=== PATIENT | female | born 1945 | race Caucasian/White ===

== ENCOUNTER → 2022-05-06 12:57 | Outpatient (BNVA) | payer MEDICARE, SELFPAY | PROVIDERS: PCP Hospitalist; Visit Provider Surgery | DX: K64.2 Third degree hemorrhoids (principal) | CPT/HCPCS: 46600; 99202 ==

== ENCOUNTER → 2022-05-12 09:00 | Outpatient (REF) | payer MEDICARE, SELFPAY | LOC: HO.SL 09:00 | PROVIDERS: PCP Hospitalist; Visit Provider Hospitalist | DX: G47.33 Obstructive sleep apnea (adult) (pediatric) (principal); G47.30 Sleep apnea, unspecified | CPT/HCPCS: 95806 ==

== ENCOUNTER 2022-09-27 09:28 | Outpatient (REF) | payer MEDICARE, SELFPAY ==
[2022-09-27 11:39] LABS: Appearance Urine Clear; Color Urine Yellow; Glucose Urine UA Negative (Negative); Leukocyte Esterase Urine Small (1+) (Negative); Nitrite Urine Negative (Negative); UMIC TRIGGER UA YES; Urine Blood Negative (Negative); Urine Ketones Negative (Negative); Urine Protein Negative (Neg-Trace)
[2022-09-27 11:46] LABS: Hematocrit 40.7 % (37.0-47.0); Hemoglobin 13.8 g/dl (12.0-16.0); Mean Corpuscular HGB Conc 33.9 g/dl (31.0-35.0); Mean Corpuscular Hemoglobin 29.3 pg (27.0-33.0); Mean Corpuscular Volume 86.4 fL (80.0-98.0); Mean Platelet Volume 10.7 fL (9.4-12.3); Platelet Count 243 X10*3/uL (160-400); Red Blood Count 4.71 X10*6/uL (4.20-5.50); Red Cell Distribution Width 13.4 % (11.0-16.0); White Blood Count 6.9 X10*3/uL (4.8-10.8)
[2022-09-27 12:01] LABS: Alanine Aminotransferase 14 U/L (0-31); Albumin Level 4.2 g/dL (3.5-5.0); Alkaline Phosphatase 77 U/L (39-117); Anion Gap 16 (12-20); Aspartate Amino Transferase 17 U/L (5-31); Blood Urea Nitrogen 15 mg/dL (9-16); Calcium 9.8 mg/dL (8.4-10.2); Carbon Dioxide 29 mmol/L (22-29); Chloride 102 mmol/L (96-108); Cholesterol 147 mg/dL; Estimated Glomerular Filt Rate 44; Glucose Fasting 115 mg/dL (60-99); HDL Cholesterol 43 mg/dL; LDL Cholesterol Calculated 83 mg/dl; Potassium 4.2 mmol/L (3.3-5.1); Sodium 143 mmol/L (135-145); Total Protein 7.6 g/dL (6.5-8.0); Triglycerides 107 mg/dL
[2022-09-27 12:18] LABS: Hyaline Casts Urine 0-2 /LPF (0-2); RBC Urine 0-2 /HPF (0-2)
[2022-09-27 12:19] LABS: Bacteria Urine Trace (None Seen)
[2022-09-27 12:28] LABS: TSH reflex Free T4 1.85 uIU/mL (0.32-4.0)
== END 2022-09-27 09:29 | disposition home or self-care (01) ==
LOC: HO.WFDLDS 09:28
PROVIDERS: Visit Provider Hospitalist
DX: Z00.00 Encounter for general adult medical examination without abnormal findings (principal)
CPT/HCPCS: 36415; 80053; 80061; 81001; 84443; 85027

== ENCOUNTER 2023-03-23 13:00 | Outpatient (RCR) | payer MEDICARE, SELFPAY ==
--- NOTE | 2023-03-02 12:44 | MHC.PT.EP ---
[facility] [place] [facility] [place] Office [place] Office [address] Becky Castellano [address] [phone] F: [phone] F: [phone] F: [phone] F: [phone] Physical Therapy Plan of Care Date of Evaluation: Date of Surgery: NA Diagnosis: PAIN IN R THIGH Assessment: Pt IS 77 YO F REFERRED TO PT FROM [facility] WITH PAIN IN B THIGHS. Pt REPORTS ALWAYS HAS PAIN IN R LEG BUT AT TIMES IN L WELL. REPORTS PAIN FOR ABOUT 1 YEAR OF INSIDIOUS ONSET. REPORTS PAIN SEEMS TO START IN R THIGH AND MOVES DOWN TO REST OF LEG. SOMETIMES FEELS LIKE THIGH IS SLEEPING. REPORTS MOST PAIN WITH PROLONGED SIT. PRESENTS TO PT WITH TRUNK ROM WNLS AND QUAD/HS STRENGTH WNLS WITH MMT. Pt REPORTS RELIEF R LEG SXS WITH PRONE POSITION AND JUAN. SHOULD BENEFIT FROM PT TO WORK ON MIGUE EXTENSION PROGRAM AND CORE STRENGTHENING Frequency and Duration: The patient will be seen 2X/WK X 4 WKS Short Term Goals: 1. CENTRALIZE SXS 2. Pt TO PERF 2-3 TASKS WITH PROPER BODY MECH Senior Care Goals: 1. DECREASED LEG PAIN AT LEAST 50% WITH ADLS 2. I HEP WITH DC EX PLAN Treatment Plan: Modalities to reduce pain, spasms and effusion. Manual therapy to restore motion and function. Therapeutic exercise to improve strength and flexibility. Neuromuscular re-education for posture and balance. Therapeutic activities to return to functional activities of daily living. Electronically signed by: SHANICE DEUTSCH PT Please sign and return to therapist. Thank you for your referral.
--- NOTE | 2023-06-01 08:39 | MHC.PT.DC ---
[facility] [place] Office [place] Office [place] Office [address] Becky Castellano [address] [phone] F: [phone] F: [phone] F: [phone] F: [phone] Physical Therapy Discharge Report Diagnosis: PAIN IN R THIGH Date of Surgery: NA Date of Evaluation: 03/02/23 Date of Discharge: 06/01/23 Treatments to Date: 6 Cancellations to Date: No Shows to Date: Discharge Status: Achieved Goals Improved Function Independent with HEP Discharge Summary: PER LAST PT SESSION ASSESSMENT ON 03/23/23 HAS MET PT GOALS. TO SEE [facility] NEXT WEEK. WILL DC BUT LEAVE CHART OPEN UNTIL AFTER APPT Electronically signed by: SHANICE DEUTSCH PT Please sign and return to therapist. Thank you for your referral.
== END 2023-06-01 08:40 | disposition home or self-care (01) ==
LOC: HO.PTWFD 13:00
PROVIDERS: Visit Provider Hospitalist
DX: M79.651 Pain in right thigh (principal)
CPT/HCPCS: 97110; 97140; 97161; 97535

== ENCOUNTER → 2023-07-28 09:50 | Outpatient (REF) | payer MEDICARE, MEDICAID, SELFPAY ==
--- NOTE | 2023-07-28 09:55 | CA_ITS ---
Transthoracic Echocardiogram Patient (Last, First, Middle): Roseanne Abdi, Gender: Female Date of : 1945 Age: 78 Procedure Date: 07/28/2023 Procedure Type: Transthoracic Echocardiogram Location: OP Height: 160.02 cm Weight: 83.92 kg BSA: 1.87 m2 Heart Rate: bpm BP: 100 / 68 mmHg Rigger Apprentice: TO Referring MD: Kar Gonzalez CNP Symptoms: R01.1 - Cardiac murmur, unspecified Study Quality: Fair ECG Rhythm: Sinus Conclusions: - The left ventricular systolic function is hyperdynamic. The visually estimated ejection fraction is >70%. - There is severe septal and severe basal asymmetric hypertrophy. - There is moderate calcification of the aortic valve. - There is mild aortic valve regurgitation. - There is mild dilatation of the ascending aorta measuring 4.00 cm. Findings Left Ventricle Normal left ventricular cavity size. The left ventricular systolic function is hyperdynamic. The visually estimated ejection fraction is >70%. There is no evidence of regional wall motion abnormalities. Evidence suggests grade I (mild) diastolic dysfunction. There is severe septal and severe basal asymmetric hypertrophy. Right Ventricle Normal right ventricular cavity size and systolic function. Atria Both atria are normal in size. Aortic Valve The aortic valve was not well visualized. There is moderate calcification of the aortic valve. There is no aortic valve stenosis. There is mild aortic valve regurgitation. Mitral Valve There is mild anterior mitral leaflet thickening. There is mild mitral valve regurgitation. There is no mitral valve stenosis. Pulmonic Valve The pulmonic valve is likely normal. Tricuspid Valve There is no tricuspid valve regurgitation. Tricuspid regurgitation envelope is inadequate for calculation of right ventricular systolic pressure. Great Vessels There is mild dilatation of the ascending aorta measuring 4.00 cm. Venous The inferior vena cava was not well visualized. The inferior vena cava is normal in size. Pericardium/Pleural There is no evidence of pericardial effusion. Prior Study Comparison No prior study available for comparison. Measurements 2D Linear Measurements IVSd: 1.70 0.6-0.9/0.6-1.0 cm LVIDd: 3.70 3.9-5.3/4.2-5.9 cm LVIDd Index: 1.98 2.4-3.2/2.2-3.1 cm/m2 LVIDs: 2.60 2.0-3.6 cm LVPWd: 0.90 0.7-1.1 cm LA Diam: 2.80 2.7-3.8/3.0-4.0 cm LAIDs Index: 1.50 1.5-2.3 cm/m2 LV Mass: 207.37 67-162/88-224 g LV Mass Index: 110.89 43-95/49-115 g/m2 LVOT Diam: 2.10 3.0+(-)1.3 cm 2D Systolic Function EF 4C: 61.00 >55% EF 2C: 57.70 >55% EF BiP: 59.80 >55% Mitral Valve MV Pk E: 0.54 MV PK A: 0.96 MV Decel Time: 163.00 E/A: 0.60 E'Lateral: 5.77 E'Medial: 3.26 E/E' Med: 16.70 E/E' Lat: 9.40 PHT: 48.00 MVA PHT: 4.58 Decel [place]: 3.33 Aortic Valve AoV Pk Rangel: 1.90 AoV Mn Rangel: 1.32 AoV VTI: 0.36 AoV Pk Grad: 14.00 Aov Mn Grad: 8.00 GERRY Cont.VTI: 1.63 AI Pk Rangel: 3.83 AI [place]: 2.36 LVOT LVOT Pk Rangel: 0.95 LVOT Mn Rangel: 0.61 LVOT VTI: 0.17 LVOT Pk Grad: 4.00 LVOT Mn Grad: 2.00 LVOT Diam: 2.10 LVOT Area: 3.46 Diastolic Function MV Pk E: 0.54 MV Pk A: 0.96 E/A: 0.60 E'Medial: 3.26 E/E' Med: 16.70 E' Laterial: 5.77 E/E' Lat: 9.40 Right Ventricle TAPSE (mm): 20.00 TVS' Rangel: 9.36 Tricuspid Valve RA Press: 3.00 Great Vessels Aorta Sinus of Valsalva: 3.50 2.0-3.[address] [place]: 2.70 1.7-3.4 cm Ao Asc: 4.00 2.1-3.4 cm Updated in Other Vendor System with Status of Final Steve Bauer MD electronically signed on 07/29/2023 9:13:41 AM with status of Final
== END ==
LOC: HO.CARD 09:50
PROVIDERS: PCP Hospitalist; Visit Provider Nurse Practitioner Family
DX: R01.1 Cardiac murmur, unspecified (principal)
CPT/HCPCS: 93306

== ENCOUNTER → 2023-07-28 09:55 | Outpatient (BNV) | payer MEDICARE, SELFPAY | PROVIDERS: PCP Hospitalist; Visit Provider Internal Medicine | DX: I35.1 Nonrheumatic aortic (valve) insufficiency (principal); I34.0 Nonrheumatic mitral (valve) insufficiency | CPT/HCPCS: 93306 ==

== ENCOUNTER 2023-08-24 11:57 | Outpatient (AMB) | payer MEDICARE, SELFPAY ==
--- NOTE | 2023-08-24 12:31 | MHC.OFFVIS ---
Intake Vital Signs 08/24/23 12:33 Height 5 ft 3 in Weight 183 lb 10.321 oz BMI 32.5 BP 114/76 Blood Pressure Location Lt brachial Position Sitting Pulse 80 Intake Visit Reasons: NPV/Murmur/Johnson. Intake Note: NPV w/ EKG Boiler Room Operator Required: Yes Boiler Room Operator Language: Field Sales Manager Name: Ricky Cordoba Accompanied by: granddaughter Allergies pravastatin Adverse Reaction (Verified 08/24/23 12:34) muslce pain Medication List - Last Reconciled 08/24/23 by Steve Bauer MD ascorbic acid (vitamin C) 500 mg (1/2 x 1,000 mg) PO DAILY blood pressure kit-extra large check bp daily and as needed for headache/dizziness cholecalciferol (vitamin D3) 25 mcg PO DAILY cyanocobalamin (vitamin B-12) 1,000 mcg PO DAILY diltiazem HCl (Cardizem CD) 240 mg PO DAILY DM-GG/npmaafv-BS-pnqsklypdiccn 10-200 mg(dy)/2 -15-500 mg(nt) (Coricidin HBP Day-Night) 1 ea PO TID PRN erythromycin 0.5 inches ophthalmic (eye) QID gabapentin 800 mg PO BID levothyroxine 137 mcg PO DAILY meloxicam 7.5 mg PO DAILY 30 days menthol-zinc oxide 0.44-20.6 % (Calmoseptine) 1 appl topical QID PRN menthol-zinc oxide 0.44-20.6 % (Calmoseptine) 1 appl topical QID PRN metformin 500 mg PO DAILY miscellaneous medical supply cpap therapy with auto pap mode and pressure settings 6-20 cm followed by close monitoring for compliance and benefit as directed; test to be included with fax multivitamin 1 tab PO DAILY omeprazole 20 mg PO DAILY triamterene-hydrochlorothiazid 37.5-25 mg 1 tab PO DAILY 3 months HPI HPI Comments History of Present Illness Details Roseanne is here for evaluation for cardiac murmur. She underwent echocardiogram recently. That showed hyperdynamic LVEF with severe septal hypertrophy and moderate aortic valve calcification. Patient herself does not have any cardiac symptoms. She does not have any exertional chest pain or exertion shortness of breath or in fact any symptoms at all. Denies any history of coronary artery disease or myocardial infarction or cardiomyopathy or in fact anything else. Has hypertension. Per patient, has been on diltiazem for many years. Also on triamterene/HCTZ. Several record blood pressures here or in the normal range. Patient thinks some of the home diastolics are higher than that. [facility] Medical History Arthritis Carpal tunnel syndrome Diabetes Glaucoma Gout Hemorrhoids HTN (hypertension) Hypothyroid Neuropathy Sleep apnea Surgical History Hx of sinus surgery H/O eye surgery Hx of tubal ligation History of thyroid surgery Hx of cholecystectomy Family History (Updated 08/24/23 @ 12:36 by Qing Jacobs) Mother No problems noted. Father No problems noted. Social History Household Members: Family Housing: House Alcohol intake: former Patient Tobacco Use Status: Former Tobacco user e-Cigarette/Vaping Use: Never Used Current occupational status: employed and disabled Review of Systems Const All systems reviewed & are unremarkable except as noted in HPI and below Reports as per HPI and Reports no additional complaints Eyes Reports as per HPI and Denies no additional complaints ENT Denies no additional complaints and Reports as per HPI Card Reports as per HPI, Reports no additional complaints, Denies acrocyanosis, Denies chest pain, Denies leg edema, Denies lightheadedness, Denies palpitations and Denies dyspnea Resp Reports as per HPI, Denies no additional complaints and Denies dyspnea GI Reports as per HPI and Denies no additional complaints Reports as per HPI Musc Reports no additional complaints and Reports as per HPI Skin/Breast Reports system reviewed and no additional complaints, except as documented Neuro Reports no additional complaints and Reports as per HPI Psych Reports no additional complaints and Reports as per HPI Endo Reports no additional complaints, Reports as per HPI and Denies palpitations Evin/Lymph Reports no additional complaints and Reports as per HPI Aller/Immun Reports no additional complaints and Reports as per HPI Physical Exam Vital Signs: Last Vital Signs Pulse 80 08/24/23 12:33 BP 114/76 08/24/23 12:33 BMI result Body Mass Index 32.5 Const General: comfortable and no acute distress Orientation/consciousness: patient oriented x3 HEENT Other: Unremarkable Head: Yes normal to inspection Neck Neck: Yes normal visual inspection Chest Chest palpation & inspection: normal inspection of the chest Resp Auscultation: clear to auscultation bilaterally Cardio Palpation: normal PMI Heart sounds: S1 normal heart sound present, S2 normal heart sound present, no gallops, Murmur heart sound present systolic II/ and at the right sternal border and no rubs GI Palpation (GI): Soft to palpation Back/Spine/Pelvis Other: unremarkable Skin General skin exam: no rashes or lesions noted Neuro General: patient oriented x3 Extrem General: Yes normal to inspection Psych Mental Status: mental status grossly normal Assessment & Plan Assessment & Plan (1) Asymmetric septal hypertrophy: Code(s): I42.2 - Other hypertrophic cardiomyopathy (2) Aortic valve calcification: Code(s): I35.9 - Nonrheumatic aortic valve disorder, unspecified (3) Ascending aorta enlargement: Code(s): I77.89 - Other specified disorders of arteries and arterioles Plan EKG with sinus rhythm at 80/Min; leftward axis and voltage criteria for LVH; normal [place] and corrected QT. In the recent echocardiogram, hyperdynamic LVEF; there is severe basal septal hypertrophy; moderate aortic valve calcification with mild regurgitation; ascending aortic size 4 cm. Findings discussed with patient and granddaughter. Clinically, she has got absolutely no symptoms. Hence we will just continue to monitor this. With regard to blood pressure, essentially all her readings are in the normal range. Hence no changes made. Follow-up with echocardiogram in 1 year. In the interim, advised to contact us with concerns. tariff inspector was used. Orders: Orders CA echo transthoracic complete 51 Weeks I35.9 - Nonrheumatic aortic valve disorder, unspecified, I42.2 - Other hypertrophic cardiomyopathy Coding Level of Care Code New Pt Level 3 (98590) Diagnoses Asymmetric septal hypertrophy I42.2 Aortic valve calcification I35.9 Ascending aorta enlargement I77.89
[2023-08-24 12:33] VITALS: BP 114/76; PULSE 80; BMI 32.5
== END 2023-08-24 12:55 | disposition home or self-care (01) ==
PROVIDERS: PCP Hospitalist; Visit Provider Internal Medicine
DX: I42.2 Other hypertrophic cardiomyopathy (principal); I35.9 Nonrheumatic aortic valve disorder, unspecified; I77.89 Other specified disorders of arteries and arterioles; R94.31 Abnormal electrocardiogram [ECG] [EKG]
CPT/HCPCS: 93010; 99203

== ENCOUNTER → 2023-08-24 11:57 | Outpatient (BNVA) | payer MEDICARE, SELFPAY | PROVIDERS: PCP Hospitalist; Visit Provider Internal Medicine | DX: I42.2 Other hypertrophic cardiomyopathy (principal); I35.9 Nonrheumatic aortic valve disorder, unspecified; I77.89 Other specified disorders of arteries and arterioles | CPT/HCPCS: 93005 ==

== ENCOUNTER 2023-08-30 11:25 | Outpatient (AMB) | payer MEDICARE, SELFPAY ==
--- NOTE | 2023-08-30 11:28 | MHC.PC.OV ---
Vital Signs 08/30/23 11:30 Height 5 ft 3 in Weight 181 lb 2 oz BMI 32.1 BP 110/70 Blood Pressure Location Lt brachial Position Sitting Respiration 13 Pulse 80 Pulse Source Pulse Oximeter Temp 98.9 F Temp Source Oral Pulse Oximetry (%) 95 Oxygen Delivery Method Room Air Intake Visit Reasons: 3 mos for DM, leg and buttock pain Intake Note: Patient is here to follow up for her 3 month visit. Patient's last A1C was in March with a result of 6.8%. Patient is accompanied by her daughter at today's visit. Dukey Rider Required: No Dukey Rider Name: Antony ([id number]) Accompanied by: Self / Same As Patient Allergies pravastatin Adverse Reaction (Verified 08/30/23 11:52) muslce pain Medication List - Last Reconciled 08/30/23 by Kar Gonzalez CNP ascorbic acid (vitamin C) 500 mg (1/2 x 1,000 mg) PO DAILY blood pressure kit-extra large check bp daily and as needed for headache/dizziness cholecalciferol (vitamin D3) 25 mcg PO DAILY cyanocobalamin (vitamin B-12) 1,000 mcg PO DAILY diltiazem HCl (Cardizem CD) 240 mg PO DAILY erythromycin 0.5 inches ophthalmic (eye) QID gabapentin 800 mg PO BID levothyroxine 137 mcg PO DAILY meloxicam 7.5 mg PO DAILY 30 days menthol-zinc oxide 0.44-20.6 % (Calmoseptine) 1 appl topical QID PRN menthol-zinc oxide 0.44-20.6 % (Calmoseptine) 1 appl topical QID PRN metformin 500 mg PO DAILY miscellaneous medical supply cpap therapy with auto pap mode and pressure settings 6-20 cm followed by close monitoring for compliance and benefit as directed; test to be included with fax multivitamin 1 tab PO DAILY omeprazole 20 mg PO DAILY triamterene-hydrochlorothiazid 37.5-25 mg 1 tab PO DAILY 3 months Tobacco use date assessed: 02/17/23 Fall risk assessment: 1 Fall in past year Last assessed Fall Risk: 08/30/23 Dental Screening Dental Screen Date: 08/30/23 Did you have a dental visit in the last 12 months?: Yes Did you have a dental problem in the last 6 months where you did not have access to dental care?: No Was dental information given to patient?: Patient has dentist HPI HPI Comments History of Present Illness Details 78-year-old English speaking female, accompanied by her granddaughter, presents for diabetes follow-up. She is on metformin 500 mg daily which she notes she has been taking as prescribed. She notes she has been maintaining a healthy diet. Her last A1c in March was 6.8%. She reports continued pain to her BLE. She describes the pain as burning. She notes some improvement with meloxicam, however, ran out of the medication. She has been taking Gabapentin 800mg twice daily without improvement. She is [place] [facility] [place] [facility] Medical History Arthritis Carpal tunnel syndrome Diabetes Glaucoma Gout Hemorrhoids HTN (hypertension) Hypothyroid Neuropathy Sleep apnea Surgical History Hx of sinus surgery H/O eye surgery Hx of tubal ligation History of thyroid surgery Hx of cholecystectomy Family History (Updated 08/24/23 @ 12:36 by Qing Jacobs) Mother No problems noted. Father No problems noted. Social History Household Members: Family Housing: House Alcohol intake: former Patient Tobacco Use Status: Former Tobacco user e-Cigarette/Vaping Use: Never Used service: No Current occupational status: employed and disabled Cognitive needs: No Hearing needs: No Vision needs: No Questionnaire Thrive Questionnaire Date Thrive assessed: 12/14/22 Review of Systems Const Details: Const Denies chills, Denies fatigue, Denies fever(s), Denies headache(s) and Denies weakness ENT Denies dizziness and Denies headache(s) Card Denies chest pain, Denies lightheadedness, Denies dyspnea and Denies other (Palpitations) Resp Denies cough, Denies dyspnea, Denies wheezing and Denies other ( shortness of breath) GI Denies abdominal pain, Denies melena, Denies hematochezia, Denies change in bowel habits, Denies dyspepsia and Denies nausea Denies hematuria and Denies dysuria Musc Reports as per HPI Skin/Breast Denies rash, Denies unusual bruising and Denies wounds Neuro Denies abnormal gait, Denies dizziness, Denies headache(s), Denies memory loss, Denies numbness, Denies Sensory deficit (Neuro), Denies tingling and Denies weakness Psych Denies anxiety, Denies depression, Denies memory loss Endo Denies cold intolerance, Denies fatigue, Denies heat intolerance, Denies polydipsia and Denies polyuria Aller/Immun Denies wheezing Physical exam (Primary Care) Vital Signs: Last Vital Signs Temp 98.9 F 08/30/23 11:30 Pulse 80 08/30/23 11:30 Resp 13 08/30/23 11:30 BP 110/70 08/30/23 11:30 Pulse Ox 95 08/30/23 11:30 Oxygen Delivery Method Room Air 08/30/23 11:30 BMI result Body Mass Index 32.1 Tobacco/Smoking Status: Tobacco use Status Tobacco use date assessed 02/17/23 08/30/23 11:35 Patient Tobacco Use Status Former Tobacco user 08/30/23 11:35 e-Cigarette/Vaping Use Never Used 08/30/23 11:35 Thrive Assessment: Date of Thrive Assessment Date Thrive assessed 12/14/22 08/30/23 11:35 Const Other: General: no acute distress and well developed Nutritional Appearance: well nourished Orientation/consciousness: patient oriented x3 HENMT Head: Yes normocephalic and Yes atraumatic Eyes General: appearance normal, both eyes and all related structures Pupils: Equal, round and reactive pupils present EOM: EOMs intact bilaterally Resp Effort & Inspection: normal respiratory effort Auscultation: clear to auscultation bilaterally Cardio Rate: regular rate Rhythm: regular rhythm Heart sounds: S1 normal heart sound present, S2 normal heart sound present, no gallops, no murmurs and no rubs GI Palpation (GI): No Abdominal aortic bruit present, Soft to palpation, nontender, No hepatosplenomegaly present and No Rebound tenderness present Auscultation: normal bowel sounds General: Yes no CVA tenderness Back/Spine/Pelvis Back: no CVA tenderness Cervical Spine: cervical ROM normal and No Cervical spine tenderness Thoracic/Lumbar Spine: thoraco-lumbar ROM normal, No pain with thoraco-lumbar ROM, No thoracic spinal tenderness and No lumbar spinal tenderness Extrem General: Yes normal to inspection, No edema and No calf tenderness Negative straight leg raise bilaterally Skin General: warm and dry. Normal skin color. Normal skin turgor Neuro General: patient oriented x3, gait normal and no focal neuro deficit Cranial nerves: Yes Equal, round and reactive pupils present Cognition (Neuro): normal cognition Gait exam (Neuro): Normal gait present Sensory Exam: No Sensory deficit (Neuro) Psych Appearance: grossly normal Affect: normal affect Attitude: cooperative Thought process: Normal thought process present Results AMB Hemoglobin A1c AMB Hemoglobin A1c 6.6 % Last Edit by Anabel Pereira CMA on 08/30/23 12:11 Assessment and Plan Assessment & Plan (1) Type 2 diabetes, controlled, with neuropathy: Code(s): E11.40 - Type 2 diabetes mellitus with diabetic neuropathy, unspecified Plan: Her A1c 6.6% today, within goal of less than 7.0%. Previous A1c was 6.8% Continue with current treatment regimen ADA diet and routine exercise encouraged Will recheck A1c in 3 months Advised to waste picker meloxicam from the pharmacy and take as prescribed for neuropathic pain Gabapentin increased to 3 times daily. Take as prescribed for neuropathic pain Routine labs ordered for a complete physical exam. Advised to get blood work done before her next visit Follow-up in 1 month for complete physical exam. Return sooner with worsening or new symptoms. Verbalized understanding and agreed with treatment plan Interpretation by a professional certified court/medical interpreter via an electronic tablet. (2) HTN (hypertension): Code(s): I10 - Essential (primary) hypertension Qualifiers: Hypertension type: primary hypertension Qualified Code(s): I10 - Essential (primary) hypertension Plan: Blood pressures control, 110/70, within goal of less than 130/80 Continue with current treatment regimen Low-sodium diet encouraged Will continue to monitor Verbalized understanding and agreed with treatment plan. Orders: Orders Complete Blood Count Auto Diff Today Z00.00 - Encounter for general adult medical examination without abnormal findings Lipid Panel Today Z00.00 - Encounter for general adult medical examination without abnormal findings TSH reflex Free T4 Today Z00.00 - Encounter for general adult medical examination without abnormal findings AMB Hemoglobin A1c Today Z13.9 - Encounter for screening, unspecified Comprehensive [place]. Panel Fast Today Z00.00 - Encounter for general adult medical examination without abnormal findings UA CC w/rflx Micro + Cult Today Z00.00 - Encounter for general adult medical examination without abnormal findings Medications: Changed From gabapentin 800 mg PO BID 180 tabs 3RF To gabapentin 800 mg PO TID 90 tabs 3RF 30 days Coding Level of Care Code Est Pt Level 4 (28258) Diagnoses Type 2 diabetes, controlled, with neuropathy E11.40 Primary hypertension I10 Hypertension type: primary hypertension
[2023-08-30 11:30] VITALS: BP 110/70; PULSE 80; RESP 13; TEMP 37.2; O2SAT 95; BMI 32.1
== END 2023-08-30 12:32 | disposition home or self-care (01) ==
PROVIDERS: Visit Provider Nurse Practitioner Family
DX: E11.40 Type 2 diabetes mellitus with diabetic neuropathy, unspecified (principal); I10 Essential (primary) hypertension; Z13.9 Encounter for screening, unspecified
CPT/HCPCS: 83036; 99214

== ENCOUNTER 2023-08-30 12:33 | Outpatient (REF) | payer MEDICARE, SELFPAY ==
[2023-08-30 14:30] LABS: MANUAL DIFF FLAG NO
[2023-08-30 14:31] LABS: Basophils Percent Auto 0.6 % (0-2); Eosinophils Absolute Auto 0.3 X10*3/uL (0.0-0.4); Hematocrit 42.2 % (37.0-47.0); Hemoglobin 14.5 g/dl (12.0-16.0); Imm Gran Abs Auto 0.02 X10*3/uL (0.00-0.03); Imm Gran Pct Auto 0.3 % (0.0-0.4); Lymphocytes Absolute Auto 2.4 X10*3/uL (1.2-4.9); Lymphocytes Percent Auto 39.2 % (20-40); Mean Corpuscular HGB Conc 34.4 g/dl (31.0-35.0); Mean Corpuscular Volume 87.4 fL (80.0-98.0); Mean Platelet Volume 10.7 fL (9.4-12.3); Monocytes Absolute Auto 0.5 X10*3/uL (0.1-1.2); Monocytes Percent Auto 7.3 % (2-11); Neutrophils Absolute Auto 2.9 x10*3/uL (2.0-8.3); Neutrophils Percent Auto 47.6 % (45-73); Platelet Count 237 X10*3/uL (160-400); Red Blood Count 4.83 X10*6/uL (4.20-5.50); Red Cell Distribution Width 13.9 % (11.0-16.0); White Blood Count 6.2 X10*3/uL (4.8-10.8)
[2023-08-30 14:32] LABS: Appearance Urine Cloudy; Color Urine Yellow; Glucose Urine UA Negative (Negative); Leukocyte Esterase Urine Large (3+) (Negative); Nitrite Urine Negative (Negative); Specific Gravity - Urine 1.015 (1.005-1.025); UMIC TRIGGER UACC YES; Urine Blood Negative (Negative); Urine Ketones Negative (Negative); Urine Protein Negative (Neg-Trace)
[2023-08-30 14:35] LABS: Bacteria Urine 1+ (None Seen); Hyaline Casts Urine 0-2 /LPF (0-2); Squamous Epithelial Cell Urine >20 /HPF (0-2); UACC Culture Trigger YES
[2023-08-30 15:34] LABS: Alanine Aminotransferase 19 U/L (0-31); Albumin Level 4.1 g/dL (3.5-5.0); Alkaline Phosphatase 83 U/L (39-117); Anion Gap 16 (12-20); Aspartate Amino Transferase 20 U/L (5-31); Bilirubin Total 0.9 mg/dL (0.0-1.0); Blood Urea Nitrogen 16 mg/dL (9-16); Calcium 9.9 mg/dL (8.4-10.2); Carbon Dioxide 27 mmol/L (22-29); Chloride 104 mmol/L (96-108); Cholesterol 171 mg/dL (<200); Estimated Glomerular Filt Rate 44; Glucose Fasting 111 mg/dL (60-99); HDL Cholesterol 40 mg/dL (>40); LDL Cholesterol Calculated 101 mg/dL (<100); Potassium 4.7 mmol/L (3.3-5.1); Sodium 142 mmol/L (135-145); Triglycerides 153 mg/dL (<150)
[2023-08-30 15:51] LABS: TSH reflex Free T4 1.59 uIU/mL (0.32-4.0)
== END 2023-08-30 12:34 | disposition home or self-care (01) ==
LOC: HO.WFDLDS 12:33
PROVIDERS: Visit Provider Nurse Practitioner Family
DX: Z00.00 Encounter for general adult medical examination without abnormal findings (principal)
CPT/HCPCS: 36415; 80053; 80061; 81001; 84443; 85025; 87086

== ENCOUNTER 2023-10-12 12:22 | Outpatient (AMB) | payer MEDICARE, SELFPAY ==
[2023-10-12 12:34] VITALS: BP 122/70; PULSE 91; O2SAT 96; BMI 32.7
--- NOTE | 2023-10-12 12:34 | A.OFFPC_ITS ---
Vital Signs 10/12/23 12:34 Height 5 ft 3 in Weight 184 lb 8 oz BMI 32.7 BP 122/70 Blood Pressure Location Lt brachial Position Sitting Pulse 91 Pulse Source Pulse Oximeter Pulse Oximetry (%) 96 Oxygen Delivery Method Room Air Intake Visit Reasons: CPE Transfer of care Intake Note: Patient is here for transfer of care visit. She is has concern of burning under the feet. She has felt this way since last visit. Allergies pravastatin Adverse Reaction (Verified 10/12/23 12:59) muslce pain Medication List - Last Reconciled 10/12/23 by Kar Gonzalez CNP ascorbic acid (vitamin C) 500 mg (1/2 x 1,000 mg) PO DAILY blood pressure kit-extra large check bp daily and as needed for headache/dizziness cholecalciferol (vitamin D3) 25 mcg PO DAILY cyanocobalamin (vitamin B-12) 1,000 mcg PO DAILY diltiazem HCl (Cardizem CD) 240 mg PO DAILY erythromycin 0.5 inches ophthalmic (eye) QID gabapentin 800 mg PO TID 30 days levothyroxine 137 mcg PO DAILY meloxicam 7.5 mg PO DAILY 30 days menthol-zinc oxide 0.44-20.6 % (Calmoseptine) 1 appl topical QID PRN menthol-zinc oxide 0.44-20.6 % (Calmoseptine) 1 appl topical QID PRN metformin 500 mg PO DAILY miscellaneous medical supply cpap therapy with auto pap mode and pressure settings 6-20 cm followed by close monitoring for compliance and benefit as directed; test to be included with fax multivitamin 1 tab PO DAILY omeprazole 20 mg PO DAILY triamterene-hydrochlorothiazid 37.5-25 mg 1 tab PO DAILY 3 months Tobacco use date assessed: 10/12/23 Fall risk assessment: 1 Fall in past year Last assessed Fall Risk: 10/12/23 HPI HPI Comments History of Present Illness Details 78-year-old Wolof-speaking female, acc ompanied by his grandson, pres ents for transfer of care and a complete physical exam She relocated from [place] to [facility] almost 2 years ago Her former PCP is JYOTI who is no longer with the practice She has past medical history significant for type 2 diabetes with neuropathy, hypertension, hypothyroidism, heart murmur, aortic valve calcification, DIANA, right eye blindness, and arthritis She admits to taking her medications as prescribed without adverse reactions She notes that her former PCP discontinued her pravastatin due to concern for possible adverse reaction of bilateral lower extremity pain that the patient was experiencing. The patient notes that she continues to experience intermittent bilateral extremity pain from her knees to her feet. She described the pain to her feet as burning. She denies acute symptoms at this time. She notes that she is not followed by a sampler and test preparer She notes that her last mammogram and pap smear test was at [facility] almost a year ago: normal. Per [facility] record, last mammogram was on 09/23/2022: Normal. No record found for Pap smear test She states that her last colonoscopy was in [place] 3-4 years ago: normal She notes that she was vaccinated for shingles and pneumonia in [place] She is followed by [facility] Medical History Arthritis Carpal tunnel syndrome Diabetes Glaucoma Gout Hemorrhoids HTN (hypertension) Hypothyroid Neuropathy Sleep apnea Surgical History Hx of sinus surgery H/O eye surgery Hx of tubal ligation History of thyroid surgery Hx of cholecystectomy Family History (Updated 08/24/23 @ 12:36 by Qing Jacobs) Mother No problems noted. Father No problems noted. Social History Household Members: Family Housing: House Alcohol intake: former Patient Tobacco Use Status: Former Tobacco user e-Cigarette/Vaping Use: Never Used service: No Current occupational status: employed and disabled Cognitive needs: No Hearing needs: No Vision needs: No Questionnaire Thrive Questionnaire Date Thrive assessed: 12/14/22 Review of Systems Const Details: Denies chills, Denies fatigue, Denies fever(s), Denies headache(s) and Denies weakness HEENT Denies change in vision, Denies dizziness, Denies headache(s), Denies hearing loss, Denies nasal congestion, Denies sinus pain, Denies sinus pressure and Denies sore throat Card Denies chest pain, Denies lightheadedness, Denies dyspnea and Denies other (palpitations) Resp Denies cough, Denies dyspnea and Denies wheezing GI Denies abdominal pain, Denies melena, Denies hematochezia, Denies change in bowel habits, Denies dyspepsia and Denies nausea Denies hematuria and Denies dysuria Musc Denies abnormal gait, Denies myalgias, Denies arthralgias, Denies numbness and Denies tingling Skin/Breast Denies rash, Denies unusual bruising and Denies wounds Neuro Denies abnormal gait, Denies dizziness, Denies headache(s), Denies memory loss, Denies numbness, Denies Sensory deficit (Neuro), Denies tingling and Denies weakness Psych Denies anxiety, Denies depression and Denies memory loss Endo Denies cold intolerance, Denies fatigue, Denies heat intolerance, Denies polydipsia and Denies polyuria Evin/Lymph Denies easy bleeding and Denies easy bruising Aller/Immun Denies wheezing Physical exam (Primary Care) Vital Signs: Last Vital Signs Pulse 91 10/12/23 12:34 BP 122/70 10/12/23 12:34 Pulse Ox 96 10/12/23 12:34 Oxygen Delivery Method Room Air 10/12/23 12:34 BMI result Body Mass Index 32.7 Tobacco/Smoking Status: Tobacco use Status Tobacco use date assessed 02/17/23 10/12/23 12:36 Patient Tobacco Use Status Former Tobacco user 10/12/23 12:36 e-Cigarette/Vaping Use Never Used 10/12/23 12:36 Thrive Assessment: Date of Thrive Assessment Date Thrive assessed 12/14/22 10/12/23 12:36 Const Other: General: no acute distress, well developed, alert and awake Nutritional Appearance: well nourished Orientation/consciousness: patient oriented x3 HENMT Head: Yes normocephalic and Yes atraumatic Ears: hearing grossly normal bilaterally and TM's normal bilaterally General nose exam: Normal external nose present and Normal nares present Mouth: Normal oral and palatal mucosa present and moist mucous membranes Teeth and gingiva: dentition normal Throat: Yes oropharynx normal Eyes Pupils: Left eye, round and reactive pupils present and Pupil accommodation reflex normal. Poor right eye repsone EOM: EOMs intact of the right eye. Right eye with no vision and poor response Neck Neck: Yes normal visual inspection, Yes no lymphadenopathy and Yes trachea midline Thyroid: Thyroid normal Carotids: no bruits Lymphatic: no lymphadenopathy noted Chest Chest palpation & inspection: normal inspection of the chest Resp Effort & Inspection: normal respiratory effort Auscultation: clear to auscultation bilaterally Cardio Rate: regular rate Rhythm: regular rhythm Heart sounds: S1 normal heart sound present, S2 normal heart sound present, no gallops, murmurs and no rubs Bruits: no abdominal aortic bruits and no carotid bruits GI Palpation (GI): No Abdominal aortic bruit present, Soft to palpation, nontender, No hepatosplenomegaly present and No Rebound tenderness present Auscultation: normal bowel sounds General: Yes no CVA tenderness Back/Spine/Pelvis Back: no CVA tenderness Cervical Spine: cervical ROM normal and No Cervical spine tenderness Thoracic/Lumbar Spine: thoraco-lumbar ROM normal, No pain with thoraco-lumbar ROM, No thoracic spinal tenderness and No lumbar spinal tenderness Skin General: warm and dry. Normal skin color. Normal skin turgor Lesions: no lesions Rashes: no rashes Trauma: no lacerations or abrasions Wounds: no wounds Nails: normal Neuro General: patient oriented x3, gait normal and CN's II-XI intact bilaterally Cranial nerves: Yes Equal, round and reactive pupils present Cognition (Neuro): normal cognition Gait exam (Neuro): Normal gait present Motor exam (neuro): 5/5 motor strength present throughout Sensory Exam: No Sensory deficit (Neuro) Deep tendon reflexes (DTR's): Right patellar reflex intensity grade: 2+ and Left patellar reflex intensity grade: 2+ Extrem General: Yes normal to inspection, No edema and No calf tenderness Psych Appearance: grossly normal Affect: normal affect Attitude: cooperative Thought process: Normal thought process present Assessment and Plan Assessment & Plan (1) Normal physical examination, routine: Code(s): Z00.00 - Encounter for general adult medical examination without abnormal findings Plan: No significant physical restrictions or limitations noted Continue current treatment regimen Advised to follow-up in 2 months for diabetes, hypertension, and hyperlipidemia Follow-up with Cardiology and ophthalmology as planned Return sooner with symptoms or concerns Verbalized understanding and agreed with treatment plan (2) Elevated LDL cholesterol level: Code(s): E78.00 - Pure hypercholesterolemia, unspecified Plan: She had lipid panel blood work done last month. Triglycerides and LDL were elevated, 153 and 101 respectively. LDL goal is less than 70 She notes that her PCP discontinued pravastatin due to concern for possible adverse reaction of bilateral lower extremity pain. She continues to experience intermittent bilateral lower extremity pain Will reorder pravastatin. Advised to take as prescribed Advised to limit foods high in saturated fat and avoid foods high trans fat Routine exercise encouraged Will recheck lipid panel. Advised to fast for 10-12 hours, may drink water only and get blood work done before her next visit Follow-up in 2 months Verbalized understanding and agreed with treatment plan (3) Type 2 diabetes, controlled, with neuropathy: Code(s): E11.40 - Type 2 diabetes mellitus with diabetic neuropathy, unspecified Orders: Orders Microalbumin, Random (w Creat) Today E11.40 - Type 2 diabetes mellitus with diabetic neuropathy, unspecified Lipid Panel 2 Months E78.00 - Pure hypercholesterolemia, unspecified Referrals Podiatry Referral E11.40 - Type 2 diabetes mellitus with diabetic neuropathy, unspecified Medications: New pravastatin 40 mg PO BEDTIME 30 days 30 tabs 3RF Patient Instructions: Her recent A1c was 6.6% last month She has never been followed by sampler and test preparer Her last eye exam was in March 2023. She has a follow-up appointment next month Advised to continue current treatment regimen Referred to Podiatry Continue follow-up pulmonology as planned No record for microalbumin/creatinine ratio, will ordered this Follow-up in 2 months Verbalized understanding and agreed with treatment plan Coding Level of Care Code Est Pt Prev Care >65y(09780) Diagnoses Normal physical examination, routine Z00.00 Elevated LDL cholesterol level E78.00 Type 2 diabetes, controlled, with neuropathy E11.40
== END 2023-10-12 13:37 | disposition home or self-care (01) ==
PROVIDERS: PCP Nurse Practitioner Family; Visit Provider Nurse Practitioner Family
DX: Z00.00 Encounter for general adult medical examination without abnormal findings (principal); E78.00 Pure hypercholesterolemia, unspecified; E11.40 Type 2 diabetes mellitus with diabetic neuropathy, unspecified
CPT/HCPCS: 99397

== ENCOUNTER 2023-12-20 10:13 | Outpatient (REF) | payer MEDICARE, SELFPAY ==
[2023-12-20 15:24] LABS: Cholesterol 127 mg/dL (<200); HDL Cholesterol 37 mg/dL (>40); LDL Cholesterol Calculated 65 mg/dL (<100); Triglycerides 128 mg/dL (<150)
[2023-12-20 16:05] LABS: Creatinine Urine 129.96 mg/dL; Microalbum/Creatinine Ratio Ur 28.4 ug/mg cr (<30)
== END 2023-12-20 10:14 | disposition home or self-care (01) ==
LOC: HO.WFDLDS 10:13
PROVIDERS: Visit Provider Nurse Practitioner Family
DX: E11.40 Type 2 diabetes mellitus with diabetic neuropathy, unspecified (principal); E78.00 Pure hypercholesterolemia, unspecified
CPT/HCPCS: 36415; 80061; 82043; 82570

== ENCOUNTER 2023-12-23 11:20 | Outpatient (AMB) | payer MEDICARE, SELFPAY ==
[2023-12-23 11:23] VITALS: BP 126/70; PULSE 98; RESP 14; TEMP 36.2; O2SAT 95; BMI 32.5
--- NOTE | 2023-12-23 11:23 | A.OFFPC_ITS ---
Vital Signs 12/23/23 11:23 Height 5 ft 3 in Weight 183 lb 4 oz BMI 32.5 BP 126/70 Blood Pressure Location Rt brachial Position Sitting Respiration 14 Pulse 98 Pulse Source Pulse Oximeter Temp 97.2 F Temp Source Temporal Artery Scan Pulse Oximetry (%) 95 Oxygen Delivery Method Room Air Intake Visit Reasons: 2 mos DM, HTN, HLD Acid Polymerization Operator Required: Yes Acid Polymerization Operator Name: Donato (son) Accompanied by: Denisse Allergies pravastatin Adverse Reaction (Verified 12/23/23 11:39) muslce pain Medication List - Last Reconciled 12/23/23 by Kar Gonzalez CNP ascorbic acid (vitamin C) 500 mg (1/2 x 1,000 mg) PO DAILY blood pressure kit-extra large check bp daily and as needed for headache/dizziness cholecalciferol (vitamin D3) 25 mcg PO DAILY cyanocobalamin (vitamin B-12) 1,000 mcg PO DAILY diltiazem HCl (Cardizem CD) 240 mg PO DAILY erythromycin 0.5 inches ophthalmic (eye) QID gabapentin 800 mg PO TID 30 days levothyroxine 137 mcg PO DAILY meloxicam 7.5 mg PO DAILY 30 days menthol-zinc oxide 0.44-20.6 % (Calmoseptine) 1 appl topical QID PRN menthol-zinc oxide 0.44-20.6 % (Calmoseptine) 1 appl topical QID PRN metformin 500 mg PO DAILY miscellaneous medical supply cpap therapy with auto pap mode and pressure settings 6-20 cm followed by close monitoring for compliance and benefit as directed; test to be included with fax multivitamin 1 tab PO DAILY omeprazole 20 mg PO DAILY pravastatin 40 mg PO BEDTIME 30 days triamterene-hydrochlorothiazid 37.5-25 mg 1 tab PO DAILY 3 months Tobacco use date assessed: 12/23/23 Fall risk assessment: No Falls in past year Last assessed Fall Risk: 12/23/23 Dental Screening Dental Screen Date: 12/23/23 Did you have a dental visit in the last 12 months?: Yes Did you have a dental problem in the last 6 months where you did not have access to dental care?: No Was dental information given to patient?: Patient has dentist HPI HPI Comments History of Present Illness Details 78-year-old Wolof-speaking female, acc ompanied by his grandson, presents for hypertension, diabetes, and hyperlipidemia follow-up She reports pain to intermittent chronic pain to the joints in her buttocks, left worst than right. She describes the pain as contraction. She takes Tylenol and ibuprofen as needed She also reports chronic burning and needles sensation to both feet She admits to taking her medications as prescribed without adverse reactions No acute symptoms at this time She was seen by Dr. Diaz, ophthalmology, in October. Her next appointment is in February Interpretation by the patient's grandson per patient's preference [facility] Medical History Arthritis Carpal tunnel syndrome Diabetes Glaucoma Gout Hemorrhoids HTN (hypertension) Hypothyroid Neuropathy Sleep apnea Surgical History Hx of sinus surgery H/O eye surgery Hx of tubal ligation History of thyroid surgery Hx of cholecystectomy Family History (Updated 08/24/23 @ 12:36 by Qing Jacobs) Mother No problems noted. Father No problems noted. Social History Household Members: Family Housing: House Alcohol intake: former Patient Tobacco Use Status: Former Tobacco user e-Cigarette/Vaping Use: Never Used service: No Current occupational status: employed and disabled Cognitive needs: No Hearing needs: No Vision needs: No Questionnaire Thrive Questionnaire Date Thrive assessed: 12/14/22 Review of Systems Const Details: Const Denies chills, Denies fatigue, Denies fever(s), Denies headache(s) and Denies weakness ENT Denies dizziness and Denies headache(s) Card Denies chest pain, Denies lightheadedness, Denies dyspnea and Denies other (Palpitations) Resp Denies cough, Denies dyspnea, Denies wheezing and Denies other ( shortness of breath) GI Denies abdominal pain, Denies melena, Denies hematochezia, Denies change in bowel habits, Denies dyspepsia and Denies nausea Denies hematuria and Denies dysuria Musc Reports as per HPI Skin/Breast Denies rash, Denies unusual bruising and Denies wounds Neuro Denies abnormal gait, Denies dizziness, Denies headache(s), Denies memory loss, Denies numbness, Denies Sensory deficit (Neuro), Denies tingling and Denies weakness Psych Denies anxiety, Denies depression, Denies memory loss Endo Denies cold intolerance, Denies fatigue, Denies heat intolerance, Denies polydipsia and Denies polyuria Aller/Immun Denies wheezing Physical exam (Primary Care) Tobacco/Smoking Status: Tobacco use Status Tobacco use date assessed 10/12/23 12/23/23 11:25 Patient Tobacco Use Status Former Tobacco user 12/23/23 11:25 e-Cigarette/Vaping Use Never Used 12/23/23 11:25 Thrive Assessment: Date of Thrive Assessment Date Thrive assessed 12/14/22 12/23/23 11:25 Const Other: General: no acute distress and well developed Nutritional Appearance: well nourished Orientation/consciousness: patient oriented x3 HENMT Head: Yes normocephalic and Yes atraumatic Eyes General: appearance normal, both eyes and all related structures Pupils: Equal, round and reactive pupils present EOM: EOMs intact bilaterally Resp Effort & Inspection: normal respiratory effort Auscultation: clear to auscultation bilaterally Cardio Rate: regular rate Rhythm: regular rhythm Heart sounds: S1 normal heart sound present, S2 normal heart sound present, no gallops, no murmurs and no rubs GI Palpation (GI): No Abdominal aortic bruit present, Soft to palpation, nontender, No hepatosplenomegaly present and No Rebound tenderness present Auscultation: normal bowel sounds General: Yes no CVA tenderness Back/Spine/Pelvis Back: no CVA tenderness Cervical Spine: cervical ROM normal and No Cervical spine tenderness Thoracic/Lumbar Spine: thoraco-lumbar ROM normal, No pain with thoraco-lumbar ROM, No thoracic spinal tenderness and No lumbar spinal tenderness Extrem General: Yes normal to inspection, No edema and No calf tenderness Negative straight leg raise bilaterally. No overt injury or trauma Skin General: warm and dry. Normal skin color. Normal skin turgor Neuro General: patient oriented x3, gait normal and no focal neuro deficit Cranial nerves: Yes Equal, round and reactive pupils present Cognition (Neuro): normal cognition Gait exam (Neuro): Normal gait present Sensory Exam: No Sensory deficit (Neuro) Psych Appearance: grossly normal Affect: normal affect Attitude: cooperative Thought process: Normal thought process present Results AMB Hemoglobin A1c AMB Hemoglobin A1c 6.3 % Last Edit by Elsy Merino MA on 12/23/23 12:00 Assessment and Plan Assessment & Plan (1) Type 2 diabetes, controlled, with neuropathy: Code(s): E11.40 - Type 2 diabetes mellitus with diabetic neuropathy, unspecified Plan: A1c today is 6.3%, within goal of less than 7.0%. Previous A1c was 6.6% Recent urine microalbumin/creatinine ratio is within normal limit, 28.4 Continue current treatment regimen Continue to take Gabapentin for neuropathic pain ADA diet and routine exercise encouraged Follow-up in 3 months or return sooner with symptoms or concerns Verbalized understanding and agreed with treatment plan (2) HTN (hypertension): Code(s): I10 - Essential (primary) hypertension Qualifiers: Hypertension type: primary hypertension Qualified Code(s): I10 - Essential (primary) hypertension Plan: Blood pressure is 126/70, within goal of less than 130/80 Continue current treatment regimen Low-sodium diet encouraged Follow-up in 3 months (3) Elevated LDL cholesterol level: Code(s): E78.00 - Pure hypercholesterolemia, unspecified Plan: Recent lab results reviewed with the patient. Triglycerides, cholesterol, and LDL levels are normal, 128, 127, and 65 respectively. HDL level is low, 37 LDL goal is less than 70 Continue current treatment regimen Advised to limit foods high in saturated fat and avoid foods high in trans fat Routine exercise encouraged Will continue to monitor Verbalized understanding and agreed with treatment plan (4) Chronic SI joint pain: Code(s): M53.3 - Sacrococcygeal disorders, not elsewhere classified; G89.29 - Other chronic pain Plan: Intermittent chronic pain, left worse than right Negative straight leg raise bilaterally Tylenol and cyclobenzaprine as prescribed Warm/cool compresses encouraged Follow-up with worsening or new symptoms Verbalized understanding and agreed with treatment Orders: Orders AMB Hemoglobin A1c Today E11.9 - Type 2 diabetes mellitus without complications Medications: New acetaminophen ER (Tylenol 8 Hour) 650 mg PO Q8H PRN 60 tabs 3RF pain cyclobenzaprine 5 mg PO TID PRN 60 tabs 1RF muscle spasm Discontinued meloxicam Discontinued Reason: Doctor's Order 7.5 mg PO DAILY 30 tabs 1RF 30 days Coding Level of Care Code Est Pt Level 4 (96527) Diagnoses Type 2 diabetes, controlled, with neuropathy E11.40 Primary hypertension I10 Hypertension type: primary hypertension Elevated LDL cholesterol level E78.00 Chronic SI joint pain M53.3; G89.29
== END 2023-12-23 12:01 | disposition home or self-care (01) ==
PROVIDERS: PCP Nurse Practitioner Family; Visit Provider Nurse Practitioner Family
DX: E11.40 Type 2 diabetes mellitus with diabetic neuropathy, unspecified (principal); I10 Essential (primary) hypertension; E78.00 Pure hypercholesterolemia, unspecified; M53.3 Sacrococcygeal disorders, not elsewhere classified; G89.29 Other chronic pain
CPT/HCPCS: 83036; 99214

== ENCOUNTER 2024-05-03 11:18 | Outpatient (REF) | payer MEDICARE, SELFPAY ==
[2024-05-03 13:07] LABS: MANUAL DIFF FLAG NO
[2024-05-03 13:21] LABS: Basophils Percent Auto 0.6 % (0-2); Eosinophils Absolute Auto 0.4 X10*3/uL (0.0-0.4); Eosinophils Percent Auto 5.5 % (0-4); Hematocrit 36.4 % (37.0-47.0); Hemoglobin 12.5 g/dl (12.0-16.0); Imm Gran Abs Auto 0.03 X10*3/uL (0.00-0.03); Imm Gran Pct Auto 0.5 % (0.0-0.4); Lymphocytes Absolute Auto 2.4 X10*3/uL (1.2-4.9); Mean Corpuscular HGB Conc 34.3 g/dl (31.0-35.0); Mean Corpuscular Hemoglobin 29.6 pg (27.0-33.0); Mean Corpuscular Volume 86.1 fL (80.0-98.0); Mean Platelet Volume 11.3 fL (9.4-12.3); Monocytes Absolute Auto 0.6 X10*3/uL (0.1-1.2); Monocytes Percent Auto 8.9 % (2-11); Neutrophils Percent Auto 46.5 % (45-73); Platelet Count 206 X10*3/uL (160-400); Red Blood Count 4.23 X10*6/uL (4.20-5.50); Red Cell Distribution Width 14.6 % (11.0-16.0); White Blood Count 6.4 X10*3/uL (4.8-10.8)
[2024-05-03 13:48] LABS: B Type Natriuretic Peptide 68 pg/mL (<100)
[2024-05-03 13:57] LABS: Alanine Aminotransferase 19 U/L (0-31); Albumin Level 3.9 g/dL (3.5-5.0); Alkaline Phosphatase 74 U/L (39-117); Anion Gap 11 (12-20); Aspartate Amino Transferase 22 U/L (5-31); Bilirubin Total 0.7 mg/dL (0.0-1.0); Blood Urea Nitrogen 17 mg/dL (9-16); Calcium 9.5 mg/dL (8.4-10.2); Carbon Dioxide 28 mmol/L (22-29); Chloride 107 mmol/L (96-108); Cholesterol 110 mg/dL (<200); Estimated Glomerular Filt Rate 48; Glucose Random 91 mg/dL (60-115); HDL Cholesterol 33 mg/dL (>40); LDL Cholesterol Calculated 35 mg/dL (<100); Potassium 4.2 mmol/L (3.3-5.1); Sodium 142 mmol/L (135-145); Total Protein 7.3 g/dL (6.5-8.0); Triglycerides 211 mg/dL (<150)
[2024-05-03 14:06] LABS: Folate 17.4 ng/mL (> or = 4.0); Vitamin B12 > 2000 pg/mL (200-900)
[2024-05-03 14:20] LABS: TSH reflex Free T4 1.57 uIU/mL (0.32-4.0)
[2024-05-04 04:34] LABS: HBS Num1 1.14 mIU/mL (0-7.99); HBc Num1 0.12 S/CO (0.00-0.79); HBsAGNum1 0.74 S/CO (0.00-0.99); HIV Num 1 1.33 S/CO (0.00-0.99); Hepatitis B Core Antibody Nonreactive (Nonreactive); Hepatitis B Surface Antigen Negative (Negative); ~HepC Num1 0.08 S/CO (0.00-0.79); ~Hepatitis B Surface Antibody NONREACTIVE (Nonreactive); ~Hepatitis C Antibody Nonreactive (Nonreactive)
[2024-05-04 05:32] LABS: HIV AB/AG Nonreactive (Nonreactive); HIV Num 2 0.04 S/CO; HIV Num 3 0.05 S/CO
[2024-05-06 23:04] LABS: RPR Rapid Plasma Reagin NON-REACTIVE (NON-REACTIVE)
== END 2024-05-03 11:19 | disposition home or self-care (01) ==
LOC: HO.HHCL 11:18
PROVIDERS: Visit Provider Nurse Practitioner Primary Care
DX: Z00.00 Encounter for general adult medical examination without abnormal findings (principal); R60.0 Localized edema; R41.3 Other amnesia; E11.59 Type 2 diabetes mellitus with other circulatory complications; I15.2 Hypertension secondary to endocrine disorders
CPT/HCPCS: 36415; 80053; 80061; 82607; 82746; 83880; 84443; 85025; 86592; 86704; 86706; 86803; 87340; 87389

== ENCOUNTER → 2024-08-16 14:47 | Outpatient (REF) | payer OTHER, SELFPAY ==
--- NOTE | 2024-08-16 14:50 | CA_ITS ---
Transthoracic Echocardiogram Patient (Last, First, Middle): Roseanne Abdi, Gender: Female Date of : 1945 Age: 79 Procedure Date: 08/16/2024 Procedure Type: Transthoracic Echocardiogram Location: OP Height: 160. 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 Normal LV ejection fraction of 65-70% with impaired relaxation filling pattern 2. Early mild aortic stenosis and mild aortic regurgitation with calcific aortic valve disease 3. Normal RV systolic pressure 4. Mildly dilated ascending aorta at 3.8 cm 5. No gross pericardial effusion Findings Left Ventricle Normal left ventricular size, thickness, and systolic function. The visually estimated ejection fraction is between 65-70%. Spectral Doppler is indicative of an impaired relaxation filling pattern. E/E prime ratio is between 8 and 15 consistent with indeterminate filling pressures. Peak GLS is -16.1%, within normal limits, apical tracking maybe suboptimal. Right Ventricle Normal right ventricular cavity size and systolic function. Atria Both atria are normal in size. There is no evidence of interatrial shunt. Aortic Valve The aortic valve was not well visualized. There is mild calcification of the aortic valve. There is mild thickening of the aortic valve. There is mild aortic valve stenosis. The peak aortic velocity is 1.96 m/s with a calculated peak gradient of 15 mmHg. The mean gradient is 9 mmHg. The aortic valve area is 2.15 cm2. There is mild aortic valve regurgitation. Mitral Valve There is mild anterior and posterior mitral leaflet thickening. There is trace mitral valve regurgitation. There is no mitral valve stenosis. Pulmonic Valve The pulmonic valve was not well visualized. Tricuspid Valve Likely normal tricuspid valve structure and function. There is trace tricuspid valve regurgitation. The right ventricular systolic pressure is normal. The right ventricular systolic pressure is 13 mmHg. Normal right atrial pressure. There is no evidence of pulmonary hypertension. Great Vessels The pulmonary artery was not well visualized. There is mild dilatation of the ascending aorta measuring 3.80 cm. Small plaque is seen in the sino tubular ridge. Venous The inferior vena cava is normal in size and collapses greater than 50% with inspiration. Pericardium/Pleural The pericardium was not well visualized. Measurements 2D Linear Measurements IVSd: 0.99 0.6-0.9/0.6-1.0 cm LVIDd: 3.62 3.9-5.3/4.2-5.9 cm LVIDd Index: 1.94 2.4-3.2/2.2-3.1 cm/m2 LVIDs: 1.64 2.0-3.6 cm LVPWd: 1.14 0.7-1.1 cm LA Diam: 3.50 2.7-3.8/3.0-4.0 cm LAIDs Index: 1.87 1.5-2.3 cm/m2 LV Mass: 148.07 67-162/88-224 g LV Mass Index: 79.18 43-95/49-115 g/m2 LVOT Diam: 2.10 3.0+(-)1.3 cm 2D Systolic Function EF 4C: 70.70 >55% EF 2C: 67.20 >55% EF BiP: 69.00 >55% Mitral Valve MV Pk E: 0.66 MV PK A: 1.15 MV Decel Time: 268.00 E/A: 0.60 E'Lateral: 10.20 E'Medial: 6.64 E/E' Med: 9.90 E/E' Lat: 6.40 PHT: 78.00 MVA PHT: 2.82 Decel Storey: 2.45 Aortic Valve AoV Pk Rangel: 1.96 AoV Mn Rangel: 1.37 AoV VTI: 0.39 AoV Pk Grad: 15.00 Aov Mn Grad: 9.00 GERRY Cont.VTI: 2.15 AI Pk Rangel: 3.89 AI Storey: 2.82 LVOT LVOT Pk Rangel: 1.27 LVOT Mn Rangel: 0.84 LVOT VTI: 0.24 LVOT Pk Grad: 6.00 LVOT Mn Grad: 3.00 LVOT Diam: 2.10 LVOT Area: 3.46 Diastolic Function MV Pk E: 0.66 MV Pk A: 1.15 E/A: 0.60 E'Medial: 6.64 E/E' Med: 9.90 E' Laterial: 10.20 E/E' Lat: 6.40 Right Ventricle TAPSE (mm): 21.30 TVS' Rangel: 10.90 Tricuspid Valve TR Pk Rangel: 1.57 TR Pk Grad: 10.00 RA Press: 3.00 RVSP: 13.00 Great Vessels Aorta Sinus of Valsalva: 3.40 2.0-3.5 cm Ao Asc: 3.80 2.1-3.4 cm Pulmonary Valve PV Pk Rangel: 0.92 Peak PV Grad: 3.00 Updated in Other Vendor System with Status of Final Tahir Banks MD electronically signed on 08/17/2024 12:29:13 PM with status of Final
== END ==
LOC: HO.CARD 14:47
PROVIDERS: PCP Nurse Practitioner Primary Care; Visit Provider Internal Medicine
DX: I42.2 Other hypertrophic cardiomyopathy (principal); I35.9 Nonrheumatic aortic valve disorder, unspecified
CPT/HCPCS: 93306; 93356

== ENCOUNTER → 2024-08-16 14:50 | Outpatient (BNV) | payer OTHER, SELFPAY | PROVIDERS: PCP Nurse Practitioner Primary Care; Visit Provider Internal Medicine Cardiovascular Disease | DX: I35.2 Nonrheumatic aortic (valve) stenosis with insufficiency (principal); I35.8 Other nonrheumatic aortic valve disorders; I42.2 Other hypertrophic cardiomyopathy | CPT/HCPCS: 93306; 93356 ==

== ENCOUNTER 2024-11-20 12:32 | Outpatient (AMB) | payer MEDICARE, SELFPAY ==
--- NOTE | 2024-11-20 12:38 | A.OFFVIS_ITS ---
Vital Signs 11/20/24 12:39 Height 5 ft 3 in Weight 175 lb 7.807 oz BMI 31.1 BP 120/70 Blood Pressure Location Lt brachial Position Sitting Pulse 83 Pulse Source Pulse Oximeter Intake Visit Reasons: 1yr s/p echo r/s 08/23 Fence Rider Required: Yes Fence Rider Name: Cristobal [id number] Accompanied by: Spouse Allergies pravastatin Adverse Reaction (Verified 12/23/23 11:39) muslce pain Medication List - Last Reconciled 11/20/24 by Steve Bauer MD acetaminophen ER (Tylenol 8 Hour) 650 mg PO Q8H PRN blood pressure kit-extra large check bp daily and as needed for headache/dizziness diltiazem HCl CD (Cardizem CD) 240 mg PO DAILY duloxetine 20 mg PO BID erythromycin 0.5 inches ophthalmic (eye) QID levothyroxine 137 mcg PO DAILY menthol-zinc oxide 0.44-20.6 % (Calmoseptine) 1 appl topical QID PRN metformin 500 mg PO DAILY miscellaneous medical supply cpap therapy with auto pap mode and pressure settings 6-20 cm followed by close monitoring for compliance and benefit as directed; test to be included with fax multivitamin 1 tab PO DAILY omeprazole 20 mg PO DAILY pravastatin 40 mg PO BEDTIME 30 days pregabalin 150 mg PO DAILY trazodone 100 mg PO BEDTIME PRN triamterene-hydrochlorothiazid 37.5-25 mg 1 tab PO DAILY 3 months HPI Comments Details: Roseanne returns for follow-up regarding aortic sclerosis. In the past, she was seen regarding cardiac murmur. Echocardiogram then had shown hyperdynamic LVEF/septal hypertrophy/moderate aortic valve calcification. Patient herself feels fine. She has got no cardiac symptoms whatsoever. No previous coronary history. Has hypertension on medications. [facility] Medical History Gout Sleep apnea Glaucoma Carpal tunnel syndrome Hemorrhoids Arthritis Neuropathy Hypothyroid Diabetes HTN (hypertension) Surgical History Hx of sinus surgery H/O eye surgery Hx of tubal ligation History of thyroid surgery Hx of cholecystectomy Family History Mother No problems noted. Father No problems noted. Social History Household Members: Family Housing: House Alcohol intake: former Patient Tobacco Use Status: Former Tobacco user e-Cigarette/Vaping Use: Never Used service: No Current occupational status: employed and disabled Cognitive needs: No Hearing needs: No Vision needs: No Review of Systems Const Denies chills, Denies fatigue, Denies fever(s), Denies weight gain and Denies weight loss ENT Denies dizziness Card Denies chest pain, Denies leg edema, Denies lightheadedness, Denies palpitations, Denies dyspnea on exertion, Denies orthopnea and Denies other Resp Denies cough and Denies dyspnea on exertion GI Denies hematochezia and Denies change in stool character Musc Denies abnormal gait, Denies muscle weakness, Denies numbness, Denies radiating pain into limb and Denies tingling Neuro Denies abnormal gait, Denies dizziness, Denies numbness and Denies tingling Endo Denies fatigue and Denies palpitations Physical Exam Vital Signs: Last Vital Signs Pulse 83 11/20/24 12:39 BP 120/70 11/20/24 12:39 BMI result Body Mass Index 31.1 Const General: comfortable and no acute distress Orientation/consciousness: patient oriented x3 HEENT Other: Unremarkable Head: Yes normal to inspection Neck Neck: Yes normal visual inspection Chest Chest palpation & inspection: normal inspection of the chest Resp Auscultation: clear to auscultation bilaterally Cardio Palpation: normal PMI Heart sounds: S1 normal heart sound present, S2 normal heart sound present, no gallops, Murmur heart sound present systolic II/ and at the right sternal border and no rubs GI Palpation (GI): Soft to palpation Back/Spine/Pelvis Other: unremarkable Skin General skin exam: no rashes or lesions noted Neuro General: patient oriented x3 Extrem General: Yes normal to inspection Psych Mental Status: mental status grossly normal Assessment & Plan Assessment & Plan (1) Aortic valve calcification: Code(s): I35.9 - Nonrheumatic aortic valve disorder, unspecified Category: Medical (2) Ascending aorta enlargement: Code(s): I77.89 - Other specified disorders of arteries and arterioles Category: Medical Plan In the recent echocardiogram, LVEF 65 to 70%. Aortic valve calcification with at most mild stenosis. Ascending aortic size 3.8 cm. In the previous study, described to have severe basal septal hypertrophy and moderate aortic valve calcification. Ascending aortic size at that time was 4 cm. Overall, she has got absolutely no clinical symptoms. No specific management for the cardiac findings. Mainly risk factor modification including treatment of hypertension. If any concerning symptoms like chest pain or shortness of breath, she will contact us immediately. We discussed about this today. Otherwise, we will follow her up in about 3 years Coding Level of Care Code Est Pt Level 3 (19688) Diagnoses Aortic valve calcification I35.9 Ascending aorta enlargement I77.89
[2024-11-20 12:39] VITALS: BP 120/70; PULSE 83; BMI 31.1
== END 2024-11-20 13:00 | disposition home or self-care (01) ==
PROVIDERS: PCP Nurse Practitioner Primary Care; Visit Provider Internal Medicine
DX: I35.9 Nonrheumatic aortic valve disorder, unspecified (principal); I77.89 Other specified disorders of arteries and arterioles
CPT/HCPCS: 99213

== ENCOUNTER → 2024-11-20 12:32 | Outpatient (BNVA) | payer MEDICARE, SELFPAY | PROVIDERS: PCP Nurse Practitioner Primary Care; Visit Provider Internal Medicine | DX: I35.9 Nonrheumatic aortic valve disorder, unspecified (principal); I77.89 Other specified disorders of arteries and arterioles | CPT/HCPCS: 99212 ==

== ENCOUNTER 2024-12-17 06:48 | Day surgery (SDC) | payer OTHER, SELFPAY ==
[2024-12-11 16:29] VITALS: BMI 31.5
--- OUTSIDE RECORDS SUMMARY | 2024-12-17 06:50 | XMS_ITS | Clinical Summary ---
Author Organization [employer] Address [address] [address] [place] [address] Care Team Providers Care Senior Care Manager Name Role Phone Doris Diane FALLON Primary Care Provider [phone] Allergies No known active allergies Medications * This document contains information received from the source organization and may not represent a complete record from that organization. dilTIAZem CD (Cardizem CD) 240 MG 24 hr capsule Take 240 mg by mouth in the morning. 024 Active omeprazole (PriLOSEC) [address] capsule Take 20 mg by mouth in the morning. 024 Active atropine 1 % ophthalmic solution INSTILL 1 DROP IN RIGHT EYE TWICE A DAY TWELVE HOURS APART 024 Active brimonidine (AlphaGAN P) 0.2 % ophthalmic solution INSTILL ONE DROP IN LEFT EYE TWICE A DAY TWELVE HOURS APART. 024 Active prednisoLONE acetate (Pred-Forte) 1 % ophthalmic suspension INSTILL 1 DROP IN RIGHT EYE TWICE A DAY (TWELVE HOURS APART) 023 Active timolol (Timoptic-XR) 0.5 % ophthalmic gel-forming INSTILL 1 DROP IN LEFT EYE EVERY MORNING 024 Active acetaminophen (Tylenol 8 Hour) 650 MG ER tabletIndications :Right hip pain Take 1 tablet (650 mg) by mouth every 8 (eight) hours if needed for mild pain or moderate pain. Do not crush, chew, or split. 120 tablet 024 Active LORazepam (Ativan) 0.5 MG tabletIndications :Anxiety Take 1-2 tabs 30 min before MRI test, may repeat once if ineffective after 30 min 4 tablet Active triamterene-hydro chlorothiazide (Maxzide-25) 37.5-25 MG tabletIndications :Hypertension associated with diabetes (CMS/HCC) (CMS/HCC) Take 1 tablet by mouth Once per day. 90 tablet 3 024 Active levothyroxine (Synthroid, Levoxyl) 137 MCG tabletIndications :Hypothyroidism, unspecified type Take 137 mcg by mouth Once per day. 90 tablet 3 024 Active metFORMIN (Glucophage) 500 MG tabletIndications :Hypertension associated with diabetes (CMS/HCC) (CMS/HCC) Take 1 tablet (500 mg) by mouth Once per day. Take w/ meal 90 tablet 3 Active lidocaine (Lidoderm) 5 % patchIndications: Right leg pain Apply 1 patch topically Once per day. Remove & discard patch within 12 hours or as directed by MD. 30 patch 2 Active traZODone (Desyrel) 50 MG tablet 50 mg. Active triamcinolone (Kenalog) 0.1 % creamIndications: Rash Apply twice daily to affected areas (rash) 45 g 1 Active naproxen (Naprosyn) 500 MG tabletIndications :Right hip pain,Radicular pain of lower extremity TAKE 1 TABLET BY MOUTH EVERY MORNING & 1 TABLET AT BEDTIME IF NEEDED FOR MODERATE PAIN 60 tablet 024 Active pravastatin (Pravachol) 40 MG tablet TAKE 1 TABLET BY MOUTH AT BEDTIME 90 tablet Active pregabalin (Lyrica) 150 MG capsuleIndication s:Radicular pain of lower extremity,Diabeti c polyneuropathy associated with type 2 diabetes mellitus (CMS/HCC) Take 1 capsule (150 mg) by mouth 2 times daily. 60 capsule 2 Active DULoxetine (Cymbalta) [address] capsule Take 20 mg by mouth 2 times daily. Active pregabalin (Lyrica) 150 MG capsule Take 150 mg by mouth 2 times daily. 024 2024 Discontinued(R eorder (will not trigger notification to Pharmacy)) escitalopram (Lexapro) 5 MG tablet 5 mg. 024 2024 Discontinued(M ed list cleanup (will not trigger notification to Pharmacy)) Active Problems Problem Noted Date Diagnosed Date Anxiety 11/27/2024 Assessment & Plan (12/10/2024 10:44 AM EST): During IBH Consult Roseanne presenting with excessive worry/anxiety, difficulty controlling worry, anxiety/worry associated to restlessness and/or feeling keyed-up/On edge , easily fatigued , difficulty concentrating and/or mind going blank , and sleep disturbance difficulty falling asleep, and Fear ; for a period of 0- 6 mo, for most or all symptoms in the context of illness or family illness. Pt carries a diagnosis for Mood Disorder. She is currently connected with a psychiatrist and therapist in [place] (unable to provide agency name). Today, pt presented with anxiety sxs. She is aware of importance of using coping skills to manage her anxiety. Trigger is associated with upcoming medical procedure that she is worried about. clinician engaged pt with active, reflective listening and validation of emotions. Reviewed and assessed for risk, current stressors and protective factors using open-ended questions. Pt agreed to continue with current services and will reach out to clinician if additional support is needed. Diabetes mellitus, type II 11/27/2024 Osteopenia 11/27/2024 DIANA (obstructive sleep apnea) 06/14/2024 Overview (06/14/2024): Uses CPAP Pt cont to benefit from and require CPAP/APAP/BiPAP therapy. Glaucoma 04/30/2024 Overview (04/30/2024): does not see out of R eye as a result. Follows w/ Dr. Diaz. Hypothyroidism 04/30/2024 Overview (04/30/2024): Cont levothyroxine 137mcg daily Memory loss 04/30/2024 Overview (04/30/2024): UPDATE 03/09/2024: MMSE 20/30, labs pending Hypertension associated with diabetes ([facility]) 04/30/2024 Overview (06/14/2024): Cont metformin 500mg daily Lyrica 150mg at bedtime neuropathy Not on ASA or MIGUELITO/ARB Yes on statin Foot exam at follow-up Eye exam UTD per pt Essential hypertension 04/30/2024 Overview (04/30/2024): on diltiazem CD 240mg daily, triamterene-hydrochlorothiazide 37.5-25mg Mood disorder 02/10/2024 Assessment & Plan (06/21/2024 4:04 PM EDT): During IBH Consult Roseanne presenting with Abnormally elevated mood, Decreased need for sleep, Flight of ideas, Changes in self-image, and Other: visual hallucinations with no commanding, forgetful; for a period of 18+ mo, for all symptoms in the context of illness or family illness and recent move. Leeann reports experiencing visual hallucination since 11 years ago after started on a medication (name unknown). Treated with psychopharmacology when she was living in [place]. Family moved to [place] from [place] in 2016. Further information needed to make diagnosis of bipolar disorder. Currently seeing a therapist with [facility] Psychiatry services will start soon due to having a conflict with her insurance ([facility]). During today's visit, clinician engaged pt with active, reflective listening and validation of emotions. Reviewed and assessed for risk, current stressors and protective factors using open-ended questions. Pt agreed to continue with services with current agent and will reach out to clinician if additional support is needed. PLAN: (check all that apply) Continue with current services (defined as services in the past 12 months) Behavioral Health Integration Plan Request psych referral through current therapist. Pt is currently engaged in therapist services with [facility]. Psychiatry services were pending due to a conflict with her insurance ([facility]). Update from pt's granddaughter, [facility] will cover psychiatry services and appointment will be made for medication management. Assessment & Plan (03/09/2024 3:54 PM EDT): During IBH Consult Roseanne presenting with Abnormally elevated mood and Excessive goal directed activity, decreased need for sleep, excessive goal directed activity, irritability, hallucinations and forgetful ; for a period of 18+ mo, for all symptoms in the context of , illness or family illness, and recent move. Leeann reports experiencing visual hallucination since 11 years ago after started on a medication (name unknown). Treated with psychopharmacology when she was living in [place]. Family moved to [place] from [place] in 2017. Further information needed to make diagnosis. PLAN: (check all that apply) Continue with current services (defined as services in the past 12 months) . Referral placed during last visit for psychiatry services with [facility]. Assessment & Plan (02/13/2024 4:32 PM EDT): During IBH Consult Roseanne presenting with Abnormally elevated mood, Decreased need for sleep, Excessive goal directed activity, and Other: irritability, hallucinations and forgetful; for a period of 18+ mo, for all symptoms in the context of , , and illness or family illness. Leeann reports experiencing visual hallucination since 11 years ago. Per patient's report, hallucinations started when she started medication (name unknown) about 11 years ago. Treated with psychopharmacology when she was living in [place]. She was accompanied by her granddaughter. Family moved to [place] from [place] in 2017. Further information needed to make diagnosis. PLAN: (check all that apply) New/Additional Services needed PCP management On-site non-integrated services Off-site services for Behavioral Health Integration Plan Internal Follow up with [facility] External OP therapy referral and OP psychiatry Referral Patient Self Plan Patient to utilize skills provided in intervention , Patient to reach out to [facility] team as needed, Patient to engage in OP therapy , and Patient to reach out to [facility] as needed. Discussed getting sooner appointments with [facility] ([facility]) for psychopharmacology. clinician will see patient during next physical if needed. Encounters * This document contains information received from the source organization and may not represent a complete record from that organization. Date Type Department Care Team Description 12/11/2024 Telephone [facility] [address] [place] [phone] Diane George ANP PSG ORDER 12/07/2024 2:15 PM EST Office Visit [facility] [address] [place] [phone] Genoveva Alva FNP Preop examination (Primary Dx) 12/07/2024 Travel 12/04/2024 10:15 AM EST Office Visit [address] [phone] Diane George ANP Hypertension associated with diabetes (CMS/HCC) (CMS/HCC) (Primary Dx); 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 (CMS/HCC); DIANA (obstructive sleep apnea); Balance problem; Memory loss; Encounter for immunization 12/04/2024 Travel 11/27/[address] [address] Lien Prado [place] Chart Prep 11/22/2024 Patient Outreach [address] [address] Diane George ANP Pre-visit Planning (SDOH screening was completed on 02/10/2024) 11/09/[address] [address] Diane George ANP Medication Question 10/24/[address] [phone] Diane George ANP Pre Op 10/18/[address] [address] Diane George ANP 10/14/[address] [address] Diane George ANP 10/08/[address] [address] [place] November recall from Last 3 Months Immunizations Name Administration Dates Next Due Hep B, adult 12/04/2024,07/27/2024,06/14/2024 Influenza High-dose Quadriva lent Preservative Free 10/26/2022 Influenza Quadrivalent Adjuvanted 09/09/2023 Influenza, High Dose Seasona l, Preservative Free 09/17/2024 Pneumococcal Conjugate PCV 20 05/03/2024 RSV Bivalent 05/03/2024 Tdap 05/03/2024 Zoster, Recombinant 10/18/2024,08/09/2024 Social History Tobacco Use Types Packs/Day Years Used Date Smoking Tobacco: Never Passive Smoke Exposure: Never Smokeless Tobacco: Never Tobacco Cessation:Counseling Given: Not Answered Depression Answer Date Recorded Patient Health Questionnaire-9 Score 9 07/27/2024 Patient Health Questionnaire-9 Score 9 07/27/2024 Last PHQ-9: Questionnaire Data Not on file 0 07/27/2024 Housing Stability Answer Date Recorded What is your housing situation today? I have sony ojeda 02/10/[address] you li ve. Do you have problems with any of the following? None of the above 02/10/2024 Food Insecurity Answer Date Recorded Within the past 12 months, y ou worried that your food would run out before you got money to buy more: Never True 02/10/2024 Within the past 12 months,th e food you bought just didn't last and you didn't have enough money to get more: Never True Transportation Answer Date Recorded In the past 12 months, has l ack of transportation kept you from medical appts, meetings, work or from getting things needed for daily living? No 02/10/2024 Utilities Answer Date Recorded In the past 12 months, has t he electric, gas, oil or water company threatened to shut off services in your home? No 02/10/2024 Depression Answer Date Recorded Patient Health Questionnaire-2 Score 1 07/27/2024 Internet Access Answer Date Recorded Internet Access Q1 No 11/22/2024 Internet Access Q2 I do not want or need it 07/2025 Comments Unknown Sex and Gender Information Value Date Recorded Sex Assigned at Female 07/07/2023 10:45 AM EDT Legal Sex Female 10:44 AM EDT Gender Identity Female 07/07/2023 10:45 AM EDT Sexual Orientation Don't know 07/07/2023 10 :45 AM EDT Last Filed Vital Signs Vital Sign Reading Time Taken Comments Blood Pressure 119/82 12/07/2024 2:37 PM EST Pulse 97 12/07/2024 2:37 PM EST Temperature 36.8 ??C (98.2 ??F) 12/07/2024 2:37 PM ES T Respiratory Rate 18 12/07/2024 2:37 PM EST Oxygen Saturation 97% 12/07/2024 2:37 PM EST Inhaled Oxygen Concentration - - Weight 80.7 kg (178 lb) 12/07/2024 2:37 PM EST Height 160 cm (5' 3 ) 12/07/2024 2:37 PM EST Body Mass Index 31.53 12/07/2024 2:37 PM EST Plan of Treatment Health Maintenance Due Date Last Done Comments Eye Exam 1955 Diabetes: Urine Protein Screening 1964 COVID-19 Vaccine ( season) 2024 Depression Monitoring (PHQ-9) 01/24/2025 07/27/2024, 07/27/2024 SDOH Screening 02/09/2025 02/10/2024 Diabetes: Foot Exam 05/03/2025 05/03/2024, 05/03/2024, 05/03/2024, Additional history exists Lipid Panel 05/03/2025 05/03/2024 Diabetes: Hemoglobin A1C 06/03/2025 025, 07/27/2024, 02/10/2024 Depression Screening 07/27/2025 07/27/2024, 07/27/20 Alcohol/Substance Use Screening 12/04/2025 12/04/2024 Tobacco Screening 12/07/2025 12/07/2024 DTaP/Tdap/Td Vaccines (2 - Td or Tdap) 05/03/2034 05/03/2024 Hepatitis C Screening Completed 05/03/2024 Pneumococcal Vaccine: 50+ Years Completed 05/03/2024 RSV Patients and Patients Aged 60 years or older Completed 05/03/2024 Influenza Vaccine Completed 09/17/2024, , 10/26/2022 Zoster Vaccines Completed 10/18/2024, 08/09/2024 Hepatitis B Vaccines Completed 12/04/2024, 07/27/2024, 06/14/2024 HIB Vaccines Aged Out No longer eligi ble based on patient's age to complete this topic HPV Vaccines Aged Out No longer eligi ble based on patient's age to complete this topic Hepatitis A Vaccines Aged Out No long er eligible based on patient's age to complete this topic IPV Vaccines Aged Out No longer eligi ble based on patient's age to complete this topic Meningococcal Vaccine Aged Out No wilmar giancarlo eligible based on patient's age to complete this topic RSV under 20 months Aged Out No longe r eligible based on patient's age to complete this topic Rotavirus Vaccines Aged Out No longer eligible based on patient's age to complete this topic Procedures Procedure Name Priority Date/Time Associated Diagnosis Comments POCT GLYCATED HEMOGLOBIN, TOTAL Routine 12/04/2024 10:35 AM EST Hypertension associated with diabetes (CMS/HCC) (CMS/HCC) POCT GLUCOSE Routine 12/04/2024 10:22 AM EST Hypertension associated with diabetes (CMS/HCC) (CMS/HCC) HEPATITIS C AB W/REFL TO HCV RNA, QN, PCR Routine 05/03/2024 11:38 AM EDT Healthcare maintenance LIPID PANEL, STANDARD Routine 05/03/2024 11:30 AM EDT Hypertension associated with diabetes (CMS/HCC) (CMS/HCC) Healthcare maintenance from Last 3 Months or Most Recently Relevant to Health Maintenance Results * (ABNORMAL) POCT HGB A1C (12/04/2024 10:35 AM EST) Hemoglobin A1C 6.2(A) 4.0 - 6.0 % QC Media Lot # [id number] Lot# Expiration Date Blood 12/04/2024 10:3 5 AM EST us Diane FALLON POINT OF CARE TEST ENTER/EDIT OR DERABLES Edited Result - Final * POCT Glucose (12/04/2024 10:22 AM EST) Glucose Blood, POC 102 60 - 200 mg/dL QC Media Lot # [id number] Lot# Expiration Date 025 Blood Capillary blood specimen / Unknown 12/04/2024 10:22 AM EST us Diane FALLON POINT OF CARE TEST ENTER/EDIT OR DERABLES Final Result * Hepatitis C Antibody with Reflex to HCV, RNA, Quantitative, Real-Time PCR (05/03/2024 11:38 AM EDT) Hepatitis C Antibody Nonreactive Nonreactive [facility] Comment:Antibodies to HCV no t detected; does not exclude early acuteHCV infection. Blood Venous blood specimen / Unknown 05/03/2024 11:38 AM EDT 05/03/2024 1:01 PM EDT Diane George [facility] BLOOD ORDERABLES Final Resul t Performing Organization Address [facility] Co de Phone Number [facility] [address] [place] [phone] * (ABNORMAL) Lipid Panel, Standard (05/03/2024 11:30 AM EDT) Triglycerides 211(H) <150 mg/dL [facility] Comment:Desirable Triglyceri de: less than 150 mg/dLBorderline High Triglyceride 150-199 mg/dLHigh Triglyceride: 200-499 mg/dLVery High Triglyceride: greater than or equal to 5OO mg/dL Cholesterol 110 <200 mg/dL [facility] Comment:Desirable Cholestero l: less than 200 mg/dLBorderline High Cholesterol: 200-239 mg/dLHigh Cholesterol: greater than 239 mg/dL LDL Cholesterol Calculated 35 <100 mg/dL [facility] Comment:Desirable LDL: less than 100 mg/dLNear Optimal/Above Optimal LDL: 110- 129 mg/dLBorderline High LDL: 130-159 mg/dLHigh LDL: 160-189 mg/dLVery High LDL: greater than or equal to 190 mg/dL HDL Cholesterol 33(L) >40 mg/dL [facility] Comment:Desirable HDL: great er than 40 mg/dL Note: This HDL assay may give artificially low results in patients with liver disease. Blood Venous blood specimen / Unknown 05/03/2024 11:30 AM EDT 05/03/2024 1:01 PM EDT Diane George ANP LAB BLOOD ORDERABLES Final Resul t Performing Organization Address City/[facility]/ZIP Co de Phone Number [facility] [address] [place] [address] [phone] from Last 3 Months or Most Recently Relevant to Health Maintenance Insurance [facility] Care Teams Senior Care Manager Relationship Specialty Start Date End Date Diane George ANP [address] [place] [id number] PCP - General Family Medicine 02/10/24
--- OUTSIDE RECORDS SUMMARY | 2024-12-17 06:50 | XMS_ITS | Encounter Summary ---
Author Organization [employer] Address [address] 7[address] [place] [address] Care Team Providers Care Bleacher Sulfite Pulp Name Role Phone Doris Diane FALLON Primary Care Provider [phone] Encounter Details Date Type Department Care Team (Latest Contact Info) Description 12/07/2024 Travel Social History Tobacco Use Types Packs/Day Years Used Date Smoking Tobacco: Never Passive Smoke Exposure: Never Smokeless Tobacco: Never Depression Answer Date Recorded Patient Health Questionnaire-9 [...] Don't know 07/07/2023 10 :45 AM EDT documented as of this encounter Plan of Treatment Not on file documented as of this encounter Visit Diagnoses Not on filedocumented in this encounter Additional Health Concerns Assessment Noted Time PHQ-9 Depression Total Score: 9 07/27/20 24 9:59 AM EDT documented as of this encounter Care Teams Bleacher Sulfite Pulp Relationship Specialty Start Date End Date Diane George ANP [address] [place] [address] PCP - General Family Medicine 02/10/24 documented as of this encounter
--- OUTSIDE RECORDS SUMMARY | 2024-12-17 06:50 | XMS_ITS | Encounter Summary ---
Author Organization [employer] Address [address] [place] [address] 7 [place] [address] Care Team Providers Care Supervisor Publications Production Name Role Phone Diane George Primary Care Provider [phone] Reason for Visit * Reason Onset Date Comments PSG ORDER 12/11/2024 Encounter Details Date Type Department Care Team ([facility] st Contact Info) Description 12/11/2024 Telephone FAD ? [facility] Health Information Management [address] [place] [address] Diane George ANP [address] [place] [address] PSG ORDER Social History Tobacco Use Types Packs/Day Years [...] AM EDT documented as of this encounter Miscellaneous Notes * Telephone Encounter - Megan Roach - 12/11/2024 11:23 AM EST Please complete notes from 12/04/24 in order to proceed with PSG order. Thank you documented in this encounter Plan of Treatment Not on file documented as of this encounter Visit Diagnoses Not on filedocumented in this encounter Additional Health Concerns Assessment Noted Time PHQ-9 Depression Total Score: 9 07/27/20 24 9:59 AM EDT documented as of this encounter Care Teams Supervisor Publications Production Relationship Specialty Start Date End Date Diane George ANP [address] [place] [address] PCP - General Family Medicine 02/10/24 documented as of this encounter
--- OUTSIDE RECORDS SUMMARY | 2024-12-17 06:50 | XMS_ITS | Encounter Summary ---
Author Organization [employer] Address [address] [facility] 7t [place] [address] Care Team Providers Care Vacuum Technician Name Role Phone Doris Diane FALLON Primary Care Provider Encounter Details Date Type Department Care Team (Late st Contact Info) Description 12/07/2024 2:15 PM EST Office Visit [facility] [address] [place], [place] [phone] Genoveva Alva FNP [address] [place] [address] Preop examination (Primary Dx) Social History Tobacco Use Types Packs/Day Years [...] AM EDT documented as of this encounter Last Filed Vital Signs Vital Sign Reading [...] Mass Index 31.53 12/07/2024 2:37 PM EST documented in this encounter Progress Notes * LORENA Castillo - 12/07/2024 2:15 PM EST Date of Surgery: 12/17/24 Surgical procedure being done: Ahmed vavle Type of anesthesia: MAC & Topical Lab needed: No EKG: No Surgeon's name: Dr. Diaz Facility name: [facility]. Surgery will be done at [facility] [place], [place]. Surgeon's office number: [phone] Surgeon's office fax number: [phone] Contact name: Elsi Abdi is a 79 y.o. year old female patient who presents for preop evaluation prior to Ahmed vavle placement scheduled for 12/17/24 with moderate sedation Cardiac Risk History of ischemic heart disease: NO History of heart failure: NO History of cerebrovascular disease: NO Diabetes mellitus requiring treatment with insulin: NO Preoperative serum creatinine >2.0 mg/dL : NO Activity tolerance >4 METS: YES climb up a flight of stairs, walk up a hill, walk at ground level at 4 miles per hour, or perform heavy work around the house. Bleeding Risk: Chronic anticoagulation: NO Daily aspirin: NO Blood clotting disorder: NO Pulmonary History: Negative BMI > 40: Smoking History: Former tobacco use quick more than 30 yrs ETOH: None Substance Use: None Personal or family history of anesthesia reaction: NO Chronic Medical Conditions: Obstructive sleep apnea, essential HTN, diabetes mellitus 2, and anxiety Review of Systems Constitutional: Negative for activity change, appetite change, fatigue and fever. HENT: Negative for congestion, ear discharge, ear pain, rhinorrhea and sore throat. Eyes: Negative for discharge, redness and itching. Respiratory: Negative for cough, shortness of breath and wheezing. Cardiovascular: Negative for chest pain. Gastrointestinal: Negative for abdominal pain, blood in stool, constipation, diarrhea, nausea and vomiting. Endocrine: Negative for polydipsia and polyuria. Genitourinary: Negative for decreased urine volume, difficulty urinating, dyspareunia, hematuria and menstrual problem. Musculoskeletal: Negative for arthralgias, gait problem and joint swelling. Skin: Negative for rash. Allergic/Immunologic: Negative for environmental allergies and food allergies. Neurological: Negative for dizziness, weakness and headaches. Hematological: Does not bruise/bleed easily. Psychiatric/Behavioral: Negative for behavioral problems, sleep disturbance and suicidal ideas. OBJECTIVE Visit Vitals BP 119/82 (BP Location: Left arm, Patient Position: Sitting, BP Cuff Size: Adult) Pulse 97 Temp 98.2 ??F (36.8 ??C) (Oral) Resp 18 Ht 5' 3 (1.6 m) Wt 178 lb (80.7 kg) SpO2 97% BMI 31.53 kg/m?? Smoking Status Never BSA 1.89 m?? Lab Results Component Value Date HGBA1C 6.2 (A) 12/04/2024 Physical Exam Constitutional: Appearance: Normal appearance. HENT: Head: Atraumatic. Nose: Nose normal. No congestion. Eyes: Extraocular Movements: Extraocular movements intact. Pupils: Pupils are equal, round, and reactive to light. Cardiovascular: Rate and Rhythm: Normal rate and regular rhythm. Pulses: Normal pulses. Heart sounds: Normal heart sounds. No murmur heard. Pulmonary: Effort: Pulmonary effort is normal. Breath sounds: Normal breath sounds. No wheezing. Chest: Chest wall: No tenderness. Musculoskeletal: General: Normal range of motion. Cervical back: Normal range of motion. Right lower leg: No edema. Left lower leg: No edema. Skin: General: Skin is warm and dry. Capillary Refill: Capillary refill takes less than 2 seconds. Findings: No bruising. Neurological: General: No focal deficit present. Mental Status: She is alert and oriented to person, place, and time. Cranial Nerves: No cranial nerve deficit. Sensory: No sensory deficit. Psychiatric: Mood and Affect: Mood normal. Behavior: Behavior normal. Thought Content: Thought content normal. Judgment: Judgment normal. PREOPERATIVE ASSESSMENT AND PLAN: - Provider considers procedure to be low -Reviewed cardiac risk factors based on RCRI. Patient has 0 risk factors corresponding to 0.4%risk of a major cardiac event during surgery. surgery and avoid NSAIDs starting 3 days before surgery - Pt may safely hold all other medications day of surgery - Patient may proceed with surgery and anesthesia without further risk stratification at this time - Pt will contact health center with questions or concerns [facility] HOT DIP PLATING SUPERVISOR Attestation HOT DIP PLATING SUPERVISOR Resident Attestation: Patient was seen and evaluated by Genoveva CARRILLO , in collaboration with Mumtaz Harris MD who has reviewed my assessment and plan. I, Mumtaz Harris MD, have reviewed the resident's note and agree with the assessment & plan of care as documented above. documented in this encounter Plan of Treatment Not on file documented as of this encounter Visit Diagnoses Diagnosis Preop examination- Primary Unspecified pre-operative examination documented in this encounter Additional Health Concerns Assessment Noted Time PHQ-9 Depression Total Score: 9 07/27/20 9:59 AM EDT documented as of this encounter Care Teams Vacuum Technician Relationship Specialty Start Date End Date Diane George ANP [address] [place] [address] PCP - General Family Medicine 02/10/24 documented as of this encounter
--- OUTSIDE RECORDS SUMMARY | 2024-12-17 06:50 | XMS_ITS | Encounter Summary ---
Author Organization [employer] Address [address] [facility] 7t [place] [address] Care Team Providers Care Tie Fastener Name Role Phone Diane George Primary Care Provider [phone] Reason for Visit * Reason Onset Date Comments Medication Question 11/09/2024 Encounter Details Date Type Department Care Team ([facility] st Contact Info) Description 11/09/2024 Telephone [facility] [address] [place], [place] [phone] Diane George ANP [address] [place] [address] Medication Question Social History Tobacco Use Types Packs/Day Years [...] Recorded Patient Health Questionnaire-2 Score 1 07/27/2024 Comments Unknown Sex and Gender Information Value Date Recorded Sex Assigned at Female 07/07/2023 10:45 AM EDT Legal Sex Female 10:44 AM EDT Gender Identity Female 07/07/2023 10:45 AM EDT Sexual Orientation Don't know 07/07/2023 10 :45 AM EDT documented as of this encounter Miscellaneous Notes * Telephone Encounter - Pritesh Weber - 11/20/2024 11:49 AM EST TC from pt wanting update on script for Pregabalin 150 mg . Risk Control Officer advised of prescribing provider Avila. Pt disclosed that Avila was per sample tester who left practice 3 months ago and is looking for pcp to start prescribing . * Telephone Encounter - Kira Hernandez LPN - 11/09/2024 2:00 PM EST Medication is prescribed by Julio Cesar Gramajo. * Telephone Encounter - Bertha Carrasquillo - 11/09/2024 1:47 PM EST Tc from pt requesting a refill for pregabalin (Lyrica) 150 MG capsule documented in this encounter Plan of Treatment Not on file documented as of this encounter Visit Diagnoses Diagnosis Radicular pain of lower extremity- Primary Diabetic polyneuropathy associated with type 2 diabetes mellitus (CMS/HCC) documented in this encounter Additional Health Concerns Assessment Noted Time PHQ-9 Depression Total Score: 9 07/27/20 24 9:59 AM EDT documented as of this encounter Care Teams Tie Fastener Relationship Specialty Start Date End Date Diane George ANP [address] [place] [address] [place] [address] PCP - General Family Medicine 02/10/24 documented as of this encounter
--- OUTSIDE RECORDS SUMMARY | 2024-12-17 06:51 | XMS_ITS | Encounter Summary ---
Author Organization [employer] Address [address] [place] [address] 7 [place] [address] Care Team Providers Care Quality Assurance Qa Lab Analyst Name Role Phone Diane George Primary Care Provider [phone] Reason for Referral * Hospital - Outpatient (Routine) - Pending Review Specialty Diagnoses / Procedures Referred By Melody sutton Referred To Contact Diagnoses DIANA (obstructive sleep apnea) Procedures Polysomnography Diane George ANP [address] [place] [address] Phone: tel: fax: [address] Phone: tel: fax: Referral ID Status Reason Start Date Expiration Date V isits Requested Visits Authorized [id number] Pending Review 12/04/2024 12/04/2025 1 1 Reason for Visit * Reason Comments Diabetes Encounter Details Date Type Department Care Team (Latest Contact Info) Description 12/04/2024 10:15 AM EST Office Visit [facility] 230 [place], [place] [phone] Diane George ANP [address] [place], [place] [phone] Hypertension associated with diabetes (CMS/HCC) (CMS/HCC) (Primary Dx); 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 (CMS/HCC); DIANA (obstructive sleep apnea); Balance problem; Memory loss; Encounter for immunization Social History Tobacco Use Types Packs/Day Years [...] Sign Reading Time Taken Comments Blood Pressure 111/78 12/04/2024 10:32 AM EST Pulse 81 12/04/2024 10:32 AM EST Temperature 36.6 ??C (97.9 ??F) 12/04/2024 1 0:32 AM EST Respiratory Rate 14 12/04/2024 10:3 2 AM EST Oxygen Saturation 96% 12/04/2024 10: 32 AM EST Inhaled Oxygen Concentration - - Weight 78.4 kg (172 lb 12.8 oz) 025 10:32 AM EST Height - - Body Mass Index - - documented in this encounter Patient Instructions * Patient Instructions* VASYL Cherry - 12/04/2024 10:15 AM EST A continuaci??n se encuentran las instrucciones para obtener evans: 1.) Elija sergio empresa GUEST SERVICES ASSOCIATE de la lista adjunta. Recomendamos Awais genoveva puedes elegir cualquiera de ellos. 2.) Llame y d??sohail que desea los servicios de GUEST SERVICES ASSOCIATE. 3.) Programar??n sergio evaluaci??n del hogar para andrews si es elegible para los servicios. 4.) Nos enviar??n por fax un formulario para completar. 5.) Lo completaremos y lo enviaremos por fax. 6.) Determinar??n la cantidad de horas de GUEST SERVICES ASSOCIATE para las que es elegible y le notificar??n y comenzar??n a enviarle un GUEST SERVICES ASSOCIATE a burnette hogar. No dude en ponerse en contacto con nosotros si tiene alguna pregunta o inquietud al respecto. [address] [place] [address], [place] [address] A [facility] (No es aceptado por [employer]) [address] [address] Si mas stewart 61 anos: [address] [address] [facility] [address] [place] [address] [address] [place] [address] documented in this encounter Plan of Treatment Scheduled Orders Name Type Priority Associated Diagnoses Orde r Schedule Polysomnography Sleep Center Routine DIANA (obstructive sleep apnea) Expected: 12/04/2024 (Approximate), Expires: 12/04/2025 documented as of this encounter Procedures Procedure Name Priority Date/Time Associated Diagnosis Comments POCT GLYCATED HEMOGLOBIN, TOTAL Routine 12/04/2024 10:35 AM EST Hypertension associated with diabetes (CMS/HCC) ([facility]) POCT GLUCOSE Routine 12/04/2024 10:22 AM EST Hypertension associated with diabetes (CMS/HCC) ([facility]) documented in this encounter Results * (ABNORMAL) POCT HGB A1C (12/04/2024 10:35 AM EST) Hemoglobin A1C 6.2(A) 4.0 - 6.0 % QC Media Lot # [id number] Lot# Expiration Date Blood 12/04/2024 10:3 5 AM EST Result Rafa FALLON POINT OF CARE TEST ENTER/EDIT OR DERABLES Edited Result - Final * POCT Glucose (12/04/2024 10:22 AM EST) Glucose Blood, POC 102 60 - 200 mg/dL QC Media Lot # [id number] Lot# Expiration Date ,025 Blood Capillary blood specimen / Unknown 12/04/2024 10:22 AM EST Result Rafa FALLON POINT OF CARE TEST ENTER/EDIT OR DERABLES Final Result documented in this encounter Visit Diagnoses Diagnosis Hypertension associated with diabetes (CMS/HCC) ([facility])- Primary Unspecified essential hypertension 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 ([facility]) DIANA (obstructive sleep apnea) Obstructive sleep apnea (adult) (pediatric) Balance problem Abnormality of gait Memory loss Encounter for immunization documented in this encounter Additional Health Concerns Assessment Noted Time PHQ-9 Depression Total Score: 9 07/27/20 24 9:59 AM EDT documented as of this encounter Care Teams Quality Assurance Qa Lab Analyst Relationship Specialty Start Date End Date Diane George ANP [address] [place] [address] PCP - General Family Medicine 02/10/24 documented as of this encounter
--- OUTSIDE RECORDS SUMMARY | 2024-12-17 06:51 | XMS_ITS | Encounter Summary ---
Author Organization [employer] Address [address] [facility] 7t [place] [address] Care Team Providers Care Analog Circuit Designer Name Role Phone Diane George Primary Care Provider [phone] Reason for Visit * Reason Onset Date Comments Chart Prep 11/27/2024 Encounter Details Date Type Department Care Team (Late st Contact Info) Description 11/27/2024 Telephone [facility] [address] [place], [place] [phone] Lien Prado [place] Chart Prep Social History Tobacco Use Types Packs/Day Years [...] encounter Miscellaneous Notes * Telephone Encounter - Lien Prado [place] - 11/27/2024 1:12 PM EST Chart Prep Labs: not done Images: not done Vaccines due: Covid Due Referrals: Podiatry pending appt and Physical Therapy complete Radiology completed, Physiatry pending appointment Screenings: Retinopathy Overdue care gaps: Sbirt documented in this encounter Plan of Treatment Not on file documented as of this encounter Visit Diagnoses Not on filedocumented in this encounter Additional Health Concerns Assessment Noted Time PHQ-9 Depression Total Score: 9 07/27/20 24 9:59 AM EDT documented as of this encounter Care Teams Analog Circuit Designer Relationship Specialty Start Date End Date Diane George ANP [address] [place] [address] PCP - General Family Medicine 02/10/24 documented as of this encounter
--- OUTSIDE RECORDS SUMMARY | 2024-12-17 06:51 | XMS_ITS | Encounter Summary ---
Author Organization [facility] Address [address] [place] [address] [address] [place] [address] Care Team Providers Care Patient Scheduler Name Role Phone Diane George Primary Care Provider [phone] Reason for Visit * Reason Onset Date Comments New Patient 07/07/2023 Encounter Details Date Type Department Care Team (Late st Contact Info) Description 07/07/2023 Telephone [facility] [address] [place] [address] Seth Barron MD [address] [place] [address] New Patient Social History Tobacco Use Types Packs/Day Years Used Date Smoking Tobacco: Never Assessed Comments Unknown Sex and Gender Information Value Date Recorded Sex Assigned at Female 07/07/2023 10:45 AM EDT Legal Sex Female 10:44 AM EDT Gender Identity Female 07/07/2023 10:45 AM EDT Sexual Orientation Don't know 07/07/2023 10 :45 AM EDT documented as of this encounter Miscellaneous Notes * Telephone Encounter - [place] Beau Singh - 07/07/2023 10:46 AM EDT 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
--- OUTSIDE RECORDS SUMMARY | 2024-12-17 06:51 | XMS_ITS | Encounter Summary ---
Author Organization [employer] Address [address] [facility] 7 [place] [address] Care Team Providers Care Maintenance Groundskeeper Name Role Phone Diane George Primary Care Provider [phone] Reason for Visit * Reason Comments Pre-visit Planning SDOH screening was c ompleted on 02/10/2024 Encounter Details Date Type Department Care Team ([facility] st Contact Info) Description 11/22/2024 Patient Outreach [facility] MED[facility]INE [address] [place], [place] [phone] Diane George ANP [address] [place] [address] Pre-visit Planning (SDOH screening was completed on 02/10/2024) Social History Tobacco Use Types Packs/Day Years [...] AM EDT documented as of this encounter Progress Notes * Chloé Kunz - 11/22/2024 2:11 PM EST SALVATORE Wood placed successful outbound call to patient for pre-visit planning. Patient name and confirmed. Patient confirms appt date and time, and has transportation arrangements. Biggest concern for appointment at this time is no concerns. Patient advised to bring to appointment a photo id and insurance card. Appropriate screenings completed in anticipation of appointment. documented in this encounter Plan of Treatment Not on file documented as of this encounter Visit Diagnoses Not on filedocumented in this encounter Additional Health Concerns Assessment Noted Time PHQ-9 Depression Total Score: 9 07/27/20 24 9:59 AM EDT documented as of this encounter Care Teams Maintenance Groundskeeper Relationship Specialty Start Date End Date Diane George ANP [address] [place] [address] PCP - General Family Medicine 02/10/24 documented as of this encounter
--- OUTSIDE RECORDS SUMMARY | 2024-12-17 06:51 | XMS_ITS | Clinical Summary ---
Author Organization [facility] Address [address] [place] [address] Phone Care Team Providers Care Acid Correction Hand Name Role Phone Diane George NP Primary Care Provider [phone] Allergies No known active allergies Medications Medication Sig Dispensed Refills Start Date End Date Status ACETAMINOPHEN ORAL Take 650 mg by mouth every 8 hours as needed. Active atropine 1 % ophthalmic solution 1 Drop 3 times daily. Active brimonidine (ALPHAGAN) 0.2 % ophthalmic solution 1 Drop 3 times daily. Active dilTIAZem XR (DILACOR XR) 240 mg 24 hr capsule Take 1 capsule (240 mg total) by mouth 1 (one) time each day. Active levothyroxine sodium (TIROSINT) 137 mcg capsule Take 137 mg by mouth daily. Active LORazepam (ATIVAN) 0.5 mg tablet Take 1 tablet (0.5 mg total) by mouth every 6 (six) hours if needed. Max Daily Amount: 2 mg Active metFORMIN (GLUCOPHAGE) 500 mg tablet Take 1 Tablet by mouth 2 times daily (with meals). Active naproxen (NAPROSYN) 500 mg tablet Take 1 Tablet by mouth 2 times daily (with meals). Active OMEPRAZOLE ORAL Take 20 mg by mouth. Active pravastatin (PRAVACHOL) 40 mg tablet Take 1 tablet (40 mg total) by mouth 1 (one) time each day. Active prednisoLONE acetate (PRED FORTE) 1 % ophthalmic suspension 1 Drop 4 times daily. Active timolol (TIMOPTIC) 0.5 % ophthalmic solution 1 Drop 2 times daily. Active triamterene-hydroCHLOR Othiazide (MAXZIDE-25) 37.5-25 mg per tablet Take 1 tablet by mouth 1 (one) time each day. Active Active Problems Problem Noted Date Diagnosed Date Essential hypertension 2024 Glaucoma 2024 Hypothyroidism 2024 Memory loss 2024 Mood disorder 2024 DIANA (obstructive sleep apnea) 2024 Encounters Date Type Department Care Team Description 10/10/2024 Telephone Orthopedic Surgery [facility] [address] [phone] Codi Mata 10/09/2024 1:45 PM EST Office Visit Orthopedic [facility] [address] [phone] Antony Ramirez DPM Diabetic mononeuropathy simplex (CMS/HCC) (Primary Dx); Pain in toe of left foot; Dermatophytosis of nail; Pain in toe of right foot from Last 3 Months Social History Tobacco Use Types Packs/Day Years Used Date Smoking Tobacco: Never Assessed Sex and Gender Information Value Date Recorded Sex Assigned at Not on file Gender Identity Not on file Sexual Orientation Not on file Job Start Date Occupation Industry Not on file Not on file Not on file Last Filed Vital Signs Vital Sign Reading Time Taken Comments Blood Pressure - - Pulse - - Temperature - - Respiratory Rate - - Oxygen Saturation - - Inhaled Oxygen Concentration - - Weight 68 kg (150 lb) 10/09/2024 2:02 PM EST Height - - Body Mass Index - - Plan of Treatment Upcoming Encounters Date Type Department Care Team (Late st Contact Info) Description 01/09/2025 2:00 PM EST Office Visit Orthopedic Surgery [facility] [address] [phone] Antony Ramirez DPM [address] [address] Health Maintenance Due Date Last Done Comments Diabetes: Annual GFR (Glomerular Filtration Rate) 1946 Diabetes: Annual Foot Exam 1956 Diabetes: Annual Retina Eye Exam 1956 COVID-19 Vaccine ( - 2023-2 5 season) 2024 Falls Risk Assessment 08/26/2024 Hypertension/CHF/CAD Annual BMP Blood Test 08/26/2024 Medicare Annual Wellness Visit 08/26/2024 Osteoporosis Screening (Bone Density Screening) 08/26/2024 Social Influencers of Health Screening 08/26/2024 Zoster Vaccines (2 of 2) 10/04/2024 08/09/2024 Diabetes: Annual Urine Albumin-Creatinine Ratio (uACR) 10/09/2024 Hepatitis B Vaccines (3 of 3 - 19+ 3-dose series) 12/15/2024 07/27/2024, 06/14/2024 Diabetes: Blood Sugar Contro l Test (HGBA1C) 01/24/2025 07/27/2024 Depression Screening 07/27/2025 07/27/2024 Cholesterol Screening (Lipid Panel) 05/03/2029 05/03/2024 DTaP,Tdap,and Td Vaccines (2 - Td or Tdap) 05/03/2034 05/03/2024 Hepatitis C Screening Completed 05/03/2024 Pneumococcal Vaccine: 65+ Years Completed 05/03/2024 RSV Immunization Patients 60 + Years Old Completed 05/03/2024 Influenza Vaccine Completed 09/17/2024, 09/09/2023, 10/26/2022 HIB Vaccines Aged Out No longer eligi [...] on patient's age to complete this topic MMR Vaccines Aged Out No longer eligi ble based on patient's age to complete this topic Meningococcal ACWY Vaccine Aged Out N o longer eligible based on patient's age to complete this topic RSV Immunization Patients Under 20 months Aged Out No longer eligible b ased on patient's age to complete this topic Varicella Vaccines Aged Out No longer eligible based on patient's age to complete this topic Care Teams Acid Correction Hand Relationship Specialty Start Date End Date Diane George, WEIGHTS AND MEASURES SEALER [address] [address] PCP - General 06/15/24
--- OUTSIDE RECORDS SUMMARY | 2024-12-17 06:51 | XMS_ITS | Encounter Summary ---
Author Organization [employer] Address [address] [facility] [address] [place] [address] Care Team Providers Care Survey Party Chief Name Role Phone Doris Diane FALLON Primary Care Provider [phone] Encounter Details Date Type Department Care Team (Latest Contact Info) Description 12/04/2024 Travel Social History Tobacco Use Types Packs/Day [...] documented as of this encounter Care Teams Survey Party Chief Relationship Specialty Start Date End Date Diane George ANP [address] [place] [address] PCP - General Family Medicine 02/10/24 documented as of this encounter
[2024-12-17 07:51] VITALS: BP 109/80; PULSE 96; RESP 15; TEMP 36.6; O2SAT 93
--- NOTE | 2024-12-17 08:00 | HO.ANESPROP2 ---
HPI - Anesthesia Eval Consult details Narrative: 79 yo female patient for Removal of Ahmed valve Right eye. Patient falling asleep sitting up. Desaturating to 80s. Plan minimal sedation PMFSH Active Problems Active Problems: All Active Problems Chronic SI joint pain (Acute) Elevated LDL cholesterol level (Acute) Normal physical examination, routine (Acute) Type 2 diabetes, controlled, with neuropathy (Acute) Laboratory tests ordered as part of a complete physical exam (CPE) (Acute) Ascending aorta enlargement (Acute) Aortic valve calcification (Acute) Asymmetric septal hypertrophy (Acute) Heart murmur (Acute) Cough (Acute) Muscular deconditioning (Acute) Bilateral thigh pain (Acute) Acute seasonal allergic rhinitis (Acute) Pain of right lower extremity (Acute) Severe Obstructive sleep apnea (Acute). Not using CPAP machine Hemorrhoids that prolapse with straining and require manual replacement back inside anal canal (Acute) Acute hemorrhoid (Acute) Rhinitis (Acute) Acute bacterial conjunctivitis (Acute) Dacrocystitis (Acute) Glaucoma (Acute) Neuropathy (Acute) Sleep apnea (Acute) Hypothyroid (Acute) Diabetes (Acute) Arthritis (Acute) HTN (hypertension) (Acute) Past Medical History Medical History GERD (gastroesophageal reflux disease) Gout Sleep apnea Glaucoma Carpal tunnel syndrome Hemorrhoids Arthritis Neuropathy Hypothyroid Diabetes HTN (hypertension) Family History Family History Mother No problems noted. Father No problems noted. Family history of problems with anesthesia: No Surgical History Surgical History Hx of sinus surgery H/O eye surgery Hx of tubal ligation History of thyroid surgery Hx of cholecystectomy History of Problems with Anesthesia: No Social History Social History Household Members: Family Housing: House Alcohol intake: former Patient Tobacco Use Status: Former Tobacco user e-Cigarette/Vaping Use: Never Used Use of substances other than those prescribed or required for medical reasons: No Are you DNR?: No Advance Directives: No Advance Directives Information Provided: Yes service: No Current occupational status: employed and disabled Cognitive needs: No Hearing needs: No Vision needs: No Meds Allergies Allergy/AdvReac Type Severity Reaction Status Date / Time pravastatin AdvReac muslce pain Verified 12/17/24 07:43 Active Medications: Current Medications Povidone Iodine (Povidone Iodine 5 % Ophth Soln 30 Ml Bottle) 1 appl EYE-RIGHT PREOP PRN PRN Reason: Pre-Op Surgical Implant Prophy Home Medications ?Medication ?Instructions ?Recorded ?Confirmed ?Last Taken ?Type erythromycin 5 mg/gram (0.5 %) eye 0.5 inch ophthalmic (eye) QID 02/11/22 11/20/24 Unknown History ointment menthol 0.44 %-zinc oxide 20.6 % 1 appl topical QID PRN 03/31/23 11/20/24 Unknown History topical ointment (Calmoseptine) duloxetine 20 mg capsule,delayed 20 mg PO BID 11/20/24 12/11/24 12/17/24 05:30 History release pregabalin 150 mg capsule 150 mg PO BID 11/20/24 12/11/24 12/17/24 05:30 History trazodone 100 mg tablet 100 mg PO BEDTIME PRN Insomnia 11/20/24 12/11/24 Unknown History atropine 1 % eye drops 1 drp ophthalmic-Right BID 12/11/24 12/11/24 Unknown History brimonidine 0.2 % eye drops 1 drp ophthalmic-Left BID 12/11/24 12/11/24 Unknown History lidocaine 5 % topical patch 1 patch topical DAILY 12/11/24 12/11/24 Unknown History naproxen 500 mg tablet 500 mg PO BID PRN moderate pain 12/11/24 12/11/24 Unknown History prednisolone acetate 1 % eye 1 drp ophthalmic-Right BID 12/11/24 12/11/24 Unknown History drops,suspension timolol maleate 0.5 % eye gel 1 drp QAM 12/11/24 12/11/24 Unknown History forming solution Exam Height,Weight and Vital Signs: Height 5 ft 3 in Weight 80.739 kg Last Vital Signs Temp 97.8 F 12/17/24 07:51 Pulse 96 12/17/24 07:51 Resp 15 12/17/24 07:51 BP 109/80 12/17/24 07:51 Pulse Ox 93 12/17/24 07:51 O2 Del Method Room Air 12/17/24 07:51 Pertinent Lab Results Pertinent Lab Results: Lab Results 12/17/24 Range/Units 08:01 POC Glucose 107 (60-115) mg/dL Airway Mallampati Class: III TM Dist: >3cm Partial: Upper Loose/Missing/Broken Teeth: Yes (Missing molars. Denies loose teeth) Heart: RRR+ systolic murmur Lungs: CTAB Assessment and Plan Assessment Anesthesia Assessment: Anesthesia Plan Discussed and Chart Reviewed Final Anesthetic Review Family History of Problems with Anesthesia: No History of Problems with Anesthesia: No NPO: Yes ASA Class: III Final Preanesthetic Review: No Changes in Pt Med Stat, Meds/Allgs Chart Reviewed, Consent Obtained/Reviewed and Anes Risks/Benef Reviewed Patient Risk: Intermediate Procedure Risk: Low Assessment/Block/Sedation in SS: Assess/Block/Sedation-SS Anesthetic Plan Anesthetic Plan: MAC: Disposition: Standard PACU
[2024-12-17 08:05] LABS: Glucose, Whole Blood 107 mg/dL (60-115)
--- NOTE | 2024-12-17 08:28 | MHC.SHP ---
Pre-Procedural Eval Section A - 24 Hr Update-Section A only Date of Service: 12/17/24 The patient is an INPATIENT: No Changes since office visit: No Cold of Flu in the past 2 weeks, No New Medical Problems, No Changes in Medication and No Patient answered all questions The patient has been examined within 24 hours of the surgical procedure. The History & Physical has been completed within 30 days and I have reviewed it.: Yes Section B - Complete if H&P > 30 days Chief Complaint: Central corneal opacity, right eye Allergies: Allergies Allergy/AdvReac Type Severity Reaction Status Date / Time pravastatin AdvReac muslce pain Verified 12/17/24 07:43 Plan Diagnosis/Plan: Unchanged I have reviewed the history and physical and performed a pertinent physical examination on my patient. No changes have occurred unless specified. Time Spent With Patient Time: Total time managing care of this patient today ____ minutes.
[2024-12-17 09:27] VITALS: BP 126/78; PULSE 81; RESP 14; TEMP 36.5; O2SAT 93
[2024-12-17 09:42] VITALS: BP 127/69; PULSE 81; RESP 16; TEMP 36.5; O2SAT 94
--- NOTE | 2024-12-17 20:40 | OP_ITS ---
DATE OF SERVICE: 12/17/2024 SURGEON: Kike Diaz MD PREOPERATIVE DIAGNOSIS: Extrusion of Ahmed implant. POSTOPERATIVE DIAGNOSIS: Extrusion of Ahmed implant. PROCEDURE PERFORMED: ESTIMATED BLOOD LOSS: COMPLICATIONS: ANESTHESIA: Local with MAC. ASSISTANTS: SPECIMENS: DESCRIPTION OF PROCEDURE: After obtaining informed consent, the patient was brought to the operating room suite and placed in the supine position. After adequate sedation, the right eye was prepped and draped in the usual sterile fashion. Attention was directed to the right eye. The eyelid speculum was placed. The operating microscope was positioned over the globe of the right eye. Upon downgaze the seton tube was extruded and eroded through the conjunctiva. The tube was removed from the anterior chamber. The implant body was scarred to the conjunctiva and left in place. The conjunctiva was closed with 9-0 Vicryl suture. Erythromycin was then placed on the eye. Patient tolerated the procedure well and will be seen in followup. MD JILLIAN Guy/MODL / [id number] MTDD
== END 2024-12-17 09:57 | disposition home or self-care (01) ==
PROVIDERS: PCP Nurse Practitioner Primary Care; Visit Provider Ophthalmology
PROC: (CPT 66985; principal; 2024-12-17 08:30)
DX: T85.398A Other mechanical complication of other ocular prosthetic devices, implants and grafts, initial encounter (principal); Y77.2 Prosthetic and other implants, materials and accessory ophthalmic devices associated with adverse incidents; H17.11 Central corneal opacity, right eye; H57.11 Ocular pain, right eye; H02.89 Other specified disorders of eyelid; H40.1131 Primary open-angle glaucoma, bilateral, mild stage; E11.9 Type 2 diabetes mellitus without complications; I10 Essential (primary) hypertension; E03.9 Hypothyroidism, unspecified; G62.9 Polyneuropathy, unspecified; M10.9 Gout, unspecified; Z79.84 Long term (current) use of oral hypoglycemic drugs; Z79.899 Other long term (current) drug therapy; Z87.891 Personal history of nicotine dependence
CPT/HCPCS: 65920; 82947; J2003; J2250; J2704; J3010

== ENCOUNTER → 2025-02-14 11:54 | Outpatient (REF) | payer OTHER, SELFPAY ==
--- OUTSIDE RECORDS SUMMARY | 2025-02-14 13:13 | XMS_ITS | Encounter Summary ---
Author Organization [employer] Address [address] [facility] 7t [place] [address] Care Team Providers Care Establishment Guide Name Role Phone Diane George Primary Care Provider Reason for Visit * Reason Comments Med Refill Encounter Details Date Type Department Care Team ([facility] st Contact Info) Description 10/18/2024 Refill [facility]INE [address] [place], [place] [phone] Diane George ANP [address] [place], [place] [phone] Social History Tobacco Use Types Packs/Day Years [...] as of this encounter Plan of Treatment Upcoming Encounters Date Type Department Care Team (Late st Contact Info) Description 02/18/2025 10:30 AM EDT Medication Management [address] [address] 05/14/2025 1:15 PM EDT Office Visit [address] [address] Diane George ANP [address] [place] [address] documented as of this encounter Visit Diagnoses Not on filedocumented in this encounter Additional Health Concerns Assessment Noted Time PHQ-9 Depression Total Score: 9 07/27/20 24 9:59 AM EDT documented as of this encounter Care Teams Establishment Guide Relationship Specialty Start Date End Date Diane George ANP [address] [place] [phone] PCP - General Family Medicine 02/10/24 documented as of this encounter
--- OUTSIDE RECORDS SUMMARY | 2025-02-14 13:13 | XMS_ITS | Encounter Summary ---
Author Organization [employer] Address [address] [facility] 7t [place] [address] Care Team Providers Care Casing Trimmer Name Role Phone Diane George Primary Care Provider [phone] Reason for Visit * Reason Comments Med Refill Encounter Details Date Type Department Care Team ([facility] st Contact Info) Description 02/04/2025 Refill [facility] MED[facility] [address] [place], [place] [phone] Diane George ANP [address] [place], [place] [phone] Social History Tobacco Use Types Packs/Day Years [...] Description 02/18/2025 10:30 AM EDT Medication Management [address] [address] 05/14/2025 1:15 PM EDT Office Visit [address] [address] Diane George ANP [address] [place] [phone] documented as of this encounter Visit Diagnoses Not on filedocumented in this encounter Additional Health Concerns Assessment Noted Time PHQ-9 Depression Total Score: 9 07/27/20 24 9:59 AM EDT documented as of this encounter Care Teams Casing Trimmer Relationship Specialty Start Date End Date Diane George ANP [address] [place] [phone] PCP - General Family Medicine 02/10/24 documented as of this encounter
--- OUTSIDE RECORDS SUMMARY | 2025-02-14 13:13 | XMS_ITS | Encounter Summary ---
Author Organization [employer] Address [address] [facility] [address] [place] [address] Care Team Providers Care Institutional Asset Manager Name Role Phone Doris Diane FALLON Primary Care Provider [phone] Encounter Details Date Type Department Care Team (Latest Contact Info) Description 02/13/2025 Travel Social History Tobacco Use Types Packs/Day Years Used Date Smoking Tobacco: Never Passive Smoke Exposure: Never Smokeless Tobacco: Never Depression Answer Date Recorded Patient Health Questionnaire-9 Score 9 02/13/2025 Patient Health Questionnaire-9 Score 9 02/13/2025 Last PHQ-9: Questionnaire Data Not on file 0 02/13/2025 Housing Stability Answer Date Recorded What is [...] Date Recorded Patient Health Questionnaire-2 Score 1 02/13/2025 Internet Access Answer Date Recorded Internet Access [...] Description 02/18/2025 10:30 AM EDT Medication Management [facility] [address] [place] [phone] 05/14/2025 1:15 PM EDT Office Visit [facility] [address] [place] [phone] Diane George ANP [address] [place] [phone] documented as of this encounter Visit Diagnoses Not on filedocumented in this encounter Additional Health Concerns Assessment Noted Time PHQ-9 Depression Total Score: 9 02/14/20 25 3:51 PM EDT documented as of this encounter Care Teams Institutional Asset Manager Relationship Specialty Start Date End Date Diane George ANP [address] [place] [phone] PCP - General Family Medicine 02/10/24 documented as of this encounter
--- OUTSIDE RECORDS SUMMARY | 2025-02-14 13:13 | XMS_ITS | Encounter Summary ---
Author Organization [employer] [facility] Address [address] [place] [address] [address] [place] [address] Care Team Providers Care Glass Polisher Name Role Phone Doris Diane FALLON Primary Care Provider [phone] Reason for Visit * Reason Onset Date Comments New Patient 07/07/2023 Encounter Details Date Type Department Care Team (Late st Contact Info) Description 07/07/2023 Telephone [facility] MEDICINE [address] [place] [phone] Seth Barron MD [address] [place] [address] New Patient Social History Tobacco Use Types [...] encounter Miscellaneous Notes * Telephone Encounter - Russ Singh - 07/07/2023 10:46 AM EDT Pt has been transfer over to wait list for FILER FINISH. EFFECTIVE SINCE 04/14/2023 documented in this encounter Plan of Treatment Upcoming Encounters Date Type Department Care Team (Late st Contact Info) Description 02/18/2025 10:30 AM EDT Medication Management [facility] [address] [place] [phone] 05/14/2025 1:15 PM EDT Office Visit [address] [address] Diane George ANP [address] [place] [phone] documented as of this encounter Visit Diagnoses Not on filedocumented in this encounter Care Teams Glass Polisher Relationship Specialty Start Date End Date Diane George ANP [address] [place] [phone] PCP - General Family Medicine 02/10/24 documented as of this encounter
--- OUTSIDE RECORDS SUMMARY | 2025-02-14 13:13 | XMS_ITS | Encounter Summary ---
Author Organization [employer] [facility] Address [address] [place] [address] Care Team Providers Care Certified Cytotechnologist Name Role Phone Diane George Primary Care Provider Reason for Referral * Consultation (Routine) - Authorized Specialty Diagnoses / Procedures Referred By Melody sutton Referred To Contact Family Medicine Diagnoses Generalized pruritus Rash Diane George ANP [address] [place] [address] Phone: tel: fax: Referral ID Status Reason Start Date Expiration Date Visits Requested Visits Authorized [id number] Authorized Specialty Services Required 02/13/2025 02/13/2026 1 1 * Consultation (Urgent) - Pending Review Specialty Diagnoses / Procedures Referred By Melody sutton Referred To Contact Urology Diagnoses Urinary hesitancy Diane George ANP [address] [place] [address] Phone: tel: fax: Referral ID Status Reason Start Date Expiration Date Visits Requested Visits Authorized [id number] Pending Review Specialty Services Required 02/13/2025 02/13/2026 1 1 Reason for Visit * Reason Comments sick Encounter Details Date Type Department Care Team (Latest Contact Info) Description 02/13/2025 3:30 PM EDT Office Visit [facility] MEDICINE [address] [place] [address] Diane George ANP [address] [place] [address] Low back pain potentially associated with radiculopathy (Primary Dx); Gastroesophageal reflux disease, unspecified whether esophagitis present; Right hip pain; Radicular pain of lower extremity; Urinary hesitancy; Generalized pruritus; Rash; Rash Social History Tobacco Use Types Packs/Day Years [...] Sign Reading Time Taken Comments Blood Pressure 136/83 02/13/2025 3:44 PM EDT Pulse 93 02/13/2025 3:44 PM EDT Temperature 37.2 ??C (98.9 ??F) 02/13/2025 3:44 PM ED T Respiratory Rate 20 02/13/2025 3:44 PM EDT Oxygen Saturation 98% 02/13/2025 3:44 PM EDT Inhaled Oxygen Concentration - - Weight 80.2 kg (176 lb 12.8 oz) 02/13/2025 3:44 PM EDT Height - - Body Mass Index 31.32 12/07/2024 2:37 PM EST documented in this encounter Progress Notes * Diane George ANP - 02/13/2025 3:30 PM EDT Subjective Patient ID: Roseanne Abdi is a 79 y.o. female who presents for sick. HPI PMH: DM, thyroid dz, HTN, neuropathy, high cholesterol, arthritis, ?CAD, hemorrhoids, glaucoma R eye Specialists: [address] Diaz Surgical hx: parathyroid, cholecystectomy, eye surgery Per triage Patient reports that she is having pain in her lower back and is going into her feet bilat. Pain is chronic but today worse with decreased ambulation due to pain. Is taking Ibuprofen withlittle effect. Patient without loss of bowel or bladder but reports that she has to sit for a bit to empty her bladder. No fever and no recent accident or injury. Sx better w/ naproxen but she is worried to take this too often. She does not have PPI, will send refill now. She has appt Tuesday to meet w/ pharmacy for full medication reconciliation. MRI 06/2024 as below She was referred to and seen by physiatry and she says they gave her a shot that helped for 1-2 weeks. She has not contacted them for follow-up and I asked her to please do this. Having urinary hesitancy, not sure how long, but new sx. A few weeks. Denies constipation, flank pain, fever, chills, dysuria, hematuria. We sent over lab results to her psychiatrist but she says one was missing. Not sure which. Asked her to please check with them. From visit 07/2024: Central stenosis of spinal canal (Primary) Referred to physiatry from earlier visit Continue Lyrica 150 mg at bedtime Continue naproxen 500 mg w/ food up to twice daily as needed for pain [employer] utilized for [place] interpretation # [id number] Review of Systems Constitutional: Negative for chills and fever. HENT: Negative for congestion and sore throat. Respiratory: Negative for cough and shortness of breath. Cardiovascular: Negative for chest pain and leg swelling. Gastrointestinal: Negative for abdominal pain, constipation and diarrhea. Endocrine: Negative for polydipsia, polyphagia and polyuria. Genitourinary: Positive for decreased urine volume and difficulty urinating. Negative for dysuria, flank pain, frequency, hematuria, pelvic pain and urgency. Musculoskeletal: Positive for back pain. Neurological: Negative for numbness. Psychiatric/Behavioral: Positive for dysphoric mood. Objective BP 136/83 (BP Location: Left arm, Patient Position: Sitting, BP Cuff Size: Adult) Pulse93 Temp 98.9 ??F (37.2 ??C) (Temporal) Resp 20 Wt 176 lb 12.8 oz (80.2 kg) SpO2 98% BMI 31.32 kg/m?? Physical Exam Vitals reviewed. Constitutional: General: She is not in acute distress. Appearance: Normal appearance. She is not ill-appearing. HENT: Head: Normocephalic and atraumatic. Eyes: General: No scleral icterus. Extraocular Movements: Extraocular movements intact. Cardiovascular: Rate and Rhythm: Normal rate. Pulmonary: Effort: Pulmonary effort is normal. No accessory muscle usage or respiratory distress. Musculoskeletal: Right lower leg: No edema. Left lower leg: No edema. Skin: Comments: erythematous plaques to L leg, approx 10, irregular, coalescing in spots. Scattered dry excoriations on lower back Neurological: Mental Status: She is alert and oriented to person, place, and time. Comments: At baseline; ambulates w/ cane Psychiatric: Mood and Affect: Mood normal. Behavior: Behavior normal. Assessment/Plan Diagnoses and all orders for this visit: Low back pain potentially associated with radiculopathy She was referred to and seen by physiatry and she says they gave her a shot that helped for 1-2 weeks. She has not contacted them for follow-up and I asked her to please do this. Gave her contact info. Refilled naproxen today and also PPI. Asked her to please only take naproxen with food. Continue Lyrica at bedtime MRI results as above. Gastroesophageal reflux disease, unspecified whether esophagitis present - omeprazole (PriLOSEC) [address] capsule; Take 1 capsule (20 mg) by mouth before breakfast. Right hip pain - naproxen (Naprosyn) 500 MG tablet; TAKE 1 TABLET BY MOUTH EVERY MORNING & 1 TABLET AT BEDTIMEIF NEEDED FOR MODERATE PAIN Radicular pain of lower extremity - naproxen (Naprosyn) 500 MG tablet; TAKE 1 TABLET BY MOUTH EVERY MORNING & 1 TABLET AT BEDTIMEIF NEEDED FOR MODERATE PAIN Urinary hesitancy Suspect some degree of chronic urinary retention. Will refer urgently to urology for eval. Send outUA. - Urinalysis, Complete, with Reflex to Culture Generalized pruritus Rash Consistent with atopic dermatitis. Mild improvement with triamcinolone. Will refer to Derm. Refilled triamcinolone topical. Future Appointments Date Time Provider Department Center 02/18/2025 10:30 AM [facility] MIXED SIGNAL DESIGN ENGINEER 1 MEDICINE [facility] documented in this encounter Plan of Treatment Upcoming Encounters Date Type Department Care Team (Late st Contact Info) Description 02/18/2025 10:30 AM EDT Medication Management [facility] MEDICINE [address] [place] [phone] 05/14/2025 1:15 PM EDT Office Visit [facility] MEDICINE [address] [place] [phone] Diane George ANP [address] [place] [phone] Scheduled Orders Name Type Priority Associated Diagnoses Orde r Schedule Urinalysis, Complete, with Reflex to Culture Lab Routine Urinary hesitancy Ordered: 02/13/2025 Scheduled Referrals Name Type Priority Associated Diagnoses Orde r Schedule Referral to Urology Outpatient Referral Urgent Urinary hesitancy Expected: 02/13/2025 (Approximate), Expires: 02/13/2026 Referral to [facility] Derm Skin Adult Outpatient Referral Routine Generalized pruritus Rash Expected: 02/13/2025 (Approximate), Expires: 02/13/2026 documented as of this encounter Visit Diagnoses Diagnosis Low back pain potentially associated with radiculopathy- Primary Gastroesophageal reflux disease, unspecified whether esophagitis present Right hip pain Pain in joint, pelvic region and thigh Radicular pain of lower extremity Urinary hesitancy Generalized pruritus Unspecified pruritic disorder Rash Rash and other nonspecific skin eruption documented in this encounter Additional Health Concerns Assessment Noted Time PHQ-9 Depression Total Score: 9 02/14/20 25 3:51 PM EDT documented as of this encounter Care Teams Certified Cytotechnologist Relationship Specialty Start Date End Date Diane George ANP [address] [place] [phone] PCP - General Family Medicine 02/10/24 documented as of this encounter
--- OUTSIDE RECORDS SUMMARY | 2025-02-14 13:13 | XMS_ITS | Encounter Summary ---
Author Organization [employer] Address [address] [facility] [address] [place] [address] Care Team Providers Care Rubber Compounder Formulator Name Role Phone Diane George Primary Care Provider [phone] Encounter Details Date Type Department Care Team ([facility] st Contact Info) Description 02/11/2025 Telephone [facility] MEDICINE [address] [place], [place] [phone] Diane George ANP [address] [place] [address] Social History Tobacco Use Types Packs/Day Years [...] encounter Miscellaneous Notes * Telephone Encounter - Aryan Herron - 02/11/2025 12:46 PM EDT Pharmacy [facility] attempted outreach call on 02/11/25 for Medication Therapy Management (MTM) appointment; however, unable to reach patient. LVM for patient to contact Aryan Herron at [phone]. documented in this encounter Plan of Treatment Upcoming Encounters Date Type Department Care Team (Late st Contact Info) Description 02/18/2025 10:30 AM EDT Medication Management [facility] MEDICINE [address] [place] [phone] 05/14/2025 1:15 PM EDT Office Visit [facility] MEDICINE [address] [place] [phone] Diane George ANP [address] [place] [phone] documented as of this encounter Visit Diagnoses Not on filedocumented in this encounter Additional Health Concerns Assessment Noted Time PHQ-9 Depression Total Score: 9 07/27/20 24 9:59 AM EDT documented as of this encounter Care Teams Rubber Compounder Formulator Relationship Specialty Start Date End Date Diane George ANP [address] [place] [phone] PCP - General Family Medicine 02/10/24 documented as of this encounter
--- OUTSIDE RECORDS SUMMARY | 2025-02-14 13:13 | XMS_ITS | Clinical Summary ---
Author Organization [employer] Address [address] [facility] 7[address] [place] [address] Care Team Providers Care Open Winder Name Role Phone Doris Diane FALLON Primary Care Provider [phone] Allergies No known active allergies Medications * This document contains information received from the source organization and may not represent a complete record from that organization. atropine 1 % ophthalmic solution INSTILL 1 [...] if ineffective after 30 min 4 tablet 024 Active triamterene-hydro chlorothiazide (Maxzide-25) 37.5-25 MG tabletIndications :Hypertension associated with diabetes (CMS/HCC) Take 1 tablet by mouth Once per day. 90 tablet 3 09/13/2 024 Active levothyroxine (Synthroid, Levoxyl) 137 MCG tabletIndications :Hypothyroidism, unspecified type Take 137 mcg by mouth Once per day. 90 tablet 3 024 Active metFORMIN (Glucophage) 500 MG tabletIndications :Hypertension associated with diabetes (CMS/HCC) Take 1 tablet (500 mg) by mouth Once per day. Take w/ meal 90 tablet 3 Active lidocaine (Lidoderm) 5 % patchIndications: Right leg pain Apply 1 patch topically Once per day. Remove & discard patch within 12 hours or as directed by MD. 30 patch 2 024 Active traZODone (Desyrel) 50 MG tablet 50 mg. Active pravastatin (Pravachol) 40 MG tablet TAKE 1 TABLET BY MOUTH AT BEDTIME 90 tablet 1 025 Active DULoxetine (Cymbalta) [address] capsuleIndication s:Anxiety,Mood disorder (CMS/HCC) Take 1 capsule (60 mg) by mouth Once per day. Do not crush or chew. 30 capsule 5 025 2025 Active dilTIAZem CD (Cardizem CD) 240 MG 24 hr capsuleIndication s:Essential hypertension Take 1 capsule (240 mg) by mouth Once per day. 90 capsule 3 025 Active pregabalin (Lyrica) 150 MG capsuleIndication s:Radicular pain of lower extremity,Diabeti c polyneuropathy associated with type 2 diabetes mellitus (CMS/HCC) Take 1 capsule (150 mg) by mouth 2 times daily. 60 capsule 2 025 Active omeprazole (PriLOSEC) [address] capsuleIndication s:Gastroesophagea l reflux disease, unspecified whether esophagitis present Take 1 capsule (20 mg) by mouth before breakfast. 90 capsule 3 025 Active naproxen (Naprosyn) 500 MG tabletIndications :Right hip pain,Radicular pain of lower extremity TAKE 1 TABLET BY MOUTH EVERY MORNING & 1 TABLET AT BEDTIME IF NEEDED FOR MODERATE PAIN 60 tablet 025 Active triamcinolone (Kenalog) 0.1 % creamIndications: Rash Apply twice daily to affected areas (rash) 45 g 1 025 Active dilTIAZem CD (Cardizem CD) 240 MG 24 hr capsule Take 240 mg by mouth in the morning. 024 2024 Discontinued(R eorder (will not trigger notification to Pharmacy)) omeprazole (PriLOSEC) [address] capsule Take 20 mg by mouth in the morning. 024 2024 Discontinued(R eorder (will not trigger notification to Pharmacy)) triamcinolone (Kenalog) 0.1 % creamIndications: Rash Apply twice daily to affected areas (rash) 45 g 1 024 2024 Discontinued(R eorder (will not trigger notification to Pharmacy)) naproxen (Naprosyn) 500 MG tabletIndications :Right hip pain,Radicular pain of lower extremity TAKE 1 TABLET BY MOUTH EVERY MORNING & 1 TABLET AT BEDTIME IF NEEDED FOR MODERATE PAIN 60 tablet 024 2024 Discontinued(R eorder (will not trigger notification to Pharmacy)) pregabalin (Lyrica) 150 MG capsuleIndication s:Radicular pain of lower extremity,Diabeti c polyneuropathy associated with type 2 diabetes mellitus (CMS/HCC) Take 1 capsule (150 mg) by mouth 2 times daily. 60 capsule 2 025 2024 Discontinued(R eorder (will not trigger notification to Pharmacy)) DULoxetine (Cymbalta) [address] capsule Take 20 mg by mouth 2 times daily. 025 2024 Discontinued Active Problems Problem Noted Date Diagnosed Date [...] connected with a psychiatrist and therapist in [place] (unable to provide agency name). Today, pt [...] 20/30, labs pending Hypertension associated with diabetes 04/30/2024 Overview (06/14/2024): Cont metformin 500mg daily [...] with psychopharmacology when she was living in [place]. Family moved to [place] from [place] in 2017. Further information needed to make diagnosis of bipolar disorder. Currently seeing a therapist with [facility] Psychiatry services will start soon due to having a conflict with her insurance ([facility]). During today's visit, clinician engaged pt with active, reflective listening and validation of emotions. Reviewed and assessed for risk, current stressors and protective factors using open-ended questions. Pt agreed to continue with MH services with current agent and will reach out to clinician if additional support is needed. PLAN: (check all that apply) Continue with current services (defined as services in the past 12 months) Behavioral Health Integration Plan Request psych referral through current therapist. Pt is currently engaged in therapist services with [facility]. Psychiatry services were pending due to a conflict with her insurance ([facility]). Update from pt's granddaughter, [facility] will cover psychiatry services and appointment will [...] with psychopharmacology when she was living in [place]. Family moved to [place] from [place] in 2017. Further information needed to make diagnosis. PLAN: (check all that apply) Continue with current services (defined as services in the past 12 months) . Referral placed during last visit for psychiatry services with N/intake. Assessment & Plan (02/13/2024 4:32 PM EDT): [...] with psychopharmacology when she was living in [place]. She was accompanied by her granddaughter. Family moved to [place] from [place] in 2017. Further information needed to make diagnosis. PLAN: (check all that apply) New/Additional Services needed PCP management On-site non-integrated services Off-site services for Behavioral Health Integration Plan Internal Follow up with [facility] External OP therapy referral and OP psychiatry Referral Patient Self Plan Patient to utilize skills provided in intervention , Patient to reach out to [facility] team as needed, Patient to engage in OP therapy , and Patient to reach out to [facility] as needed. Discussed getting sooner appointments with [facility] ([facility]) for psychopharmacology. clinician will see patient during next physical if needed. Encounters * This document contains information received from the source organization and may not represent a complete record from that organization. Date Type Department Care Team Description 02/13/2025 3:30 PM EDT Office Visit [address] [address] Diane George ANP Low back pain potentially associated with radiculopathy (Primary Dx); Gastroesophageal reflux disease, unspecified whether esophagitis present; Right hip pain; Radicular pain of lower extremity; Urinary hesitancy; Generalized pruritus; Rash; Rash 02/13/2025 Travel 02/12/[address] [address] Diane George ANP Nurse Triage 02/11/[address] [address] Diane George ANP 02/08/[address] [address] Ana Squires, RN Record Request 02/08/[address] [address] Diane George ANP 02/06/[address] [address] Diane George ANP 02/06/2025 Orders Only [address] [address] Diane George ANP Anxiety (Primary Dx); Mood disorder (CMS/HCC) 02/04/[address] [address] Diane George ANP Med Refill 02/04/[address] [address] Diane George ANP 01/12/[address] [address] Diane George ANP 12/17/2024 Orders Only GENERIC EXTERNAL DATA DEPARTMENT Provider, Generic External Data 12/11/2024 Telephone [facility] [address] [place] [address] Diane George ANP PSG ORDER 12/07/2024 2:15 PM EST Office Visit [address] [phone] Genoveva Alva FNP Preop examination (Primary Dx) 12/07/2024 Travel 12/04/2024 10:15 AM EST Office Visit [address] [address] Diane George ANP Hypertension associated with diabetes (CMS/HCC) (CMS/HCC) (Primary Dx); 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 (CMS/HCC); DIANA (obstructive sleep apnea); Balance problem; Memory loss; Encounter for immunization; Generalized pruritus 12/04/2024 Travel 11/27/[address] [address] Lien Prado [place] Chart Prep 11/22/2024 Patient Outreach [address] [address] Diane George ANP Pre-visit Planning ([facility] screening was completed on 02/10/2024) from Last 3 Months Immunizations Name Administration [...] 12.8 oz) 02/13/2025 3:44 PM EDT Height 160 cm (5' 3 ) 12/07/2024 2:37 PM EST Body Mass Index 31.32 12/07/2024 2:37 PM EST Plan of Treatment Upcoming Encounters Date Type Department Care Team (Late st Contact Info) Description 02/18/2025 10:30 AM EDT Medication Management [facility] MEDICINE [address] [place] [phone] 05/14/2025 1:15 PM EDT Office Visit [facility] [address] [place] [phone] Diane George, ANP [address] [place] [address] Health Maintenance Due Date Last Done Comments Diabetes: Urine Protein Screening 1964 COVID-19 Vaccine ( season) 2024 SDOH Screening 02/09/2025 02/10/2024 Diabetes: Foot Exam 05/03/2025 05/03/2024, 05/03/2024, 05/03/2024, Additional history exists Lipid Panel 05/03/2025 05/03/2024 Diabetes: Hemoglobin A1C 06/03/2025 025, 07/27/2024, 02/10/2024 Depression Monitoring (PHQ-9) 08/15/2025 02/13/2025, 02/13/2025 Alcohol/Substance Use Screening 12/04/2025 12/04/2024 Depression Screening 02/13/2026 02/13/2025, 02/14/20 Tobacco Screening 02/13/2026 02/13/2025 Eye Exam 12/17/2026 12/17/2024 DTaP/Tdap/Td Vaccines (2 - Td or Tdap) [...] Procedure Name Priority Date/Time Associated Diagnosis Comments GLUCOSE, WHOLE BLOOD Routine 12/17/2024 8:01 AM EST POCT GLYCATED HEMOGLOBIN, TOTAL Routine 12/04/2024 10:35 [...] Recently Relevant to Health Maintenance Results * Glucose, Whole Blood (12/17/2024 8:01 AM EST) Glucose, Whole Blood 107 60 - 115 mg/dL [facility] Comment:METER #: [id number] 12/17/2024 8:01 AM EST 12/17/2024 8:05 AM EST Generic External Data Provider LAB BLOOD ORDERAB LES Final Result [facility] [address] [place] [phone] * (ABNORMAL) POCT HGB A1C (12/04/2024 10:35 AM EST) [facility] Hemoglobin A1C 6.2(A) 4.0 - 6.0 % QC Media Lot # [id number] Lot# Expiration Date Blood 12/04/2024 10:3 5 AM EST Result [facility] Diane FALLON POINT OF CARE TEST ENTER/EDIT OR DERABLES Edited Result - Final * POCT Glucose (12/04/2024 10:22 AM EST) Pathologist [facility] Glucose Blood, POC 102 60 - 200 mg/dL QC Media Lot # [id number] Lot# Expiration Date 025 Blood Capillary blood specimen / Unknown 12/04/2024 10:22 AM EST Result [facility] Diane George ANP POINT OF CARE TEST ENTER/EDIT OR DERABLES Final Result * Hepatitis C Antibody with Reflex to HCV, RNA, Quantitative, Real-Time PCR (05/03/2024 11:38 AM EDT) [facility] Hepatitis C Antibody Nonreactive Nonreactive [facility] Comment:Antibodies to HCV no t detected; does not exclude early acuteHCV infection. Blood Venous blood specimen / Unknown 05/03/2024 11:38 AM EDT 05/03/2024 1:01 PM EDT Result [facility] Diane George [facility] LAB BLOOD ORDERABLES Final Resul t Performing Organization Address [facility] de Phone Number [facility] [address] [place] [address] [phone] * (ABNORMAL) Lipid Panel, Standard (05/03/2024 11:30 AM EDT) Triglycerides 211(H) <150 mg/dL [facility] Comment:Desirable Triglyceri de: less than 150 mg/dLBorderline High Triglyceride 150-199 mg/dLHigh Triglyceride: 200-499 mg/dLVery High Triglyceride: greater than or equal to 5OO mg/dL Cholesterol 110 <200 mg/dL [facility] Comment:Desirable Cholestero l: less than 200 mg/dLBorderline High Cholesterol: 200-239 mg/dLHigh Cholesterol: greater than 239 mg/dL LDL Cholesterol Calculated 35 <100 mg/dL [facility] Comment:Desirable LDL: less than 100 mg/dLNear Optimal/Above Optimal LDL: 110- 129 mg/dLBorderline High LDL: 130-159 mg/dLHigh LDL: 160-189 mg/dLVery High LDL: greater than or equal to 190 mg/dL HDL Cholesterol 33(L) >40 mg/dL [facility] Comment:Desirable HDL: great er than 40 mg/dL Note: This HDL assay may give artificially low results in patients with liver disease. Blood Venous blood specimen / Unknown 05/03/2024 11:30 AM EDT 05/03/2024 1:01 PM EDT Diane George ANP LAB BLOOD ORDERABLES Final Resul t Performing Organization Address [facility]/ZIP Co de Phone Number [facility] [address] [place] [address] [phone] from Last 3 Months or Most Recently Relevant to Health Maintenance Insurance [facility] Care Teams Open Winder Relationship Specialty Start Date End Date Diane George ANP [address] [place] [phone] PCP - General Family Medicine 02/10/24
--- OUTSIDE RECORDS SUMMARY | 2025-02-14 13:13 | XMS_ITS | Encounter Summary ---
Author Organization [employer] Address [address] [facility] 7t [place] [address] Care Team Providers Care Hearing Health Technician Name Role Phone Diane George Primary Care Provider [phone] Reason for Visit * Reason Onset Date Comments Nurse Triage 02/12/2025 Encounter Details Date Type Department Care Team ([facility] st Contact Info) Description 02/12/2025 Telephone [facility] MEDICINE [address] [place], [place] [phone] Diane George ANP 230 [place] [address] Nurse Triage Social History Tobacco Use Types Packs/Day Years [...] encounter Miscellaneous Notes * Telephone Encounter - Juanita Rangel LPN - 02/12/2025 10:16 AM EDT Triage call returned with Propio # [id number] Gordon. Patient reports that she is having pain in her lower back and is going into her feet bilat. Pain ischronic but today worse with decreased ambulation due to pain. Is taking Ibuprofen with little effect. Patient without loss of bowel or bladder but reports that she has to sit for a bit to empty her bladder. No fever and no recent accident or injury. Disposition reviewed and patient in agreement with plan. ASK/PCP Camryn SLUDGE CONTROL OPERATOR tomorrow at 330pm. Reviewed with patient home care recommendations and reasons to call back. Pt verbalized understanding and agrees. Protocol Used: Back Pain (Adult) Protocol-Based Disposition: See in Office or Video Visit Today Override (Final) Disposition: See in Office or Video Visit Today or Tomorrow Override Reason: No appointments available Positive Triage Question: * Pain radiates into the thigh or further down the leg, and in both legs * All higher-acuity triage questions were negative Care Advice Discussed: * Cold or Heat * Sleep * Continue Activity * Pain Medicines * Reasons To Call Back - Fever occurs - Numbness or weakness occurs - Loss of control of your bladder or bowel - Severe pain not better after taking pain medicines - Pain becomes worse - You become worse * Telephone Encounter - Gwendolyn Magallon - 02/12/2025 9:54 AM EDT Symptom: Back Pain - Not From Injury Outcome: Schedule an appointment to be seen within 3 days Reason: Caller denied all higher acuity questions The caller accepted this outcome. documented in this encounter Plan of Treatment Upcoming Encounters Date Type Department Care Team (Late st Contact Info) Description 02/18/2025 10:30 AM EDT Medication Management [address] [address] 05/14/2025 1:15 PM EDT Office Visit [address] [address] Diane George ANP [address] [place] [address] documented as of this encounter Visit Diagnoses Not on filedocumented in this encounter Additional Health Concerns Assessment Noted Time PHQ-9 Depression Total Score: 9 07/27/20 24 9:59 AM EDT documented as of this encounter Care Teams Hearing Health Technician Relationship Specialty Start Date End Date Diane George ANP [address] [place] [address] PCP - General Family Medicine 02/10/24 documented as of this encounter
--- OUTSIDE RECORDS SUMMARY | 2025-02-14 13:13 | XMS_ITS | Clinical Summary ---
Author Organization [facility] Address 175 [place] [address] Phone Care Team Providers Care Rv Detailer Name Role Phone Doris Diane Pascual NP Primary Care Provider [phone] Allergies No known active allergies Medications ACETAMINOPHEN ORAL Take 650 mg by mouth [...] mouth every 6 (six) hours if needed. Active metFORMIN (GLUCOPHAGE) 500 mg tablet Take [...] solution 1 Drop 2 times daily. Active triamterene-hyd roCHLOROthiazid e (MAXZIDE-25) 37.5-25 mg per tablet Take 1 tablet by mouth 1 (one) time each day. Active miconazole (Lotrimin AF) 2 % powder Apply topically 2 (two) times a day for 28 days. 70 g 3 5 02/07/20 25 Active Problems Problem Noted Date Diagnosed Date Essential hypertension 2024 Glaucoma 2024 Hypothyroidism 2024 Memory loss 2024 Mood disorder 2024 DIANA (obstructive sleep apnea) 2024 Encounters Date Type Department Care Team Description 01/09/2025 2:00 PM EST Office Visit Orthopedic Surgery [facility] [address] [phone] Antony Ramirez DPM Tinea pedis of both feet (Primary Dx); Dermatophytosis of nail; Pain in toe of left foot; Diabetic mononeuropathy simplex (CMS/HCC); Pain in toe of right foot; Corns and callosities; Metatarsalgia of both feet from Last 3 Months Social History Tobacco Use Types Packs/Day Years Used Date Smoking Tobacco: Never Assessed Comments Unknown Sex and Gender Information Value Date Recorded Sex Assigned at Not on file Legal Sex Female 11:40 AM EDT Gender Identity Not on file Sexual Orientation Not on file Last Filed Vital Signs Vital Sign Reading Time Taken Comments Blood Pressure - - Pulse - - Temperature - - Respiratory Rate - - Oxygen Saturation - - Inhaled Oxygen Concentration - - Weight 68 kg (150 lb) 01/09/2025 1:23 PM EST Height - - Body Mass Index - - Plan of Treatment Upcoming Encounters Date Type Department Care Team (Late st Contact Info) Description 02/14/2025 1:15 PM EDT Office Visit Orthopedic [facility] [address] [phone] Antony Ramirez DPM [address] [address] Health Maintenance Due Date Last Done Comments Diabetes: Annual GFR (Glomerular Filtration Rate) 1946 Diabetes: Annual Foot Exam 1956 Diabetes: Annual Retina Eye Exam 1956 COVID-19 Vaccine (2023-2 5 season) 2024 Falls Risk Assessment 08/26/2024 Hypertension/CHF/CAD Annual BMP Blood Test 08/26/2024 Medicare Annual Wellness Visit 08/26/2024 Osteoporosis Screening (Bone Density Screening) 08/26/2024 Social Influencers of Health Screening 08/26/2024 Diabetes: Annual Urine Albumin-Creatinine Ratio (uACR) 10/09/2024 Diabetes: Blood Sugar Contro l Test (HGBA1C) 06/03/2025 12/04/2024, 07/27/2024 Depression Screening 07/27/2025 07/27/2024 Cholesterol Screening (Lipid Panel) 05/03/2029 05/03/2024 DTaP,Tdap,and Td Vaccines (2 - Td or Tdap) 05/03/2034 05/03/2024 Hepatitis C Screening Completed 05/03/2024 Pneumococcal Vaccine: 50+ Years Completed 05/03/2024 RSV Immunization Adult Patients Completed 05/03/2024 Influenza Vaccine Completed 09/17/2024, 09/09/2023, 10/26/2022 Zoster Vaccines Completed 10/18/2024, 08/09/2024 Hepatitis [...] patient's age to complete this topic Meningococcal B Vacine Aged Out No lo nger eligible based on patient's age to complete this topic RSV Immunization Patients Under 20 months Aged Out No longer eligible b ased on patient's age to complete this topic Varicella Vaccines Aged Out No longer eligible based on patient's age to complete this topic Insurance [employer] MEDICARE Member Subscriber Plan / Payer (Ef fective 2024-Present) Name:Roseanne Abdi Relation to Subscriber:Self Name:Roseanne Abdi Payer ID:[id number] Group ID:[id number] Type:Not on file Address: [facility] [address] [id number] Care Teams Rv Detailer Relationship Specialty Start Date End Date Diane George NP [address] [place] [phone] PCP - General 06/15/24
== END ==
LOC: HO.SL 11:54
PROVIDERS: PCP Nurse Practitioner Primary Care; Visit Provider Nurse Practitioner Primary Care
DX: G47.33 Obstructive sleep apnea (adult) (pediatric) (principal)
CPT/HCPCS: 95806

== ENCOUNTER → 2025-02-14 19:00 | Outpatient (BNV) | payer OTHER, SELFPAY | PROVIDERS: PCP Nurse Practitioner Primary Care; Visit Provider Internal Medicine | DX: G47.33 Obstructive sleep apnea (adult) (pediatric) (principal) | CPT/HCPCS: 95806 ==

== ENCOUNTER 2025-03-22 10:23 | Outpatient (REF) | payer OTHER, SELFPAY ==
--- OUTSIDE RECORDS SUMMARY | 2025-03-22 10:54 | XMS_ITS | Encounter Summary ---
Author Organization [employer] Address [address] [facility] [address] 7t [place] [address] Care Team Providers Care Tractor Operator Laser Leveling Name Role Phone Diane George Primary Care Provider [phone] Reason for Visit * Reason Onset Date Comments Referral 03/12/2025 Encounter Details Date Type Department Care Team ([facility] st Contact Info) Description 03/12/[address] [facility] MEDICINE 230 [place], [place] [phone] Diane George ANP 230 [place] [address] Referral Social History Tobacco Use Types Packs/Day Years [...] encounter Miscellaneous Notes * Telephone Encounter - Ana Squires RN - 03/18/2025 10:49 AM EDT Notified referral sent via [employer] * Telephone Encounter - Shelli Franco - 03/12/2025 3:00 PM EDT Tc from pt requesting a referral for pain management. Pt stated it has been discussed in previous visit. documented in this encounter Plan of Treatment Upcoming Encounters Date Type Department Care Team (Late st Contact Info) Description 04/26/2025 11:00 AM EDT Office Visit [facility] MEDICINE [address] [place] [address] Ange Owen MD 230 [place] [address] 05/14/2025 1:15 PM EDT Office Visit [facility] MEDICINE [address] [place] [phone] Diane George ANP 230 [place] [address] documented as of this encounter Visit Diagnoses Not on filedocumented in this encounter Additional Health Concerns Assessment Noted Time PHQ-9 Depression Total Score: 9 02/14/20 25 3:51 PM EDT documented as of this encounter Care Teams Tractor Operator Laser Leveling Relationship Specialty Start Date End Date Diane George ANP 230 [place] [address] PCP - General Family Medicine 02/10/24 documented as of this encounter
--- OUTSIDE RECORDS SUMMARY | 2025-03-22 10:54 | XMS_ITS | Encounter Summary ---
Author Organization [employer] Address [address] [facility] [address] 7[address] [place] [address] Care Team Providers Care Combat Systems Operator Mine Warfare Name Role Phone Diane George VASYL Primary Care Provider [phone] Encounter Details Date Type Department Care Team (Latest Contact Info) Description 03/18/2025 Travel Social History Tobacco Use Types Packs/Day Years Used Date Smoking Tobacco: Never Passive Smoke Exposure: Never Smokeless Tobacco: Never Depression Answer Date Recorded Patient Health Questionnaire-9 Score 9 02/13/2025 Patient Health Questionnaire-9 Score 9 02/13/2025 Last PHQ-9: Questionnaire Data Not on file 0 02/13/2025 Housing Stability Answer Date Recorded What is your housing situation today? I have sonysoledad ojeda 02/10/[address] you [...] Description 04/26/2025 11:00 AM EDT Office Visit [facility] MEDICINE [address] [place] [address] Ange Owen MD [address] [place] [address] 05/14/2025 1:15 PM EDT Office Visit [facility] MEDICINE [address] [place] [address] Diane George ANP [address] [place] [address] documented as of this encounter Visit Diagnoses Not on filedocumented in this encounter Additional Health Concerns Assessment Noted Time PHQ-9 Depression Total Score: 9 02/14/20 25 3:51 PM EDT documented as of this encounter Care Teams Combat Systems Operator Mine Warfare Relationship Specialty Start Date End Date Diane George ANP [address] [place] [phone] PCP - General Family Medicine 02/10/24 documented as of this encounter
--- OUTSIDE RECORDS SUMMARY | 2025-03-22 10:54 | XMS_ITS | Encounter Summary ---
Author Organization [employer] Address [address] [facility] [address] 7t [place] [address] Care Team Providers Care Shrimp Peeling Machine Operator Name Role Phone Diane George Primary Care Provider [phone] Encounter Details Date Type Department Care Team (Late st Contact Info) Description 03/21/2025 Orders Only [facility] MEDICINE 230 [place], [place] [phone] Diane George ANP 230 [place] [address] Hypertension associated with diabetes (CMS/HCC) (Primary Dx) Social History Tobacco Use Types [...] t he electric, gas, oil or water [employer] threatened to shut off services in your [...] as of this encounter Progress Notes * VASYL Cherry - 03/21/2025 8:35 AM EDT Estimated Creatinine Clearance: 41.9 mL/min (by C-G formula based on SCr of 1.11 mg/dL). Based on her CrCl, would not recommend 300mg in one dose at bedtime as she has been taking lyrica. From clin pharm: CrCl 30 to 60 mL/minute: 75 to 300 mg/day PO divided 2 or 3 times daily for immediate-release formulations; reduce dose by 50% for extended-release tablets. documented in this encounter Plan of Treatment Upcoming Encounters Date Type Department Care Team (Late st Contact Info) Description 04/26/2025 11:00 AM EDT Office Visit [facility] MEDICINE [address] [place] [address] Ange Owen MD 230 [place] [address] 05/14/2025 1:15 PM EDT Office Visit [facility] MEDICINE [address] [place] [phone] Diane George ANP [address] [place] [address] Scheduled Orders Name Type Priority Associated Diagnoses Orde r Schedule Albumin, Random Urine W/Creatinine Lab Routine Hypertension associated with diabetes ([facility]) Expected: 03/21/2025 (Approximate), Expires: 03/21/2026 Basic Metabolic Panel Lab Routine Hypertension associated with diabetes (CMS/HCC) Expected: 03/21/2025 (Approximate), Expires: 03/21/2026 documented as of this encounter Visit Diagnoses Diagnosis Hypertension associated with diabetes (CMS/HCC)- Primary Unspecified essential hypertension documented in this encounter Additional Health Concerns Assessment Noted Time PHQ-9 Depression Total Score: 9 02/14/20 25 3:51 PM EDT documented as of this encounter Care Teams Shrimp Peeling Machine Operator Relationship Specialty Start Date End Date Diane George ANP [address] [place] [address] PCP - General Family Medicine 02/10/24 documented as of this encounter
--- OUTSIDE RECORDS SUMMARY | 2025-03-22 10:54 | XMS_ITS | Encounter Summary ---
Author Organization [employer] Address [address] [facility] [address] 7t [place] [address] Care Team Providers Care Furnace Installer Helper Name Role Phone Diane George Primary Care Provider [phone] Reason for Visit * Reason Comments Med Refill Encounter Details Date Type Department Care Team (Late st Contact Info) Description 02/04/2025 Refill [facility] MEDICINE 230 [place] [address] Diane George ANP [address] [place] [address] Social History Tobacco Use Types Packs/Day Years [...] Description 04/26/2025 11:00 AM EDT Office Visit [facility] MEDICINE [address] [place] [address] Ange Owen MD [address] [place] [address] 05/14/2025 1:15 PM EDT Office Visit [facility] MEDICINE [address] [place] [address] Diane George ANP [address] [place] [address] documented as of this encounter Visit Diagnoses Not on filedocumented in this encounter Additional Health Concerns Assessment Noted Time PHQ-9 Depression Total Score: 9 07/27/20 24 9:59 AM EDT documented as of this encounter Care Teams Furnace Installer Helper Relationship Specialty Start Date End Date Diane George ANP [address] [place] [address] PCP - General Family Medicine 02/10/24 documented as of this encounter
--- OUTSIDE RECORDS SUMMARY | 2025-03-22 10:54 | XMS_ITS | Encounter Summary ---
Author Organization [employer] Address [address] [facility] [address] 7t [place] [address] Care Team Providers Care Client Support Coordinator Name Role Phone Diane George Primary Care Provider [phone] Encounter Details Date Type Department Care Team (Late st Contact Info) Description 03/20/2025 Telephone [facility] MEDICINE 230 [place], [place] [phone] Diane George ANP 230 [place] [address] Social History Tobacco Use Types Packs/Day Years [...] Description 04/26/2025 11:00 AM EDT Office Visit [facility] MEDICINE [address] [place] [address] Ange Owen MD [address] [place] [address] 05/14/2025 1:15 PM EDT Office Visit [facility] MEDICINE [address] [place] [address] Diane George ANP [address] [place] [address] documented as of this encounter Visit Diagnoses Not on filedocumented in this encounter Additional Health Concerns Assessment Noted Time PHQ-9 Depression Total Score: 9 02/14/20 25 3:51 PM EDT documented as of this encounter Care Teams Client Support Coordinator Relationship Specialty Start Date End Date Diane George ANP [address] [place] [address] PCP - General Family Medicine 02/10/24 documented as of this encounter
--- OUTSIDE RECORDS SUMMARY | 2025-03-22 10:54 | XMS_ITS | Encounter Summary ---
Author Organization [employer] Address [address] [facility] [address] 7[address] [place] [address] Care Team Providers Care Senior Counsel Name Role Phone Diane George VASYL Primary Care Provider [phone] Encounter Details Date Type Department Care Team (Latest Contact Info) Description 03/22/2025 Travel Social History Tobacco Use Types Packs/Day [...] Description 04/26/2025 11:00 AM EDT Office Visit [facility] MEDICINE [address] [place] [address] Ange Owen MD [address] [place] [address] 05/14/2025 1:15 PM EDT Office Visit [facility] MEDICINE [address] [place] [address] Diane George ANP [address] [place] [address] documented as of this encounter Visit Diagnoses Not on filedocumented in this encounter Additional Health Concerns Assessment Noted Time PHQ-9 Depression Total Score: 9 02/14/20 25 3:51 PM EDT documented as of this encounter Care Teams Senior Counsel Relationship Specialty Start Date End Date Diane George ANP [address] [place] [address] PCP - General Family Medicine 02/10/24 documented as of this encounter
--- OUTSIDE RECORDS SUMMARY | 2025-03-22 10:54 | XMS_ITS | Encounter Summary ---
Author Organization [employer] Address [address] [facility] [address] 7[address] [place] [address] Care Team Providers Care Rabbit Dresser Name Role Phone Diane George Primary Care Provider [phone] Reason for Visit * Reason Onset Date Comments Appointment Request 03/20/2025 Encounter Details Date Type Department Care Team ([facility] st Contact Info) Description 03/20/2025 Telephone [facility] MEDICINE 230 [place] [address] Diane George ANP [address] [place] [address] Appointment Request Social History Tobacco Use Types Packs/Day Years [...] t he electric, gas, oil or water [employer] threatened to shut off services in your [...] encounter Miscellaneous Notes * Telephone Encounter - Sloan Meeks MA - 03/20/2025 3:43 PM EDT T/c to pt schedule a new derm appt 03/19/2025 at 9:30am * Telephone Encounter - Tyesha Rowell - 03/20/2025 1:00 PM EDT Tc from pt requesting derm appointment. documented in this encounter Plan of Treatment Upcoming Encounters Date Type Department Care Team (Late st Contact Info) Description 04/26/2025 11:00 AM EDT Office Visit [facility] MEDICINE [address] [place] [address] Ange Owen MD 230 [place] [address] 05/14/2025 1:15 PM EDT Office Visit [facility] MEDICINE [address] [place] [phone] Diane George ANP 230 [place] [address] documented as of this encounter Visit Diagnoses Not on filedocumented in this encounter Additional Health Concerns Assessment Noted Time PHQ-9 Depression Total Score: 9 02/14/20 25 3:51 PM EDT documented as of this encounter Care Teams Rabbit Dresser Relationship Specialty Start Date End Date Diane George ANP [address] [place] [address] PCP - General Family Medicine 02/10/24 documented as of this encounter
--- OUTSIDE RECORDS SUMMARY | 2025-03-22 10:54 | XMS_ITS | Encounter Summary ---
Author Organization [employer] Address [address] [place] [address] [place], [place] [address] Care Team Providers Care Airport Skilled Maintenance Supervisor Name Role Phone Constance Balderrama Primary Care Provider [phone] Reason for Referral * Consultation (Routine) - Authorized Specialty Diagnoses / Procedures Referred By Melody sutton Referred To Contact Pain Medicine Diagnoses Low back pain potentially associated with radiculopathy Constance Balderrama ANP [address] [place] [address] Phone: tel: fax: [facility] Referral ID Status Reason Start Date Expiration Date Visits Requested Visits Authorized [id number] Authorized Specialty Services Required 03/18/2025 03/18/2026 1 1 * Consultation (Routine) - Closed Specialty Diagnoses / Procedures Referred By Melody sutton Referred To Contact Family Medicine Diagnoses Generalized pruritus Rash Constance Balderrama ANP [address] [place] [address] Phone: tel: fax: Referral ID Status Reason Start Date Expiration Date V isits Requested Visits Authorized [id number] Closed Specialty Services Required 02/13/2025 02/13/2026 1 1 * Consultation (Urgent) - Authorized Specialty Diagnoses / Procedures Referred By Melody sutton Referred To Contact Urology Diagnoses Urinary hesitancy Constance Balderrama ANP [address] [place] [address] Phone: tel: fax: [facility] Referral ID Status Reason Start Date Expiration Date Visits Requested Visits Authorized [id number] Authorized Specialty Services Required 02/13/2025 02/13/2026 1 1 Reason for Visit * Reason Comments sick Encounter Details Date Type Department Care Team (Latest Contact Info) Description 02/13/2025 3:30 PM EDT Office Visit [facility] MEDICINE 230 [place] [address] Constance Balderrama ANP [address] [place] [address] Low back pain potentially associated with radiculopathy [...] documented in this encounter Progress Notes * VASYL Cherry - 02/13/2025 3:30 PM EDT Images from the original note were not included. Subjective Patient ID: Roseanne Abdi is a 79 y.o. female who presents for sick. HPI PMH: DM, thyroid dz, HTN, neuropathy, high cholesterol, arthritis, ?CAD, hemorrhoids, glaucoma R eye Specialists: [address] Diaz Surgical hx: parathyroid, cholecystectomy, [...] needed for pain [employer] utilized for Croatian interpretation # [id number] Review of Systems Constitutional: Negative for chills [...] Lyrica at bedtime MRI results as above. Can also refer to pain mgmt. Gastroesophageal reflux disease, unspecified whether esophagitis present [...] Time Provider Department Center 02/18/2025 10:30 AM [facility] FELLER HAND 1 MEDICINE [facility] documented in this encounter Miscellaneous Notes * Addendum Note - VASYL Cherry - 02/13/2025 3:30 PM EDTAddended by: CONSTANCE BALDERRAMA on: 03/18/2025 10:46 AM Modules accepted: Orders documented in this encounter Plan of Treatment Upcoming Encounters Date Type Department Care Team (Late st Contact Info) Description 04/26/2025 11:00 AM EDT Office Visit [facility] MEDICINE [address] [place] [address] Ange Owen MD [address] [place] [address] 05/14/2025 1:15 PM EDT Office Visit [address] [address] Constance Balderrama ANP [address] [place] [address] Scheduled Orders Name Type Priority Associated Diagnoses Orde r Schedule Urinalysis, Complete, with Reflex to Culture Lab Routine Urinary hesitancy Ordered: 02/13/2025 Scheduled Referrals Name Type Priority Associated Diagnoses Orde r Schedule Referral to Urology Outpatient Referral Urgent Urinary hesitancy Expected: 02/13/2025 (Approximate), Expires: 02/13/2026 Referral to [facility] Derm Skin Adult Outpatient Referral Routine Generalized pruritus Rash Expected: 02/13/2025 (Approximate), Expires: 02/13/2026 Referral to Pain Medicine Outpatient Referral Routine Low back pain potentially associated with radiculopathy Expected: 03/18/2025 (Approximate), Expires: 03/18/2026 documented as of this encounter Visit Diagnoses [...] documented as of this encounter Care Teams Airport Skilled Maintenance Supervisor Relationship Specialty Start Date End Date Constance Balderrama ANP [address] [place] [address] PCP - General Family Medicine 02/10/24 documented as of this encounter
--- OUTSIDE RECORDS SUMMARY | 2025-03-22 10:55 | XMS_ITS | Clinical Summary ---
Author Organization [employer] Address [address] [facility] [address] [place] [address] Care Team Providers Care Network Specialist Name Role Phone Diane George VASYL Primary Care Provider [phone] Allergies No known active allergies Medications * This document contains information received from the source organization and may not represent a complete record from that organization. atropine 1 % ophthalmic solution INSTILL 1 DROP IN RIGHT EYE TWICE A DAY TWELVE HOURS APART Active brimonidine (AlphaGAN P) 0.2 % ophthalmic [...] chew, or split. 120 tablet 024 Active triamterene-hydro chlorothiazide (Maxzide-25) 37.5-25 [...] day. Take w/ meal 90 tablet 3 024 Active lidocaine (Lidoderm) 5 % patchIndications: Right leg pain Apply 1 patch topically Once per day. Remove & discard patch within 12 hours or as directed by MD. 30 patch 2 024 Active traZODone (Desyrel) 50 MG tablet 50 mg. Active pravastatin (Pravachol) 40 MG tablet TAKE 1 TABLET BY MOUTH AT BEDTIME 90 tablet 1 025 Active dilTIAZem CD (Cardizem CD) 240 MG 24 hr capsuleIndication s:Essential hypertension Take 1 capsule (240 mg) by mouth Once per day. 90 capsule 3 025 Active pregabalin (Lyrica) 150 MG capsuleIndication s:Radicular pain of lower extremity,Diabeti c polyneuropathy associated with type 2 diabetes mellitus (CMS/HCC) Take 1 capsule (150 mg) by mouth 2 times daily. 60 capsule 2 025 Active Additional Information Patient taking differently: 300 mgOralDaily, Reported on 03/18/2025 omeprazole (PriLOSEC) [address] capsuleIndication s:Gastroesophagea l reflux disease, unspecified whether esophagitis present Take 1 capsule (20 mg) by mouth before breakfast. 90 capsule 3 025 Active naproxen (Naprosyn) 500 MG tabletIndications :Right hip pain,Radicular pain of lower extremity TAKE 1 TABLET BY MOUTH EVERY MORNING & 1 TABLET AT BEDTIME IF NEEDED FOR MODERATE PAIN 60 tablet 025 Active venlafaxine XR (Effexor XR) 37.5 MG 24 hr capsule Take 1 capsule by mouth Once per day. 025 Active halobetasol (UltraVATE) 0.05 % ointment Apply topically 2 times daily. 50 g 2 025 Active LORazepam (Ativan) 0.5 MG tabletIndications :Anxiety Take 1-2 tabs 30 min before MRI test, may repeat once if ineffective after 30 min 4 tablet 024 2024 Discontinued(M ed list cleanup (will not trigger notification to Pharmacy)) DULoxetine (Cymbalta) [address] capsuleIndication s:Anxiety,Mood disorder (CMS/HCC) Take 1 capsule (60 mg) by mouth Once per day. Do not crush or chew. 30 capsule 5 025 2024 Discontinued(M ed list cleanup (will not trigger notification to Pharmacy)) triamcinolone (Kenalog) 0.1 % creamIndications: Rash Apply twice daily to affected areas (rash) 45 g 1 025 2024 Discontinued Active Problems Problem Noted [...] connected with a psychiatrist and therapist in [place] (unable to provide agency name). Today, pt [...] with psychopharmacology when she was living in [place]. Family moved to [place] from [place] in 2017. Further information needed to make diagnosis of bipolar disorder. Currently seeing a therapist with [facility] Psychiatry services will start soon due to having a conflict with her insurance ([facility]). During today's visit, clinician engaged pt with [...] is currently engaged in therapist services with [facility]. Psychiatry services were pending due to a conflict with her insurance ([facility]). Update from pt's granddaughter, [facility] will cover psychiatry services and appointment will [...] with psychopharmacology when she was living in [place]. Family moved to [place] from [place] in 2017. Further information needed to make diagnosis. PLAN: (check all that apply) Continue with current services (defined as services in the past 12 months) . Referral placed during last visit for psychiatry services with [facility]. Assessment & Plan (02/13/2024 4:32 PM EDT): [...] with psychopharmacology when she was living in [place]. She was accompanied by her granddaughter. Family moved to [place] from [place] in 2016. Further information needed to make diagnosis. PLAN: (check all that apply) New/Additional Services needed PCP management On-site non-integrated services Off-site services for Behavioral Health Integration Plan Internal Follow up with [facility] External OP BH therapy referral and OP psychiatry Referral Patient Self Plan Patient to utilize skills provided in intervention , Patient to reach out to [facility] team as needed, Patient to engage in OP BH therapy , and Patient to reach out to [facility] as needed. Discussed getting sooner appointments with [facility] ([facility]) for psychopharmacology. clinician will see patient during next physical if needed. Encounters * This document contains information received from the source organization and may not represent a complete record from that organization. Date Type Department Care Team Description 03/22/2025 9:30 AM EDT Office Visit [facility] [place] [address] Ange Owen MD Dermatitis (Primary Dx) 03/22/2025 Telephone [facility] [place] [address] Diane George ANP Med Refill 03/22/2025 Travel 03/21/2025 Orders Only [facility] [place] [address] Diane George ANP Hypertension associated with diabetes (CMS/HCC) (Primary Dx) 03/20/2025 Telephone [facility] [place] [address] Diane George ANP Appointment Request 03/20/2025 Telephone [facility] [place] [address] Diane George ANP 03/18/2025 Travel 03/12/2025 Telephone [facility] [place] [address] Diane George ANP Referral 02/13/2025 3:30 PM EDT Office Visit [facility] [place] [address] Diane George ANP Low back pain potentially associated with radiculopathy (Primary Dx); Gastroesophageal reflux disease, unspecified whether esophagitis present; Right hip pain; Radicular pain of lower extremity; Urinary hesitancy; Generalized pruritus; Rash; Rash 02/13/2025 Travel 02/12/2025 Telephone [facility] [place] [address] Diane George ANP Nurse Triage 02/11/2025 Telephone [facility] [place] [address] Diane George ANP 02/08/2025 Telephone [facility] [place] [place] [address] Ana Squires, RN Record Request 02/08/2025 Telephone [facility] [place] [address] Diane George ANP 02/06/2025 Telephone [facility] [place] [address] Daine George ANP 02/06/2025 Orders Only [facility] [address] [place] [address] Diane George ANP Anxiety (Primary Dx); Mood disorder (CMS/HCC) 02/04/2025 Telephone [facility] [address] [place] [address] Diane George ANP Med Refill 02/04/2025 Refill [facility] [address] [place] [address] Diane George ANP 01/12/2025 Refill [facility] [address] [place] [address] Diane George ANP from Last 3 Months Immunizations Name Administration [...] your housing situation today? I have sony ojdea 02/10/[address] you li [...] Sign Reading Time Taken Comments Blood Pressure 121/80 03/22/2025 9:42 AM EDT Pulse 91 03/22/2025 9:42 AM EDT Temperature 36.6 ??C (97.8 ??F) 03/22/2025 9:42 AM ED T Respiratory Rate 18 03/22/2025 9:42 AM EDT Oxygen Saturation 98% 02/13/2025 3:44 PM EDT Inhaled Oxygen Concentration - - Weight 80.8 kg (178 lb 3.2 oz) 03/22/2025 9:42 A M EDT Height 160 cm (5' 3 ) 03/22/2025 9:42 AM EDT Body Mass Index 31.57 03/22/2025 9:42 AM EDT Plan of Treatment Upcoming Encounters Date Type Department Care Team (Late st Contact Info) Description 04/26/2025 11:00 AM EDT Office Visit [facility] [address] [place] [address] Ange Owen MD [address] [place] [address] 05/14/2025 1:15 PM EDT Office Visit [facility] [address] [place] [address] Diane George ANP [address] [place] [address] Health Maintenance Due Date Last Done Comments Diabetes: Urine Protein Screening 1964 COVID-19 Vaccine ( season) 2024 SDOH Screening 02/09/2025 02/10/2024 Diabetes: Foot Exam 05/03/2025 05/03/2024, 05/03/2024, 05/03/2024, Additional history exists Lipid Panel 05/03/2025 05/03/2024 Diabetes: Hemoglobin A1C 06/03/2025 025, 07/27/2024, 02/10/2024 Alcohol/Substance Use Screening 12/04/2025 12/04/2024 Depression Screening [...] Media Lot # [id number] Lot# Expiration Date ,719 Blood 12/04/2024 10:3 5 AM EST us Diane Goerge ANP POINT OF CARE TEST ENTER/EDIT OR DERABLES Edited Result - Final * Hepatitis C Antibody with Reflex to HCV, RNA, Quantitative, Real-Time PCR (05/03/2024 11:38 AM EDT) Hepatitis C Antibody Nonreactive Nonreactive [facility] Comment:Antibodies to HCV no t detected; does not exclude early acuteHCV infection. Blood Venous blood specimen / Unknown 05/03/2024 11:38 AM EDT 05/03/2024 1:01 PM EDT us Diane George ANP LAB BLOOD ORDERABLES Final Resul t [facility] [address] [place] [phone] * (ABNORMAL) Lipid Panel, Standard (05/03/2024 11:30 AM EDT) Triglycerides 211(H) <150 mg/dL [facility] Comment:Desirable Triglyceri de: less than 150 mg/dLBorderline High Triglyceride 150-199 mg/dLHigh Triglyceride: 200-499 mg/dLVery High Triglyceride: greater than or equal to 5OO mg/dL Cholesterol 110 <200 mg/dL [facility] Comment:Desirable Cholestero l: less than 200 mg/dLBorderline High Cholesterol: 200-239 mg/dLHigh Cholesterol: greater than 239 mg/dL LDL Cholesterol Calculated 35 <100 mg/dL [facility] Comment:Desirable LDL: less than 100 mg/dLNear Optimal/Above Optimal LDL: 110- 129 mg/dLBorderline High LDL: 130-159 mg/dLHigh LDL: 160-189 mg/dLVery High LDL: greater than or equal to 190 mg/dL HDL Cholesterol 33(L) >40 mg/dL [facility] Comment:Desirable HDL: great er than 40 mg/dL Note: This HDL assay may give artificially low results in patients with liver disease. Blood Venous blood specimen / Unknown 05/03/2024 11:30 AM EDT 05/03/2024 1:01 PM EDT Diane [place] LAB BLOOD ORDERABLES Final Resul t [facility] [address] [place] [address] [phone] from Last 3 Months or Most Recently Relevant to Health Maintenance Insurance [facility] [employer] (HMO D-SNP) [place] [id number] Care Teams Network Specialist Relationship Specialty Start Date End Date Diane George ANP [address] [place] [phone] PCP - General Family Medicine 02/10/24
--- OUTSIDE RECORDS SUMMARY | 2025-03-22 10:55 | XMS_ITS | Encounter Summary ---
Author Organization [employer] Address [address] [facility] [address] [address] [place] [address] Care Team Providers Care Baseball Glove Shaper Name Role Phone Diane George Primary Care Provider [phone] Reason for Visit * Reason Comments Med Refill Encounter Details Date Type Department Care Team (Late st Contact Info) Description 10/18/2024 Refill [facility] MED[facility]INE [address] [place] [address] Diane George ANP [address] [place] [address] Social History Tobacco Use Types Packs/Day Years [...] Description 04/26/2025 11:00 AM EDT Office Visit [facility] [address] [place] [address] Ange Owen MD [address] [place] [address] 05/14/2025 1:15 PM EDT Office Visit [facility] [address] [place] [address] Diane George ANP [address] [place] [address] documented as of this encounter Visit Diagnoses Not on filedocumented in this encounter Additional Health Concerns Assessment Noted Time PHQ-9 Depression Total Score: 9 07/27/20 24 9:59 AM EDT documented as of this encounter Care Teams Baseball Glove Shaper Relationship Specialty Start Date End Date Diane George ANP [address] [place] [phone] PCP - General Family Medicine 02/10/24 documented as of this encounter
--- OUTSIDE RECORDS SUMMARY | 2025-03-22 10:55 | XMS_ITS | Encounter Summary ---
Author Organization [employer] 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 EFFECTIVE SINCE 04/14/2023 documented in this encounter Plan of Treatment Upcoming Encounters Date Type Department Care Team (Late st Contact Info) Description 04/26/2025 11:00 AM EDT Office Visit [facility] [address] [place] [address] Ange Owen MD [address] [place] [address] 05/14/2025 1:15 PM EDT Office Visit [facility] [address] [place], [place] [phone] Diane George ANP [address] [place] [address] documented as of this encounter Visit Diagnoses Not on filedocumented in this encounter Care Teams Loss Claim Clerk Relationship Specialty Start Date End Date Diane George ANP [address] [place] [address] [phone] PCP - General Family Medicine 02/10/24 documented as of this encounter
--- OUTSIDE RECORDS SUMMARY | 2025-03-22 10:55 | XMS_ITS | Clinical Summary ---
Author Organization [facility] Address [address] [place] [address] Phone Care Team Providers Care Saw Superintendent Name Role Phone DorisDiane Ankur BARKER Primary Care Provider [phone] Allergies No known active allergies Medications ACETAMINOPHEN [...] Hypothyroidism 2024 Memory loss 2024 Mood disorder (CMS/HCC V24) 2024 DIANA (obstructive sleep apnea) 2024 Encounters Date Type Department Care Team Description 02/18/2025 10:30 AM EDT Office Visit [facility] [address] [phone] Antony Ramirez DPM Diabetic mononeuropathy simplex ([facility] V24, [facility] V28) (Primary Dx); Dermatophytosis of nail; Metatarsalgia of both feet; Tinea pedis of both feet 01/09/2025 2:00 PM EST Office Visit [facility] [address] [phone] Antony Ramirez DPM Tinea pedis of both feet (Primary Dx); Dermatophytosis of nail; Pain in toe of left foot; Diabetic mononeuropathy simplex ([facility] V24, [facility] V28); Pain in toe of right foot; Corns [...] Encounters Date Type Department Care Team (Late Contact Info) Description 04/22/2025 3:30 PM EDT Office Visit [facility] [address] [phone] Antony Ramirez DPM [address] [phone] Health Maintenance Due Date Last Done Comments [...] Test (HGBA1C) 06/03/2025 12/04/2024, 07/27/2024 Depression Screening 02/13/2026 02/13/2025 Cholesterol Screening (Lipid Panel) 05/03/2029 05/03/2024 DTaP,Tdap,and [...] age to complete this topic Meningococcal B Vaccine Aged Out No l onger eligible based on patient's age to complete [...] ID:[id number] Group ID:[id number] Type:Not on file Address: [place] [address] [place] [id number] Care Teams Saw Superintendent Relationship Specialty Start Date End Date Diane George NP [address] [place] [phone] PCP - General 06/15/24
--- OUTSIDE RECORDS SUMMARY | 2025-03-22 10:55 | XMS_ITS | Encounter Summary ---
Author Organization [employer] Address [address] [facility] [facility] [address] [place] [address] Care Team Providers Care Pan Devulcanizer Helper Name Role Phone Diane George VASYL Primary Care Provider [phone] Encounter Details Date Type Department Care Team (Late st Contact Info) Description 03/22/2025 9:30 AM EDT Office Visit [facility] MEDICINE [address] [place], [place] [phone] Ange Owen MD [address] [place], [place] [phone] Dermatitis (Primary Dx) Social History Tobacco Use Types [...] t he electric, gas, oil or water [employer] threatened to shut off services in your [...] 18 03/22/2025 9:42 AM EDT Oxygen Saturation - - Inhaled Oxygen Concentration - - Weight 80.8 kg (178 lb 3.2 oz) 03/22/2025 9:42 A M EDT Height 160 cm (5' 3 ) 03/22/2025 9:42 AM EDT Body Mass Index 31.57 03/22/2025 9:42 AM EDT documented in this encounter Progress Notes * Ange Owen MD - 03/22/2025 9:30 AM EDT Subjective Patient ID: Roseanne Abdi is a 79 y.o. female who presents for No chief complaint on file.. HPI 79 yr old woman with hx of DM, HTN, HLD and depression, here today for 5 months hx of rash on her lower extremities that is itchy, not responding to Tac 0.1% crm Review of Systems Constitutional: Negative for diaphoresis, fatigue and fever. HENT: Negative for ear discharge, ear pain, facial swelling and hearing loss. Respiratory: Negative for cough, choking, chest tightness and shortness of breath. Cardiovascular: Negative for chest pain and leg swelling. Gastrointestinal: Negative for abdominal distention, abdominal pain and anal bleeding. Endocrine: Negative for cold intolerance and heat intolerance. Genitourinary: Negative for enuresis, flank pain and frequency. Musculoskeletal: Negative for arthralgias, back pain and gait problem. Skin: Positive for rash. Neurological: Negative for dizziness, facial asymmetry and headaches. Psychiatric/Behavioral: Negative for agitation, behavioral problems and confusion. Objective Physical Exam Constitutional: Appearance: Normal appearance. HENT: Head: Normocephalic and atraumatic. Nose: Nose normal. Eyes: Pupils: Pupils are equal, round, and reactive to light. Pulmonary: Effort: Pulmonary effort is normal. Musculoskeletal: General: Normal range of motion. Cervical back: Normal range of motion. Skin: Comments: Erythematous plaques on lower extremities with scales. More distributed on distal legs. Neurological: General: No focal deficit present. Mental Status: She is alert. Procedure Note for Skin Biopsy Site: L leg Size of growth: 10x10 cm Consent was signed. The skin was cleaned with alcohol, and local anesthesia with lidocaine with epinephrine was obtained. The specimen was collected with precision blade. The site was closed with hemostasis with cautery. The site was dressed with Vaseline and a bandage. The patient tolerated the procedure well. par Assessment: 1. Status-post biopsy Plan: 1. Wound care reviewed with the patient. 2. Follow-up to be scheduled when the pathology results are available. Assessment/Plan Diagnoses and all orders for this visit: Dermatitis Chronic since No clear trigger Ddx: Lichen plaues, CTCL, psoriasis , drug rxn, allergic contact dermatitis. discontinue Tac 0.1% crm Start Halobetasol ointment for 4 weeks Skin bx done RTC in 4 weeks documented in this encounter Plan of Treatment Upcoming Encounters Date Type Department Care Team (Late st Contact Info) Description 04/26/2025 11:00 AM EDT Office Visit [facility] MEDICINE [address] [place] [address] Ange Owen MD [address] [place] [address] 05/14/2025 1:15 PM EDT Office Visit [facility] MEDICINE [address] [place] [address] Diane George ANP [address] [place] [address] documented as of this encounter Visit Diagnoses Diagnosis Dermatitis- Primary Contact dermatitis and other eczema, due to unspecified cause documented in this encounter Additional Health Concerns Assessment Noted Time PHQ-9 Depression Total Score: 9 02/14/20 25 3:51 PM EDT documented as of this encounter Care Teams Pan Devulcanizer Helper Relationship Specialty Start Date End Date Diane George ANP [address] [place] [address] PCP - General Family Medicine 02/10/24 documented as of this encounter
--- OUTSIDE RECORDS SUMMARY | 2025-03-22 10:55 | XMS_ITS | Encounter Summary ---
Author Organization [employer] Address [address] [facility] 7t [place] [address] Care Team Providers Care Picking Belt Operator Name Role Phone Diane George Primary Care Provider [phone] Reason for Visit * Reason Onset Date Comments Med Refill 03/22/2025 Encounter Details Date Type Department Care Team ([facility] st Contact Info) Description 03/22/2025 Telephone [facility] MEDICINE [address] [place] [address] Diane George ANP [address] [place] [address] Med Refill Social History Tobacco Use Types Packs/Day Years [...] encounter Miscellaneous Notes * Telephone Encounter - Natashazelalem Lewis - 03/22/2025 10:39 AM EDT Patient walked in said Pharmacy advised waiting on script for pregabalin 150mg to give Patient Med box. Patient requesting refill. documented in this encounter Plan of Treatment Upcoming Encounters Date Type Department Care Team (Late st Contact Info) Description 04/26/2025 11:00 AM EDT Office Visit [facility] MEDICINE [address] [place] [address] Ange Owen MD [address] [place] [address] 05/14/2025 1:15 PM EDT Office Visit [facility] MEDICINE [address] [place] [address] Diane George ANP [address] [place] [address] documented as of this encounter Visit Diagnoses Not on filedocumented in this encounter Additional Health Concerns Assessment Noted Time PHQ-9 Depression Total Score: 9 02/14/20 25 3:51 PM EDT documented as of this encounter Care Teams Picking Belt Operator Relationship Specialty Start Date End Date Diane George ANP [address] [place] [phone] PCP - General Family Medicine 02/10/24 documented as of this encounter
[2025-03-22 11:38] LABS: Anion Gap 10 (12-20); Blood Urea Nitrogen 15 mg/dL (9-16); Calcium 9.1 mg/dL (8.4-10.2); Carbon Dioxide 31 mmol/L (22-29); Chloride 105 mmol/L (96-108); Creatinine Urine 74.54 mg/dL; Estimated Glomerular Filt Rate 54; Glucose Random 96 mg/dL (60-115); Microalbum/Creatinine Ratio Ur 13.4 ug/mg cr (<30); Potassium 4.4 mmol/L (3.3-5.1); Sodium 142 mmol/L (135-145)
== END 2025-03-22 10:24 | disposition home or self-care (01) ==
LOC: HO.HHCL 10:23
PROVIDERS: Visit Provider Nurse Practitioner Primary Care
DX: E11.59 Type 2 diabetes mellitus with other circulatory complications (principal); I15.2 Hypertension secondary to endocrine disorders
CPT/HCPCS: 36415; 80048; 82043; 82570

== ENCOUNTER 2025-04-02 10:04 | Outpatient (REF) | payer OTHER, SELFPAY ==
--- NOTE | ~2025-04-02 | XR_ITS ---
EXAMINATION: XR LUMBAR SPINE 4 OR MORE VIEWS HISTORY: M53.3 - Sacrococcygeal disorders, not elsewhere classified COMPARISON: There are no prior studies for comparison. FINDINGS: AP, lateral, bilateral oblique, and coned down views of the lumbar spine are submitted. Osseous mineralization is normal. Five nonrib-bearing lumbar vertebral bodies are identified, maintaining normal height without evidence of fracture or spondylolisthesis. There is mild levoscoliosis. There is diffuse moderate degenerative disc disease with disc space narrowing and osteophyte formation. Findings are most prominent at the T12-L1, L4-5, and L5-S1 levels. There is osteoarthritis of the facet joints. There is no spondylolysis. There is calcification of the abdominal aorta. XR/XR lumbar spine 4V min IMPRESSION: Mild levoscoliosis. Diffuse moderate degenerative disc disease as described. Electronically signed by: Jose Ramon Romano MD 04/02/2025 11:31 AM EDT
--- NOTE | ~2025-04-02 | XR_ITS ---
EXAMINATION: XR HIP 2 OR MORE VIEWS BILATERAL HISTORY: M53.3 - Sacrococcygeal disorders, not elsewhere classified COMPARISON: There are no prior studies for comparison. FINDINGS: A single AP view of the pelvis and two views of each hip are submitted. Osseous mineralization is normal. There is no fracture or dislocation. The joint space is maintained. The soft tissues are unremarkable. XR/XR hip BI w PEL1V IMPRESSION: Unremarkable examination of the bilateral hips. Electronically signed by: Jose Ramon Romano MD 04/02/2025 11:33 AM EDT
--- NOTE | ~2025-04-02 | XR_ITS ---
EXAMINATION: XR KNEE 3 VIEWS RIGHT HISTORY: M25.561 - Pain in right knee COMPARISON: There are no prior studies available for comparison. FINDINGS: Three views of the right knee are submitted. Osseous mineralization is normal. There is no fracture or dislocation. The joint spaces are preserved. The soft tissues are unremarkable. There is no joint effusion. XR/XR knee RT 3V IMPRESSION: Unremarkable examination of the right knee. Electronically signed by: Jose Ramon Romano MD 04/02/2025 11:29 AM EDT
--- OUTSIDE RECORDS SUMMARY | 2025-04-02 12:01 | XMS_ITS | Encounter Summary ---
Author Organization [employer] Address [address] 7[address] [place] [address] Care Team Providers Care Press Offbearer Name Role Phone Diane George Primary Care Provider [phone] Encounter Details Date Type Department Care Team ([facility] st Contact Info) Description 03/20/2025 Telephone [facility] MEDICINE [address] [place], [place] [phone] Diane George ANP [address] [place] [address] Social History Tobacco Use Types Packs/Day Years [...] Description 04/22/2025 11:00 AM EDT Medication Management [address] [address] 04/26/2025 11:00 AM EDT Office Visit [address] [address] Ange Owen MD [address] [place] [address] 05/14/2025 1:15 PM EDT Office Visit [address] [address] Diane George ANP [address] [place] [address] documented as of this encounter Visit Diagnoses Not on filedocumented in this encounter Additional Health Concerns Assessment Noted Time PHQ-9 Depression Total Score: 9 02/14/20 25 3:51 PM EDT documented as of this encounter Care Teams Press Offbearer Relationship Specialty Start Date End Date Diane George ANP [address] [place] [address] PCP - General Family Medicine 02/10/24 documented as of this encounter
--- OUTSIDE RECORDS SUMMARY | 2025-04-02 12:01 | XMS_ITS | Encounter Summary ---
Author Organization [employer] Address [address] [facility] [address] 7[address] [place] [address] Care Team Providers Care Employee Placement Specialist Name Role Phone Diane George Primary Care Provider [phone] Reason for Visit * Reason Comments Med Refill Encounter Details Date Type Department Care Team ([facility] st Contact Info) Description 10/18/2024 Refill [facility] MEDICINE [address] [place] [address] Diane George ANP [address] [place] [address] Social History Tobacco Use Types Packs/Day Years [...] Description 04/22/2025 11:00 AM EDT Medication Management [address] [address] 04/26/2025 11:00 AM EDT Office Visit [address] [address] Ange Owen MD [address] [place] [address] 05/14/2025 1:15 PM EDT Office Visit [address] [address] Diane George ANP [address] [place] [address] documented as of this encounter Visit Diagnoses Not on filedocumented in this encounter Additional Health Concerns Assessment Noted Time PHQ-9 Depression Total Score: 9 07/27/20 24 9:59 AM EDT documented as of this encounter Care Teams Employee Placement Specialist Relationship Specialty Start Date End Date Diane George ANP [address] [place] [phone] PCP - General Family Medicine 02/10/24 documented as of this encounter
--- OUTSIDE RECORDS SUMMARY | 2025-04-02 12:01 | XMS_ITS | Encounter Summary ---
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 EFFECTIVE SINCE 04/14/2023 documented in this encounter Plan of Treatment Upcoming Encounters Date Type Department Care Team (Late st Contact Info) Description 04/22/2025 11:00 AM EDT Medication Management [address] [address] 04/26/2025 11:00 AM EDT Office Visit [address] [address] Ange Owen MD [address] [place] [address] 05/14/2025 1:15 PM EDT Office Visit [address] [address] Diane George ANP [address] [place] [address] documented as of this encounter Visit Diagnoses Not on filedocumented in this encounter Care Teams Licensing Worker Relationship Specialty Start Date End Date Diane George ANP [address] [place] [phone] PCP - General Family Medicine 02/10/24 documented as of this encounter
--- OUTSIDE RECORDS SUMMARY | 2025-04-02 12:01 | XMS_ITS | Encounter Summary ---
Author Organization [employer] Address [address] [facility] [address] [address] [place] [address] Care Team Providers Care Roustabout Name Role Phone Diane George Primary Care Provider [phone] Reason for Visit * Reason Onset Date Comments Nurse Triage 03/28/2025 Encounter Details Date Type Department Care Team ([facility] st Contact Info) Description 03/28/2025 Telephone [facility] MEDICINE [address] [place] [address] Diane George ANP [address] [place] [address] Nurse Triage Social History Tobacco Use Types [...] PM EDT TC placed to pt with [facility] professor of geology #[id number] regards to PCP response regarding triage call [...] fine, but again, the issue is that palm and back forger recommends BID or TID dosing. We could try a lower dose in AM to see if this helps pain w/o sedation. Will send naproxen refill. Estimated Creatinine Clearance: 46.7 mL/min (by C-G formula based on SCr of 1 mg/dL). * Telephone Encounter - Kelly Metzger RN - 03/28/2025 11:02 AM EDT Images from the original note were not included. No professor of geology needed as this auto service writer speaks Latvian. Call returned to Roseanne Abdi to triage [...] worse Message Details Received: Today RIKI Hensley Stuart Triage Nurse Elian obregon (Newest Message First) Me to Stuart Triage Nurse (Selected Message) VG 03/28/25 10:41 [...] to your prompt response.Thank you! Roseanne thornton [facility] Clinical Support (supporting VASYL Cherry) 03/27/25 10:38 [...] Description 04/22/2025 11:00 AM EDT Medication Management [address] [address] 04/26/2025 11:00 AM EDT Office Visit [address] [address] Ange Owen MD [address] [place] [address] 05/14/2025 1:15 PM EDT Office Visit [address] [address] Diane George ANP [address] [place] [address] documented as of this encounter Visit Diagnoses Diagnosis Right hip pain Pain in joint, pelvic region and thigh Radicular pain of lower extremity documented in this encounter Additional Health Concerns Assessment Noted Time PHQ-9 Depression Total Score: 9 02/14/20 25 3:51 PM EDT documented as of this encounter Care Teams Roustabout Relationship Specialty Start Date End Date Diane George ANP [address] [place] [address] PCP - General Family Medicine 02/10/24 documented as of this encounter
--- OUTSIDE RECORDS SUMMARY | 2025-04-02 12:01 | XMS_ITS | Encounter Summary ---
Author Organization [employer] Address [address] [place] [address] Care Team Providers Care Entry Processor Name Role Phone Constance Balderrama Primary Care Provider [phone] Encounter Details Date Type Department Care Team (Late st Contact Info) Description 04/02/2025 Orders Only [facility] External Provider, [facility] Social History Tobacco Use Types Packs/Day Years [...] Description 04/22/2025 11:00 AM EDT Medication Management [facility] [address] [place] [phone] 04/26/2025 11:00 AM EDT Office Visit [facility] [address] [place] [phone] Ange Owen MD [address] [place] [address] 05/14/2025 1:15 PM EDT Office Visit [facility] [address] [place] [phone] Constance Balderrama ANP [address] [place] [address] documented as of this encounter Procedures Procedure Name Priority Date/Time Associated Diagnosis Comments XR LUMBAR SPINE COMPLETE 4+ VIEWS Routine 04/02/2025 11:07 AM EDT XR HIP BILATERAL WITH PELVIS 1 VIEW Routine 04/02/2025 10:58 AM EDT XR KNEE 3 VIEWS RIGHT Routine 04/02/2025 10:58 AM EDT documented in this encounter Results * XR Lumbar Spine Complete 4+ Views (04/02/2025 11:07 AM EDT) Anatomical Region Laterality Modality Spine, L-spine Radiographic Beth ging 04/02/2025 11:0 7 AM EDT Narrative 04/02/2025 11:34 AM EDT ? [facility] ?[address] ?[place] [address] ?XRay Report ? Signed ? Patient: Abdi,Roseanne ?MR#: [id number] ?? 70 ? : 1945 ?Acct:[id number] ? Age/Sex: 79 / F ?ADM Date: 04/02/25 ? Loc: HO.XRAY ? Attending Dr: Clare CARRILLO ? Ordering Physician: Clare Helms ?? Date of Service: 04/02/25 ?? Procedure(s): XR lumbar spine 4V min ?? Accession Number(s): [id number] ? cc: Clare Helms; CONSTANCE BALDERRAMA NP ? EXAMINATION: ??XR LUMBAR SPINE 4 OR MORE VIEWS ? HISTORY: M53.3 - Sacrococcygeal disorders, not elsewhere classified ? COMPARISON: There are no prior studies for comparison. ? FINDINGS: ??AP, lateral, bilateral oblique, and coned down views of the ?? lumbar spine are submitted. ??Osseous mineralization is normal. ??Five ?? nonrib-bearing lumbar vertebral bodies are identified, maintaining ?? normal height without evidence of fracture or spondylolisthesis. There ?? is mild levoscoliosis. ??There is diffuse moderate degenerative disc ?? disease with disc space narrowing and osteophyte formation. Findings ?? are most prominent at the T12-L1, L4-5, and L5-S1 levels. ??There is ?? osteoarthritis of the facet joints. There is no spondylolysis. ??There ?? is calcification of the abdominal aorta. ? XR/XR lumbar spine 4V min ?? IMPRESSION: ?? Mild levoscoliosis. Diffuse moderate degenerative disc disease as ?? described. ? Electronically signed by: ??Jose Ramon Romano MD ??04/02/2025 11:31 AM EDT ?? RP ? Dictated By: ?Jose Ramon Romano MD ? Signed By: ?<Electronically signed by Jose Ramon Romano MD in OV> ?04/02/25 1131 ? DD/ 1107 ? TD/TT: 04/02/25 1125 ? Sweatband Cutting Machine Operator: ? Procedure Note Violet, Naida - 04/02/[address] [address] XRay Report Signed Patient: Briana Abdi#: [id number] 70 : 6Acct:[id number] Age/Sex: 79 / FADM Date: 04/02/25 Loc: [facility] Attending Dr: Clare CARRILLO Ordering Physician: Clare Helms Date of Service: 04/02/25 Procedure(s): XR lumbar spine 4V min Accession Number(s): [id number] cc: Clare Helms; CONSTANCE BALDERRAMA NP EXAMINATION: XR LUMBAR SPINE 4 OR MORE VIEWS HISTORY: M53.3 - Sacrococcygeal disorders, not elsewhere classified COMPARISON: There are no prior studies for comparison. FINDINGS: AP, lateral, bilateral oblique, and coned down views of the lumbar spine are submitted. Osseous mineralization is normal. Five nonrib-bearing lumbar vertebral bodies are identified, maintaining normal height without evidence of fracture or spondylolisthesis. There is mild levoscoliosis. There is diffuse moderate degenerative disc disease with disc space narrowing and osteophyte formation. Findings are most prominent at the T12-L1, L4-5, and L5-S1 levels. There is osteoarthritis of the facet joints. There is no spondylolysis. There is calcification of the abdominal aorta. XR/XR lumbar spine 4V min IMPRESSION: Mild levoscoliosis. Diffuse moderate degenerative disc disease as described. Electronically signed by: Jose Ramon Romano MD 04/02/2025 11:31 AM EDT Dictated By: Jose Ramon Romano MD Signed By: <Electronically signed by Jose Ramon Romano MD in OV> 04/02/25 1131 DD/ 1107 TD/TT: 04/02/25 1125 Sweatband Cutting Machine Operator: [facility] External Provider IMG XR PROCEDURES Final Result * XR Hips Bilateral with Pelvis 1 view (04/02/2025 10:58 AM EDT) Anatomical Region Laterality Modality Lower Extremities, Hip Bilateral Radiograp hic Imaging 04/02/2025 10:5 8 AM EDT Narrative 04/02/2025 11:36 AM EDT ? [facility] ?[address] ?[place] [address] ?XRay Report ? Signed ? Patient: Abdi,Roseanne ?MR#: [id number] ?? 70 ? : 1945 ?Acct:[id number] ? Age/Sex: 79 / F ?ADM Date: 04/02/25 ? Loc: HO.XRAY ? Attending Dr: Clare CARRILLO ? Ordering Physician: Clare Helms ?? Date of Service: 04/02/25 ?? Procedure(s): XR hip BI w PEL1V ?? Accession Number(s): [id number] ? cc: Clare Helms; CONSTANCE BALDERRAMA NP ? EXAMINATION: ??XR HIP 2 OR MORE VIEWS BILATERAL ? HISTORY: M53.3 - Sacrococcygeal disorders, not elsewhere classified ? COMPARISON: There are no prior studies for comparison. ? FINDINGS: ?? A single AP view of the pelvis and two views of each hip ?? are submitted. ??Osseous mineralization is normal. ??There is no fracture ?? or dislocation. ??The joint space is maintained. ??The soft tissues are ?? unremarkable. ? XR/XR hip BI w PEL1V ?? IMPRESSION: ?? Unremarkable examination of the bilateral hips. ? Electronically signed by: ??Jose Ramon Romano MD ??04/02/2025 11:33 AM EDT ?? RP ? Dictated By: ?Faberman,Jose Ramon MD ? Signed By: ?<Electronically signed by Jose Ramon Romano MD in OV> ?04/02/25 1133 ? DD/ 1058 ? TD/TT: 04/02/25 1125 ? Sweatband Cutting Machine Operator: ? Procedure Note Naida Lazo - 04/02/[address] [address] XRay Report Signed Patient: Briana Abdi#: [id number] 70 : 6Acct:[id number] Age/Sex: 79 / FADM Date: 04/02/25 Loc: [facility] Attending Dr: Clare CARRILLO Ordering Physician: Clare Helms Date of Service: 04/02/25 Procedure(s): XR hip BI w PEL1V Accession Number(s): [id number] cc: Clare Helms; CONSTANCE BALDERRAMA NP EXAMINATION: XR HIP 2 OR MORE VIEWS BILATERAL HISTORY: M53.3 - Sacrococcygeal disorders, not elsewhere classified COMPARISON: There are no prior studies for comparison. FINDINGS: A single AP view of the pelvis and two views of each hip are submitted. Osseous mineralization is normal. There is no fracture or dislocation. The joint space is maintained. The soft tissues are unremarkable. XR/XR hip BI w PEL1V IMPRESSION: Unremarkable examination of the bilateral hips. Electronically signed by: Jose Ramon Romano MD 04/02/2025 11:33 AM EDT RP Dictated By: Jose Ramon Romano MD Signed By: <Electronically signed by Jose Ramon Romano MD in OV> 04/02/25 1133 DD/ 1058 TD/TT: 04/02/25 1125 Sweatband Cutting Machine Operator: [facility] External Provider IMG XR PROCEDURES Final Result * XR Knee 3 Views Right (04/02/2025 10:58 AM EDT) Anatomical Region Laterality Modality Lower Extremities, Knee Right Radiogra phic Imaging 04/02/2025 10:5 8 AM EDT Narrative 04/02/2025 11:31 AM EDT ? [facility] ?[address] ?[place] [address] ?XRay Report ? Signed ? Patient: Abdi,Roseanne ?MR#: [id number] ?? 70 ? : 1945 ?Acct:[id number] ? Age/Sex: 79 / F ?ADM Date: 05/20/25 ? Loc: HO.XRAY ? Attending Dr: Clare CARRILLO ? Ordering Physician: Clare Helms ?? Date of Service: 04/02/25 ?? Procedure(s): XR knee RT 3V ?? Accession Number(s): [id number] ? cc: Clare Helms; CONSTANCE BALDERRAMA NP ? EXAMINATION: ??XR KNEE 3 VIEWS RIGHT ? HISTORY: M25.561 - Pain in right knee ? COMPARISON: There are no prior studies available for comparison. ? FINDINGS: ? Three views of the right knee are submitted. ??Osseous mineralization is ?? normal. ??There is no fracture or dislocation. ??The joint spaces are ?? preserved. ??The soft tissues are unremarkable. There is no joint ?? effusion. ? XR/XR knee RT 3V ?? IMPRESSION: ? Unremarkable examination of the right knee. ? Electronically signed by: ??Jose Ramon Romano MD ??04/02/2025 11:29 AM EDT ? Dictated By: ?Jose Ramon Romano MD ? Signed By: ?<Electronically signed by Jose Ramon Romano MD in OV> ?04/02/25 1129 ? DD/ 1058 ? TD/TT: 04/02/25 1125 ? Sweatband Cutting Machine Operator: ? Procedure Note Naida Lazo - 04/02/2025 [place] [address] XRay Report Signed Patient: Briana Abdi#: [id number] 70 : 6Acct:[id number] Age/Sex: 79 / FADM Date: 04/02/25 Loc: [facility] Attending Dr: Clare CARRILLO Ordering Physician: Clare Helms Date of Service: 04/02/25 Procedure(s): XR knee RT 3V Accession Number(s): [id number] cc: Clare Helms; CONSTACNE BALDERRAMA NP EXAMINATION: XR KNEE 3 VIEWS RIGHT HISTORY: M25.561 - Pain in right knee COMPARISON: There are no prior studies available for comparison. FINDINGS: Three views of the right knee are submitted. Osseous mineralization is normal. There is no fracture or dislocation. The joint spaces are preserved. The soft tissues are unremarkable. There is no joint effusion. XR/XR knee RT 3V IMPRESSION: Unremarkable examination of the right knee. Electronically signed by: Jose Ramon Romano MD 04/02/2025 11:29 AM EDT RP Dictated By: Jose Ramon Romano MD Signed By: <Electronically signed by Jose Ramon Romano MD in OV> 04/02/25 1129 DD/ 1058 TD/TT: 04/02/25 1125 Sweatband Cutting Machine Operator: [facility] External Provider IMG XR PROCEDURES Final Result documented in this encounter Visit Diagnoses Not on filedocumented in this encounter Additional Health Concerns Assessment Noted Time PHQ-9 Depression Total Score: 9 02/14/20 25 3:51 PM EDT documented as of this encounter Care Teams Entry Processor Relationship Specialty Start Date End Date Constance Balderrama ANP [address] [place] [phone] PCP - General Family Medicine 02/10/24 documented as of this encounter
--- OUTSIDE RECORDS SUMMARY | 2025-04-02 12:01 | XMS_ITS | Encounter Summary ---
Author Organization [employer] Address [address] [place] [address] Care Team Providers Care Wan Support Specialist Name Role Phone Diane George Primary Care Provider [phone] Reason for Visit * Reason Comments Med Refill Encounter Details Date Type Department Care Team ([facility] st Contact Info) Description 02/04/2025 Refill [facility] [address] [place] [address] Diane George ANP [address] [place] [address] Social History Tobacco Use Types Packs/Day Years [...] Description 04/22/2025 11:00 AM EDT Medication Management [address] [address] 04/26/2025 11:00 AM EDT Office Visit [address] [address] Ange Owen MD [address] [place] [phone] 05/14/2025 1:15 PM EDT Office Visit [address] [address] Diane George ANP [address] [place] [phone] documented as of this encounter Visit Diagnoses Not on filedocumented in this encounter Additional Health Concerns Assessment Noted Time PHQ-9 Depression Total Score: 9 07/27/20 24 9:59 AM EDT documented as of this encounter Care Teams Wan Support Specialist Relationship Specialty Start Date End Date Diane George ANP [address] [place] [phone] PCP - General Family Medicine 02/10/24 documented as of this encounter
--- OUTSIDE RECORDS SUMMARY | 2025-04-02 12:01 | XMS_ITS | Clinical Summary ---
Author Organization [employer] Address [address] [facility] [address] [place] [address] Care Team Providers Care Hardwood Sawyer Name Role Phone Constance Balderrama Primary Care Provider [phone] Allergies No known active allergies Medications * [...] connected with a psychiatrist and therapist in [place] (unable to provide agency name). Today, pt [...] with psychopharmacology when she was living in [place]. Family moved to [place] from [place] in 2016. Further information needed to make diagnosis of bipolar disorder. Currently seeing a therapist with [facility] Psychiatry services will start soon due to having a conflict with her insurance ([facility]). During today's visit, clinician engaged [...] due to a conflict with her insurance ([facility]). Update from pt's granddaughter, [facility] will cover psychiatry services and [...] with psychopharmacology when she was living in [place]. Family moved to [place] from [place] in 2017. Further information needed to make [...] with psychopharmacology when she was living in [place]. She was accompanied by her granddaughter. Family moved to [place] from [place] in 2017. Further information needed to make diagnosis. PLAN: (check all that apply) New/Additional Services needed PCP management On-site non-integrated services Off-site services for Behavioral Health Integration Plan Internal Follow up with I External OP BH therapy referral and OP psychiatry Referral Patient Self Plan Patient to utilize skills provided in intervention , Patient to reach out to [facility] team as needed, Patient to engage in [...] organization. Date Type Department Care Team Description 04/02/2025 Orders Only [facility] External Provider, [facility] 03/28/2025 Telephone [facility] [address] [place] [phone] Constance Balderrama ANP Nurse Triage 03/27/2025 Orders Only [address] [address] Constance Balderrama ANP Radicular pain of lower extremity; Diabetic polyneuropathy associated with type 2 diabetes mellitus (CMS/HCC) 03/22/2025 9:30 AM EDT Office Visit [address] [address] Ange Owen MD Dermatitis (Primary Dx) 03/22/[address] [address] Constance Balderrama ANP Med Refill 03/22/2025 Travel 03/21/2025 Orders Only [facility] [address] [place] [phone] Constance Balderrama ANP Hypertension associated with diabetes (CMS/HCC) (Primary Dx) 03/20/2025 Telephone [facility] [address] [place] [phone] Constance Balderrama ANP Appointment Request 03/20/[address] [address] Constance Balderrama ANP 03/18/2025 Travel 03/12/2025 Telephone [facility] [address] [place], [place] [address] [address] Constance Balderrama ANP Referral 02/13/2025 3:30 PM EDT Office Visit [facility] [place] [address] Constance Balderrama ANP Low back pain potentially associated with radiculopathy (Primary Dx); Gastroesophageal reflux disease, unspecified whether esophagitis present; Right hip pain; Radicular pain of lower extremity; Urinary hesitancy; Generalized pruritus; Rash; Rash 02/13/2025 Travel 02/12/2025 Telephone [facility] [place] [address] Constance Balderrama ANP Nurse Triage 02/11/20[address] [place] [address] Constance Balderrama ANP 02/08/2025 [address] [place] [address] Ana Squires, RN Record Request 02/08/2025 [address] [place] [address] Constance Balderrama ANP 02/06/2025 [address] [place] [address] Constance Balderrama ANP 02/06/2025 Orders Only [facility] [place] [place] [address] Constance Balderrama ANP Anxiety (Primary Dx); Mood disorder ([facility]) 02/04/[address] [address] Constance Balderrama ANP Med Refill 02/04/2025 Refill [facility] [place] [place] [address] Constance Baledrrama ANP 01/12/2025 Refill [facility] [place] [address] Constance Balderrama ANP from Last 3 Months Immunizations Immunization [...] Description 04/22/2025 11:00 AM EDT Medication Management [address] [address] 04/26/2025 11:00 AM EDT Office Visit [address] [address] Ange Owen MD [address] [place] [address] 05/14/2025 1:15 PM EDT Office Visit [facility] [address] [place] [phone] Constance Balderrama ANP [address] [place] [address] Health Maintenance Due Date Last Done Comments [...] VIEWS RIGHT Routine 04/02/2025 10:58 AM EDT BASIC METABOLIC PANEL Routine 03/22/2025 10:25 AM [...] Recently Relevant to Health Maintenance Results * XR Lumbar Spine Complete 4+ Views (04/02/2025 11:07 AM EDT) Anatomical Region Laterality Modality Spine, L-spine Radiographic Beth ging 04/02/2025 11:0 7 AM EDT Narrative 04/02/2025 11:34 AM EDT ? [facility] ?[address] ?[place] [address] ?XRay Report ? Signed ? Patient: Roseanne Abdi ?MR#: [id number] ?? 70 ? : 1945 ?Acct:[id number] ? Age/Sex: 79 / F ?ADM Date: 04/02/25 ? Loc: HO.XRAY ? Attending Dr: Clare CARRILLO ? Ordering Physician: Clare Helms ?? Date of Service: 04/02/25 ?? Procedure(s): XR lumbar spine 4V min ?? Accession Number(s): [id number] ? cc: Clare Helms; CONSTANCE BALDERRAMA NP [...] Ramon Romano MD ??04/02/2025 11:31 AM EDT ? Dictated By: ?Jose Ramon Romano MD ? Signed By: ?<Electronically signed by Jose Ramon Romano MD in OV> ?04/02/25 1131 ? DD/ 1107 ? TD/TT: 04/02/25 1125 ? Equipment Operator: ? Procedure Note Naida Lazo - 04/02/2025 [place] [address] XRay Report Signed Patient: Briana Abdi#: [id number] 70 : 1945cct:[id number] Age/Sex: 79 / FADM Date: 04/02/25 Loc: [facility] Attending Dr: Clare CARRILLO Ordering Physician: Clare Helms Date of Service: 04/02/25 Procedure(s): XR lumbar spine 4V min Accession Number(s): [id number] cc: Clare Helms; CONSTANCE BALDERRAMA NP EXAMINATION: [...] Ramon Romano MD 04/02/2025 11:31 AM EDT RP Dictated By: Jose Ramon Romano MD Signed By: <Electronically signed by Jose Ramon Romano MD in OV> 04/02/25 1131 DD/ 1107 TD/TT: 04/02/25 1125 Equipment Operator: us [facility] External Provider IMG XR PROCEDURES Final Result * XR Hips Bilateral with Pelvis 1 view (04/02/2025 10:58 AM EDT) Anatomical Region Laterality Modality Lower Extremities, Hip Bilateral Radiograp hic Imaging 04/02/2025 10:5 8 AM EDT Narrative 04/02/2025 11:36 AM EDT ? [facility] ?[address] ?[place] [address] ?XRay Report ? Signed ? Patient: Roseanne Abdi ?MR#: [id number] ?? 70 ? : 1945 ?Acct:[id number] ? Age/Sex: 79 / F ?ADM Date: 04/02/25 ? Loc: HO.XRAY ? Attending Dr: Clare Helms RESEARCH STATISTICIAN ? Ordering Physician: Clare Helms ?? Date of Service: 04/02/25 ?? Procedure(s): XR hip BI w PEL1V ?? Accession Number(s): [id number] ? cc: Clare Helms RESEARCH STATISTICIAN; CONSTANCE BALDERRAMA NP ? EXAMINATION: ??XR HIP [...] DD/ 1058 ? TD/TT: 04/02/25 1125 ? Equipment Operator: ? Procedure Note Naida Lazo - 04/02/[address] [address] XRay Report Signed Patient: Briana Abdi#: [id number] 70 : 1945cct:[id number] Age/Sex: 79 / FADM Date: 04/02/25 Loc: [facility] Attending Dr: Clare CARRILLO Ordering Physician: Clare Helms Date of Service: 04/02/25 Procedure(s): XR hip BI w PEL1V Accession Number(s): [id number] cc: Clare Helms; CONSTANCE BALDERRAMA NP EXAMINATION: [...] Ramon Romano MD 04/02/2025 11:33 AM EDT Dictated By: Jose Ramon Romano MD Signed By: <Electronically signed by Jose Ramon Romano MD in OV> 04/02/25 1133 DD/ 1058 TD/TT: 04/02/25 1125 Equipment Operator: [facility] External Provider IMG XR PROCEDURES Final Result * XR Knee 3 Views Right (04/02/2025 10:58 AM EDT) Anatomical Region Laterality Modality Lower Extremities, Knee Right Radiogra phic Imaging 04/02/2025 10:5 8 AM EDT Narrative 04/02/2025 11:31 AM EDT ? [facility] ?[address] ?[place] [address] ?XRay Report ? Signed ? Patient: Abdi,Roseanne ?MR#: [id number] ?? 70 ? : 1945 ?Acct:[id number] ? Age/Sex: 79 / F ?ADM Date: 04/02/25 ? Loc: HO.XRAY ? Attending Dr: Clare CARRILLO ? Ordering Physician: Clare Helms ?? Date of Service: 04/02/25 ?? Procedure(s): XR knee RT 3V ?? Accession Number(s): [id number] ? cc: Clare Helms; CONSTANCE BALDERRAMA NP [...] Ramon Romano MD ??04/02/2025 11:29 AM EDT ?? RP ? Dictated By: ?Jose Ramon Romano MD ? Signed By: ?<Electronically signed by Jose Ramon Romano MD in OV> ?04/02/25 1129 ? DD/ 1058 ? TD/TT: 04/02/25 1125 ? Equipment Operator: ? Procedure Note Naida Lazo - 04/02/2025 [facility] [address] [place] [address] XRay Report Signed Patient: Briana Abdi#: [id number] 70 : 6Acct:[id number] Age/Sex: 79 / FADM Date: 04/02/25 Loc: [facility] Attending Dr: Calre CARRILLO Ordering Physician: Clare Helms Date of Service: 04/02/25 Procedure(s): XR knee RT 3V Accession Number(s): [id number] cc: Clare Helms; CONSTANCE BALDERRAMA NP EXAMINATION: XR KNEE 3 VIEWS [...] Ramon Romano MD 04/02/2025 11:29 AM EDT Dictated By: Jose Ramon Romano MD Signed By: <Electronically signed by Jose Ramon Romano MD in OV> 04/02/25 1129 DD/ 1058 TD/TT: 04/02/25 1125 Equipment Operator: [facility] External Provider IMG XR PROCEDURES Final Result * Albumin, Random Urine W/Creatinine (03/22/2025 10:25 AM EDT) Creatinine, Urine 74.54 mg/dL [facility] Microalbumin Urine 10.0 mg/L [facility] Microalbum Creatinine Ratio Ur 13.4 <30 ug/mg cr [facility] Comment:Albumin/Creatinine R atio Reference Ranges: Normal: < 30 ug/mg creatinine Microalbuminuria: 30 - 300 ug/mg creatinineClinical Albuminuria: > 300 ug/mg creatinine Urine 03/22/2025 10:2 5 AM EDT 03/22/2025 11:02 AM EDT us Constance Balderrama ANP LAB URINE ORDERABLES Final Resul t Performing Organization Address [facility] de Phone Number [facility] [address] [place] [phone] * (ABNORMAL) Basic Metabolic Panel (03/22/2025 10:25 AM EDT) Sodium 142 135 - 145 mmol/L [facility] Potassium 4.4 3.3 - 5.1 mmol/L [facility] Chloride 105 96 - 108 mmol/L [facility] Carbon Dioxide 31(H) 22 - 29 mmol/L [facility] Anion Gap 10(L) 12 - 20 [facility] Urea Nitrogen (BUN) 15 9 - 16 mg/dL [facility] Creatinine, Serum 1.00 0.5 - 1.4 mg/dL [facility] Estimated Glomerular Filt Rate 54 [facility] Comment:Chronic Kidney Disea se: Estimated GFR < 60 mL/min/1.65j4Twqapo Kidney Disease: Estimated GFR < 15 mL/min/1.73m2 Glucose 96 60 - 115 mg/dL [facility] Calcium 9.1 8.4 - 10.2 mg/dL [facility] Blood Venous blood specimen / Unknown 03/22/2025 10:25 AM EDT 03/22/2025 11:01 AM EDT us Constance FALLON LAB BLOOD ORDERABLES Final Resul t Performing Organization Address [facility] Co de Phone Number [facility] [address] [place] [phone] * (ABNORMAL) POCT HGB A1C (12/04/2024 10:35 AM EST) Hemoglobin A1C 6.2(A) 4.0 - 6.0 % QC Media Lot # [id number] Lot# Expiration Date Blood 12/04/2024 10:3 5 AM EST us Constance Balderrama ANP POINT OF CARE TEST ENTER/EDIT OR DERABLES Edited Result - Final * Hepatitis C Antibody with Reflex to HCV, RNA, Quantitative, Real-Time PCR (05/03/2024 11:38 AM EDT) Hepatitis C Antibody Nonreactive Nonreactive [facility] Comment:Antibodies to HCV no t detected; does not exclude early acuteHCV infection. Blood Venous blood specimen / Unknown 05/03/2024 11:38 AM EDT 05/03/2024 1:01 PM EDT us Constance Balderrama ANP LAB BLOOD ORDERABLES Final Resul t [facility] [address] [place] [phone] * (ABNORMAL) Lipid Panel, Standard (05/03/2024 11:30 AM EDT) Triglycerides 211(H) <150 mg/dL [facility] Comment:Desirable Triglyceri de: less than 150 mg/dLBorderline High Triglyceride 150-199 mg/dLHigh Triglyceride: 200-499 mg/dLVery High Triglyceride: greater than or equal to 5OO mg/dL Cholesterol 110 <200 mg/dL [facility] Comment:Desirable Cholestero l: less than 200 mg/dLBorderline High Cholesterol: 200-239 mg/dLHigh Cholesterol: greater than 239 mg/dL LDL Cholesterol Calculated 35 <100 mg/dL [facility] Comment:Desirable LDL: less than 100 mg/dLNear Optimal/Above Optimal LDL: 110- 129 mg/dLBorderline High LDL: 130-159 mg/dLHigh LDL: 160-189 mg/dLVery High LDL: greater than or equal to 190 mg/dL HDL Cholesterol 33(L) >40 mg/dL [facility] Comment:Desirable HDL: great er than 40 mg/dL Note: This HDL assay may give artificially low results in patients with liver disease. Blood Venous blood specimen / Unknown 05/03/2024 11:30 AM EDT 05/03/2024 1:01 PM EDT Constance FALLON LAB BLOOD ORDERABLES Final Resul t [facility] [address] [place] [phone] [phone] from Last 3 Months or Most Recently Relevant to Health Maintenance Insurance [facility] LONG TERM OPT[employer] (O D-SNP) [place] [id number] Care Teams Hardwood Sawyer Relationship Specialty Start Date End Date Constance Balderrama ANP [address] [place] [address] PCP - General Family Medicine 02/10/24
--- OUTSIDE RECORDS SUMMARY | 2025-04-02 12:01 | XMS_ITS | Clinical Summary ---
Author Organization [facility] Address [address] [place] [address] Phone Care Team Providers Care Service Desk Manager Name Role Phone DorisDiane Ankur BARKER Primary Care Provider [phone] Allergies No known active allergies Medications ACETAMINOPHEN [...] 02/18/2025 10:30 AM EDT Office Visit [facility] [address] [phone] Antony Ramirez DPM Diabetic mononeuropathy simplex ([facility] V24, [facility] V28) (Primary Dx); Dermatophytosis of nail; Metatarsalgia of both feet; Tinea pedis of both feet 01/09/2025 2:00 PM EST Office Visit [facility] [address] [phone] Antony Ramirez DPM Tinea pedis of both feet (Primary Dx); Dermatophytosis of nail; Pain in toe of left foot; Diabetic mononeuropathy simplex ([facility] V24, [facility] V28); Pain in toe of right foot; [...] 04/22/2025 3:30 PM EDT Office Visit [facility] [address] [phone] Antony Ramirez DPM [address] [address] Health Maintenance Due Date Last Done Comments [...] ID:[id number] Group ID:[id number] Type:Not on file Address: [place] [address] [place] [id number] Care Teams Service Desk Manager Relationship Specialty Start Date End Date Diane George NP [address] [place] [phone] PCP - General 06/15/24
== END 2025-04-02 10:05 | disposition home or self-care (01) ==
LOC: HO.XRAY 10:04
PROVIDERS: PCP Nurse Practitioner Primary Care; Referring Provider Nurse Practitioner Primary Care; Visit Provider Nurse Practitioner Family
DX: M25.561 Pain in right knee (principal); M53.3 Sacrococcygeal disorders, not elsewhere classified; G89.29 Other chronic pain; M25.551 Pain in right hip; M25.552 Pain in left hip; M21.70 Unequal limb length (acquired), unspecified site; M51.369 Other intervertebral disc degeneration, lumbar region without mention of lumbar back pain or lower extremity pain; M54.40 Lumbago with sciatica, unspecified side; M47.817 Spondylosis without myelopathy or radiculopathy, lumbosacral region; E11.40 Type 2 diabetes mellitus with diabetic neuropathy, unspecified
CPT/HCPCS: 72110; 73521; 73562; 99202

== ENCOUNTER 2025-04-02 10:04 | Outpatient (AMB) | payer OTHER, SELFPAY ==
--- NOTE | 2025-04-02 10:06 | A.OFFVIS_ITS ---
Vital Signs 04/02/25 10:11 Height 5 ft 3 in Weight 179 lb BMI 31.7 BP 110/75 Blood Pressure Location Lt brachial Position Sitting Pulse 83 Pulse Source Pulse Oximeter Pulse Oximetry (%) 97 Oxygen Delivery Method Room Air Intake Visit Reasons: Low back pain Intake Note: Pain today 08/23 Disk Sander Required: Yes Disk Sander Language: Telecommunications Technician Name: Abi Accompanied by: Grand Child Allergies No Known Allergies Allergy (Verified 04/02/25 10:29) HPI Comments Details: The patient is a 79-year-old female presenting with chronic left-sided low back pain and right leg radiculopathy. She has endured leg pain for approximately two years and back pain for one and a half years. The onset correlates with previous injections in the lower back and physical therapy at [facility], offering only t emporary relief and no significant improvement in functioning. The patient's leg pain is more bothersome than back pain and affects her movement, with noticeable integrities between knee involvement and the ambulation difficulties. She has no history of hip or knee replacement surgery or prior back surgery. Her history of diabetes mellitus, currently well controlled with recent A1C at 6.0, with peripheral neuropathy contributing to nocturnal numbness and tingling in her feet. Glaucoma affects both eyes, leading to visual impairment, particularly in her right eye. Physical examination has revealed a shorter right leg, potentially affecting her spinal alignment, and consequently, her gait and balance. Previous conservative management with analgesics and topical treatments managed to provide minor relief, underscoring the complexity of her condition. - Chronic onset, over two years for leg pain, about one and a half years for back pain. - Quality: Persistent, radiating pain with numbness and tingling due to neuropathy. - Primary location: Left low back, radiating to the right leg, affecting the knee and both hips. - Exacerbating factors: Leaning forward, walking, climbing stairs, prolonged standing; induced after prior injections. - Relieving factors: Minimal relief from naproxen, Lyrica, Tylenol, and lidocaine patches. - Interference: Impacts walking, daily activities, and overall function; noted antalgic gait with limping. - Affect: Pain leads to impaired mobility and limitations in daily activities. - Analgesia: Medications include naproxen and Lyrica, with limited efficacy. Lidocaine patches provide slight relief. Pain level exceeds tolerable thresholds, affecting quality of life. - Adverse Effects: None explicitly reported during conversation. - Activities of Daily Living: Pain impacts mobility, exacerbated by improper gait and limb length discrepancy. - Aberrant Drug Related Behaviors: No aberrant behaviors reported or suspected. [facility] Medical History Obstructive sleep apnea Chronic SI joint pain Type 2 diabetes, controlled, with neuropathy Elevated LDL cholesterol level Ascending aorta enlargement Aortic valve calcification Heart murmur Chronic low back pain with sciatica Lumbar degenerative disc disease Chronic painful diabetic neuropathy Osteopenia Anxiety Memory loss GERD (gastroesophageal reflux disease) Gout Sleep apnea Glaucoma Carpal tunnel syndrome Hemorrhoids Arthritis Neuropathy Hypothyroid Diabetes HTN (hypertension) Surgical History Hx of sinus surgery H/O eye surgery Hx of tubal ligation History of thyroid surgery Hx of cholecystectomy Family History Mother No problems noted. Father No problems noted. Social History Household Members: Family Housing: House Alcohol intake: former Patient Tobacco Use Status: Former Tobacco user e-Cigarette/Vaping Use: Never Used service: No Current occupational status: employed and disabled Cognitive needs: No Hearing needs: No Vision needs: No Review of Systems Const Details: - Musculoskeletal: Reports chronic low back pain, bilateral hip and leg pain, and right knee involvement with crepitus; bilateral foot pain with numbness and burning pain. - Neurological: Reports numbness, tingling, and occasional burning pain in the feet; denies seizure activity. 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 All systems reviewed & are unremarkable except as noted in HPI and below Physical Exam Vital Signs: Last Vital Signs Pulse 83 04/02/25 10:11 BP 110/75 04/02/25 10:11 Pulse Ox 97 04/02/25 10:11 Oxygen Delivery Method Room Air 04/02/25 10:11 BMI result Body Mass Index 31.7 General: Appears afebrile. Alert and oriented. Mood and affect appropriate. Follows and participates in conversation appropriately. Respiratory effort is unlabored. No cough. Able to transition from sit to stand unassisted. Uses cane with ambulation. Ambulates with slow, antalgic gait with limping. General: Yes no CVA tenderness Back/Spine/Pelvis Other: Limited lumbar ROM due to pain. Demonstrates 4/5 strength of quadriceps bilaterally as well as flexion/dorsiflexion of bilateral feet against resistance. 2+ pedal pulses bilaterally. Straight leg rise with dorsiflexion positive bilaterally. Diminished patellar and achilles reflexes bilaterally. Facet loading test positive bilaterally. Dominic sign, Tong?s, Pelvic compression and Stinchfield tests are positive bilaterally, left >right. Moderate groin pain with right I/E hip rotations. Valsalva maneuver negative. Back: no CVA tenderness Cervical Spine: cervical ROM normal, cervical muscular tenderness and No Cervical spine tenderness Thoracic/Lumbar Spine: thoracic and lumbar spine normal to inspection, No Thoracic/lumbar spine scar(s), Lasegue's sign positive bilateral and diffuse, pain with thoraco-lumbar ROM, paraspinal muscle tenderness, thoraco-lumbar ROM limited, Thoracic/lumbar scoliosis, No thoracic spinal tenderness and lumbar spinal tenderness (L3-S1) Pelvis: buttock tenderness bilaterally Sacroiliac joints: bilaterally tender to palpation Extrem Other: There is a decreased sensation over the soles of the feet and toes. Reduced protective pain sensation bilaterally. Reports numbness, burning, tingling in both feet, worse at night time. No breaks in the skin. No soft tissue swelling or warmth. +2 pedal pulses bilaterally. Right lateral lower leg with small bandaid, s/p recent skin biopsy per patient. General: Yes capillary refill normal, Yes no clubbing, cyanosis or edema and Yes no calf tenderness Results Reviewed Results Reviewed: MR SPINE LUMBAR without CONTRAST 07/10/24 at [facility] INDICATION: Lower back pain and right hip pain and bilateral feet for 1 year. TECHNIQUE: Unenhanced multiplanar, multisequence MR imaging of the lumbar spine. COMPARISON: None Available. FINDINGS: There is mild scoliosis as well as mild retrolisthesis at L3-4 and mild anterolisthesis at L4-5. The spine is in otherwise good alignment. Vertebral heights are well maintained. There are hemangiomas in vertebral bodies of T12 and L2. Bone marrow signal is otherwise within normal limits, and no suspicious osseous lesion is identified. Conus medullaris is unremarkable. Paraspinal soft tissues and visualized portions of the abdomen and pelvis are unremarkable. At L1-2 there is no significant disc herniation or protrusion. No central canal or neural foraminal stenosis is demonstrated. At L2-3 there is a small broad-based disc bulge and bilateral facet hypertrophy with thickening of the ligamentum flavum. No central canal or neuroforaminal stenosis is demonstrated. At L3-4 there is there is the aforementioned mild retrolisthesis as well as a small broad-based disc bulge, bilateral facet hypertrophy, and thickening of the ligamentum flavum. This causes mild central canal stenosis, but no neuroforaminal narrowing. At L4-5 there is the aforementioned mild anterolisthesis as well as a small broad-based disc bulge, bilateral facet hypertrophy, and thickening of the ligamentum flavum. This causes moderate central canal stenosis and mild right neuroforaminal narrowing. At L5-S1 there is a small broad-based disc bulge with an annular tear as well as bilateral facet hypertrophy. There is no central canal stenosis, but there is mild bilateral neuroforaminal narrowing IMPRESSION: 1. There is mild scoliosis as well as mild retrolisthesis at L3-4 and mild anterolisthesis at L4-5. 2. Multilevel degenerative disc and bony disease causing central canal and neuroforaminal stenosis as described. Assessment & Plan Assessment & Plan (1) Chronic SI joint pain: Code(s): M53.3 - Sacrococcygeal disorders, not elsewhere classified; G89.29 - Other chronic pain Category: Medical (2) Chronic low back pain with sciatica: Code(s): M54.40 - Lumbago with sciatica, unspecified side; G89.29 - Other chronic pain Category: Medical (3) Right knee pain: Code(s): M25.561 - Pain in right knee Category: Medical (4) Chronic SI joint pain: Code(s): M53.3 - Sacrococcygeal disorders, not elsewhere classified; G89.29 - Other chronic pain Category: Medical (5) Lumbar degenerative disc disease: Code(s): M51.369 - Other intervertebral disc degeneration, lumbar region without mention of lumbar back pain or lower extremity pain Category: Medical (6) Lumbosacral spondylosis: Code(s): M47.817 - Spondylosis without myelopathy or radiculopathy, lumbosacral region Category: Medical (7) Right knee pain: Code(s): M25.561 - Pain in right knee Category: Medical (8) Chronic SI joint pain: Code(s): M53.3 - Sacrococcygeal disorders, not elsewhere classified; G89.29 - Other chronic pain Category: Medical (9) Bilateral hip pain: Code(s): M25.551 - Pain in right hip; M25.552 - Pain in left hip Category: Medical (10) Leg length discrepancy: Code(s): M21.70 - Unequal limb length (acquired), unspecified site Category: Medical (11) Chronic painful diabetic neuropathy: Code(s): E11.40 - Type 2 diabetes mellitus with diabetic neuropathy, unspecified Category: Medical Plan Patient presents today with multifactorial chronic low back pain and right leg radiculopathy, with pain components underlying issues of potential spinal stenosis, scoliosis and disc degeneration. Referral to physical therapy will aid in correcting postural abnormalities and improve muscular strength and core. Diagnostic imaging of her lumbar spine, hip and knee will ascertain the degree of osteoarthritis and leg length discrepancy, which may influence her current pain management strategy. A non-steroidal Synvisc One gel injection for her right knee with local and fluoroscopy is contemplated pending diagnostic validation. The plan for her peripheral neuropathy includes seeking coverage for 8% capsa icin topical (Qutenza) treatment to alleviate foot discomfort. All questions and concerns have been answered and patient agreed with the plan. Follow up for xray results and sooner as needed. Patient was informed and verbally consented to the use of an ambient scribe for clinic note documentation during this visit. Orders: Orders XR knee RT 3V Today M25.561 - Pain in right knee XR hip BI w PEL1V Today G89.29 - Other chronic pain, M21.70 - Unequal limb oswaldo gth (acquired), unspecified site, M25.551 - Pain in right hip, M25.552 - Pain in left hip, M53.3 - Sacrococcygeal disorders, not elsewhere classified PT Evaluation and Treatment Today G89.29 - Other chronic pain, M25.551 - Pain in right hip, M25.552 - Pain in left hip, M25.561 - Pain in right knee, M53.3 - Sacrococcygeal disorders, not elsewhere classified, M54.40 - Lumbago with sciatica, unspecified side, M79.604 - Pain in right leg XR lumbar spine 4V min Today G89.29 - Other chronic pain, M47.817 - Spondylosis without myelopathy or radiculopathy, lumbosacral region, M51.369 - Other intervertebral disc degeneration, lumbar region without mention of lumbar back pain or lower extremity pain, M53.3 - Sacrococcygeal disorders, not elsewhere classified, M54.40 - Lumbago with sciatica, unspecified side Patient Instructions: During our discussion, I emphasized the complexity of the patient's pain, involving potential spinal degeneration and radicular symptoms. The patient was informed of the anticipated benefits of physical therapy in enhancing mobility and structural alignment. For peripheral neuropathy, we reviewed the goal of utilizing Qutenza pending insurance approval, stressing the significance of integrating topical therapies to manage neuropathic pain. The patient was apprised of gel injections as a therapeutic option, notably due to their non- steroidal nature, offering a potential strategy for symptomatic relief upon confirmation of arthritis. I reinforced the importance of pursuing these avenues and ensured that detailed follow-ups will capture outcomes while monitoring progression. She appears amenable to the proposed interventions and comprehends the continuity of care plan established today. - Start physical therapy to improve posture and muscle strength. - Undergo lumbar, hip and knee x-rays to assess arthritis and structural alignment. - Await insurance approval for Qutenza for neuropathic pain management. - Continue current medications but note limited relief for future assessments. - Follow up as scheduled to assess therapy efficacy and imaging findings. - Report any exacerbations of pain or new symptoms as needed. Coding Level of Care Code New Pt Level 4 (26688) Diagnoses Chronic SI joint pain M53.3; G89.29 Chronic low back pain with sciatica M54.40; G89.29 Right knee pain M25.561 Lumbar degenerative disc disease M51.369 Lumbosacral spondylosis M47.817 Bilateral hip pain M25.551; M25.552 Leg length discrepancy M21.70 Chronic painful diabetic neuropathy E11.40
[2025-04-02 10:11] VITALS: BP 110/75; PULSE 83; O2SAT 97; BMI 31.7
--- OUTSIDE RECORDS SUMMARY | 2025-04-02 11:18 | XMS_ITS | Encounter Summary ---
Author Organization [employer] Address [address] [place] [address] Care Team Providers Care Cement Despatch Operator Name Role Phone Diane George Primary Care Provider [phone] Encounter Details Date Type Department Care Team ([facility] st Contact Info) Description 03/20/[address] [facility] MEDICINE [address] [place], [place] [id number] Diane George ANP [address] [place] [address] Social History Tobacco Use Types Packs/Day Years [...] Care Team (Late st Contact Info) Description 04/22/2025 11:00 AM EDT Medication Management [address] [address] 04/26/2025 11:00 AM EDT Office Visit [address] [address] Ange Owen MD [address] [place] [phone] 05/14/2025 1:15 PM EDT Office Visit [address] [address] Diane George ANP [address] [place] [phone] documented as of this encounter Visit Diagnoses Not on filedocumented in this encounter Additional Health Concerns Assessment Noted Time PHQ-9 Depression Total Score: 9 02/14/20 25 3:51 PM EDT documented as of this encounter Care Teams Cement Despatch Operator Relationship Specialty Start Date End Date Diane George ANP [address] [place] [id number] PCP - General Family Medicine 02/10/24 documented as of this encounter
--- OUTSIDE RECORDS SUMMARY | 2025-04-02 11:18 | XMS_ITS | Encounter Summary ---
Author Organization [employer] Address [address] [place] [address] Care Team Providers Care Shift Production Associate Name Role Phone Diane George Primary Care Provider [phone] Reason for Visit * Reason Onset Date Comments Nurse Triage 03/28/2025 Encounter Details Date Type Department Care Team ([facility] st Contact Info) Description 03/28/2025 Telephone [facility] MEDICINE [address] [place] [address] Diane George ANP [address] [place] [address] Nurse Triage Social History Tobacco Use Types [...] encounter Miscellaneous Notes * Telephone Encounter - Mackenzie Hernandez RN - 03/28/2025 1:54 PM EDT TC placed to pt with [facility] paddle dyeing machine operator #[id number] regards to PCP response regarding triage call about left lower back pain and change in Lyrica dosage. Pt advised that the change in Lyrica dosage is not due to reduced renal function but rather that Lyrica is a medication that is most effective and safe taken BID. Pt confirms that she has been taking the Lyrica medication once daily at the higher dose once daily but was advised that PCP sent a refill of the 150 MG to the pharmacy. Pt was asked ifshe would be agreeable taking a lower dose twice daily and the pt stated no. The pt feels that the medication has been ineffective in controlling her chronic lower back pain. Pt reminded that she has an upcoming appt with pain management on 04/02/2025 and that PCP referred her due to the lower back pain. RN advised pt that this appt should be attended especially if pain management through current medication regimen is ineffective. Pt confirmed that she did follow up with physiatry but could not confirm an associated appt. Pt agreeable to the refill on the naproxen. Pt stated understanding of the Lyrica dosing but is looking for an alternative from PCP. Pt informed that this information will be sent back to PCP for review and advisement. * Telephone Encounter - VASYL Cherry - 03/28/2025 12:51 PM EDT Please let pt know, her renal function has actually improved from previous and the issue is not that her kidney function is so abnormal, but that lyrica is a renally dosed medication and the issiu isnot actually the lyrica dose, but the dose frequency. For example - she could take 150mg BID but I know this made her feel tired, so she was taking 300mg at bedtime (once daily), which I would recommend against. Per her kidney function (near normal, mildly decreased), she should split her dosing. If she would like the AM dose back, that would be fine, but again, the issue is that lease examiner recommends BID or TID dosing. We could try a lower dose in AM to see if this helps pain w/o sedation. Will send naproxen refill. Estimated Creatinine Clearance: 46.7 mL/min (by C-G formula based on SCr of 1 mg/dL). * Telephone Encounter - Kelly Metzger RN - 03/28/2025 11:02 AM EDT Images from the original note were not included. No paddle dyeing machine operator needed as this magnetic tape typewriter operator speaks Ukrainian. Call returned to Roseanne Abdi to triage below. Reports continues to have lower left back pain. Per pt pain radiates to left leg and causes intermittent numbness. All of these symptoms are chronic. No new or worsening of symptoms since seen by PCP 02/13/25. Pt aware of change to lyrica to 150mg nightly. Per pt has appointment with Pain Management next week. Pt ran out of naproxen, would like Refill. Pt states that does not need appointment. Would just like to know what the plan of care is with regarding to her kidney function. Pt advised that decrease of lyrica dose was in response to Lab results of renal function. Pt wants to know if would need to see a specialist. Pt advised will forward to PCP to review and advise Primary care team nurses of plan of care for follow up. No sooner appts for follow up OV with PCP than scheduled. Protocol Used: Back Pain (Adult) Protocol-Based Disposition: See in Office or Video Visit within 2 Weeks Override (Final) Disposition: Discuss with PCP and Callback by Nurse Today Override Reason: Already seen and questions Video visit offer not recorded Positive Triage Question: * Back pain is a chronic symptom (recurrent or ongoing AND lasting > 4 weeks) * All higher-acuity triage questions were negative Care Advice Discussed: * Reassurance and Education - Back Pain * Cold or Heat * Sleep * Pain Medicines * Reasons To Call Back - Fever occurs - Numbness or weakness occurs - Loss of control of your bladder or bowel - Severe pain not better after taking pain medicines - You become worse Message Details Received: Today RIKI Hensley [place] Triage Nurse Elian obregon (Newest Message First) Me to [place] Triage Nurse (Selected Message) VG 03/28/25 10:41 AM Translation: Rudy Fernandez I saw the results of my latest tests and saw that I have kidney problems. I wanted to know if you could see me before my next appointment, since it's on May 14, and I can't stand the pain anymore. The pain is unbearable. I'm afraid my condition will worsen. I look forward to your prompt response.Thank you! Roseanne thornton [facility] Clinical Support (supporting VASYL Cherry) 03/27/25 10:38 PM Rancho Doctor Vi mis resultados de mis ??ltimos an??lisis y vi que dice que tengo problemas con mis ri??ones. Quer??a saber si me puede andrews antes de mi pr??xima maya ya que es para el y yo ya no soporto eldolor. El dolor es insoportable. Tengo miedo de que mi situaci??n empeore. Espero burnette pronta respuesta. Haleigh! documented in this encounter Plan of Treatment Upcoming Encounters Date Type Department Care Team (Late st Contact Info) Description 04/22/2025 11:00 AM EDT Medication Management [address] [address] 04/26/2025 11:00 AM EDT Office Visit [address] [address] Ange Owen MD [address] [place] [address] 05/14/2025 1:15 PM EDT Office Visit [address] [address] Diane George ANP [address] [place] [address] documented as of this encounter Visit Diagnoses Diagnosis Right hip pain Pain in joint, pelvic region and thigh Radicular pain of lower extremity documented in this encounter Additional Health Concerns Assessment Noted Time PHQ-9 Depression Total Score: 9 02/14/20 25 3:51 PM EDT documented as of this encounter Care Teams Shift Production Associate Relationship Specialty Start Date End Date Diane George ANP [address] [place] [phone] PCP - General Family Medicine 02/10/24 documented as of this encounter
--- OUTSIDE RECORDS SUMMARY | 2025-04-02 11:18 | XMS_ITS | Encounter Summary ---
Author Organization [employer] Address [address] [place] [address] Care Team Providers Care Stone Rigger Name Role Phone Diane George Primary Care Provider [phone] Reason for Visit * Reason Comments Med Refill Encounter Details Date Type Department Care Team ([facility] st Contact Info) Description 02/04/2025 Refill [facility] MEDICINE [address] [place] [address] Diane George ANP [address] [place] [address] Social History Tobacco Use Types Packs/Day Years [...] Description 04/22/2025 11:00 AM EDT Medication Management [address] [address] 04/26/2025 11:00 AM EDT Office Visit [address] [address] Ange Owen MD [address] [place] [phone] 05/14/2025 1:15 PM EDT Office Visit [address] [address] Diane George ANP [address] [place] [phone] documented as of this encounter Visit Diagnoses Not on filedocumented in this encounter Additional Health Concerns Assessment Noted Time PHQ-9 Depression Total Score: 9 07/27/20 24 9:59 AM EDT documented as of this encounter Care Teams Stone Rigger Relationship Specialty Start Date End Date Diane George ANP [address] [place] [id number] PCP - General Family Medicine 02/10/24 documented as of this encounter
--- OUTSIDE RECORDS SUMMARY | 2025-04-02 11:19 | XMS_ITS | Clinical Summary ---
Author Organization [employer] Address [address] 7[address] [place] [address] Care Team Providers Care Bottoming Room Supervisor Name Role Phone Diane George Primary Care Provider Allergies No known active allergies Medications * [...] per day. 90 capsule 3 025 Active omeprazole (PriLOSEC) [address] capsuleIndication s:Gastroesophagea l reflux disease, unspecified whether esophagitis present Take 1 capsule (20 mg) by mouth before breakfast. 90 capsule 3 025 Active venlafaxine XR (Effexor XR) 37.5 MG 24 hr capsule Take 1 capsule by mouth Once per day. 025 Active halobetasol (UltraVATE) 0.05 % ointment Apply topically 2 times daily. 50 g 2 025 Active pregabalin (Lyrica) 150 MG capsuleIndication s:Radicular pain of lower extremity,Diabeti c polyneuropathy associated with type 2 diabetes mellitus (CMS/HCC) Take 1 capsule (150 mg) by mouth at bedtime. 30 capsule 2 025 Active naproxen (Naprosyn) 500 MG tabletIndications :Right hip pain,Radicular pain of lower extremity TAKE 1 TABLET BY MOUTH EVERY MORNING & 1 TABLET AT BEDTIME IF NEEDED FOR MODERATE PAIN 60 tablet 025 Active LORazepam (Ativan) 0.5 MG tabletIndications [...] cleanup (will not trigger notification to Pharmacy)) pregabalin [...] NEEDED FOR MODERATE PAIN 60 tablet 025 2024 Discontinued(R eorder (will not trigger [...] connected with a psychiatrist and therapist in [place] (unable to provide agency name). Today, pt [...] questions. Pt agreed to continue with current MH services and will reach out to clinician if additional support is needed. Diabetes mellitus, type II 11/27/2024 Osteopenia 11/27/2024 DAINA (obstructive sleep apnea) 06/14/2024 Overview (06/14/2024): Uses [...] with psychopharmacology when she was living in [place]. Family moved to [place] from [place] in 2016. Further information needed to make diagnosis of bipolar disorder. Currently seeing a therapist with [facility] Psychiatry services will start soon due to having a conflict with her insurance ([facility]). During today's visit, clinician engaged [...] due to a conflict with her insurance ([facility]). Update from pt's granddaughter, [facility] will cover psychiatry services and [...] with psychopharmacology when she was living in [place]. Family moved to [place] from [place] in 2017. Further information needed to make [...] with psychopharmacology when she was living in [place]. She was accompanied by her granddaughter. Family moved to [place] from [place] in 2017. Further information needed to make diagnosis. PLAN: (check all that apply) New/Additional Services needed PCP management On-site non-integrated services Off-site services for Behavioral Health Integration Plan Internal Follow up with [facility] External OP BH therapy referral and OP psychiatry Referral Patient Self Plan Patient to utilize skills provided in intervention , Patient to reach out to [facility] team as needed, Patient to engage [...] organization. Date Type Department Care Team Description 03/28/2025 Telephone [facility] MEDICINE [address] [place] [phone] Diane George ANP Nurse Triage 03/27/2025 Orders Only [address] [address] Diane George ANP Radicular pain of lower extremity; Diabetic polyneuropathy associated with type 2 diabetes mellitus (CMS/HCC) 03/22/2025 9:30 AM EDT Office Visit [address] [address] Ange Owen MD Dermatitis (Primary Dx) 03/22/[address] [address] Diane George ANP Med Refill 03/22/2025 Travel 03/21/2025 Orders Only [facility] MEDICINE [address] [place] [phone] Diane George ANP Hypertension associated with diabetes (CMS/HCC) (Primary Dx) 03/20/[address] [address] Diane George ANP Appointment Request 03/20/[address] [address] Diane George ANP 03/18/2025 Travel 03/12/[address] [address] Diane George ANP Referral 02/13/2025 3:30 PM EDT Office Visit [facility] [place] [address] Diane George ANP Low back pain potentially associated with radiculopathy (Primary Dx); Gastroesophageal reflux disease, unspecified whether esophagitis present; Right hip pain; Radicular pain of lower extremity; Urinary hesitancy; Generalized pruritus; Rash; Rash 02/13/2025 Travel 02/12/2025 Telephone [facility] [place] [address] Diane George ANP Nurse Triage 02/11/[address] [address] Diane George ANP 02/08/[address] [address] Ana Squires, RN Record Request 02/08/[address] [address] Diane George ANP 02/06/[address] [address] Diane George ANP 02/06/2025 Orders Only [facility] MEDICINE [address] [place] [address] Diane George ANP Anxiety (Primary Dx); Mood disorder ([facility]) 02/04/2025 Telephone [facility] MEDICINE [address] [place] [address] Diane George ANP Med Refill 02/04/[address] [address] Diane George ANP 01/12/2025 Refill [facility] MEDICINE [address] [place] [address] Diane George ANP from Last 3 Months Immunizations Immunization Administration Dates Next Due Hep B, adult [...] Description 04/22/2025 11:00 AM EDT Medication Management [facility] MEDICINE [address] [place] [address] 04/26/2025 11:00 AM EDT Office Visit [facility] MEDICINE [address] [place] [address] Ange Owen MD [address] [place] [address] 05/14/2025 1:15 PM EDT Office Visit [facility] MEDICINE [address] [place] [address] [phone] Diane George ANP [address] [place] [address] Health Maintenance Due Date Last Done Comments COVID-19 Vaccine ( season) 2024 SDOH Screening 02/09/2025 02/10/2024 Diabetes: Foot Exam 05/03/2025 05/03/2024, 05/03/2024, 05/03/2024, Additional history exists Lipid Panel 05/03/2025 05/03/2024 Diabetes: Hemoglobin A1C 06/03/2025 025, 07/27/2024, 02/10/2024 Alcohol/Substance Use Screening 12/04/2025 12/04/2024 Depression Screening 02/13/2026 02/13/2025, 02/14/20 Diabetes: Urine Protein Screening 03/22/2026 03/22/2025 Tobacco Screening 03/28/2026 03/28/2025 Eye Exam 12/17/2026 12/17/2024 DTaP/Tdap/Td Vaccines (2 [...] Procedure Name Priority Date/Time Associated Diagnosis Comments BASIC METABOLIC PANEL Routine 03/22/2025 10:25 AM EDT Hypertension associated with diabetes (CMS/HCC) ALBUMIN, RANDOM URINE W/CREATININE Routine 03/22/2025 10:25 AM EDT Hypertension associated with diabetes (CMS/HCC) POCT GLYCATED HEMOGLOBIN, TOTAL Routine 12/04/2024 10:35 AM EST Hypertension associated with diabetes (CMS/HCC) (CMS/HCC) HEPATITIS C AB W/REFL TO HCV RNA, QN, PCR Routine 05/03/2024 11:38 AM EDT Healthcare maintenance LIPID PANEL, STANDARD Routine 05/03/2024 11:30 AM EDT Hypertension associated with diabetes (CMS/HCC) (CMS/[facility]) Healthcare maintenance from Last 3 Months or Most Recently Relevant to Health Maintenance Results * Albumin, Random Urine W/Creatinine (03/22/2025 10:25 AM EDT) Creatinine, Urine 74.54 mg/dL [facility] Microalbumin Urine 10.0 mg/L [facility] Microalbum Creatinine Ratio Ur 13.4 <30 ug/mg cr [facility] Comment:Albumin/Creatinine R atio Reference Ranges: Normal: < 30 ug/mg creatinine Microalbuminuria: 30 - 300 ug/mg creatinineClinical Albuminuria: > 300 ug/mg creatinine Urine 03/22/2025 10:2 5 AM EDT 03/22/2025 11:02 AM EDT [facility] George [facility] URINE ORDERABLES Final Resul t Performing Organization Address City/State/[facility] Co de Phone Number [facility] [address] [place] [phone] * (ABNORMAL) Basic Metabolic Panel (03/22/2025 10:25 AM EDT) Sodium 142 135 - 145 mmol/L [facility] Potassium 4.4 3.3 - 5.1 mmol/L [facility] Chloride 105 96 - 108 mmol/L [facility] Carbon Dioxide 31(H) 22 - 29 mmol/L [facility] Anion Gap 10(L) 12 - 20 [facility] Urea Nitrogen (BUN) 15 9 - 16 mg/dL [facility] Creatinine, Serum 1.00 0.5 - 1.4 mg/dL [facility] Estimated Glomerular Filt Rate 54 [facility] Comment:Chronic Kidney Disea se: Estimated GFR < 60 mL/min/1.22e4Wwedea Kidney Disease: Estimated GFR < 15 mL/min/1.73m2 Glucose 96 60 - 115 mg/dL [facility] Calcium 9.1 8.4 - 10.2 mg/dL [facility] Blood Venous blood specimen / Unknown 03/22/2025 10:25 AM EDT 03/22/2025 11:01 AM EDT Diane George [facility] BLOOD ORDERABLES Final Resul t Performing Organization Address [facility] Co de Phone Number [facility] [address] [place] [place] [phone] * (ABNORMAL) POCT HGB A1C (12/04/2024 10:35 AM EST) Hemoglobin A1C 6.2(A) 4.0 - 6.0 % QC Media Lot # [id number] Lot# Expiration Date Blood 12/04/2024 10:3 5 AM EST Diane George [facility] POINT OF CARE TEST ENTER/EDIT OR DERABLES Edited Result - Final * Hepatitis C Antibody with Reflex to HCV, RNA, Quantitative, Real-Time PCR (05/03/2024 11:38 AM EDT) Hepatitis C Antibody Nonreactive Nonreactive [facility] Comment:Antibodies to HCV no t detected; does not exclude early acuteHCV infection. Blood Venous blood specimen / Unknown 05/03/2024 11:38 AM EDT 05/03/2024 1:01 PM EDT Diane George [facility] BLOOD ORDERABLES Final Resul t Performing Organization Address [facility] Co de Phone Number [facility] [address] [place] [place] [phone] * (ABNORMAL) Lipid Panel, Standard (05/03/2024 11:30 AM EDT) Triglycerides 211(H) <150 mg/dL [facility] Comment:Desirable Triglyceri de: less than 150 mg/dLBorderline High Triglyceride 150-199 mg/dLHigh Triglyceride: 200-499 mg/dLVery High Triglyceride: greater than or equal to 5OO mg/dL Cholesterol 110 <200 mg/dL [facility] Comment:Desirable Cholestero l: less than 200 mg/dLBorderline High Cholesterol: 200-239 mg/dLHigh Cholesterol: greater than 239 mg/dL LDL Cholesterol Calculated 35 <100 mg/dL [facility] Comment:Desirable LDL: less than 100 mg/dLNear Optimal/Above Optimal LDL: 110- 129 mg/dLBorderline High LDL: 130-159 mg/dLHigh LDL: 160-189 mg/dLVery High LDL: greater than or equal to 190 mg/dL HDL Cholesterol 33(L) >40 mg/dL [facility] Comment:Desirable HDL: great er than 40 mg/dL Note: This HDL assay may give artificially low results in patients with liver disease. Blood Venous blood specimen / Unknown 05/03/2024 11:30 AM EDT 05/03/2024 1:01 PM EDT Diane [facility] BLOOD ORDERABLES Final Resul t [facility] [address] [place] [place] [phone] from Last 3 Months or Most Recently Relevant to Health Maintenance Insurance [facility] RESIDENTIAL OPTIONS (HMO D-SNP) [place] [id number] Care Teams Bottoming Room Supervisor Relationship Specialty Start Date End Date Diane George ANP [address] [place] [phone] PCP - General Family Medicine 02/10/24
--- OUTSIDE RECORDS SUMMARY | 2025-04-02 11:19 | XMS_ITS | Clinical Summary ---
Author Organization [address] [facility] Address [address] [place] [address] Phone Care Team Providers Care Passenger Tire Inspector Name Role Phone DorisDiane Ankur BARKER Primary Care Provider [phone] Allergies No known active allergies Medications ACETAMINOPHEN [...] 02/18/2025 10:30 AM EDT Office Visit [facility] [address] [phone] Antony Ramirez DPM Diabetic mononeuropathy simplex ([facility] V24, [facility] V28) (Primary Dx); Dermatophytosis of nail; Metatarsalgia of both feet; Tinea pedis of both feet 01/09/2025 2:00 PM EST Office Visit [facility] [address] [phone] Antony Ramirez DPM Tinea pedis of both feet (Primary Dx); Dermatophytosis of nail; Pain in toe of left foot; Diabetic mononeuropathy simplex ([facility] V24, [facility] V28); Pain in [...] 04/22/2025 3:30 PM EDT Office Visit [facility] [address] [phone] Antony Ramirez DPM [address] [address] Health Maintenance Due Date Last Done Comments [...] ID:[id number] Group ID:[id number] Type:Not on file Address: [place] [address] [place] [id number] Care Teams Passenger Tire Inspector Relationship Specialty Start Date End Date Diane George NP [address] [place] [phone] PCP - General 06/15/24
--- OUTSIDE RECORDS SUMMARY | 2025-04-02 11:19 | XMS_ITS | Encounter Summary ---
Author Organization [employer] Address [address] [facility] [address] [place] [address] Care Team Providers Care Research Asst Name Role Phone Diane George Primary Care Provider [phone] Reason for Visit * Reason Comments Med Refill Encounter Details Date Type Department Care Team ([facility] st Contact Info) Description 10/18/2024 Refill [facility] MEDICINE [address] [place] [address] Diane George ANP [address] [place] [address] Social History Tobacco Use Types Packs/Day Years [...] Description 04/22/2025 11:00 AM EDT Medication Management [address] [address] 04/26/2025 11:00 AM EDT Office Visit [address] [address] Ange Owen MD [address] [place] [address] 05/14/2025 1:15 PM EDT Office Visit [address] [address] Diane George ANP [address] [place] [address] documented as of this encounter Visit Diagnoses Not on filedocumented in this encounter Additional Health Concerns Assessment Noted Time PHQ-9 Depression Total Score: 9 07/27/20 24 9:59 AM EDT documented as of this encounter Care Teams Research Asst Relationship Specialty Start Date End Date Diane George ANP [address] [place] [phone] PCP - General Family Medicine 02/10/24 documented as of this encounter
--- OUTSIDE RECORDS SUMMARY | 2025-04-02 11:19 | XMS_ITS | Encounter Summary ---
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 EFFECTIVE SINCE 04/14/2023 documented in this encounter Plan of Treatment Upcoming Encounters Date Type Department Care Team (Late st Contact Info) Description 04/22/2025 11:00 AM EDT Medication Management [address] [address] 04/26/2025 11:00 AM EDT Office Visit [address] [address] Ange Owen MD [address] [place] [address] 05/14/2025 1:15 PM EDT Office Visit [address] [address] Diane George ANP [address] [place] [address] documented as of this encounter Visit Diagnoses Not on filedocumented in this encounter Care Teams Cotton Candy Maker Relationship Specialty Start Date End Date Diane George ANP [address] [place] [address] PCP - General Family Medicine 02/10/24 documented as of this encounter
== END 2025-04-02 10:40 | disposition home or self-care (01) ==
LOC: HO.PMC 10:04
PROVIDERS: PCP Nurse Practitioner Primary Care; Referring Provider Nurse Practitioner Primary Care; Visit Provider Nurse Practitioner Family
DX: M53.3 Sacrococcygeal disorders, not elsewhere classified (principal); G89.29 Other chronic pain; M54.40 Lumbago with sciatica, unspecified side; M25.561 Pain in right knee; M51.369 Other intervertebral disc degeneration, lumbar region without mention of lumbar back pain or lower extremity pain; M47.817 Spondylosis without myelopathy or radiculopathy, lumbosacral region; M25.551 Pain in right hip; M25.552 Pain in left hip; M21.70 Unequal limb length (acquired), unspecified site; E11.40 Type 2 diabetes mellitus with diabetic neuropathy, unspecified
CPT/HCPCS: 99204

== ENCOUNTER → 2025-04-02 10:58 | Outpatient (BNV) | payer OTHER, SELFPAY | PROVIDERS: PCP Nurse Practitioner Primary Care; Referring Provider Nurse Practitioner Primary Care; Visit Provider Radiology Diagnostic Radiology | DX: M51.369 Other intervertebral disc degeneration, lumbar region without mention of lumbar back pain or lower extremity pain (principal); M53.3 Sacrococcygeal disorders, not elsewhere classified; M25.561 Pain in right knee | CPT/HCPCS: 72110; 73521; 73562 ==

== ENCOUNTER 2025-04-22 12:36 | Outpatient (AMB) | payer OTHER, SELFPAY ==
--- NOTE | 2025-04-22 13:08 | MHC.OFFVIS ---
Intake Visit Reasons: urinary hesitancy Intake Note: New patient presents today for initial visit for urinary hesitancy Urology Medication:None Blood Thinner:None Antibiotic Allergies:None PVR:26ml [employer] Services: [employer]er Present [employer] Assembler Name: Rebecca Information Interpreted: non-clinical & clinical Allergies No Known Allergies Allergy (Verified 04/22/25 13:09) Medication List - Last Reconciled 04/22/25 by Malick Sheridan MD acetaminophen ER (Tylenol 8 Hour) 650 mg PO Q8H PRN atropine 1% 1 drp ophthalmic-Right BID blood pressure kit-extra large check bp daily and as needed for headache/dizziness brimonidine 0.2% 1 drp ophthalmic-Left BID diltiazem HCl CD (Cardizem CD) 240 mg PO DAILY duloxetine 60 mg PO DAILY levothyroxine 137 mcg PO DAILY lidocaine 5% 1 patch topical DAILY lorazepam 0.5 mg PO QID PRN metformin 500 mg PO DAILY mirabegron ER (Myrbetriq) 25 mg PO DAILY miscellaneous medical supply cpap therapy with auto pap mode and pressure settings 6-20 cm followed by close monitoring for compliance and benefit as directed; test to be included with fax multivitamin 1 tab PO DAILY naproxen 500 mg PO BID PRN omeprazole 20 mg PO DAILY pravastatin 40 mg PO BEDTIME 30 days prednisolone acetate 1% 1 drp ophthalmic-Right BID pregabalin 150 mg PO BID timolol maleate 0.5% 1 drp QAM trazodone 100 mg PO BEDTIME PRN triamterene-hydrochlorothiazid 37.5-25 mg 1 tab PO DAILY 3 months HPI Comments Details: 04/22/25--History of Present Illness - The patient is a 79-year-old female presenting with lower urinary tract symptoms of urgency and hesitancy. - The symptoms have persisted for several months, characterized by an intermittent urinary stream. - Urinary urgency occurs approximately six times during the day, with nocturnal symptoms leading to incontinence and a need to wake up to urinate. - Denies previous urinary tract infections requiring antibiotics and reports no hematuria. - Experiences strong urges that sometimes result in leakage. Denies blood in the urine Discussion Notes I discussed with the patient that the symptoms of urinary urgency, hesitancy, and incontinence may be related to an overactive bladder. I recommended trying Myrbetriq 25 mg once daily as it may help alleviate symptoms by relaxing the bladder muscle. We also decided it would be beneficial to conduct an ultrasound of the bladder and kidneys to further evaluate the urinary tract. I informed the patient about a possible office cystoscopy for direct bladder inspection. Follow-up in 10 -12 weeks was discussed to assess the medication's effectiveness and to conduct further evaluations if needed. I will check a urine culture to exclude any underlying infections. I ensured the patient understood and agreed with the proposed plan and scheduled investigations. Results - Labs: Urinalysis showed 3 + leukocytes, negative for blood. [facility] Medical History Obstructive sleep apnea Chronic SI joint pain Type 2 diabetes, controlled, with neuropathy Elevated LDL cholesterol level Ascending aorta enlargement Aortic valve calcification Heart murmur Chronic low back pain with sciatica Lumbar degenerative disc disease Chronic painful diabetic neuropathy Osteopenia Anxiety Memory loss GERD (gastroesophageal reflux disease) Gout Sleep apnea Glaucoma Carpal tunnel syndrome Hemorrhoids Arthritis Neuropathy Hypothyroid Diabetes HTN (hypertension) Surgical History Hx of sinus surgery H/O eye surgery Hx of tubal ligation History of thyroid surgery Hx of cholecystectomy Family History Mother No problems noted. Father No problems noted. Social History Household Members: Family Housing: House Alcohol intake: former Patient Tobacco Use Status: Former Tobacco user e-Cigarette/Vaping Use: Never Used service: No Current occupational status: employed and disabled Cognitive needs: No Hearing needs: No Vision needs: No Review of Systems Const All systems reviewed & are unremarkable except as noted in HPI and below Reports no additional complaints Eyes Reports no additional complaints ENT Reports no additional complaints Card Reports no additional complaints Resp Reports no additional complaints GI Reports no additional complaints Reports as per HPI Musc Reports no additional complaints Skin/Breast Reports system reviewed and no additional complaints, except as documented Neuro Reports no additional complaints Psych Reports no additional complaints Endo Reports no additional complaints Evin/Lymph Reports no additional complaints Aller/Immun Reports no additional complaints Physical Exam Const General: cooperative, healthy appearing and no acute distress Orientation/consciousness: patient oriented x3 HEENT Head: Yes normal to inspection, Yes normocephalic and Yes atraumatic Eyes Conjunctivae: conjunctivae normal Neck Neck: Yes normal visual inspection and Yes trachea midline Chest Chest palpation & inspection: normal inspection of the chest Resp Effort & Inspection: normal respiratory effort GI Inspection: Yes normal to inspection Neuro General: patient oriented x3 Psych Appearance: grossly normal Results AMB Urinalysis, Automated UA Leukoctes 500 Herman/uL Last Edit by Monica Yootiz on 04/22/25 16:45 UA Nitrite Negative Last Edit by Monica Yootiz on 04/22/25 16:45 UA Urobilinogen 3.5 mg/dL Last Edit by Monica Yootiz on 04/22/25 16:45 UA Protein 0 mg/dL Last Edit by Monica Yootiz on 04/22/25 16:45 UA pH 6.5 Last Edit by Monica Yootiz on 04/22/25 16:45 UA Blood 0 Douglas/uL Last Edit by Monica Yootiz on 04/22/25 16:45 UA Specific [place] 1.010 Last Edit by Monica Yootiz on 04/22/25 16:45 UA Ketone Negative Last Edit by Monica Yootiz on 04/22/25 16:45 UA Bilirubin 0 mg/dL Last Edit by Monica Yootiz on 04/22/25 16:45 UA Glucose 0 mg/dL Last Edit by Monica Yootiz on 04/22/25 16:45 Assessment & Plan Assessment & Plan (1) Urinary urgency: Code(s): R39.15 - Urgency of urination Category: Medical (2) Urinary incontinence: Code(s): R32 - Unspecified urinary incontinence Category: Medical (3) Intermittent urinary stream: Code(s): R39.13 - Splitting of urinary stream Category: Medical Plan Plan - Initiate Myrbetriq 25 mg daily for urinary symptoms management. - Plan for ultrasound of kidneys and bladder. - Schedule office cystoscopy in 10 weeks. - Perform urine culture. - Follow-up in 10 weeks for assessment and further management. Orders: Orders US retroperitoneal comp 6 Weeks R32 - Unspecified urinary incontinence, R39.13 - Splitting of urinary stream, R39.15 - Urgency of urination Urine Culture Today R32 - Unspecified urinary incontinence, R39.13 - Splitting of urinary stream, R39.15 - Urgency of urination AMB Urinalysis Automated Today Z13.9 - Encounter for screening, unspecified Medications: New mirabegron ER (Myrbetriq) 25 mg PO DAILY 30 tabs 3RF Patient Instructions: The patient had an opportunity to ask questions regarding treatment plan. The patient expressed understanding and agreement with the above treatment plan. The patient is aware they should contact our office by phone for worsening of their current condition or the appearance of new symptoms. Compliance is encouraged with any medications and followup testing that is ordered. It is a privilege to be allowed the opportunity to participate in the urologic care of your patient. If you have any questions or concerns regarding treatment for the above conditions please do not hesitate to contact me. The office telephone contact is [phone]. This note is constructed in part using voice recognition software. While every effort has been made to ensure accuracy plastic mould maker errors may have been included. Yours sincerely, Malick Sheridan MD Scribe Plan - Not visible on output: Patient was informed and verbally consented to the use of an ambient scribe for clinic note documentation during this visit. Coding Level of Care Code New Pt Level 4 (55288) Diagnoses Urinary urgency R39.15 Urinary incontinence R32 Intermittent urinary stream R39.13
--- OUTSIDE RECORDS SUMMARY | 2025-04-22 14:13 | XMS_ITS | Encounter Summary ---
Author Organization [employer] Address [address] [place] [address] Care Team Providers Care Time Piece Repairer Name Role Phone Diane George Primary Care Provider [phone] Reason for Visit * Reason Comments Med Refill Encounter Details Date Type Department Care Team ([facility] st Contact Info) Description 02/04/2025 Refill [facility] [address] [place] [address] Diane George ANP [address] [place] [address] Social History Tobacco Use Types Packs/Day Years [...] Care Team (Late st Contact Info) Description 04/25/2025 10:00 AM EDT Medication Management [address] [address] 04/26/2025 11:00 AM EDT Office Visit [address] [address] Ange Owen MD [address] [place] [id number] 05/14/2025 1:15 PM EDT Office Visit [address] [address] Diane George ANP [address] [place] [id number] documented as of this encounter Visit Diagnoses Not on filedocumented in this encounter Additional Health Concerns Assessment Noted Time PHQ-9 Depression Total Score: 9 07/27/20 24 9:59 AM EDT documented as of this encounter Care Teams Time Piece Repairer Relationship Specialty Start Date End Date Diane George ANP [address] [place] [phone] PCP - General Family Medicine 02/10/24 documented as of this encounter
== END 2025-04-22 13:43 | disposition home or self-care (01) ==
LOC: HO.HUSH 12:37
PROVIDERS: PCP Nurse Practitioner Primary Care; Visit Provider Urology
DX: Z13.9 Encounter for screening, unspecified (principal)

== ENCOUNTER 2025-04-22 12:36 | Outpatient (REF) | payer OTHER, SELFPAY | END 2025-04-22 12:37 | disposition home or self-care (01) | LOC: HO.LNP 12:36 | PROVIDERS: PCP Nurse Practitioner Primary Care; Visit Provider Urology | DX: R39.15 Urgency of urination (principal); R32 Unspecified urinary incontinence; R39.13 Splitting of urinary stream | CPT/HCPCS: 81003; 87086; 99202 ==

== ENCOUNTER 2025-04-30 13:03 | Outpatient (AMB) | payer OTHER, SELFPAY ==
--- NOTE | 2025-04-30 13:05 | A.OFFVIS_ITS ---
Vital Signs 04/30/25 13:16 04/30/25 13:53 04/30/25 14:15 Height 5 ft 3 in Weight 183 lb BMI 32.4 BP 125/69 122/68 127/69 Blood Pressure Location Rt brachial Lt brachial Rt brachial Position Sitting Sitting Sitting Pulse 84 80 81 Pulse Source Pulse Oximeter Pulse Oximeter Pulse Oximeter Pulse Oximetry (%) 98 Oxygen Delivery Method Room Air Comment 15 mins after qutenza application 30 mins after qutenza application Intake Visit Reasons: QUTENZA Intake Note: Pain today 08/23 Architectural Modeler Required: Yes Architectural Modeler Language: Poultry Hatchery Manager Services: Architectural Modeler Present Architectural Modeler Name: Lien #[id number] Information Interpreted: non-clinical & clinical Accompanied by: Self / Same As Patient Allergies No Known Allergies Allergy (Verified 04/30/25 13:14) HPI Comments Details: Patient presents for 1st application of capsaicin 8% topical patch for diabetic neuropathy in bilateral feet and to follow up on recent xray results. Denies any recent cough, cold, infection, fever or other significant changes in medical history since last office visit. Her left-sided back pain is associated with arthritis and degenerative disc disease with multilevel central and neural foraminal spinal stenosis, exacerbating her known mild scoliosis. This chronic condition does not significantly radiate to her legs, and she has confirmed normal x-ray results for right knee and hips. She also suffers from chronic SI joint pain. Her neuropathy has been previously managed with topical agents, and she is waiting for arthritis-related knee injection approvals, though normal imaging presents challenges for authorization. Management of her diabetes continues, with recent evaluations indicating adequacy, though she requires careful consideration for future steroid injections due to her glaucoma. PRIOR: The patient is a 79-year-old female presenting with chronic left-sided low back pain and right leg radiculopathy. She has endured leg pain for approximately two years and back pain for one and a half years. The onset correlates with previous injections in the lower back and physical therapy at [facility], offering only temporary relief and no significant improvement in functioning. The patient's leg pain is more bothersome than back pain and affects her movement, with notic eable integrities between knee involvement and the ambulation difficulties. She has no history of hip or knee replacement surgery or prior back surgery. Her history of diabetes mellitus, currently well controlled with recent A1C at 6.0, with peripheral neuropathy contributing to nocturnal numbness and tingling in her feet. Glaucoma affects both eyes, leading to visual impairment, particularly in her right eye. Physical examination has revealed a shorter right leg, potentially affecting her spinal alignment, and consequently, her gait and balance. Previous conservative management with analgesics and topical treatments managed to provide minor relief, underscoring the complexity of her condition. - Chronic onset, over two years for leg pain, about one and a half years for back pain. - Quality: Persistent, radiating pain with numbness and tingling due to neuropathy. - Primary location: Left low back, radiating to the right leg, affecting the knee and both hips. - Exacerbating factors: Leaning forward, walking, climbing stairs, prolonged standing; induced after prior injections. - Relieving factors: Minimal relief from naproxen, Lyrica, Tylenol, and lidocaine patches. - Interference: Impacts walking, daily activities, and overall function; noted antalgic gait with limping. - Affect: Pain leads to impaired mobility and limitations in daily activities. - Analgesia: Medications include naproxen and Lyrica, with limited efficacy. Lidocaine patches provide slight relief. Pain level exceeds tolerable thresholds, affecting quality of life. - Adverse Effects: None explicitly reported during conversation. - Activities of Daily Living: Pain impacts mobility, exacerbated by improper gait and limb length discrepancy. - Aberrant Drug Related Behaviors: No aberrant behaviors reported or suspected. [facility], LAT[facility] Medical History Obstructive sleep apnea Chronic SI joint pain Type 2 diabetes, controlled, with neuropathy Elevated LDL cholesterol level Ascending aorta enlargement Aortic valve calcification Heart murmur Chronic low back pain with sciatica Lumbar degenerative disc disease Chronic painful diabetic neuropathy Osteopenia Anxiety Memory loss GERD (gastroesophageal reflux disease) Gout Sleep apnea Glaucoma Carpal tunnel syndrome Hemorrhoids Arthritis Neuropathy Hypothyroid Diabetes HTN (hypertension) Surgical History Hx of sinus surgery H/O eye surgery Hx of tubal ligation History of thyroid surgery Hx of cholecystectomy Family History Mother No problems noted. Father No problems noted. Social History Household Members: Family Housing: House Alcohol intake: former Patient Tobacco Use Status: Former Tobacco user e-Cigarette/Vaping Use: Never Used service: No Current occupational status: employed and disabled Cognitive needs: No Hearing needs: No Vision needs: No Review of Systems Const All systems reviewed & are unremarkable except as noted in HPI and below Physical Exam Vital Signs: Last Vital Signs Pulse 80 04/30/25 13:53 BP 122/68 04/30/25 13:53 Pulse Ox 98 04/30/25 13:16 Oxygen Delivery Method Room Air 04/30/25 13:16 BMI result Body Mass Index 32.4 General: Appears afebrile. Alert and oriented. Mood and affect appropriate. Follows and participates in conversation appropriately. Respiratory effort is unlabored. No cough. Able to transition from sit to stand unassisted. Uses cane with ambulation. Ambulates with slow, antalgic gait with limping. General: Yes no CVA tenderness Back/Spine/Pelvis Other: Limited lumbar ROM due to pain. Lumbar extension and axial rotations reproduce moderate-severe pain. Lumbar flexion and bending reproduce mild-moderate pain. Demonstrates 4/5 strength of quadriceps bilaterally as well as flexion/dorsiflexion of bilateral feet against resistance. 2+ pedal pulses bilaterally. Straight leg rise with dorsiflexion positive bilaterally. Diminished patellar and achilles reflexes bilaterally. Facet loading test positive bilaterally. Dominic sign, Tong?s, Pelvic compression and Stinchfield tests are positive bilaterally, left >right. Moderate groin pain with right I/E hip rotations. Valsalva maneuver is negative. Back: no CVA tenderness Cervical Spine: cervical ROM normal, cervical muscular tenderness and No Cervical spine tenderness Thoracic/Lumbar Spine: thoracic and lumbar spine normal to inspection, No Thoracic/lumbar spine scar(s), Lasegue's sign positive bilateral and diffuse, pain with thoraco-lumbar ROM, paraspinal muscle tenderness, thoraco-lumbar ROM limited, Thoracic/lumbar scoliosis, No thoracic spinal tenderness and lumbar spinal tenderness (L3-S1) Pelvis: buttock tenderness bilaterally Sacroiliac joints: bilaterally tender to palpation Extrem Other: There is a decreased sensation over the soles of the feet and toes. Reduced protective pain sensation bilaterally. Reports numbness, burning, tingling in both feet, worse at night time. No breaks in the skin. No soft tissue swelling or warmth. +2 pedal pulses bilaterally. General: Yes capillary refill normal, Yes no clubbing, cyanosis or edema and Yes no calf tenderness Office Procedures Topical Capsaicin Date 1:: 04/30/25 Main area of pain on the body: Bilateral feet Laterality: Bilateral Location of left foot pain: Anterior, Posterior, Plantar, Dorsal, Medial, Lateral and Distal Location of right foot pain: Anterior, Posterior, Plantar, Dorsal, Medial, Lateral and Distal Quality of pain: Aching, Nagging, Burning, Numb-like and Penetrating Details:: Two patches, 560 cm2 were utilized per each foot. EMLA Cream (lidocaine 2.5% and prilocaine 2.5%) was applied at home by patient prior to application of the patches. The patient tolerated the procedure well. Patient?s vitals signs remained stable throughout the procedure. Patient was able to complete the stipulated 30 minutes of the therapeutic application without any discomfort. Office Meds capsaicin-skin cleanser 8 % topical kit Performing Provider: LORENA Velasquez Performing Location: [facility] Administered by: LORENA Velasquez on 04/30/25 13:35 Dose Route Admin Location Dispensed Lot Number Expiration Date NDC Advertising Intern 4 ea topical [facility] 4 ea [id number] 10/14/26 78401-826-27 [employer] Results Reviewed Results Reviewed: MR SPINE LUMBAR without CONTRAST 07/10/24 at [facility] INDICATION: Lower back pain and right hip pain and bilateral feet for 1 year. TECHNIQUE: Unenhanced multiplanar, multisequence MR imaging of the lumbar spine. COMPARISON: None Available. FINDINGS: There is mild scoliosis as well as mild retrolisthesis at L3-4 and mild anterolisthesis at L4-5. The spine is in otherwise good alignment. Vertebral heights are well maintained. There are hemangiomas in vertebral bodies of T12 and L2. Bone marrow signal is otherwise within normal limits, and no suspicious osseous lesion is identified. Conus medullaris is unremarkable. Paraspinal soft tissues and visualized portions of the abdomen and pelvis are unremarkable. At L1-2 there is no significant disc herniation or protrusion. No central canal or neural foraminal stenosis is demonstrated. At L2-3 there is a small broad-based disc bulge and bilateral facet hypertrophy with thickening of the ligamentum flavum. No central canal or neuroforaminal stenosis is demonstrated. At L3-4 there is there is the aforementioned mild retrolisthesis as well as a small broad-based disc bulge, bilateral facet hypertrophy, and thickening of the ligamentum flavum. This causes mild central canal stenosis, but no neuroforaminal narrowing. At L4-5 there is the aforementioned mild anterolisthesis as well as a small broad-based disc bulge, bilateral facet hypertrophy, and thickening of the ligamentum flavum. This causes moderate central canal stenosis and mild right neuroforaminal narrowing. At L5-S1 there is a small broad-based disc bulge with an annular tear as well as bilateral facet hypertrophy. There is no central canal stenosis, but there is mild bilateral neuroforaminal narrowing IMPRESSION: 1. There is mild scoliosis as well as mild retrolisthesis at L3-4 and mild anterolisthesis at L4-5. 2. Multilevel degenerative disc and bony disease causing central canal and neuroforaminal stenosis as described. XR LUMBAR SPINE 4 OR MORE VIEWS 04/02/25 HISTORY: M53.3 - Sacrococcygeal disorders, not elsewhere classified COMPARISON: There are no prior studies for comparison. FINDINGS: AP, lateral, bilateral oblique, and coned down views of the lumbar spine are submitted. Osseous mineralization is normal. Five nonrib-bearing lumbar vertebral bodies are identified, maintaining normal height without evidence of fracture or spondylolisthesis. There is mild levoscoliosis. There is diffuse moderate degenerative disc disease with disc space narrowing and osteophyte formation. Findings are most prominent at the T12-L1, L4-5, and L5-S1 levels. There is osteoarthritis of the facet joints. There is no spondylolysis. There is calcification of the abdominal aorta. IMPRESSION: Mild levoscoliosis. Diffuse moderate degenerative disc disease as described. XR KNEE 3 VIEWS RIGHT 04/02/25 HISTORY: M25.561 - Pain in right knee COMPARISON: There are no prior studies available for comparison. FINDINGS: Three views of the right knee are submitted. Osseous mineralization is normal. There is no fracture or dislocation. The joint spaces are preserved. The soft tissues are unremarkable. There is no joint effusion. IMPRESSION: Unremarkable examination of the right knee. XR HIP 2 OR MORE VIEWS BILATERAL 04/02/25 HISTORY: M53.3 - Sacrococcygeal disorders, not elsewhere classified COMPARISON: There are no prior studies for comparison. FINDINGS: A single AP view of the pelvis and two views of each hip are submitted. Osseous mineralization is normal. There is no fracture or dislocation. The joint space is maintained. The soft tissues are unremarkable. IMPRESSION: Unremarkable examination of the bilateral hips. Assessment & Plan Assessment & Plan (1) Chronic SI joint pain: Code(s): M53.3 - Sacrococcygeal disorders, not elsewhere classified; G89.29 - Other chronic pain Category: Medical (2) Lumbar degenerative disc disease: Code(s): M51.369 - Other intervertebral disc degeneration, lumbar region without mention of lumbar back pain or lower extremity pain Category: Medical (3) Chronic low back pain with sciatica: Code(s): M54.40 - Lumbago with sciatica, unspecified side; G89.29 - Other chronic pain Category: Medical (4) Lumbosacral spondylosis: Code(s): M47.817 - Spondylosis without myelopathy or radiculopathy, lumbosacral region Category: Medical (5) Bilateral hip pain: Code(s): M25.551 - Pain in right hip; M25.552 - Pain in left hip Category: Medical (6) Chronic painful diabetic neuropathy: Code(s): E11.40 - Type 2 diabetes mellitus with diabetic neuropathy, unspecified Category: Medical Plan Patient is status post 1st round of application of topical capsaicin 8% for diabetic neuropathy in bilateral feet. Patient tolerated the procedure without significant discomfort with application of EMLA cream prior to the procedure. She was discharged home in stable condition with discharge instructions. Lumbar spine, right knee and bilateral hip xray results were discussed with patient today. Discussed interventional treatment for axial and radicular low back pain with SI joint pain components. At this time she reports back pain is more severe than leg pain. We will proceed with bilateral diagnostic L3-L4 DR L5 MBB with local and fluoroscopy for potential radiofrequency ablation or peripheral nerve stimulation procedures for sustained pain relief. Informational pamphlets were provided in [place]an to patient and family today. Expectations, risks and benefits were reviewed. Patient is aware she will be contacted to schedule this procedure. Given the coexistence of glaucoma, we must approach steroidal injections cautiously. I will prioritize her physical therapy initiation to further manage scoliosis and back pain. Continuous evaluation of these interventions will guide future modifications in her treatment plan. All questions and concerns have been answered and patient agreed with the plan. Follow up after injections and sooner as needed. Greater than 45 minutes were spent in therapeutic application and in coordination of the care. Patient was informed and verbally consented to the use of an ambient scribe for clinic note documentation during this visit. Orders: Orders AMB Capsaicin Patch - Practice Supplied Today E11.40 - Type 2 diabetes mellitus with diabetic neuropathy, unspecified Coding Level of Care Code Tele Est Pt Level 5 (19635) Complex EM visit Add On G2211 Diagnoses Chronic SI joint pain M53.3; G89.29 Lumbar degenerative disc disease M51.369 Chronic low back pain with sciatica M54.40; G89.29 Lumbosacral spondylosis M47.817 Bilateral hip pain M25.551; M25.552 Chronic painful diabetic neuropathy E11.40
[2025-04-30 13:16] VITALS: BP 125/69; PULSE 84; O2SAT 98; BMI 32.4
[2025-04-30 13:53] VITALS: BP 122/68; PULSE 80
[2025-04-30 14:15] VITALS: BP 127/69; PULSE 81
--- OUTSIDE RECORDS SUMMARY | 2025-04-30 14:47 | XMS_ITS | Encounter Summary ---
Author Organization [employer] Address [address] [place] [address] Care Team Providers Care Metal Bumper Name Role Phone Diane George Primary Care Provider [phone] Reason for Visit * Reason Comments Med Refill Encounter Details Date Type Department Care Team ([facility] st Contact Info) Description 02/04/2025 Refill [facility] MEDICINE [address] [place] [address] Diane George ANP [address] [place] [address] Social History Tobacco Use Types Packs/Day Years [...] Care Team (Late st Contact Info) Description 05/14/2025 1:15 PM EDT Office Visit [facility] MEDICINE [address] [place] [phone] Diane George ANP [address] [place] [address] documented as of this encounter Visit Diagnoses Not on filedocumented in this encounter Additional Health Concerns Assessment Noted Time PHQ-9 Depression Total Score: 9 07/27/20 24 9:59 AM EDT documented as of this encounter Care Teams Metal Bumper Relationship Specialty Start Date End Date Diane George ANP [address] [place] [phone] PCP - General Family Medicine 02/10/24 documented as of this encounter
== END 2025-04-30 14:20 | disposition home or self-care (01) ==
LOC: HO.PMC 13:03
PROVIDERS: PCP Nurse Practitioner Primary Care; Visit Provider Nurse Practitioner Family
DX: M53.3 Sacrococcygeal disorders, not elsewhere classified (principal); G89.29 Other chronic pain; M51.369 Other intervertebral disc degeneration, lumbar region without mention of lumbar back pain or lower extremity pain; M54.40 Lumbago with sciatica, unspecified side; E11.40 Type 2 diabetes mellitus with diabetic neuropathy, unspecified; M47.817 Spondylosis without myelopathy or radiculopathy, lumbosacral region; M25.551 Pain in right hip; M25.552 Pain in left hip
CPT/HCPCS: 17999; 99215; G2211

== ENCOUNTER → 2025-04-30 13:03 | Outpatient (BNVA) | payer OTHER, SELFPAY | PROVIDERS: PCP Nurse Practitioner Primary Care; Visit Provider Nurse Practitioner Family | DX: E11.40 Type 2 diabetes mellitus with diabetic neuropathy, unspecified (principal); M54.9 Dorsalgia, unspecified; E11.39 Type 2 diabetes mellitus with other diabetic ophthalmic complication; G47.33 Obstructive sleep apnea (adult) (pediatric); M51.16 Intervertebral disc disorders with radiculopathy, lumbar region; M48.061 Spinal stenosis, lumbar region without neurogenic claudication; M85.80 Other specified disorders of bone density and structure, unspecified site; F41.9 Anxiety disorder, unspecified; K21.9 Gastro-esophageal reflux disease without esophagitis; E03.9 Hypothyroidism, unspecified; I10 Essential (primary) hypertension; M25.551 Pain in right hip; M25.552 Pain in left hip; Z87.891 Personal history of nicotine dependence | CPT/HCPCS: 17999; 99212; J7336 ==

== ENCOUNTER 2025-05-29 13:52 | Outpatient (REF) | payer OTHER, SELFPAY ==
--- NOTE | ~2025-05-29 | US_ITS ---
CLINICAL HISTORY: R39.15 - Urgency of urination US retroperitoneum Comparison: None provided Findings: Right kidney normal size and echotexture, 10.1 cm length. No hydronephrosis, mass or calculus. Normal color flow. Left kidney normal size and echotexture, 10.1 cm in length. No hydronephrosis, mass or calculus. Normal color flow. Urinary bladder is unremarkable. Prevoid volume 481 mL. Postvoid volume 88 mL. Ureteral jets are visualized bilaterally Impression: 1. Incomplete emptying of the urinary bladder. 2. Otherwise unremarkable. This document has been electronically signed by: Alanis Zamorano MD on 05/29/2025 17:03:18
--- OUTSIDE RECORDS SUMMARY | 2025-05-29 14:43 | XMS_ITS | Encounter Summary ---
Author Organization [employer] Address [address] [place] [address] Care Team Providers Care Contract Forester Name Role Phone Diane George Primary Care Provider [phone] Reason for Visit * Reason Comments Med Refill Encounter Details Date Type Department Care Team ([facility] st Contact Info) Description 02/04/2025 Refill [facility] MEDICINE [address] [place] [address] Diane George ANP [address] [place] [address] Social History Tobacco Use Types Packs/Day Years [...] Care Team (Late st Contact Info) Description 08/20/2025 1:30 PM EDT Office Visit [facility] MEDICINE [address] [place] [phone] Diane eGorge ANP [address] [place] [address] documented as of this encounter Visit Diagnoses Not on filedocumented in this encounter Additional Health Concerns Assessment Noted Time PHQ-9 Depression Total Score: 9 07/27/20 24 9:59 AM EDT documented as of this encounter Care Teams Contract Forester Relationship Specialty Start Date End Date Diane George ANP [address] [place] [phone] PCP - General Family Medicine 02/10/24 documented as of this encounter
--- OUTSIDE RECORDS SUMMARY | 2025-05-29 14:43 | XMS_ITS | Clinical Summary ---
Author Organization [facility] Address [address] [place] [address] Phone Care Team Providers Care Double End Tenoner Setter Name Role Phone DorisDiane Ankur BARKER Primary Care Provider [phone] Allergies No known active allergies Medications ACETAMINOPHEN [...] Encounters Date Type Department Care Team Description 04/22/2025 3:30 PM EDT Office Visit [facility] [address] [phone] Antony Ramirez DPM Hammer toe of left foot (Primary Dx); Dermatophytosis of nail; Metatarsalgia of both feet; Tinea pedis of both feet; Diabetic mononeuropathy simplex ([facility] V[facility], [facility] V28); Corns and callosities; Pain in toe of left foot; Pain in toe of right foot from [...] Care Team (Late st Contact Info) Description 07/23/2025 1:30 PM EDT Office Visit Orthopedic [facility] [address] [phone] Antony Ramirez DPM [address] [address] Health Maintenance Due Date Last Done Comments Diabetes: Annual Foot Exam 1955 Diabetes: Annual Retina Eye Exam 1955 COVID-19 Vaccine (2023-2 5 season) 2024 Falls Risk Assessment 08/26/2024 Medicare Annual Wellness Visit 08/26/2024 Osteoporosis Screening (Bone Density Screening) 08/26/2024 Social Influencers of Health Screening 08/26/2024 Diabetes: Annual Urine Albumin-Creatinine Ratio (uACR) 10/09/2024 Diabetes: Blood Sugar Contro l Test (HGBA1C) 06/03/2025 12/04/2024, 07/27/2024 Influenza Vaccine (#1) 2025 , 09/09/2023, 10/26/2022 Depression Screening 02/13/2026 02/13/2025 Diabetes: Annual GFR (Glomerular Filtration Rate) 03/22/2026 03/22/2025 Hypertension/CHF/CAD Annual BMP Blood Test 03/22/2026 03/22/2025 Cholesterol Screening (Lipid Panel) 05/03/2029 05/03/2024 DTaP,Tdap,and Td Vaccines (2 - Td or Tdap) 05/03/2034 05/03/2024 Hepatitis C Screening Completed 05/03/2024 Pneumococcal Vaccine: 50+ Years Completed 05/03/2024 RSV Immunization Adult Patients Completed 05/03/2024 Zoster Vaccines Completed 10/18/2024, 08/09/2024 Hepatitis B [...] Subscriber Plan / Payer (Ef fective 2024-Present) Name:CHANTE ABDI Relation to Subscriber:Self Name:Chante Abdi Payer ID:[id number] Group ID:[id number] Type:Not on file Address: [facility] [address] [phone] Care Teams Double End Tenoner Setter Relationship Specialty Start Date End Date Diane George NP [address] [place] [phone] PCP - General 06/15/24
== END 2025-05-29 13:53 | disposition home or self-care (01) ==
LOC: HO.US 13:52
PROVIDERS: PCP Nurse Practitioner Primary Care; Visit Provider Urology
DX: R39.15 Urgency of urination (principal); R32 Unspecified urinary incontinence; R39.13 Splitting of urinary stream
CPT/HCPCS: 76770

== ENCOUNTER → 2025-05-29 13:55 | Outpatient (BNV) | payer OTHER, SELFPAY | PROVIDERS: PCP Nurse Practitioner Primary Care; Visit Provider Radiology Diagnostic Radiology | DX: R33.8 Other retention of urine (principal) | CPT/HCPCS: 76770 ==

== ENCOUNTER → 2025-06-17 20:30 | Outpatient (REF) | payer OTHER, SELFPAY ==
--- OUTSIDE RECORDS SUMMARY | 2025-06-17 20:45 | XMS_ITS | Encounter Summary ---
Author Organization [employer] Address [address] [place] [address] Care Team Providers Care Furniture Technician Name Role Phone Diane George Primary Care Provider [phone] Reason for Visit * Reason Comments Med Refill Encounter Details Date Type Department Care Team ([facility] st Contact Info) Description 02/04/[address] [facility] MEDICINE [address] [place], [place] [phone] Diane George ANP [address] [place] [address] Social History Tobacco Use Types Packs/Day Years [...] Care Team (Late st Contact Info) Description 07/19/2025 9:30 AM EDT Office Visit [facility] MEDICINE [address] [place] [phone] Ange Owen MD [address] [place] [phone] 08/20/2025 1:30 PM EDT Office Visit [facility] MEDICINE [address] [place] [phone] Diane George ANP [address] [place] [phone] documented as of this encounter Visit Diagnoses Not on filedocumented in this encounter Additional Health Concerns Assessment Noted Time PHQ-9 Depression Total Score: 9 07/27/20 24 9:59 AM EDT documented as of this encounter Care Teams Furniture Technician Relationship Specialty Start Date End Date Diane George ANP [address] [place] [phone] PCP - General Family Medicine 02/10/24 documented as of this encounter
--- OUTSIDE RECORDS SUMMARY | 2025-06-17 20:45 | XMS_ITS | Clinical Summary ---
Author Organization 175 [facility] Address 175 [place] [address] Phone Care Team Providers Care Metal Reclamation Kettle Tender Name Role Phone DorisDiane Ankur BARKER Primary Care Provider [phone] Allergies No known active allergies Medications ACETAMINOPHEN [...] 3:30 PM EDT Office Visit Orthopedic Surgery [facility] [address] [phone] Antony Ramirez DPM Hammer toe of left foot (Primary Dx); Dermatophytosis of nail; Metatarsalgia of both feet; Tinea pedis of both feet; Diabetic mononeuropathy simplex ([facility] V24, [facility] V28); Corns and callosities; Pain in toe [...] 07/23/2025 1:30 PM EDT Office Visit Orthopedic [facility] [address] [phone] Antony Ramirez DPM [address] [address] Health Maintenance Due Date Last Done Comments Diabetes: Annual Foot Exam 1955 Diabetes: Annual Retina Eye Exam 1955 COVID-19 Vaccine (2023-2 5 season) 2024 Falls Risk Assessment 08/26/2024 Medicare Annual Wellness Visit 08/26/2024 Osteoporosis Screening (Bone Density Screening) 08/26/2024 Social Influencers of Health Screening 08/26/2024 Diabetes: Annual Urine Albumin-Creatinine Ratio (uACR) 10/09/2024 Depression Screening 11/14/2024 Diabetes: Blood Sugar Contro l Test (HGBA1C) 06/03/2025 12/04/2024, 07/27/2024 Influenza Vaccine (#1) 2025 , 09/09/2023, 10/26/2022 Diabetes: Annual GFR (Glomerular Filtration Rate) 03/22/2026 [...] ID:[id number] Group ID:[id number] Type:Not on file Address: [facility] [address] [id number] Care Teams Metal Reclamation Kettle Tender Relationship Specialty Start Date End Date Diane George NP [address] [place] [phone] PCP - General 06/15/24
== END ==
LOC: HO.SL 20:30
PROVIDERS: PCP Nurse Practitioner Primary Care; Visit Provider Nurse Practitioner Primary Care
DX: G47.33 Obstructive sleep apnea (adult) (pediatric) (principal); R06.83 Snoring; G47.61 Periodic limb movement disorder
CPT/HCPCS: 95811

== ENCOUNTER → 2025-06-17 20:30 | Outpatient (BNV) | payer OTHER, SELFPAY | PROVIDERS: PCP Nurse Practitioner Primary Care; Visit Provider Internal Medicine | DX: G47.33 Obstructive sleep apnea (adult) (pediatric) (principal); R06.83 Snoring; G47.61 Periodic limb movement disorder | CPT/HCPCS: 95811 ==

== ENCOUNTER 2025-07-09 06:13 | Outpatient (REF) | payer OTHER, SELFPAY ==
--- NOTE | ~2025-07-09 | FL_ITS ---
EXAMINATION: FL GUIDANCE ONLY HISTORY: M47.817 - Spondylosis without myelopathy or radiculopathy, lumbosacral... COMPARISON: None available. TECHNIQUE: Fluoroscopy time: 0.5 minutes. Cumulative Dose: 7.00 mGy. DAP: 0.121 mGym2 Images: 12. FINDINGS: Fluoroscopic spot films of the lumbar spine demonstrate needles and contrast material in the regions of the bilateral L3-4, L4-5, and L5-S1 facet joints. FL/FL guidance in treatment room IMPRESSION: Fluoroscopy during procedure. Please see procedure report for additional information. Electronically signed by: Jose Ramon Romano MD 07/09/2025 03:58 PM EDT
--- OUTSIDE RECORDS SUMMARY | 2025-07-09 06:17 | XMS_ITS | Encounter Summary ---
Author Organization [employer] Address [address] [facility] [address] [place] [address] Care Team Providers Care Trailers And Motor Homes Salesperson Name Role Phone Diane George Primary Care Provider [phone] Reason for Visit * Reason Onset Date Comments New Patient 07/07/2023 Encounter Details Date Type Department Care Team (Late st Contact Info) Description 07/07/2023 Telephone [facility] MEDICINE [address] [place] [address] Seth Barron MD [address] [place] [address] New Patient Social History Tobacco Use Types [...] 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 EFFECTIVE SINCE 04/14/2023 documented in this encounter Plan of Treatment Upcoming Encounters Date Type Department Care Team (Late st Contact Info) Description 07/19/2025 9:30 AM EDT Office Visit [address] [address] Ange Owen MD [address] [place] [address] 08/20/2025 1:30 PM EDT Office Visit [address] [address] Diane George ANP [address] [place] [address] documented as of this encounter Visit Diagnoses Not on filedocumented in this encounter Care Teams Trailers And Motor Homes Salesperson Relationship Specialty Start Date End Date Diane George ANP [address] [place] [address] PCP - General Family Medicine 02/10/24 documented as of this encounter
--- OUTSIDE RECORDS SUMMARY | 2025-07-09 06:17 | XMS_ITS | Encounter Summary ---
Author Organization [employer] Address [address] [facility] [address] 7[address] [place] [address] Care Team Providers Care Immigration Law Specialist Name Role Phone Diane George Primary Care Provider [phone] Reason for Visit * Reason Comments Med Refill Encounter Details Date Type Department Care Team ([facility] st Contact Info) Description 02/04/2025 Refill [facility] MEDICINE [address] [place], [place] [phone] Diane George ANP [address] [place] [address] Social History Tobacco Use Types Packs/Day Years [...] Description 07/19/2025 9:30 AM EDT Office Visit [facility] [address] [place] [address] Ange Owen MD [address] [place] [address] 08/20/2025 1:30 PM EDT Office Visit [facility] MED[facility] [address] [place] [address] Diane George ANP [address] [place] [phone] documented as of this encounter Visit Diagnoses Not on filedocumented in this encounter Additional Health Concerns Assessment Noted Time PHQ-9 Depression Total Score: 9 07/27/20 24 9:59 AM EDT documented as of this encounter Care Teams Immigration Law Specialist Relationship Specialty Start Date End Date Diane George ANP [address] [place] [address] PCP - General Family Medicine 02/10/24 documented as of this encounter
--- OUTSIDE RECORDS SUMMARY | 2025-07-09 06:17 | XMS_ITS | Encounter Summary ---
Author Organization [employer] Address [address] [facility] [address] 7[address] [place] [address] Care Team Providers Care It Associate Name Role Phone Diane George Primary Care Provider [phone] Encounter Details Date Type Department Care Team ([facility] st Contact Info) Description 03/20/2025 Telephone [facility] MEDICINE [address] [place], [place] [phone] Diane George ANP [address] [place] [address] Social History Tobacco Use Types Packs/Day Years [...] Description 07/19/2025 9:30 AM EDT Office Visit [facility] MEDICINE [address] [place] [address] Ange Owen MD [address] [place] [address] 08/20/2025 1:30 PM EDT Office Visit [facility] MEDICINE [address] [place] [phone] Diane George ANP [address] [place] [address] documented as of this encounter Visit Diagnoses Not on filedocumented in this encounter Additional Health Concerns Assessment Noted Time PHQ-9 Depression Total Score: 9 02/14/20 25 3:51 PM EDT documented as of this encounter Care Teams It Associate Relationship Specialty Start Date End Date Diane George ANP [address] [place] [address] PCP - General Family Medicine 02/10/24 documented as of this encounter
--- OUTSIDE RECORDS SUMMARY | 2025-07-09 06:17 | XMS_ITS | Clinical Summary ---
Author Organization [employer] Address [address] [facility] [address] 7[address] [place] [address] Care Team Providers Care Yard Motor Operator Name Role Phone Constance Balderrama Primary Care Provider [phone] Allergies No known active allergies Medications * This document contains information received from the source organization and may not represent a complete record from that organization. atropine 1 % ophthalmic solution INSTILL 1 DROP IN RIGHT EYE TWICE A DAY TWELVE HOURS APART 01/08/20 24 Active brimonidine (AlphaGAN P) 0.2 % ophthalmic solution INSTILL ONE DROP IN LEFT EYE TWICE A DAY TWELVE HOURS APART. 12/28/19 24 Active prednisoLONE acetate (Pred-Forte) 1 % ophthalmic suspension INSTILL 1 DROP IN RIGHT EYE TWICE A DAY (TWELVE HOURS APART) 10/20/20 23 Active timolol (Timoptic-XR) 0.5 % ophthalmic gel-forming INSTILL 1 DROP IN LEFT EYE EVERY MORNING 12/16/19 24 Active acetaminophen (Tylenol 8 Hour) 650 MG ER tabletIndications :Right hip pain Take 1 tablet (650 mg) by mouth every 8 (eight) hours if needed for mild pain or moderate pain. Do not crush, chew, or split. 120 tablet 05/03/20 24 Active triamterene-hydro chlorothiazide (Maxzide-25) 37.5-25 MG tabletIndications :Hypertension associated with diabetes (CMS/HCC) Take 1 tablet by mouth Once per day. 90 tablet 3 07/27/20 24 Active levothyroxine (Synthroid, Levoxyl) 137 MCG tabletIndications :Hypothyroidism, unspecified type Take 137 mcg by mouth Once per day. 90 tablet 3 07/27/20 24 Active metFORMIN (Glucophage) 500 MG tabletIndications :Hypertension associated with diabetes (CMS/HCC) Take 1 tablet (500 mg) by mouth Once per day. Take w/ meal 90 tablet 3 07/27/20 24 Active traZODone (Desyrel) 50 MG tablet 50 mg. Active pravastatin (Pravachol) 40 MG tablet TAKE 1 TABLET BY MOUTH AT BEDTIME 90 tablet 1 01/15/20 25 Active dilTIAZem CD (Cardizem CD) 240 MG 24 hr capsuleIndication s:Essential hypertension Take 1 capsule (240 mg) by mouth Once per day. 90 capsule 3 02/07/20 25 Active omeprazole (PriLOSEC) [address] capsuleIndication s:Gastroesophagea l reflux disease, unspecified whether esophagitis present Take 1 capsule (20 mg) by mouth before breakfast. 90 capsule 3 02/14/20 25 Active venlafaxine XR (Effexor XR) 37.5 MG 24 hr capsule Take 1 capsule by mouth Once per day. 02/28/20 25 Active halobetasol (UltraVATE) 0.05 % ointment Apply topically 2 times daily. 50 g 2 03/22/20 25 Active triamcinolone (Kenalog) 0.1 % creamIndications: Psoriasis vulgaris Apply topically if needed in the morning and at bedtime (pain and swelling). 453.6 g 1 04/26/20 25 Active lidocaine (Lidoderm) 5 % patchIndications: Right leg pain Apply 1 patch topically Once per day. Remove & discard patch within 12 hours or as directed by MD. 30 patch 2 05/14/20 25 Active Blood Glucose Monitoring Suppl (FreeStyle Lite) w/Device kitIndications:Hy pertension associated with diabetes (CMS/HCC) 1 each 2 times daily. 1 kit 05/14/20 25 Active glucose blood test stripIndications: Hypertension associated with diabetes (CMS/HCC) Use to check BG 1-2 times daily 100 each 12 05/14/20 25 026 Active pregabalin (Lyrica) 150 MG capsuleIndication s:Radicular pain of lower extremity,Diabeti c polyneuropathy associated with type 2 diabetes mellitus (CMS/HCC) TAKE 1 CAPSULE BY MOUTH AT BEDTIME 30 capsule 2 06/17/20 25 Active pregabalin (Lyrica) 150 MG capsuleIndication s:Radicular pain of lower extremity,Diabeti c polyneuropathy associated with type 2 diabetes mellitus (CMS/HCC) Take 1 capsule (150 mg) by mouth at bedtime. 30 capsule 2 03/27/20 25 025 Discontinued Active Problems Problem Noted Date Diagnosed [...] connected with a psychiatrist and therapist in [place] (unable to provide agency name). Today, pt [...] with psychopharmacology when she was living in [place]. Family moved to [place] from [place] in 2017. Further information needed to make diagnosis of bipolar disorder. Currently seeing a therapist with [facility] Psychiatry services will start soon due to having a conflict with her insurance ([facility] [employer] [facility]). During today's visit, clinician engaged pt with [...] is currently engaged in therapist services with [facility]. Psychiatry services were pending due to a conflict with her insurance ([employer] [facility] [facility]). Update from pt's granddaughter, [employer] [facility] will cover psychiatry services and appointment will [...] with psychopharmacology when she was living in [place]. Family moved to [place] from [place] in 2017. Further information needed to make diagnosis. PLAN: (check all that apply) Continue with current services (defined as services in the past 12 months) . Referral placed during last visit for psychiatry services with [facility]. Assessment & Plan (02/13/2024 4:32 PM [...] with psychopharmacology when she was living in [place]. She was accompanied by her granddaughter. Family moved to [place] from [place] in 2016. Further information needed to make diagnosis. PLAN: (check all that apply) New/Additional Services needed PCP management On-site non-integrated services Off-site services for Behavioral Health Integration Plan Internal Follow up with [facility] External OP therapy referral and OP psychiatry Referral Patient Self Plan Patient to utilize skills provided in intervention , Patient to reach out to [facility] team as needed, Patient to engage in OP therapy , and Patient to reach out to [facility] as needed. Discussed getting sooner appointments with [facility] ([facility]) for psychopharmacology. clinician will see patient during next physical if needed. Encounters Date Type Department Care Team Description 07/01/2025 Telephone [facility] MEDICINE [address] [place] [address] Constance Balderrama, ANP notes faxed to sleep study 06/28/[address] [address] Constance Balderrama ANP Durable Medical Equipment 06/28/2025 Orders Only [address] [address] Constance Balderrama ANP DIANA (obstructive sleep apnea) (Primary Dx); Nocturnal hypoxia 06/15/[address] [address] Constance Balderrama ANP Radicular pain of lower extremity; Diabetic polyneuropathy associated with type 2 diabetes mellitus (CMS/HCC) 05/29/2025 Orders Only [facility] External Provider, [facility] 05/27/[address] [address] Constance Balderrama ANP October recall 05/16/2025 Telephone [facility] [address] [place] [address] Constance Balderrama ANP PSG ORDER 05/14/2025 1:15 PM EDT Office Visit [address] [address] Constance Balderrama ANP DIANA (obstructive sleep apnea) (Primary Dx); Hypertension associated with diabetes ([facility]); Radicular pain of lower extremity; Right hip pain; Low back pain potentially associated with radiculopathy; Spinal stenosis of lumbar region with neurogenic claudication; Dietary counseling; Exercise counseling; Right leg pain 05/14/2025 Travel 05/13/[address] [address] Constance Balderrama ANP Chart Prep 04/26/2025 11:00 AM EDT Office Visit [address] [address] Ange Owen MD Psoriasis vulgaris (Primary Dx) 04/26/2025 Travel 04/25/2025 Travel 04/24/[address] [address] Constance Balderrama ANP Appointment Request 04/22/2025 Orders Only GENERIC EXTERNAL DATA DEPARTMENT Provider, Generic External Data from Last 3 Months Immunizations Immunization Administration [...] housing situation today? I have sony ojeda 05/14/[address] you li ve. Do you have problems with any of the following? None of the above 05/14/2025 Food Insecurity Answer Date Recorded Within the past 12 months, y ou worried that your food would run out before you got money to buy more: Never True 05/14/2025 Within the past 12 months,th e food you bought just didn't last and you didn't have enough money to get more: Never True 11/2024 Transportation Answer Date Recorded In the past 12 months, has l ack of transportation kept you from medical appts, meetings, work or from getting things needed for daily living? No 05/14/2025 Utilities Answer Date Recorded In the past 12 months, has t he electric, gas, oil or water company threatened to shut off services in your home? No 05/14/2025 Depression Answer Date Recorded Patient Health Questionnaire-2 [...] Sign Reading Time Taken Comments Blood Pressure 128/96 05/14/2025 1:36 PM EDT Pulse 88 05/14/2025 1:25 PM EDT Temperature 37.1 C (98.7 F) 04/26/2025 11:08 AM EDT Respiratory Rate 16 05/14/2025 1:25 PM EDT Oxygen Saturation 98% 02/13/2025 3:44 PM EDT Inhaled Oxygen Concentration - - Weight 80.3 kg (177 lb) 05/14/2025 1:25 PM EDT Height 152.4 cm (5') 05/14/2025 1:25 PM EDT Body Mass Index 34.57 05/14/2025 1:25 PM EDT Plan of Treatment Upcoming Encounters Date Type Department Care Team (Late st Contact Info) Description 07/19/2025 9:30 AM EDT Office Visit [facility] MEDICINE [address] [place] [address] Ange Owen MD [address] [place] [address] 08/20/2025 1:30 PM EDT Office Visit [facility] MED[facility] [address] [place] [address] Constance Balderrama ANP [address] [place], [place] [phone] Health Maintenance Due Date Last Done Comments COVID-19 Vaccine ( season) 2024 Diabetes: Foot Exam 05/03/2025 05/03/2024, 05/03/2024, 05/03/2024, Additional history exists Lipid Panel 05/03/2025 05/03/2024 Diabetes: Hemoglobin A1C 06/03/2025 025, 07/27/2024, 02/10/2024 Influenza Vaccine (#1) 2025 , 09/09/2023, 10/26/2022 Depression Monitoring 08/15/2025 02/13/2025, 025 Alcohol/Substance Use Screening 12/04/2025 12/04/2024 Diabetes: Urine Protein Screening 03/22/2026 03/22/2025 SDOH Screening 05/14/2026 05/14/2025 Tobacco Screening 05/14/2026 05/14/2025 Eye Exam 12/17/2026 12/17/2024 DTaP/Tdap/Td Vaccines (2 - Td or Tdap) 05/03/2034 05/03/2024 Hepatitis C Screening Completed 05/03/2024 Pneumococcal Vaccine: 50+ Years Completed 05/03/2024 RSV Patients and Patients Aged 60 years or older Completed 05/03/2024 Zoster Vaccines Completed 10/18/2024, 08/09/2024 [...] Procedure Name Priority Date/Time Associated Diagnosis Comments AMB REFERRAL TO SLEEP MEDICINE Urgent 06/17/2025 DIANA (obstructive sleep apnea) US RETROPERITONEAL COMPLETE Routine 05/29/2025 5:03 PM EDT POCT GLUCOSE Routine 05/14/2025 2:21 PM EDT Hypertension associated with diabetes (CMS/HCC) AMB REFERRAL TO PHYSICAL MEDICINE REHAB/PHYSIATRY Routine 05/13/2025 Radicular pain of lower extremity Right hip pain Low back pain potentially associated with radiculopathy Spinal stenosis of lumbar region with neurogenic claudication CULTURE, URINE, ROUTINE Routine 04/22/20 25 12:36 PM EDT ALBUMIN, RANDOM URINE W/CREATININE Routine 03/22/2025 10:25 [...] Recently Relevant to Health Maintenance Results * Referral to Sleep Medicine (06/17/2025) us Constance Balderrama ANP OUTPATIENT REFERRAL ORDERABLES F inal Result * US Retroperitoneal Complete (05/29/2025 5:03 PM EDT) Anatomical Region Laterality Modality Ultrasound 05/29/2025 5:03 PM EDT Narrative 05/29/2025 5:04 PM EDT [place] [address] Ultrasound Report Signed Patient: Roseanne Abdi MR#: [id number] 70 : 1945 Acct:[id number] Age/Sex: 79 / F ADM Date: 05/29/25 Loc: HO.US Attending Dr: Malick Sheridan MD Ordering Physician: Malick Sheridan MD Date of Service: 05/29/25 Procedure(s): US retroperitoneal comp Accession Number(s): [id number] cc: Malick Sheridan MD; CONSTANCE BALDERRAMA NP CLINICAL HISTORY: R39.15 - Urgency of urination US retroperitoneum Comparison: None provided Findings: Right kidney normal size and echotexture, 10.1 cm length. No hydronephrosis, mass or calculus. Normal color flow. Left kidney normal size and echotexture, 10.1 cm in length. No hydronephrosis, mass or calculus. Normal color flow. Urinary bladder is unremarkable. Prevoid volume 481 mL. Postvoid volume 88 mL. Ureteral jets are visualized bilaterally Impression: 1. Incomplete emptying of the urinary bladder. 2. Otherwise unremarkable. This document has been electronically signed by: Alanis Zamorano MD on 05/29/2025 17:03:18 Dictated By: Alanis Zamorano MD Signed By: <Electronically signed by Alanis Zamorano MD in [place]> 05/29/251703 DD/ 02 TD/TT: 05/29/251702 Weather Analyst: Procedure Note Donotuseinterpreter, Image - 05/29/2025 [place] [address] Ultrasound Report Signed Patient: Briana Abdi#: [id number] 70 : 1945cct:[id number] Age/Sex: 79 / FADM Date: 05/29/25 Loc: HO.US Attending Dr: Malick Sheridan MD Ordering Physician: Malick Sheridan MD Date of Service: 05/29/25 Procedure(s): US retroperitoneal comp Accession Number(s): [id number] cc: Malick Sheridan MD; CONSTANCE BALDERRAMA NP CLINICAL HISTORY: R39.15 - Urgency of urination US retroperitoneum Comparison: None provided Findings: Right kidney normal size and echotexture, 10.1 cm length. No hydronephrosis, mass or calculus. Normal color flow. Left kidney normal size and echotexture, 10.1 cm in length. No hydronephrosis, mass or calculus. Normal color flow. Urinary bladder is unremarkable. Prevoid volume 481 mL. Postvoid volume 88 mL. Ureteral jets are visualized bilaterally Impression: 1. Incomplete emptying of the urinary bladder. 2. Otherwise unremarkable. This document has been electronically signed by: Alanis Zamorano MD on 05/29/2025 17:03:18 Dictated By: Alanis Zamorano MD Signed By: <Electronically signed by Alanis Zamorano MD in [place]> 05/29/251703 DD/ 02 TD/TT: 05/29/251702 Weather Analyst: [facility] External Provider IMG US PROCEDURES Final Result * POCT Glucose (05/14/2025 2:21 PM EDT) Glucose Blood, POC 98 60 - 200 mg/dL QC Media Lot # [id number] Lot# Expiration Date Blood Capillary blood specimen / Unknown 05/14/2025 2:21 PM EDT Result [facility] Constance Balderrama ANP POINT OF CARE TEST ENTER/EDIT OR DERABLES Final Result * Referral to Physiatry (05/13/2025) Constance Balderrama ANP OUTPATIENT REFERRAL ORDERABLES F inal Result * Culture, Urine, Routine (04/22/2025 12:36 PM EDT) Urine Urine specimen obtained by clean catch procedure / Unknown 04/22/2025 12:36 PM EDT 04/22/2025 4:47 PM EDT Comment:[facility] Narrative [facility] - 04/24/2025 9:00 AM EDT Urine Culture Report Result Urine Culture 50,000 to 100,000 cfu/ml Urine Culture Mixed bacterial sheryl characteristic of Urine Culture urogenital contamination. Specimen Source: Urine clean catch Generic External Data Provider LAB MICROBIOLOGY - GENERAL ORDERABLES Final Result [facility] [address] [place], [place] [phone] * Albumin, Random Urine W/Creatinine (03/22/2025 10:25 AM EDT) Creatinine, Urine 74.54 mg/dL [facility] Microalbumin Urine 10.0 mg/L [facility] Microalbum Creatinine Ratio Ur 13.4 <30 ug/mg cr [facility] Comment:Albumin/Creatinine R atio Reference Ranges: Normal: < 30 ug/mg creatinine Microalbuminuria: 30 - 300 ug/mg creatinineClinical Albuminuria: > 300 ug/mg creatinine Urine 03/22/2025 10:2 5 AM EDT 03/22/2025 11:02 AM EDT Constance Balderrama [facility] LAB URINE ORDERABLES Final Resul t Performing Organization Address [facility] Co de Phone Number [facility] [address] [place] [phone] * (ABNORMAL) POCT HGB A1C (12/04/2024 10:35 AM EST) Hemoglobin A1C 6.2(A) 4.0 - 6.0 % QC Media Lot # [id number] Lot# Expiration Date Blood 12/04/2024 10:3 5 AM EST Constance Balderrama [facility] POINT OF CARE TEST ENTER/EDIT OR DERABLES Edited Result - Final * Hepatitis C Antibody with Reflex to HCV, RNA, Quantitative, Real-Time PCR (05/03/2024 11:38 AM EDT) Pathologist [facility] Hepatitis C Antibody Nonreactive Nonreactive [facility] Comment:Antibodies to HCV no t detected; does not exclude early acuteHCV infection. Blood Venous blood specimen / Unknown 05/03/2024 11:38 AM EDT 05/03/2024 1:01 PM EDT Constance Balderrama [facility] BLOOD ORDERABLES Final Resul t Performing Organization Address [facility] Co de Phone Number [facility] [address] [place] [phone] * (ABNORMAL) Lipid Panel, Standard (05/03/2024 11:30 AM EDT) Triglycerides 211(H) <150 mg/dL [facility] Comment:Desirable Triglyceri de: less than 150 mg/dLBorderline High Triglyceride 150-199 mg/dLHigh Triglyceride: 200-499 mg/dLVery High Triglyceride: greater than or equal to 5OO mg/dL Cholesterol 110 <200 mg/dL [facility] Comment:Desirable Cholestero l: less than 200 mg/dLBorderline High Cholesterol: 200-239 mg/dLHigh Cholesterol: greater than 239 mg/dL LDL Cholesterol Calculated 35 <100 mg/dL [facility] Comment:Desirable LDL: less than 100 mg/dLNear Optimal/Above Optimal LDL: 110- 129 mg/dLBorderline High LDL: 130-159 mg/dLHigh LDL: 160-189 mg/dLVery High LDL: greater than or equal to 190 mg/dL HDL Cholesterol 33(L) >40 mg/dL [facility] Comment:Desirable HDL: great er than 40 mg/dL Note: This HDL assay may give artificially low results in patients with liver disease. Blood Venous blood specimen / Unknown 05/03/2024 11:30 AM EDT 05/03/2024 1:01 PM EDT Constance [facility] BLOOD ORDERABLES Final Resul t [facility] [address] [place] [phone] from Last 3 Months or Most Recently Relevant to Health Maintenance Insurance [employer] (HMO D-SNP) Care Teams Yard Motor Operator Relationship Specialty Start Date End Date Constance Balderrama ANP [address] [place] [address] PCP - General Family Medicine 02/10/24
--- OUTSIDE RECORDS SUMMARY | 2025-07-09 06:17 | XMS_ITS | Encounter Summary ---
Author Organization [employer] Address [address] 7[address] [place] [address] Care Team Providers Care Brake [address] Freight Name Role Phone Diane George Primary Care Provider [phone] Reason for Visit * Reason Onset Date Comments Appointment Request 04/24/2025 Encounter Details Date Type Department Care Team ([facility] st Contact Info) Description 04/24/2025 Telephone [facility] [address] [place], [place] [phone] Diane George ANP [address] [place] [address] Appointment Request Social History Tobacco Use Types [...] encounter Miscellaneous Notes * Telephone Encounter - Haroon Gaitan - 04/24/2025 11:33 AM EDT Tc from pt requesting to reschedule apt that was tomorrow 04/25/25 Contact pt at [phone] (omani) documented in this encounter Plan of Treatment Upcoming Encounters Date Type Department Care Team (Late st Contact Info) Description 07/19/2025 9:30 AM EDT Office Visit [facility] [address] [place] [phone] Ange Owen MD [address] [place] [address] 08/20/2025 1:30 PM EDT Office Visit [facility] [address] [place] [address] [phone] Diane George ANP [address] [place] [address] documented as of this encounter Visit Diagnoses Not on filedocumented in this encounter Additional Health Concerns Assessment Noted Time PHQ-9 Depression Total Score: 9 02/14/20 25 3:51 PM EDT documented as of this encounter Care Teams [address] Freight Relationship Specialty Start Date End Date Diane George ANP [address] [place] [address] PCP - General Family Medicine 02/10/24 documented as of this encounter
--- OUTSIDE RECORDS SUMMARY | 2025-07-09 06:17 | XMS_ITS | Clinical Summary ---
Author Organization [address] [facility] Address [address] [place] [address] Phone Care Team Providers Care Adobe Layer Helper Name Role Phone DorisDiane Ankur BARKER Primary Care Provider [phone] Allergies No known active allergies Medications ACETAMINOPHEN [...] 3:30 PM EDT Office Visit Orthopedic Surgery [facility] [address] [phone] Antony Ramirez DPM Ham[place]amilka toe of left foot (Primary Dx); Dermatophytosis of nail; Metatarsalgia of both feet; Tinea pedis of both feet; Diabetic mononeuropathy simplex ([facility] V24, [facility] V28); Corns and callosities; Pain in toe [...] 07/23/2025 1:30 PM EDT Office Visit Orthopedic [facility] [address] [phone] Antony Ramirez DPM [address] [place] [phone] Health Maintenance Due Date Last Done Comments [...] patient's age to complete this topic Insurance [facility] MEDICARE Member Subscriber Plan / Payer (Ef fective 2024-Present) Name:CHANTE ABDI Relation to Subscriber:Self Name:Chante Abdi Payer ID:[id number] Group ID:[id number] Type:Not on file Address: [address] [place] [phone] Care Teams Adobe Layer Helper Relationship Specialty Start Date End Date Diane George NP [address] [place], [place] [address] [address] PCP - General 06/15/24
--- OUTSIDE RECORDS SUMMARY | 2025-07-09 06:17 | XMS_ITS | Encounter Summary ---
Author Organization [employer] Address [address] 7[address] [place] [address] Care Team Providers Care Show Jumping Instructor Name Role Phone Diane Goerge Primary Care Provider [phone] Reason for Visit * Reason Comments Med Refill Encounter Details Date Type Department Care Team ([facility] st Contact Info) Description 10/18/2024 Refill [facility] [address] [place] [address] Diane George ANP [address] [place] [address] Social History Tobacco Use Types Packs/Day Years [...] Description 07/19/2025 9:30 AM EDT Office Visit [facility] [address] [place] [phone] Ange Owen MD [address] [place] [address] 08/20/2025 1:30 PM EDT Office Visit [facility] [address] [place] [address] Diane George ANP [address] [place] [address] documented as of this encounter Visit Diagnoses Not on filedocumented in this encounter Additional Health Concerns Assessment Noted Time PHQ-9 Depression Total Score: 9 07/27/20 9:59 AM EDT documented as of this encounter Care Teams Show Jumping Instructor Relationship Specialty Start Date End Date Diane George ANP [address] [place] [phone] PCP - General Family Medicine 02/10/24 documented as of this encounter
== END 2025-07-09 06:14 | disposition home or self-care (01) ==
LOC: CF 06:13
PROVIDERS: Visit Provider Anesthesiology
DX: M47.817 Spondylosis without myelopathy or radiculopathy, lumbosacral region (principal)
CPT/HCPCS: 64493; 64494; J2003; J2795; Q9967

== ENCOUNTER 2025-07-09 13:12 | Outpatient (AMB) | payer OTHER, SELFPAY ==
--- NOTE | 2025-07-09 13:38 | A.OFFVIS_ITS ---
Vital Signs 07/09/25 13:39 Height 5 ft 3 in Weight 180 lb BMI 31.9 BP 119/77 Blood Pressure Location Lt brachial Position Sitting Respiration 18 Pulse 70 Pulse Source Pulse Oximeter Pulse Oximetry (%) 98 Oxygen Delivery Method Room Air Intake Visit Reasons: BILATERAL DIAGNOSTIC L3-L4 DR L5 MBB Edi Architect Required: Yes Edi Architect Name: hospital rn field case manager Allergies No Known Allergies Allergy (Verified 04/30/25 13:14) PFSH Medical History Obstructive sleep apnea Chronic SI joint pain Type 2 diabetes, controlled, with neuropathy Elevated LDL cholesterol level Ascending aorta enlargement Aortic valve calcification Heart murmur Chronic low back pain with sciatica Lumbar degenerative disc disease Chronic painful diabetic neuropathy Osteopenia Anxiety Memory loss GERD (gastroesophageal reflux disease) Gout Sleep apnea Glaucoma Carpal tunnel syndrome Hemorrhoids Arthritis Neuropathy Hypothyroid Diabetes HTN (hypertension) Surgical History Hx of sinus surgery H/O eye surgery Hx of tubal ligation History of thyroid surgery Hx of cholecystectomy Family History Mother No problems noted. Father No problems noted. Social History Household Members: Family Housing: House Alcohol intake: former Patient Tobacco Use Status: Former Tobacco user e-Cigarette/Vaping Use: Never Used service: No Current occupational status: employed and disabled Cognitive needs: No Hearing needs: No Vision needs: No Physical Exam Vital Signs: Last Vital Signs Pulse 70 07/09/25 13:39 Resp 18 07/09/25 13:39 BP 119/77 07/09/25 13:39 Pulse Ox 98 07/09/25 13:39 Oxygen Delivery Method Room Air 07/09/25 13:39 BMI result Body Mass Index 31.9 Assessment & Plan Assessment & Plan (1) Lumbosacral spondylosis: Code(s): M47.817 - Spondylosis without myelopathy or radiculopathy, lumbosacral region Category: Medical Plan Diagnostic medial branch block L3,L4 dorsal ramus L5 bilateral.? ? ?Informed consent was explained to the patient. All questions were explained and? answered.? The patient was taken inside the operating room where she was positioned prone on the operating table. Time-out was performed delineating correct site, side, the nature of the procedure, patient's allergy, . All operating room staff was participating in OR time-out procedure. ? ? The lower back was prepped with ChloraPrep and draped with sterile towels.? C- arm was brought over the operating field and sq picture of L4-, L5 vertebra and S1 AREA were delineated on the screen.? Point of interest were delineated as confluence of superior articular process of L4 and L5 vertebra bilaterally with corresponding transverse processes as well as confluence of the sacral alae bilaterally with superior articular process of S1.? The projection of the point of interest to the skin were injected with the small amount of local anesthetic lidocaine 2% mixed with ropivacaine 0.5% 1-1 approcimately 1 cc.? After that 22 gauge 3.5 inch spinal needle was driven sequentially to the points of interest in tunnel vision fashion. After needles gently contacted the bone at the point of interests the needle was injected with small amount of the contrast.? The injection of the contrast did not demonstrate any intravascular or intrathecal spread of the contrast.? After that injection of the? ropivacaine 0.5%-1cc was performed at each needle location. ?after that the needles were removed and Bandaids were applied. ? Upon completion of the injections? needle was? removed and sterile Band-Aids were applied.? The patient tolerated procedure very well. Orders: Orders FL guidance in treatment room Today M47.817 - Spondylosis without myelopathy or radiculopathy, lumbosacral region Coding Level of Care Code Procedure Only Diagnoses Lumbosacral spondylosis M47.817
[2025-07-09 13:39] VITALS: BP 119/77; PULSE 70; RESP 18; O2SAT 98; BMI 31.9
== END 2025-07-09 13:43 | disposition home or self-care (01) ==
LOC: HO.PMCPRC 13:12
PROVIDERS: PCP Nurse Practitioner Primary Care; Visit Provider Anesthesiology
DX: M47.817 Spondylosis without myelopathy or radiculopathy, lumbosacral region (principal)
CPT/HCPCS: 64493; 64494

== ENCOUNTER 2025-07-11 13:40 | Outpatient (AMB) | payer OTHER, SELFPAY ==
--- NOTE | 2025-07-11 13:43 | MHC.OFFVIS ---
Vital Signs 07/11/25 13:47 Height 5 ft 3 in Weight 176 lb BMI 31.2 BP 118/72 Blood Pressure Location Lt brachial Position Sitting Pulse 79 Pulse Source Pulse Oximeter Pulse Oximetry (%) 98 Oxygen Delivery Method Room Air Intake Visit Reasons: S/P BILATERAL DIAGNOSTIC L3-L4 DR L5 MBB Intake Note: Pain today 04/23 Mosaic Technician Required: Yes Mosaic Technician Language: Renewable [employer] Trader Services: Mosaic Technician Present Mosaic Technician Name: Gin #[id number] Accompanied by: Spouse Allergies No Known Allergies Allergy (Verified 07/11/25 13:49) HPI Comments Details: The patient is a 80-year-old female presenting with chronic low back pain. She recently underwent bilateral diagnostic lumbar medial branch blocks, which provided pain 70% relief for approximately six hours post-procedure. The patient reported limited improvement in her ability to stay active following the injections. Patient is interested in repeat diagnostic lumbar medial branch block injections in order to establish reproducible response to the treatment for potential RFA procedure. The patient has a history of glaucoma, which contraindicates the use of steroid injections for her radicular symptoms. Denies any recent cough, cold, infection, fever or any significant changes in medical history since last office visit. Past Procedures: 07/09/25: Bilateral diagnostic L3-L4 DR L5 MBB-70% pain relief for 6 hours PRIOR: Patient presents for 1st application of capsaicin 8% topical patch for diabetic neuropathy in bilateral feet and to follow up on recent xray results. Denies any recent cough, cold, infection, fever or other significant changes in medical history since last office visit. Her left-sided back pain is associated with arthritis and degenerative disc disease with multilevel central and neural foraminal spinal stenosis, exacerbating her known mild scoliosis. This chronic condition does not significantly radiate to her legs, and she has confirmed normal x-ray results for right knee and hips. She also suffers from chronic SI joint pain. Her neuropathy has been previously managed with topical agents, and she is waiting for arthritis-related knee injection approvals, though normal imaging presents challenges for authorization. Management of her diabetes continues, with recent evaluations indicating adequacy, though she requires careful consideration for future steroid injections due to her glaucoma. PRIOR: The patient is a 79-year-old female presenting with chronic left-sided low back pain and right leg radiculopathy. She has endured leg pain for approximately two years and back pain for one and a half years. The onset correlates with previous injections in the lower back and physical therapy at [facility], offering only temporary relief and no significant improvement in functioning. The patient's leg pain is more bothersome than back pain and affects her movement, with noticeable integrities between knee involvement and the ambulation difficulties. She has no history of hip or knee replacement surgery or prior back surgery. Her history of diabetes mellitus, currently well controlled with recent A1C at 6.0, with peripheral neuropathy contributing to nocturnal numbness and tingling in her feet. Glaucoma affects both eyes, leading to visual impairment, particularly in her right eye. Physical examination has revealed a shorter right leg, potentially affecting her spinal alignment, and consequently, her gait and balance. Previous conservative management with analgesics and topical treatments managed to provide minor relief, underscoring the complexity of her condition. - Chronic onset, over two years for leg pain, about one and a half years for back pain. - Quality: Persistent, radiating pain with numbness and tingling due to neuropathy. - Primary location: Left low back, radiating to the right leg, affecting the knee and both hips. - Exacerbating factors: Leaning forward, walking, climbing stairs, prolonged standing; induced after prior injections. - Relieving factors: Minimal relief from naproxen, Lyrica, Tylenol, and lidocaine patches. - Interference: Impacts walking, daily activities, and overall function; noted antalgic gait with limping. - Affect: Pain leads to impaired mobility and limitations in daily activities. - Analgesia: Medications include naproxen and Lyrica, with limited efficacy. Lidocaine patches provide slight relief. Pain level exceeds tolerable thresholds, affecting quality of life. - Adverse Effects: None explicitly reported during conversation. - Activities of Daily Living: Pain impacts mobility, exacerbated by improper gait and limb length discrepancy. - Aberrant Drug Related Behaviors: No aberrant behaviors reported or suspected. [facility] Medical History Obstructive sleep apnea Chronic SI joint pain Type 2 diabetes, controlled, with neuropathy Elevated LDL cholesterol level Ascending aorta enlargement Aortic valve calcification Heart murmur Chronic low back pain with sciatica Lumbar degenerative disc disease Chronic painful diabetic neuropathy Osteopenia Anxiety Memory loss GERD (gastroesophageal reflux disease) Gout Sleep apnea Glaucoma Carpal tunnel syndrome Hemorrhoids Arthritis Neuropathy Hypothyroid Diabetes HTN (hypertension) Surgical History Hx of sinus surgery H/O eye surgery Hx of tubal ligation History of thyroid surgery Hx of cholecystectomy Family History Mother No problems noted. Father No problems noted. Social History Household Members: Family Housing: House Alcohol intake: former Patient Tobacco Use Status: Former Tobacco user e-Cigarette/Vaping Use: Never Used service: No Current occupational status: employed and disabled Cognitive needs: No Hearing needs: No Vision needs: No Review of Systems Const All systems reviewed & are unremarkable except as noted in HPI and below Physical Exam Vital Signs: Last Vital Signs Pulse 79 07/11/25 13:47 BP 118/72 07/11/25 13:47 Pulse Ox 98 07/11/25 13:47 Oxygen Delivery Method Room Air 07/11/25 13:47 BMI result Body Mass Index 31.2 General: Appears afebrile. Alert and oriented. Mood and affect appropriate. Follows and participates in conversation appropriately. Respiratory effort is unlabored. No cough. Able to transition from sit to stand unassisted. Uses cane with ambulation. Ambulates with slow, antalgic gait with limping. General: Yes no CVA tenderness Back/Spine/Pelvis Other: Limited lumbar ROM due to pain. Lumbar extension and axial rotations reproduce moderate-severe pain. Lumbar flexion and bending reproduce mild-moderate pain. Demonstrates 4/5 strength of quadriceps bilaterally as well as flexion/dorsiflexion of bilateral feet against resistance. 2+ pedal pulses bilaterally. Straight leg rise with dorsiflexion positive bilaterally. Diminished patellar and achilles reflexes bilaterally. Facet loading test positive bilaterally. Dominic sign, Tong?s and Stinchfield tests are positive bilaterally, left >right. Moderate groin pain with right I/E hip rotations. Valsalva maneuver is negative. Back: no CVA tenderness Cervical Spine: cervical ROM normal, cervical muscular tenderness and No Cervical spine tenderness Thoracic/Lumbar Spine: thoracic and lumbar spine normal to inspection, No Thoracic/lumbar spine scar(s), Lasegue's sign positive bilateral and diffuse, pain with thoraco-lumbar ROM, paraspinal muscle tenderness, thoraco-lumbar ROM limited, Thoracic/lumbar scoliosis, No thoracic spinal tenderness and lumbar spinal tenderness (L3-S1) Pelvis: buttock tenderness bilaterally Sacroiliac joints: bilaterally tender to palpation Results Reviewed Results Reviewed: MR SPINE LUMBAR without CONTRAST 07/10/24 at [facility] INDICATION: Lower back pain and right hip pain and bilateral feet for 1 year. TECHNIQUE: Unenhanced multiplanar, multisequence MR imaging of the lumbar spine. COMPARISON: None Available. FINDINGS: There is mild scoliosis as well as mild retrolisthesis at L3-4 and mild anterolisthesis at L4-5. The spine is in otherwise good alignment. Vertebral heights are well maintained. There are hemangiomas in vertebral bodies of T12 and L2. Bone marrow signal is otherwise within normal limits, and no suspicious osseous lesion is identified. Conus medullaris is unremarkable. Paraspinal soft tissues and visualized portions of the abdomen and pelvis are unremarkable. At L1-2 there is no significant disc herniation or protrusion. No central canal or neural foraminal stenosis is demonstrated. At L2-3 there is a small broad-based disc bulge and bilateral facet hypertrophy with thickening of the ligamentum flavum. No central canal or neuroforaminal stenosis is demonstrated. At L3-4 there is there is the aforementioned mild retrolisthesis as well as a small broad-based disc bulge, bilateral facet hypertrophy, and thickening of the ligamentum flavum. This causes mild central canal stenosis, but no neuroforaminal narrowing. At L4-5 there is the aforementioned mild anterolisthesis as well as a small broad-based disc bulge, bilateral facet hypertrophy, and thickening of the ligamentum flavum. This causes moderate central canal stenosis and mild right neuroforaminal narrowing. At L5-S1 there is a small broad-based disc bulge with an annular tear as well as bilateral facet hypertrophy. There is no central canal stenosis, but there is mild bilateral neuroforaminal narrowing IMPRESSION: 1. There is mild scoliosis as well as mild retrolisthesis at L3-4 and mild anterolisthesis at L4-5. 2. Multilevel degenerative disc and bony disease causing central canal and neuroforaminal stenosis as described. XR LUMBAR SPINE 4 OR MORE VIEWS 04/02/25 HISTORY: M53.3 - Sacrococcygeal disorders, not elsewhere classified COMPARISON: There are no prior studies for comparison. FINDINGS: AP, lateral, bilateral oblique, and coned down views of the lumbar spine are submitted. Osseous mineralization is normal. Five nonrib-bearing lumbar vertebral bodies are identified, maintaining normal height without evidence of fracture or spondylolisthesis. There is mild levoscoliosis. There is diffuse moderate degenerative disc disease with disc space narrowing and osteophyte formation. Findings are most prominent at the T12-L1, L4-5, and L5-S1 levels. There is osteoarthritis of the facet joints. There is no spondylolysis. There is calcification of the abdominal aorta. IMPRESSION: Mild levoscoliosis. Diffuse moderate degenerative disc disease as described. XR KNEE 3 VIEWS RIGHT 04/02/25 HISTORY: M25.561 - Pain in right knee COMPARISON: There are no prior studies available for comparison. FINDINGS: Three views of the right knee are submitted. Osseous mineralization is normal. There is no fracture or dislocation. The joint spaces are preserved. The soft tissues are unremarkable. There is no joint effusion. IMPRESSION: Unremarkable examination of the right knee. XR HIP 2 OR MORE VIEWS BILATERAL 04/02/25 HISTORY: M53.3 - Sacrococcygeal disorders, not elsewhere classified COMPARISON: There are no prior studies for comparison. FINDINGS: A single AP view of the pelvis and two views of each hip are submitted. Osseous mineralization is normal. There is no fracture or dislocation. The joint space is maintained. The soft tissues are unremarkable. IMPRESSION: Unremarkable examination of the bilateral hips. Assessment & Plan Assessment & Plan (1) Chronic SI joint pain: Code(s): M53.3 - Sacrococcygeal disorders, not elsewhere classified; G89.29 - Other chronic pain Category: Medical (2) Lumbar degenerative disc disease: Code(s): M51.369 - Other intervertebral disc degeneration, lumbar region without mention of lumbar back pain or lower extremity pain Category: Medical (3) Chronic low back pain with sciatica: Code(s): M54.40 - Lumbago with sciatica, unspecified side; G89.29 - Other chronic pain Category: Medical (4) Lumbosacral spondylosis: Code(s): M47.817 - Spondylosis without myelopathy or radiculopathy, lumbosacral region Category: Medical Plan The plan is to repeat bilateral diagnostic lumbar medial branch blocks to confirm pain relief and consider radiofrequency ablation for long-term management. Schedule repeat bilateral diagnostic L3-L4 DR L5 MBB with local and fluoroscopy. Expectations, risks and benefits were reviewed. Patient is aware she will be contacted to schedule this procedure. All questions and concerns have been answered and patient agreed with the plan. Follow up after injections and sooner as needed. Patient was informed and verbally consented to the use of an ambient scribe for clinic note documentation during this visit. Coding Level of Care Code Est Pt Level 3 (37019) Complex EM visit Add On G2211 Diagnoses Chronic SI joint pain M53.3; G89.29 Lumbar degenerative disc disease M51.369 Chronic low back pain with sciatica M54.40; G89.29 Lumbosacral spondylosis M47.817
[2025-07-11 13:47] VITALS: BP 118/72; PULSE 79; O2SAT 98; BMI 31.2
--- OUTSIDE RECORDS SUMMARY | 2025-07-11 14:22 | XMS_ITS | Encounter Summary ---
Author Organization [employer] Address [address] [place] [address] Care Team Providers Care Oyster Buyer Name Role Phone Diane George Primary Care Provider Reason for Visit * Reason Comments Med Refill Encounter Details Date Type Department Care Team ([facility] st Contact Info) Description 10/18/2024 Refill [facility] [address] [place] [address] Diane George ANP [address] [place] [address] Social History Tobacco Use Types Packs/Day Years [...] Description 07/19/2025 9:30 AM EDT Office Visit [facility] [address] [place] [address] Ange Owen MD [address] [place] [address] 08/20/2025 1:30 PM EDT Office Visit [facility] [address] [place] [address] Diane George ANP [address] [place] [address] documented as of this encounter Visit Diagnoses Not on filedocumented in this encounter Additional Health Concerns Assessment Noted Time PHQ-9 Depression Total Score: 9 07/27/20 9:59 AM EDT documented as of this encounter Care Teams Oyster Buyer Relationship Specialty Start Date End Date Diane George ANP [address] [place] [phone] PCP - General Family Medicine 02/10/24 documented as of this encounter
--- OUTSIDE RECORDS SUMMARY | 2025-07-11 14:22 | XMS_ITS | Encounter Summary ---
Author Organization [employer] Address [address] 7t [place] [address] Care Team Providers Care Wharf Tender Name Role Phone Diane George Primary Care Provider [phone] Encounter Details Date Type Department Care Team ([facility] st Contact Info) Description 03/20/2025 Telephone [facility] [address] [place], [place] [phone] Diane George ANP [address] [place] [address] Social History Tobacco Use Types Packs/Day Years [...] Description 07/19/2025 9:30 AM EDT Office Visit [facility] [address] [place] [phone] Ange Owen MD [address] [place] [address] 08/20/2025 1:30 PM EDT Office Visit [facility] [address] [place] [address] Diane George ANP [address] [place] [address] documented as of this encounter Visit Diagnoses Not on filedocumented in this encounter Additional Health Concerns Assessment Noted Time PHQ-9 Depression Total Score: 9 02/14/20 25 3:51 PM EDT documented as of this encounter Care Teams Wharf Tender Relationship Specialty Start Date End Date Diane George ANP [address] [place] [address] PCP - General Family Medicine 02/10/24 documented as of this encounter
--- OUTSIDE RECORDS SUMMARY | 2025-07-11 14:22 | XMS_ITS | Encounter Summary ---
Author Organization [employer] Address [address] 7t [place] [address] Care Team Providers Care Adult Care Manager Name Role Phone Diane George Primary Care Provider [phone] Reason for Visit * Reason Onset Date Comments Appointment Request 04/24/2025 Encounter Details Date Type Department Care Team ([facility] st Contact Info) Description 04/24/2025 Telephone [facility] [address] [place], [place] [phone] Diane George ANP [address] [place] [address] Appointment Request Social History Tobacco Use Types [...] that was tomorrow 04/25/25 Contact pt at [phone] (botswanan) documented in this encounter Plan of Treatment Upcoming Encounters Date Type Department Care Team (Late st Contact Info) Description 07/19/2025 9:30 AM EDT Office Visit [facility] [address] [place] [address] Ange Owen MD [address] [place] [address] 08/20/2025 1:30 PM EDT Office Visit [facility] [address] [place] [address] [phone] Diane George ANP [address] [place] [address] documented as of this encounter Visit Diagnoses Not on filedocumented in this encounter Additional Health Concerns Assessment Noted Time PHQ-9 Depression Total Score: 9 02/14/20 25 3:51 PM EDT documented as of this encounter Care Teams Adult Care Manager Relationship Specialty Start Date End Date Diane George ANP [address] [place] [address] PCP - General Family Medicine 02/10/24 documented as of this encounter
--- OUTSIDE RECORDS SUMMARY | 2025-07-11 14:22 | XMS_ITS | Encounter Summary ---
Author Organization [employer] Address [address] 7t [place] [address] Care Team Providers Care Fire Alarm Inspector Name Role Phone Diane George Primary Care Provider [phone] Reason for Visit * Reason Comments Med Refill Encounter Details Date Type Department Care Team ([facility] st Contact Info) Description 02/04/2025 Refill [facility] [address] [place], [place] [phone] Diane George ANP [address] [place] [address] Social History Tobacco Use Types Packs/Day Years [...] Description 07/19/2025 9:30 AM EDT Office Visit [facility] [address] [place] [address] Ange Owen MD [address] [place] [address] 08/20/2025 1:30 PM EDT Office Visit [facility] [address] [place] [address] Diane George ANP [address] [place] [address] documented as of this encounter Visit Diagnoses Not on filedocumented in this encounter Additional Health Concerns Assessment Noted Time PHQ-9 Depression Total Score: 9 07/27/20 24 9:59 AM EDT documented as of this encounter Care Teams Fire Alarm Inspector Relationship Specialty Start Date End Date Diane George ANP [address] [place] [address] PCP - General Family Medicine 02/10/24 documented as of this encounter
--- OUTSIDE RECORDS SUMMARY | 2025-07-11 14:23 | XMS_ITS | Clinical Summary ---
Author Organization [employer] Address [address] 7t [place] [address] Care Team Providers Care Farm Facility Manager Name Role Phone Constance Balderrama Primary Care Provider [phone] Allergies No known active allergies Medications * [...] connected with a psychiatrist and therapist in [place] (unable to provide agency name). Today, pt [...] with psychopharmacology when she was living in [place]. Family moved to [place] from [place] in 2017. Further information needed to make diagnosis of bipolar disorder. Currently seeing a therapist with [facility] Psychiatry services will start soon due to having a conflict with her insurance ([facility]). During today's visit, clinician engaged pt [...] is currently engaged in therapist services with [facility]. Psychiatry services were pending due to a conflict with her insurance ([facility]). Update from pt's granddaughter, [facility] will cover psychiatry services and appointment [...] with psychopharmacology when she was living in [place]. Family moved to [place] from [place] in 2017. Further information needed to make diagnosis. PLAN: (check all that apply) Continue with current services (defined as services in the past 12 months) . Referral placed during last visit for [facility]ry [facility]. Assessment & Plan (02/13/2024 4:32 PM EDT): [...] with psychopharmacology when she was living in [place]. She was accompanied by her granddaughter. Family moved to [place] from [place] in 2016. Further information needed to make diagnosis. PLAN: (check all that apply) New/Additional Services needed PCP management On-site non-integrated services Off-site services for Behavioral Health Integration Plan Internal Follow up with [facility] External OP therapy referral and OP psychiatry Referral Patient Self Plan Patient to utilize skills provided in intervention , Patient to reach out to [facility] team as needed, Patient to engage in OP therapy , and Patient to reach out to [facility] as needed. Discussed getting sooner appointments with [facility] ([facility]) for psychopharmacology. clinician will see patient during next physical if needed. Encounters Date Type Department Care Team Description 07/01/2025 Telephone [facility] [address] [place] [phone] Constance Balderrama, ANP notes faxed to sleep study 06/28/[address] [address] Constance Balderrama ANP Durable Medical Equipment 06/28/2025 Orders Only [address] [address] Constance Balderrama ANP DIANA (obstructive sleep apnea) (Primary Dx); Nocturnal hypoxia 06/15/[address] [address] Constance Balderrama ANP Radicular pain of lower extremity; Diabetic polyneuropathy associated with type 2 diabetes mellitus (CMS/HCC) 05/29/2025 Orders Only [facility] External Provider, [facility] 05/27/[address] [address] Constance Balderrama ANP October recall 05/16/2025 Telephone [employer] [facility] [address] [place] [address] Constance Balderrama ANP PSG ORDER 05/14/2025 1:15 PM EDT Office Visit [address] [address] Constance Balderrama ANP DIANA (obstructive sleep apnea) (Primary Dx); Hypertension associated with diabetes ([facility]); Radicular pain of lower extremity; Right hip pain; Low back pain potentially associated with radiculopathy; Spinal stenosis of lumbar region with neurogenic claudication; Dietary counseling; Exercise counseling; Right leg pain 05/14/2025 Travel 05/13/[address] [address] Constance Balderrama ANP Chart Prep 04/26/2025 11:00 AM EDT Office Visit [address] [address] Ange Owen MD Psoriasis vulgaris (Primary Dx) 04/26/2025 Travel 04/25/2025 Travel 04/24/[address] [address] Constance Balderrama ANP Appointment Request 04/22/2025 Orders [...] Description 07/19/2025 9:30 AM EDT Office Visit [facility] [address] [place] [address] Ange Owen MD [address] [place] [address] 08/20/2025 1:30 PM EDT Office Visit [facility] [address] [place] [address] Constance Balderrama ANP [address] [place], [place] [phone] Health Maintenance Due Date Last Done Comments [...] PM EDT Narrative 05/29/2025 5:04 PM EDT [place] [address] Ultrasound Report Signed Patient: Roseanne Abdi MR#: [id number] : 1945 Acct:[id number] Age/Sex: 79 / F ADM Date: 05/29/25 Loc: HO.US Attending Dr: Malick Sheridan MD Ordering Physician: Malick Sheridan MD Date of Service: 05/29/25 Procedure(s): US retroperitoneal comp Accession Number(s): [id number] cc: Malick Sheridan MD; CONSTANCE BALDERRAMA NP [...] Zamorano MD on 05/29/2025 17:03:18 Dictated By: lAanis Zamorano MD Signed By: <Electronically signed by Alanis Zamorano MD in OV> 05/29/251703 DD/ 02 TD/TT: 05/29/251702 Minister Helper: Procedure Note Donotuseinterpreter, Image - 05/29/2025 [place] [address] Ultrasound Report Signed Patient: Briana Abdi#: [id number] : 1945cct:[id number] Age/Sex: 79 / FADM Date: 05/29/25 Loc: HO.US Attending Dr: Malick Sheridan MD Ordering Physician: Malick Sheridan MD Date of Service: 05/29/25 Procedure(s): US retroperitoneal comp Accession Number(s): [id number] cc: Malick Sheridan MD; CONSTANCE BALDERRAMA NP [...] in OV> 05/29/251703 DD/ 02 TD/TT: 05/29/251702 Minister Helper: [facility] External Provider IMG US PROCEDURES Final Result * POCT Glucose (05/14/2025 2:21 PM EDT) Glucose Blood, POC 98 60 - 200 mg/dL QC Media Lot # [id number] Lot# Expiration Date Blood Capillary blood specimen / Unknown 05/14/2025 2:21 PM EDT Result [facility] Constance Balderrama ANP POINT OF CARE TEST ENTER/EDIT OR DERABLES Final Result * Referral to Physiatry (05/13/2025) Constance Balderrama ANP OUTPATIENT REFERRAL ORDERABLES F inal Result * Culture, Urine, Routine (04/22/2025 12:36 PM EDT) Urine Urine specimen obtained by clean catch procedure / Unknown 04/22/2025 12:36 PM EDT 04/22/2025 4:47 PM EDT Comment:[facility] Narrative [facility] - 04/24/2025 9:00 AM EDT Urine Culture Report Result Urine Culture 50,000 to 100,000 cfu/ml Urine Culture Mixed bacterial sheryl characteristic of Urine Culture urogenital contamination. Specimen Source: Urine clean catch Generic External Data Provider LAB MICROBIOLOGY - GENERAL ORDERABLES Final Result [facility] [address] [place], [place] [phone] * Albumin, Random Urine W/Creatinine (03/22/2025 10:25 AM EDT) Creatinine, Urine 74.54 mg/dL [facility] Microalbumin Urine 10.0 mg/L [facility] Microalbum Creatinine Ratio Ur 13.4 <30 ug/mg cr [facility] Comment:Albumin/Creatinine R atio Reference Ranges: Normal: < 30 ug/mg creatinine Microalbuminuria: 30 - 300 ug/mg creatinineClinical Albuminuria: > 300 ug/mg creatinine Urine 03/22/2025 10:2 5 AM EDT 03/22/2025 11:02 AM EDT Constance Balderrama [facility] URINE ORDERABLES Final Resul t Performing Organization Address [facility] Co de Phone Number [facility] [address] [place] [phone] * (ABNORMAL) POCT HGB A1C (12/04/2024 10:35 AM EST) Hemoglobin A1C 6.2(A) 4.0 - 6.0 % QC Media Lot # [id number] Lot# Expiration Date Blood 12/04/2024 10:3 5 AM EST Constance Balderrama [facility] POINT OF CARE TEST ENTER/EDIT OR DERABLES Edited Result - Final * Hepatitis C Antibody with Reflex to HCV, RNA, Quantitative, Real-Time PCR (05/03/2024 11:38 AM EDT) Pathologist [facility] Hepatitis C Antibody Nonreactive Nonreactive [facility] Comment:Antibodies to HCV no t detected; does not exclude early acuteHCV infection. Blood Venous blood specimen / Unknown 05/03/2024 11:38 AM EDT 05/03/2024 1:01 PM EDT Constance Balderrama [facility] BLOOD ORDERABLES Final Resul t Performing Organization Address [facility] Co de Phone Number [facility] [address] [place] [phone] * (ABNORMAL) Lipid Panel, Standard (05/03/2024 11:30 AM EDT) Triglycerides 211(H) <150 mg/dL [facility] Comment:Desirable Triglyceri de: less than 150 mg/dLBorderline High Triglyceride 150-199 mg/dLHigh Triglyceride: 200-499 mg/dLVery High Triglyceride: greater than or equal to 5OO mg/dL Cholesterol 110 <200 mg/dL [facility] Comment:Desirable Cholestero l: less than 200 mg/dLBorderline High Cholesterol: 200-239 mg/dLHigh Cholesterol: greater than 239 mg/dL LDL Cholesterol Calculated 35 <100 mg/dL [facility] Comment:Desirable LDL: less than 100 mg/dLNear Optimal/Above Optimal LDL: 110- 129 mg/dLBorderline High LDL: 130-159 mg/dLHigh LDL: 160-189 mg/dLVery High LDL: greater than or equal to 190 mg/dL HDL Cholesterol 33(L) >40 mg/dL [facility] Comment:Desirable HDL: great er than 40 mg/dL Note: This HDL assay may give artificially low results in patients with liver disease. Blood Venous blood specimen / Unknown 05/03/2024 11:30 AM EDT 05/03/2024 1:01 PM EDT Constance [facility] LAB BLOOD ORDERABLES Final Resul t [facility] [address] [place] [phone] from Last 3 Months or Most Recently Relevant to Health Maintenance Insurance [facility] [employer] (HMO D-SNP) Care Teams Farm Facility Manager Relationship Specialty Start Date End Date Constance Balderrama ANP [address] [place] [address] PCP - General Family Medicine 02/10/24
--- OUTSIDE RECORDS SUMMARY | 2025-07-11 14:23 | XMS_ITS | Clinical Summary ---
Author Organization [address] [facility] Address [address] [place] [address] Phone Care Team Providers Care Pulpwood Dealer Name Role Phone DorisDiane Ankur BARKER Primary Care Provider [phone] Allergies No known active allergies Medications ACETAMINOPHEN [...] 3:30 PM EDT Office Visit Orthopedic Surgery [facility] [address] [phone] Antony Ramirez DPM [place]ka toe of left foot (Primary Dx); Dermatophytosis of nail; Metatarsalgia of both feet; Tinea pedis of both feet; Diabetic mononeuropathy simplex ([facility] V24, [facility] V28); Corns and callosities; Pain in [...] 07/23/2025 1:30 PM EDT Office Visit Orthopedic [facility] [address] [phone] Antony Ramirez DPM [address] [place] [phone] Health Maintenance Due Date Last Done Comments [...] patient's age to complete this topic Insurance [facility] MEDICARE Member Subscriber Plan / Payer (Ef fective 2024-Present) Name:CHANTE ABDI Relation to Subscriber:Self Name:Chante Abdi Payer ID:[id number] Group ID:[id number] Type:Not on file Address: [address] [place] [address] Care Teams Pulpwood Dealer Relationship Specialty Start Date End Date Diane George NP [address] [place], [place] [address] [phone] PCP - General 06/15/24
--- OUTSIDE RECORDS SUMMARY | 2025-07-11 14:23 | XMS_ITS | Encounter Summary ---
Author Organization [employer] Address [address] 7t [place] [address] Care Team Providers Care Sound Effects Supervisor Name Role Phone Diane George Primary Care Provider [phone] Reason for Visit * Reason Onset Date Comments New Patient 07/07/2023 Encounter Details Date Type Department Care Team (Late st Contact Info) Description 07/07/2023 Telephone [facility] [address] [place] [address] Seth Barron MD [address] [place] [address] New Patient Social History Tobacco Use Types [...] been transfer over to wait list for CRIME SCENE INVESTIGATOR. EFFECTIVE SINCE 04/14/2023 documented in this encounter Plan of Treatment Upcoming Encounters Date Type Department Care Team (Late st Contact Info) Description 07/19/2025 9:30 AM EDT Office Visit [address] [address] Ange Owen MD [address] [place] [address] 08/20/2025 1:30 PM EDT Office Visit [address] [address] Diane George ANP [address] [place] [address] documented as of this encounter Visit Diagnoses Not on filedocumented in this encounter Care Teams Sound Effects Supervisor Relationship Specialty Start Date End Date Diane George ANP [address] [place] [phone] PCP - General Family Medicine 02/10/24 documented as of this encounter
== END 2025-07-11 13:56 | disposition home or self-care (01) ==
PROVIDERS: PCP Nurse Practitioner Primary Care; Visit Provider Nurse Practitioner Family
DX: M53.3 Sacrococcygeal disorders, not elsewhere classified (principal); G89.29 Other chronic pain; M51.369 Other intervertebral disc degeneration, lumbar region without mention of lumbar back pain or lower extremity pain; M54.40 Lumbago with sciatica, unspecified side; M47.817 Spondylosis without myelopathy or radiculopathy, lumbosacral region
CPT/HCPCS: 99213; G2211

== ENCOUNTER → 2025-07-11 13:40 | Outpatient (BNVA) | payer OTHER, SELFPAY | PROVIDERS: PCP Nurse Practitioner Primary Care; Visit Provider Nurse Practitioner Family | DX: M53.3 Sacrococcygeal disorders, not elsewhere classified (principal); G89.29 Other chronic pain; M51.369 Other intervertebral disc degeneration, lumbar region without mention of lumbar back pain or lower extremity pain; M54.40 Lumbago with sciatica, unspecified side; M47.817 Spondylosis without myelopathy or radiculopathy, lumbosacral region | CPT/HCPCS: 99212 ==

== ENCOUNTER 2025-07-18 13:33 | Outpatient (AMB) | payer OTHER, SELFPAY ==
--- NOTE | 2025-07-18 14:37 | MHC.OFFVIS ---
Intake Visit Reasons: cysto/US/PVR/Meds Intake Note: Patient presents today for a cystoscopy/US Urology Medication:None Blood Thinner:None Antibiotic Allergies:None Lot:[id number] Exp:02/07/28 Division Roadmaster Services: Division Roadmaster Present Division Roadmaster Name: Livan [id number] Information Interpreted: non-clinical & clinical Allergies No Known Allergies Allergy (Verified 07/18/25 14:37) HPI Comments Details: 07/18/25--here for office cystoscopy. Renal ultrasound 06/01/2025 kidneys are within normal limits. The patient had overactive bladder symptoms and was prescribed Myrbetriq. History of Present Illness She reports that the medication has been effective in controlling her bladder symptoms, as evidenced by less wetness in her protective pads. She does not experience leakage with coughing. A renal ultrasound conducted on June 01, 2025, showed that the kidneys are within normal limits. During the cystoscopy, mild thickening of the bladder wall was observed and no abnormalities were found inside the bladder. Results - Renal ultrasound (06/01/25): Kidneys within normal limits - Cystoscopy: Mild thickening of the bladder wall, no other abnormalities [place]-- Continue Mirabegron 25 mg as it is effective in managing symptoms - Follow-up with nurse practitioner in eight months to monitor condition 04/22/25--History of Present Illness - The patient is a 79-year-old female presenting with lower urinary tract symptoms of urgency and hesitancy. - The symptoms have persisted for several months, characterized by an intermittent urinary stream. - Urinary urgency occurs approximately six times during the day, with nocturnal symptoms leading to incontinence and a need to wake up to urinate. - Denies previous urinary tract infections requiring antibiotics and reports no hematuria. - Experiences strong urges that sometimes result in leakage. Denies blood in the urine Results - Labs: Urinalysis showed 3 + leukocytes, negative for blood. [facility] Medical History Obstructive sleep apnea Chronic SI joint pain Type 2 diabetes, controlled, with neuropathy Elevated LDL cholesterol level Ascending aorta enlargement Aortic valve calcification Heart murmur Chronic low back pain with sciatica Lumbar degenerative disc disease Chronic painful diabetic neuropathy Osteopenia Anxiety Memory loss GERD (gastroesophageal reflux disease) Gout Sleep apnea Glaucoma Carpal tunnel syndrome Hemorrhoids Arthritis Neuropathy Hypothyroid Diabetes HTN (hypertension) Surgical History Hx of sinus surgery H/O eye surgery Hx of tubal ligation History of thyroid surgery Hx of cholecystectomy Family History Mother No problems noted. Father No problems noted. Social History Household Members: Family Housing: House Alcohol intake: former Patient Tobacco Use Status: Former Tobacco user e-Cigarette/Vaping Use: Never Used service: No Current occupational status: employed and disabled Cognitive needs: No Hearing needs: No Vision needs: No Review of Systems Const All systems reviewed & are unremarkable except as noted in HPI and below Reports no additional complaints Eyes Reports no additional complaints ENT Reports no additional complaints Card Reports no additional complaints Resp Reports no additional complaints GI Reports no additional complaints Reports as per HPI Musc Reports no additional complaints Skin/Breast Reports system reviewed and no additional complaints, except as documented Neuro Reports no additional complaints Psych Reports no additional complaints Endo Reports no additional complaints Evin/Lymph Reports no additional complaints Aller/Immun Reports no additional complaints Office Procedures Cystoscopy Consent Discussed risk and benefit or proposed procedure with the patient. Information consent for procedure given to the patient. Discussed technical aspects, risks, benefits and alternatives in full. Addressed all of the patient's questions and concerns regarding the procedure. The patient demonstrated knowledge and understanding. They wish to proceed with this procedure. Preparation The patient was prepped in the usual manner. A oxyacetylene welder was present and in the room. Genitalia was prepped with betadine solution in a sterile manner. Lidocaine Jelly 2% was placed into the urethra and 16Fr flexible Olympus cystoscope was inserted into the meatus after adequate lubrication. Procedure Time out per protocol performed. Speculum used as indicated for adequate visualization of urethra, the flexible cystoscope is passed transurethrally: The bladder was inspected in its entirety with utilization retroflexion displaying: Tumor(s): no suspicious bladder lesions visualized Trabeculation: Mild Mucosal Erthema: na Orifices: normal shape and position Urethra: normal Cystoscopy findings: mild bladder wall thickening, no suspicious bladder lesions visualized [id number] DISPOSABLE SCOPE URO-G FLEXIBLE SCOPE Procedure code (CPT) selection complete Office Meds lidocaine HCl 2 % mucosal jelly in applicator Performing Provider: Malick Sheridan MD Performing Location: [facility] Administered by: Maia Berumen RN on 07/18/25 15:01 Dose Route Admin Location Dispensed Lot Number Expiration Date ND Compositor Apprentice 10 mL intra-urethral 20 mL nitrofurantoin monohydrate/macrocrystals 100 mg capsule Performing Provider: Malick Sheridan MD Performing Location: [facility] Administered by: Maia Berumen RN on 07/18/25 15:01 Dose Route Admin Location Dispensed Lot Number Expiration Date ND Compositor Apprentice 100 mg PO 1 cap phenazopyridine 200 mg tablet Performing Provider: Malick Sheridan MD Performing Location: [facility] Administered by: Maia Berumen RN on 07/18/25 15:01 Dose Route Admin Location Dispensed Lot Number Expiration Date ND Compositor Apprentice 200 mg PO 1 tab Comments: Macrobid given instead of Cipro due to medication interactions Results Reviewed Results Reviewed: Date of Service: 05/29/25 Procedure(s): US retroperitoneal comp Accession Number(s): [id number] cc: Malick Sheridan MD; CONSTANCE BALDERRAMA NP~ CLINICAL HISTORY: R39.15 - Urgency of urination US retroperitoneum Comparison: None provided Findings: Right kidney normal size and echotexture, 10.1 cm length. No hydronephrosis, mass or calculus. Normal color flow. Left kidney normal size and echotexture, 10.1 cm in length. No hydronephrosis, mass or calculus. Normal color flow. Urinary bladder is unremarkable. Prevoid volume 481 mL. Postvoid volume 88 mL. Ureteral jets are visualized bilaterally Impression: 1. Incomplete emptying of the urinary bladder. 2. Otherwise unremarkable. Assessment & Plan Assessment & Plan (1) OAB (overactive bladder): Code(s): N32.81 - Overactive bladder Category: Medical Plan - Continue Mirabegron 25 mg as it is effective in managing symptoms - Follow-up with nurse practitioner in eight months to monitor condition Orders: Orders AMB Cystoscopy Today R32 - Unspecified urinary incontinence, R39.13 - Splitting of urinary stream Medications: Refilled mirabegron ER (Myrbetriq) 25 mg PO DAILY 90 tabs 3RF Patient Instructions: The patient had an opportunity to ask questions regarding treatment plan. The patient expressed understanding and agreement with the above treatment plan. The patient is aware they should contact our office by phone for worsening of their current condition or the appearance of new symptoms. Compliance is encouraged with any medications and followup testing that is ordered. It is a privilege to be allowed the opportunity to participate in the urologic care of your patient. If you have any questions or concerns regarding treatment for the above conditions please do not hesitate to contact me. The office telephone contact is [phone]. This note is constructed in part using voice recognition software. While every effort has been made to ensure accuracy juice scaleman errors may have been included. Yours sincerely, Mlaick Sheridan MD Scribe Plan - Not visible on output: Patient was informed and verbally consented to the use of an ambient scribe for clinic note documentation during this visit. Coding Level of Care Code Procedure Only Diagnoses OAB (overactive bladder) N32.81 CPT Codes Cystoscopy - CPT: 45671-[id number] ([id number])
--- OUTSIDE RECORDS SUMMARY | 2025-07-18 14:50 | XMS_ITS | Clinical Summary ---
Author Organization [employer] Address [address] [place] [address] Care Team Providers Care Transportation Planning Engineer Name Role Phone Constance Balderrama Primary Care Provider [phone] Allergies No known active allergies Medications * [...] times daily 100 each 12 05/14/20 25 2025 Active pregabalin (Lyrica) 150 MG capsuleIndication s:Radicular pain of lower extremity,Diabeti c polyneuropathy associated with type 2 diabetes mellitus (CMS/HCC) TAKE 1 CAPSULE BY MOUTH AT BEDTIME 30 capsule 2 06/17/20 25 Active levothyroxine (Synthroid, Levoxyl) 137 MCG tabletIndications :Hypothyroidism, unspecified type Take 137 mcg by mouth Once per day. 90 tablet 3 07/16/20 25 Active levothyroxine (Synthroid, Levoxyl) 137 MCG tabletIndications :Hypothyroidism, unspecified type Take 137 mcg by mouth Once per day. 90 tablet 3 07/27/20 24 2024 Discontinued(R eorder (will not trigger notification to Pharmacy)) Active [...] connected with a psychiatrist and therapist in [place] (unable to provide agency name). Today, pt [...] with psychopharmacology when she was living in [place]. Family moved to [place] from [place] in 2017. Further information needed to make diagnosis of bipolar disorder. Currently seeing a therapist with [facility] Psychiatry services will start soon due to having a conflict with her insurance ([facility]). During today's visit, clinician engaged pt [...] currently engaged in therapist services with [facility]. Psychiatry services were pending due to a conflict with her insurance ([facility]). Update from pt's granddaughter, [facility] will cover psychiatry services and appointment [...] with psychopharmacology when she was living in [place]. Family moved to [place] from [place] in 2016. Further information needed to make diagnosis. PLAN: (check all that apply) Continue with current services (defined as services in the past 12 months) . Referral placed during last visit for [facility]ry [facility]. Assessment & Plan (02/13/2024 4:32 PM [...] with psychopharmacology when she was living in [place]. She was accompanied by her granddaughter. Family moved to [place] from [place] in 2016. Further information needed to make diagnosis. PLAN: (check all that apply) New/Additional Services needed PCP management On-site non-integrated services Off-site services for Behavioral Health Integration Plan Internal Follow up with [facility] External OP therapy referral and [...] Encounters Date Type Department Care Team Description 07/17/2025 Telephone [facility] [address] [place] [address] Constance Balderrama, ANP notes 07/16/2025 Refill [facility] [address] [place] [address] Constance Balderrama ANP Hypothyroidism, unspecified type 07/12/2025 Refill [facility] [address] [place] [phone] Constance Balderrama ANP Hypothyroidism, unspecified type 07/01/[address] [address] Constance Balderrama ANP notes faxed to sleep study 06/28/[address] [address] Constance Balderrama ANP Durable Medical Equipment 06/28/2025 Orders Only [address] [address] Constance Balderrama ANP DIANA (obstructive sleep apnea) (Primary Dx); Nocturnal hypoxia 06/15/[address] [address] Constance Balderrama ANP Radicular pain of lower extremity; Diabetic polyneuropathy associated with type 2 diabetes mellitus ([facility]/HCC) 05/29/2025 Orders Only [facility] External Provider, [facility] 05/27/[address] [address] Constance Balderrama ANP August05/16/2025 Telephone [facility] [address] [place] [address] Constance Balderrama ANP PSG ORDER 05/14/2025 1:15 PM EDT Office Visit [address] [address] Constance Balderrama ANP DIANA (obstructive sleep apnea) (Primary Dx); Hypertension associated with diabetes ([facility]); Radicular pain of lower extremity; Right hip pain; Low back pain potentially associated with radiculopathy; Spinal stenosis of lumbar region with neurogenic claudication; Dietary counseling; Exercise counseling; Right leg pain 05/14/2025 Travel 05/13/[address] [address] Constance Balderrama ANP Chart Prep 04/26/2025 11:00 AM EDT Office Visit [address] [address] Ange Owen MD Psoriasis vulgaris (Primary Dx) 04/26/2025 Travel 04/25/2025 Travel 04/24/2025 Telephone [facility] [address] [place] [address] [phone] Constance Balderrama ANP Appointment Request 04/22/2025 Orders [...] Description 07/19/2025 9:30 AM EDT Office Visit [facility] [address] [place] [phone] Ange Owen MD [address] [place] [phone] 08/20/2025 1:30 PM EDT Office Visit [facility] [address] [place] [address] [phone] Constance Balderrama ANP [address] [place], [place] [phone] Health Maintenance Due Date Last Done Comments Diabetes: Foot Exam 05/03/2025 05/03/2024, 05/03/2024, 05/03/2024, Additional history exists Lipid Panel 05/03/2025 05/03/2024 Diabetes: Hemoglobin A1C 06/03/2025 025, 07/27/2024, 02/10/2024 COVID-19 Vaccine ( season) 2025 Influenza Vaccine (#1) 2025 , 09/09/2023, 10/26/2022 [...] neurogenic claudication CULTURE, URINE, ROUTINE Routine 04/22/20 12:36 PM EDT ALBUMIN, RANDOM URINE W/CREATININE [...] Referral to Sleep Medicine (06/17/2025) us Constance [facility] OUTPATIENT REFERRAL ORDERABLES F inal Result * US Retroperitoneal Complete (05/29/2025 5:03 PM EDT) Anatomical Region Laterality Modality Ultrasound 05/29/2025 5:03 PM EDT Narrative 05/29/2025 5:04 PM EDT [address] [address] Ultrasound Report Signed Patient: Roseanne Abdi MR#: [id number] 70 : 1945 Acct:[id number] Age/Sex: 79 / F ADM Date: 05/29/25 Loc: HO.US Attending Dr: Malick Sheridan MD Ordering Physician: Malick Sheridan MD Date of Service: 05/29/25 Procedure(s): US retroperitoneal comp Accession Number(s): [id number] cc: Malick Sheridan MD; CONSTANCE BALDERRAMA NP [...] in OV> 05/29/251703 DD/ 02 TD/TT: 05/29/251702 Qa Software Test Engineer: Procedure Note Donotuseinterpreter, Image - 05/29/2025 [place] [address] Ultrasound Report Signed Patient: Briana Abdi#: [id number] 70 : 6Acct:[id number] Age/Sex: 79 / FADM Date: 05/29/25 Loc: HO.US Attending Dr: Malick Sheridan MD Ordering Physician: Malick Sheridan MD Date of Service: 05/29/25 Procedure(s): US retroperitoneal comp Accession Number(s): [id number] cc: Malick Sheridan MD; CONSTANCE BALDERRAMA NP [...] in OV> 05/29/251703 DD/ 02 TD/TT: 05/29/251702 Qa Software Test Engineer: [facility] External Provider IMG US PROCEDURES Final Result * POCT Glucose (05/14/2025 2:21 PM EDT) Glucose Blood, POC 98 60 - 200 mg/dL QC Media Lot # [id number] Lot# Expiration Date Blood Capillary blood specimen / Unknown 05/14/2025 2:21 PM EDT Result [facility] Constance Balderrama ANP POINT OF CARE TEST ENTER/EDIT OR DERABLES Final Result * Referral to Physiatry (05/13/2025) Constance Balderrama ANP OUTPATIENT REFERRAL ORDERABLES F inal Result * Culture, Urine, Routine (04/22/2025 12:36 PM EDT) Urine Urine specimen obtained by clean catch procedure / Unknown 04/22/2025 12:36 PM EDT 04/22/2025 4:47 PM EDT Comment:UACC Narrative [facility] - 04/24/2025 9:00 AM EDT Urine Culture Report Result Urine Culture 50,000 to 100,000 cfu/ml Urine Culture Mixed bacterial sheryl characteristic of Urine Culture urogenital contamination. Specimen Source: Urine clean catch Result [facility] Generic External Data Provider LAB MICROBIOLOGY - GENERAL ORDERABLES Final Result [facility] [address] [place] [phone] * Albumin, Random Urine W/Creatinine (03/22/2025 10:25 AM EDT) Creatinine, Urine 74.54 mg/dL [facility] Microalbumin Urine 10.0 mg/L [facility] Microalbum Creatinine Ratio Ur 13.4 <30 ug/mg cr [facility] Comment:Albumin/Creatinine R atio Reference Ranges: Normal: < 30 ug/mg creatinine Microalbuminuria: 30 - 300 ug/mg creatinineClinical Albuminuria: > 300 ug/mg creatinine Urine 03/22/2025 10:2 5 AM EDT 03/22/2025 11:02 AM EDT us Constance [facility] LAB URINE ORDERABLES Final Resul t [facility] [address] [place] [phone] * (ABNORMAL) POCT HGB A1C (12/04/2024 10:35 AM EST) Hemoglobin A1C 6.2(A) 4.0 - 6.0 % QC Media Lot # [id number] Lot# Expiration Date Blood 12/04/2024 10:3 5 AM EST us Constance [facility] POINT OF CARE TEST ENTER/EDIT OR DERABLES Edited Result - Final * Hepatitis C Antibody with Reflex to HCV, RNA, Quantitative, Real-Time PCR (05/03/2024 11:38 AM EDT) Hepatitis C Antibody Nonreactive Nonreactive [facility] Comment:Antibodies to HCV no t detected; does not exclude early acuteHCV infection. Blood Venous blood specimen / Unknown 05/03/2024 11:38 AM EDT 05/03/2024 1:01 PM EDT us Constance Balderrama ANP LAB BLOOD ORDERABLES Final Resul t Performing Organization Address [facility] de Phone Number [facility] [address] [place] [phone] * (ABNORMAL) Lipid Panel, Standard (05/03/2024 11:30 AM EDT) Triglycerides 211(H) <150 mg/dL [facility] Comment:Desirable Triglyceri de: less than 150 mg/dLBorderline High Triglyceride 150-199 mg/dLHigh Triglyceride: 200-499 mg/dLVery High Triglyceride: greater than or equal to 5OO mg/dL Cholesterol 110 <200 mg/dL [facility] Comment:Desirable Cholestero l: less than 200 mg/dLBorderline High Cholesterol: 200-239 mg/dLHigh Cholesterol: greater than 239 mg/dL LDL Cholesterol Calculated 35 <100 mg/dL [facility] Comment:Desirable LDL: less than 100 mg/dLNear Optimal/Above Optimal LDL: 110- 129 mg/dLBorderline High LDL: 130-159 mg/dLHigh LDL: 160-189 mg/dLVery High LDL: greater than or equal to 190 mg/dL HDL Cholesterol 33(L) >40 mg/dL [facility] Comment:Desirable HDL: great er than 40 mg/dL Note: This HDL assay may give artificially low results in patients with liver disease. Blood Venous blood specimen / Unknown 05/03/2024 11:30 AM EDT 05/03/2024 1:01 PM EDT Constance Balderrama ANP LAB BLOOD ORDERABLES Final Resul t Performing Organization Address [facility] Co de Phone Number [facility] [address] [place] [phone] from Last 3 Months or Most Recently Relevant to Health Maintenance Insurance [facility] [employer] (HMO D-SNP) DAVID MATTSON [id number] Care Teams Transportation Planning Engineer Relationship Specialty Start Date End Date Constance Balderrama ANP [address] [place] [phone] PCP - General Family Medicine 02/10/24
--- OUTSIDE RECORDS SUMMARY | 2025-07-18 14:50 | XMS_ITS | Encounter Summary ---
Author Organization [employer] Address [address] [place] [address] Care Team Providers Care Shoulder Boner Name Role Phone Diane George Primary Care Provider [phone] Reason for Visit * Reason Comments Med Refill Encounter Details Date Type Department Care Team ([facility] st Contact Info) Description 02/04/2025 Refill [facility] [address] [place], [place] [phone] Diane George ANP [address] [place] [address] Social History Tobacco Use Types Packs/Day Years [...] Description 07/19/2025 9:30 AM EDT Office Visit [facility] [address] [place] [phone] Ange Owen MD [address] [place] [phone] 08/20/2025 1:30 PM EDT Office Visit [facility] [address] [place] [phone] Diane George ANP [address] [place] [phone] documented as of this encounter Visit Diagnoses Not on filedocumented in this encounter Additional Health Concerns Assessment Noted Time PHQ-9 Depression Total Score: 9 07/27/20 24 9:59 AM EDT documented as of this encounter Care Teams Shoulder Boner Relationship Specialty Start Date End Date Diane George ANP [address] [place] [phone] PCP - General Family Medicine 02/10/24 documented as of this encounter
--- OUTSIDE RECORDS SUMMARY | 2025-07-18 14:50 | XMS_ITS | Encounter Summary ---
Author Organization [employer] Address [address] [place] [address] Care Team Providers Care Solid Propellant Processor Name Role Phone Diane George Primary Care Provider [phone] Reason for Visit * Reason Onset Date Comments notes 07/17/2025 Encounter Details Date Type Department Care Team ([facility] st Contact Info) Description 07/17/2025 Telephone [facility] [address] [place], [place] [phone] Diane George ANP [address] [place] [address] notes Social History Tobacco Use Types Packs/Day Years [...] * Telephone Encounter - Haroon Gaitan - 07/17/2025 11:33 AM EDT Tc from Radha at [facility] requesting a clear copy of sleep study and copy of last officenotes to study showing it was ordered Contact Radha at [phone] documented in this encounter Plan of Treatment Upcoming Encounters Date Type Department Care Team (Late st Contact Info) Description 07/19/2025 9:30 AM EDT Office Visit [facility] [address] [place] [phone] Ange Owen MD [address] [place] [address] 08/20/2025 1:30 PM EDT Office Visit [facility] [address] [place] [address] [phone] Diane George ANP [address] [place] [address] documented as of this encounter Visit Diagnoses Not on filedocumented in this encounter Additional Health Concerns Assessment Noted Time PHQ-9 Depression Total Score: 9 02/14/20 25 3:51 PM EDT documented as of this encounter Care Teams Solid Propellant Processor Relationship Specialty Start Date End Date Diane George ANP [address] [place] [phone] PCP - General Family Medicine 02/10/24 documented as of this encounter
--- OUTSIDE RECORDS SUMMARY | 2025-07-18 14:50 | XMS_ITS | Encounter Summary ---
Author Organization [employer] Address [address] [facility] [address] 7t [place] [address] Care Team Providers Care Waiter/Waitress Captain Name Role Phone Diane George Primary Care Provider [phone] Encounter Details Date Type Department Care Team ([facility] st Contact Info) Description 07/12/2025 Refill [facility] 230 [place], [place] [phone] Diane George ANP 230 [place] [address] Hypothyroidism, unspecified type Social History Tobacco Use Types Packs/Day Years [...] Description 07/19/2025 9:30 AM EDT Office Visit [facility] [address] [place] [address] Ange Owen MD [address] [place] [address] 08/20/2025 1:30 PM EDT Office Visit [facility] [address] [place] [address] Diane George ANP [address] [place] [address] documented as of this encounter Visit Diagnoses Diagnosis Hypothyroidism, unspecified type documented in this encounter Additional Health Concerns Assessment Noted Time PHQ-9 Depression Total Score: 9 02/14/20 25 3:51 PM EDT documented as of this encounter Care Teams Waiter/Waitress Captain Relationship Specialty Start Date End Date Diane George ANP [address] [place] [address] PCP - General Family Medicine 02/10/24 documented as of this encounter
--- OUTSIDE RECORDS SUMMARY | 2025-07-18 14:50 | XMS_ITS | Encounter Summary ---
Author Organization [employer] Address [address] [facility] [address] 7t [place] [address] Care Team Providers Care Organic Extractions Technician Name Role Phone Diane George Primary Care Provider [phone] Reason for Visit * Reason Comments Med Refill Encounter Details Date Type Department Care Team ([facility] st Contact Info) Description 10/18/2024 Refill [facility] 230 [place] [address] Diane George ANP 230 [place] [address] Social History Tobacco Use Types Packs/Day Years [...] Description 07/19/2025 9:30 AM EDT Office Visit [facility] [address] [place] [address] Ange Owen MD [address] [place] [address] 08/20/2025 1:30 PM EDT Office Visit [facility] [address] [place] [address] Diane George ANP [address] [place] [address] documented as of this encounter Visit Diagnoses Not on filedocumented in this encounter Additional Health Concerns Assessment Noted Time PHQ-9 Depression Total Score: 9 07/27/20 9:59 AM EDT documented as of this encounter Care Teams Organic Extractions Technician Relationship Specialty Start Date End Date Diane George ANP [address] [place] [address] PCP - General Family Medicine 02/10/24 documented as of this encounter
--- OUTSIDE RECORDS SUMMARY | 2025-07-18 14:50 | XMS_ITS | Encounter Summary ---
Author Organization [employer] Address [address] [facility] [address] 7t [place] [address] Care Team Providers Care Advertising Teacher Name Role Phone Diane George Primary Care Provider [phone] Encounter Details Date Type Department Care Team ([facility] st Contact Info) Description 07/16/2025 Refill [facility] 230 [place], [place] [phone] Diane George ANP 230 [place] [address] Hypothyroidism, unspecified type Social History Tobacco Use [...] encounter Miscellaneous Notes * Telephone Encounter - VASYL Cherry - 07/16/2025 5:17 PM EDT Duplicate documented in this encounter Plan of Treatment Upcoming Encounters Date Type Department Care Team (Late st Contact Info) Description 07/19/2025 9:30 AM EDT Office Visit [facility] [address] [place] [address] Ange Owen MD [address] [place] [address] 08/20/2025 1:30 PM EDT Office Visit [facility] [address] [place] [address] Diane George ANP [address] [place] [address] documented as of this encounter Visit Diagnoses Diagnosis Hypothyroidism, unspecified type documented in this encounter Additional Health Concerns Assessment Noted Time PHQ-9 Depression Total Score: 9 02/14/20 25 3:51 PM EDT documented as of this encounter Care Teams Advertising Teacher Relationship Specialty Start Date End Date Diane George ANP [address] [place] [address] PCP - General Family Medicine 02/10/24 documented as of this encounter
--- OUTSIDE RECORDS SUMMARY | 2025-07-18 14:50 | XMS_ITS | Encounter Summary ---
Author Organization [employer] Address [address] [facility] [address] 7t [place] [address] Care Team Providers Care Electrical Engineering Director Name Role Phone Diane George Primary Care Provider [phone] Reason for Visit * Reason Onset Date Comments New Patient 07/07/2023 Encounter Details Date Type Department Care Team (Late st Contact Info) Description 07/07/2023 Telephone [facility] 230 [place] [address] Seth Barron MD 230 [place] [address] New Patient Social History Tobacco Use Types [...] been transfer over to wait list for CAMPAIGN MANAGEMENT SENIOR MANAGER. EFFECTIVE SINCE 04/14/2023 documented in this encounter Plan of Treatment Upcoming Encounters Date Type Department Care Team (Late st Contact Info) Description 07/19/2025 9:30 AM EDT Office Visit [address] [address] Ange Owen MD 230 [place] [address] 08/20/2025 1:30 PM EDT Office Visit [address] [address] Diane George ANP [address] [place] [address] documented as of this encounter Visit Diagnoses Not on filedocumented in this encounter Care Teams Electrical Engineering Director Relationship Specialty Start Date End Date Diane George ANP [address] [place] [address] PCP - General Family Medicine 02/10/24 documented as of this encounter
--- OUTSIDE RECORDS SUMMARY | 2025-07-18 14:50 | XMS_ITS | Clinical Summary ---
Author Organization [facility] Address 175 [place] [address] Phone Care Team Providers Care Nail Galvanizer Name Role Phone DorisDiane Ankur BARKER Primary Care Provider [phone] Allergies No known active allergies Medications ACETAMINOPHEN [...] 3:30 PM EDT Office Visit Orthopedic [facility] [address] [phone] Antony Ramirez DPM Hammer toe of left foot (Primary Dx); Dermatophytosis of nail; Metatarsalgia of both feet; Tinea pedis of both feet; Diabetic mononeuropathy simplex ([facility] V24, [facility] V28); Corns and callosities; Pain in [...] 07/23/2025 1:30 PM EDT Office Visit Orthopedic [facility] [address] [phone] Antony Ramirez DPM [address] [phone] Health Maintenance Due Date Last Done Comments Diabetes: Annual Foot Exam 1955 Diabetes: Annual Retina Eye Exam 1956 Falls Risk Assessment 08/26/2024 Medicare Annual Wellness Visit 08/26/2024 Osteoporosis Screening (Bone Density Screening) 08/26/2024 Social Influencers of Health Screening 08/26/2024 Diabetes: Annual Urine Albumin-Creatinine Ratio (uACR) 10/09/2024 Depression Screening 11/14/2024 Diabetes: Blood Sugar Contro l Test (HGBA1C) 06/03/2025 12/04/2024, 07/27/2024 COVID-19 Vaccine (1 - 2023-2 5 season) 2025 Influenza Vaccine (#1) 2025 , [...] patient's age to complete this topic Insurance [facility] MEDICARE Member Subscriber Plan / Payer (Ef fective 2024-Present) Name:CHANTE ABDI Relation to Subscriber:Self Name:Chante Abdi Payer ID:[id number] Group ID:[id number] Type:Not on file Address: [facility] [address] [id number] Care Teams Nail Galvanizer Relationship Specialty Start Date End Date Diane George NP [address] [phone] PCP - General 06/15/24
--- OUTSIDE RECORDS SUMMARY | 2025-07-18 14:50 | XMS_ITS | Encounter Summary ---
Author Organization [employer] Address [address] [facility] [address] 7t [place] [address] Care Team Providers Care Rail Filler Name Role Phone Diane George Primary Care Provider Reason for Visit * Reason Onset Date Comments Appointment Request 04/24/2025 Encounter Details Date Type Department Care Team ([facility] st Contact Info) Description 04/24/2025 Telephone [facility] 230 [place], [place] [phone] Diane George ANP 230 [place] [address] Appointment Request Social History Tobacco Use Types [...] that was tomorrow 04/25/25 Contact pt at [phone] (dominican) documented in this encounter Plan of Treatment Upcoming Encounters Date Type Department Care Team (Late st Contact Info) Description 07/19/2025 9:30 AM EDT Office Visit [facility] [address] [place] [address] Ange Owen MD 230 [place] [address] 08/20/2025 1:30 PM EDT Office Visit [facility] [address] [place] [address] [phone] Diane George ANP 230 [place] [address] documented as of this encounter Visit Diagnoses Not on filedocumented in this encounter Additional Health Concerns Assessment Noted Time PHQ-9 Depression Total Score: 9 02/14/20 25 3:51 PM EDT documented as of this encounter Care Teams Rail Filler Relationship Specialty Start Date End Date Diane George ANP 230 [place] [address] PCP - General Family Medicine 02/10/24 documented as of this encounter
--- OUTSIDE RECORDS SUMMARY | 2025-07-18 14:50 | XMS_ITS | Encounter Summary ---
Author Organization [employer] Address [address] [facility] [address] 7t [place] [address] Care Team Providers Care Athletic Instructor Name Role Phone Diane George Primary Care Provider Encounter Details Date Type Department Care Team ([facility] st Contact Info) Description 03/20/2025 Telephone [facility] 230 [place], [place] [phone] Diane George ANP 230 [place] [address] Social History Tobacco Use Types Packs/Day Years [...] 9:30 AM EDT Office Visit [facility] [address] [place] [address] Ange Owen MD 230 [place] [address] 08/20/2025 1:30 PM EDT Office Visit [facility] [address] [place] [address] Diane George ANP 230 [place] [address] documented as of this encounter Visit Diagnoses Not on filedocumented in this encounter Additional Health Concerns Assessment Noted Time PHQ-9 Depression Total Score: 9 02/14/20 25 3:51 PM EDT documented as of this encounter Care Teams Athletic Instructor Relationship Specialty Start Date End Date Diane George ANP 230 [place] [address] PCP - General Family Medicine 02/10/24 documented as of this encounter
== END 2025-07-18 15:35 | disposition home or self-care (01) ==
LOC: HO.HUSH 13:34
PROVIDERS: PCP Nurse Practitioner Primary Care; Visit Provider Urology
DX: R32 Unspecified urinary incontinence (principal); R39.13 Splitting of urinary stream; Z13.9 Encounter for screening, unspecified; N32.81 Overactive bladder
CPT/HCPCS: 52000

== ENCOUNTER → 2025-07-18 13:33 | Outpatient (BNVA) | payer OTHER, SELFPAY | PROVIDERS: PCP Nurse Practitioner Primary Care; Visit Provider Urology | DX: N32.81 Overactive bladder (principal); R32 Unspecified urinary incontinence; R39.13 Splitting of urinary stream; Z13.9 Encounter for screening, unspecified | CPT/HCPCS: 52000; 81003 ==

== ENCOUNTER 2025-07-19 09:56 | Outpatient (REF) | payer OTHER, SELFPAY ==
--- OUTSIDE RECORDS SUMMARY | 2025-07-19 09:30 | XMS_ITS | Encounter Summary ---
Author Organization [employer] Address [address] [facility] [address] 7t [place] [address] Care Team Providers Care Internal Control Manager Name Role Phone Diane George Primary Care Provider [phone] Encounter Details Date Type Department Care Team (Late st Contact Info) Description 07/19/2025 9:30 AM EDT Office Visit [facility] 230 [place] [address] Leonora Owen MD 230 [place] [address] Inverse psoriasis (Primary Dx); Psoriasis vulgaris Social History Tobacco Use Types Packs/Day Years [...] Sign Reading Time Taken Comments Blood Pressure 142/96 07/19/2025 9:36 AM EDT Pulse 82 07/19/2025 9:36 AM EDT Temperature 35.9 C (96.6 F) 07/19/2025 9:36 AM EDT Respiratory Rate 17 07/19/2025 9:36 AM EDT Oxygen Saturation 97% 07/19/2025 9:36 AM EDT Inhaled Oxygen Concentration - - Weight 79.4 kg (175 lb) 07/19/2025 9:36 AM EDT Height - - Body Mass Index 34.18 05/14/2025 1:25 PM EDT documented in this encounter Progress Notes * Leonora Owen MD - 07/19/2025 9:30 AM EDT Subjective Patient ID: Roseanne Abdi is a 80 y.o. female who presents for No chief complaint on file.. HPI 80 yr old woman with hx of psoriasis proven by Bx here today for follow up. For the past 3 months she has tried Triamcinolone acetonide cream 0.1% without much relief. She has ran out of medication amonth ago and her psoriasis flared up. She has involvement of groin area. She describes intense itching. Review of Systems Constitutional: Negative for diaphoresis, [...] back: Normal range of motion. Skin: Comments: erythematous scaly plaques on upper and lower extremities, as well Torso. Non scaly erythematous plaques on upper inner thighs. Neurological: General: No focal deficit present. Mental Status: She is alert. Assessment/Plan Diagnoses and all orders for this visit: Psoriasis vulgaris Inverse psoriasis Chronic, unstable Involvement of genitalis BSA >6% Kenalog Crm helped partially, ran out quickly. Refill Kenalog 0.1% crm Added Halobetasol ointment for legs 2wks on2wks off for topicals Blood works as below RTC in 3 months. - triamcinolone (Kenalog) 0.1 % cream; Apply topically if needed in the morning and at bedtime (pain and swelling). - halobetasol (UltraVATE) 0.05 % ointment; Apply topically 2 times daily. Apply on legs 2 weeks on 2 weeks off - QuantiFERON TB Gold - Comprehensive Metabolic Panel - CBC auto differential - Hepatitis A,B,C Profile documented in this encounter Miscellaneous Notes * Addendum Note - Leonora Owen MD - 07/19/2025 9:30 AM EDTAddended by: LEONORA LUKE on: 07/19/2025 10:14 AM Modules accepted: Orders documented in this encounter Plan of Treatment Upcoming Encounters Date Type Department Care Team (Late st Contact Info) Description 08/20/2025 1:30 PM EDT Office Visit [address] [address] Diane George ANP [address] [place] [address] 10/18/2025 10:45 AM EST Office Visit [address] [address] Leonora Owen MD [address] [place] [address] Scheduled Orders Name Type Priority Associated Diagnoses Orde r Schedule Comprehensive Metabolic Panel Lab Routine Psoriasis vulgaris Ordered: 07/19/2025 CBC auto differential Lab Routine Psoriasis vulgaris Ordered: 07/19/2025 Hepatitis A,B,C Profile Lab Routine Psoriasis vulgaris Ordered: 07/19/2025 QuantiFERON -TB Gold Plus, 1 Tube Lab Routine Psoriasis vulgaris Inverse psoriasis Ordered: 07/19/2025 documented as of this encounter Visit Diagnoses Diagnosis Inverse psoriasis- Primary Other psoriasis Psoriasis vulgaris Other psoriasis documented in this encounter Additional Health Concerns Assessment Noted Time PHQ-9 Depression Total Score: 9 02/14/20 25 3:51 PM EDT documented as of this encounter Care Teams Internal Control Manager Relationship Specialty Start Date End Date Diane George ANP [address] [place] [address] PCP - General Family Medicine 02/10/24 documented as of this encounter
--- OUTSIDE RECORDS SUMMARY | 2025-07-19 10:43 | XMS_ITS | Encounter Summary ---
Author Organization [employer] Address [address] [facility] [address] 7t [place] [address] Care Team Providers Care Administrative Resources Associate Name Role Phone Diane George Primary Care Provider [phone] Reason for Visit * Reason Onset Date Comments notes 07/17/2025 Encounter Details Date Type Department Care Team (Late st Contact Info) Description 07/17/2025 Telephone [facility] 230 [place] [address] Diane George ANP 230 [place] [address] notes Social History Tobacco Use Types Packs/Day [...] 11:33 AM EDT Tc from Radha at [facility] requesting a clear copy of sleep study and copy of last officenotes to study showing it was ordered Contact Radha at [phone] documented in this encounter Plan of Treatment Upcoming Encounters Date Type Department Care Team (Late st Contact Info) Description 08/20/2025 1:30 PM EDT Office Visit [facility] [address] [place] [address] Diane George ANP 230 [place] [address] 10/18/2025 10:45 AM EST Office Visit [facility] [address] [place] [address] Ange Owen MD [address] [place] [address] documented as of this encounter Visit Diagnoses Not on filedocumented in this encounter Additional Health Concerns Assessment Noted Time PHQ-9 Depression Total Score: 9 02/14/20 25 3:51 PM EDT documented as of this encounter Care Teams Administrative Resources Associate Relationship Specialty Start Date End Date Diane George ANP 230 [place] [address] PCP - General Family Medicine 02/10/24 documented as of this encounter
--- OUTSIDE RECORDS SUMMARY | 2025-07-19 10:43 | XMS_ITS | Encounter Summary ---
Author Organization [employer] Address [address] [facility] 7t [place] [address] Care Team Providers Care Glass Inserter Name Role Phone Diane George Primary Care Provider [phone] Reason for Visit * Reason Comments Med Refill Encounter Details Date Type Department Care Team ([facility] st Contact Info) Description 02/04/2025 Refill [facility] 230 [place] [address] Diane George ANP 230 [place] [address] Social History Tobacco Use Types Packs/Day Years [...] Description 08/20/2025 1:30 PM EDT Office Visit [facility] [address] [place] [address] Diane George ANP [address] [place] [address] 10/18/2025 10:45 AM EST Office Visit [address] [address] Ange Owen MD [address] [place] [address] documented as of this encounter Visit Diagnoses Not on filedocumented in this encounter Additional Health Concerns Assessment Noted Time PHQ-9 Depression Total Score: 9 07/27/20 24 9:59 AM EDT documented as of this encounter Care Teams Glass Inserter Relationship Specialty Start Date End Date Diane George ANP [address] [place] [address] PCP - General Family Medicine 02/10/24 documented as of this encounter
--- OUTSIDE RECORDS SUMMARY | 2025-07-19 10:43 | XMS_ITS | Encounter Summary ---
Author Organization [employer] Address [address] [facility] [address] 7t [place] [address] Care Team Providers Care Apartment Maintenance Name Role Phone Diane George Primary Care Provider [phone] Encounter Details Date Type Department Care Team (Late st Contact Info) Description 03/20/2025 Telephone [facility] 230 [place], [place] [phone] Diane George ANP 230 [place] [address] Social History Tobacco Use Types Packs/Day Years [...] Description 08/20/2025 1:30 PM EDT Office Visit [facility] [address] [place] [address] Diane George ANP [address] [place] [address] 10/18/2025 10:45 AM EST Office Visit [address] [address] Ange Owen MD [address] [place] [address] documented as of this encounter Visit Diagnoses Not on filedocumented in this encounter Additional Health Concerns Assessment Noted Time PHQ-9 Depression Total Score: 9 02/14/20 25 3:51 PM EDT documented as of this encounter Care Teams Apartment Maintenance Relationship Specialty Start Date End Date Diane George ANP [address] [place] [address] PCP - General Family Medicine 02/10/24 documented as of this encounter
--- OUTSIDE RECORDS SUMMARY | 2025-07-19 10:43 | XMS_ITS | Encounter Summary ---
Author Organization [employer] Address [address] [facility] [address] 7t [place] [address] Care Team Providers Care Hatch Boss Name Role Phone Diane George Primary Care Provider [phone] Encounter Details Date Type Department Care Team (Late st Contact Info) Description 07/16/2025 Refill [facility] 230 [place], [place] [phone] Diane George ANP 230 [place] [address] Hypothyroidism, unspecified type Social History Tobacco Use [...] Description 08/20/2025 1:30 PM EDT Office Visit [facility] [address] [place] [address] Diane George ANP [address] [place] [address] 10/18/2025 10:45 AM EST Office Visit [facility] [address] [place] [address] Ange Owen MD [address] [place] [address] documented as of this encounter Visit Diagnoses Diagnosis Hypothyroidism, unspecified type documented in this encounter Additional Health Concerns Assessment Noted Time PHQ-9 Depression Total Score: 9 02/14/20 25 3:51 PM EDT documented as of this encounter Care Teams Hatch Boss Relationship Specialty Start Date End Date Diane George ANP [address] [place] [address] PCP - General Family Medicine 02/10/24 documented as of this encounter
--- OUTSIDE RECORDS SUMMARY | 2025-07-19 10:43 | XMS_ITS | Encounter Summary ---
Author Organization [employer] Address [address] [facility] [address] 7t [place] [address] Care Team Providers Care After School Program Teacher Name Role Phone Diane George Primary Care Provider [phone] Encounter Details Date Type Department Care Team (Late st Contact Info) Description 07/12/2025 Refill [facility] 230 [place], [place] [phone] Diane George ANP 230 [place] [address] Hypothyroidism, unspecified type Social History Tobacco Use [...] Description 08/20/2025 1:30 PM EDT Office Visit [facility] [address] [place] [address] Diane George ANP [address] [place] [address] 10/18/2025 10:45 AM EST Office Visit [address] [address] Ange Owen MD [address] [place] [address] documented as of this encounter Visit Diagnoses Diagnosis Hypothyroidism, unspecified type documented in this encounter Additional Health Concerns Assessment Noted Time PHQ-9 Depression Total Score: 9 02/14/20 25 3:51 PM EDT documented as of this encounter Care Teams After School Program Teacher Relationship Specialty Start Date End Date Diane George ANP [address] [place] [address] PCP - General Family Medicine 02/10/24 documented as of this encounter
--- OUTSIDE RECORDS SUMMARY | 2025-07-19 10:43 | XMS_ITS | Encounter Summary ---
Author Organization [employer] Address [address] [facility] [address] 7t [place] [address] Care Team Providers Care Office Administration Name Role Phone Diane George VASYL Primary Care Provider [phone] Encounter Details Date Type Department Care Team (Latest Contact Info) Description 07/19/2025 Travel Social History Tobacco Use Types Packs/Day [...] Description 08/20/2025 1:30 PM EDT Office Visit [facility] [address] [place] [address] Diane George ANP [address] [place] [address] 10/18/2025 10:45 AM EST Office Visit [facility] [address] [place] [address] Ange Owen MD 230 [place] [address] documented as of this encounter Visit Diagnoses Not on filedocumented in this encounter Additional Health Concerns Assessment Noted Time PHQ-9 Depression Total Score: 9 02/14/20 25 3:51 PM EDT documented as of this encounter Care Teams Office Administration Relationship Specialty Start Date End Date Diane George ANP [address] [place] [address] PCP - General Family Medicine 02/10/24 documented as of this encounter
--- OUTSIDE RECORDS SUMMARY | 2025-07-19 10:43 | XMS_ITS | Clinical Summary ---
Author Organization 175 [facility] Address 175 [place] [address] Phone Care Team Providers Care Solid Waste Technician Name Role Phone DorisDiane Ankur BARKER Primary Care Provider [phone] Allergies No known active allergies Medications ACETAMINOPHEN [...] Visit Orthopedic Surgery [facility] [address] [phone] Antony Ramirez DPM Hammer toe of left foot (Primary Dx); Dermatophytosis of nail; Metatarsalgia of both feet; Tinea pedis of both feet; Diabetic mononeuropathy simplex ([facility] V24, [facility] V28); Corns and callosities; Pain in toe [...] 07/23/2025 1:30 PM EDT Office Visit Orthopedic [facility] [address] [phone] Antony Ramirez DPM [address] [phone] Health Maintenance Due Date Last Done Comments [...] patient's age to complete this topic Insurance [facility] MEDICARE Member Subscriber Plan / Payer (Ef fective 2024-Present) Name:CHANTE ABDI Relation to Subscriber:Self Name:Chante Abdi Payer ID:[id number] Group ID:[id number] Type:Not on file Address: [facility] [id number] [phone] Care Teams Solid Waste Technician Relationship Specialty Start Date End Date Diane George NP [address] [phone] PCP - General 06/15/24
--- OUTSIDE RECORDS SUMMARY | 2025-07-19 10:43 | XMS_ITS | Encounter Summary ---
Author Organization [employer] Address 75 [facility] 7t [place] [address] Care Team Providers Care Piano Player Name Role Phone Diane George Primary Care Provider [phone] Reason for Visit * Reason Onset Date Comments Appointment Request 04/24/2025 Encounter Details Date Type Department Care Team ([facility] st Contact Info) Description 04/24/2025 Telephone [facility] MED[facility]INE [address] [place] [address] Diane George ANP 230 [place] [address] Appointment Request Social History Tobacco Use Types [...] that was tomorrow 04/25/25 Contact pt at [phone] (gabonese) documented in this encounter Plan of Treatment Upcoming Encounters Date Type Department Care Team (Late st Contact Info) Description 08/20/2025 1:30 PM EDT Office Visit [facility] MED[facility]INE [address] [place] [phone] Diane George ANP [address] [place] [phone] 10/18/2025 10:45 AM EST Office Visit [facility] [address] [place] [address] [phone] Ange Owen MD [address] [place] [phone] documented as of this encounter Visit Diagnoses Not on filedocumented in this encounter Additional Health Concerns Assessment Noted Time PHQ-9 Depression Total Score: 9 02/14/20 25 3:51 PM EDT documented as of this encounter Care Teams Piano Player Relationship Specialty Start Date End Date Diane George ANP 230 [place] [address] PCP - General Family Medicine 02/10/24 documented as of this encounter
--- OUTSIDE RECORDS SUMMARY | 2025-07-19 10:43 | XMS_ITS | Encounter Summary ---
Author Organization [employer] Address 75 [facility] 7t [place] [address] Care Team Providers Care Build And Deployment Engineer Name Role Phone Diane George Primary Care Provider [phone] Reason for Visit * Reason Comments Med Refill Encounter Details Date Type Department Care Team ([facility] st Contact Info) Description 10/18/2024 Refill [facility] MEDICINE 230 [place] [address] Diane George ANP 230 [place] [address] Social History Tobacco Use Types Packs/Day Years [...] Description 08/20/2025 1:30 PM EDT Office Visit [facility] MEDICINE [address] [place] [phone] Diane George ANP [address] [place] [phone] 10/18/2025 10:45 AM EST Office Visit [address] [address] Ange Owen MD [address] [place] [address] documented as of this encounter Visit Diagnoses Not on filedocumented in this encounter Additional Health Concerns Assessment Noted Time PHQ-9 Depression Total Score: 9 07/27/20 24 9:59 AM EDT documented as of this encounter Care Teams Build And Deployment Engineer Relationship Specialty Start Date End Date Diane George ANP [address] [place] [phone] PCP - General Family Medicine 02/10/24 documented as of this encounter
--- OUTSIDE RECORDS SUMMARY | 2025-07-19 10:43 | XMS_ITS | Encounter Summary ---
Author Organization [employer] Address 75 [facility] 7t [place] [address] Care Team Providers Care Gas Meter Reader Name Role Phone Diane George VASYL Primary Care Provider [phone] Reason for Visit * Reason Onset Date Comments New Patient 07/07/2023 Encounter Details Date Type Department Care Team (Late Contact Info) Description 07/07/2023 Telephone [facility] 230 [place] [address] Seth Barron MD 230 [place] [address] New Patient Social History Tobacco Use Types [...] been transfer over to wait list for SUPERVISOR [employer]EL[employer]. EFFECTIVE SINCE 04/14/2023 documented in this encounter Plan of Treatment Upcoming Encounters Date Type Department Care Team (Late st Contact Info) Description 08/20/2025 1:30 PM EDT Office Visit [address] [address] Diane George ANP 230 [place] [address] 10/18/2025 10:45 AM EST Office Visit [address] [phone] Ange Owen MD 230 [place] [address] documented as of this encounter Visit Diagnoses Not on filedocumented in this encounter Care Teams Gas Meter Reader Relationship Specialty Start Date End Date Diane George ANP [address] [place] [phone] PCP - General Family Medicine 02/10/24 documented as of this encounter
--- OUTSIDE RECORDS SUMMARY | 2025-07-19 10:43 | XMS_ITS | Clinical Summary ---
Author Organization [employer] Address 75 [facility] 7t [place] [address] Care Team Providers Care Uniform Force Captain Name Role Phone Constance Balderrama VASYL Primary Care Provider [phone] Allergies No known active allergies Medications * [...] mouth Once per day. 02/28/20 25 Active lidocaine (Lidoderm) 5 % patchIndications: Right leg pain Apply 1 patch topically Once per day. Remove & discard patch within 12 hours or as directed by MD. 30 patch 2 05/14/20 25 Active Blood Glucose Monitoring Suppl (FreeStyle Lite) w/Device kitIndications:Hy pertension associated with diabetes ([facility]) 1 each 2 times daily. 1 kit [...] day. 90 tablet 3 07/16/20 25 Active triamcinolone (Kenalog) 0.1 % creamIndications: Psoriasis vulgaris Apply topically if needed in the morning and at bedtime (pain and swelling). 453.6 g 2 07/19/20 25 Active halobetasol (UltraVATE) 0.05 % ointmentIndicatio ns:Psoriasis vulgaris Apply topically 2 times daily. Apply on legs 2 weeks on 2 weeks off 50 g 2 07/19/20 25 Active levothyroxine (Synthroid, Levoxyl) 137 MCG tabletIndications :Hypothyroidism, unspecified type Take 137 mcg by mouth Once per day. 90 tablet 3 07/27/20 24 2024 Discontinued(R eorder (will not trigger notification to Pharmacy)) halobetasol (UltraVATE) 0.05 % ointment Apply topically 2 times daily. 50 g 2 03/22/20 25 2024 Discontinued triamcinolone (Kenalog) 0.1 % creamIndications: Psoriasis vulgaris Apply topically if needed in the morning and at bedtime (pain and swelling). 453.6 g 1 04/26/20 25 2024 Discontinued(R eorder (will not trigger notification [...] connected with a psychiatrist and therapist in [place] (unable to provide agency name). Today, pt [...] with psychopharmacology when she was living in [place]. Family moved to [place] from [place] in 2017. Further information needed to make [...] with psychopharmacology when she was living in [place]. Family moved to [place] from [place] in 2016. Further information needed to make diagnosis. PLAN: (check all that apply) Continue with current services (defined as services in the past 12 months) . Referral placed during last visit for psychiatry services with [facility]/intake. Assessment & Plan (02/13/2024 4:32 PM EDT): [...] with psychopharmacology when she was living in [place]. She was accompanied by her granddaughter. Family moved to [place] from [place] in 2017. Further information needed to make diagnosis. PLAN: (check all that apply) New/Additional Services needed PCP management On-site non-integrated services Off-site services for Behavioral Health Integration Plan Internal Follow up with I External OP BH therapy referral and OP psychiatry Referral Patient Self Plan Patient to utilize skills provided in intervention , Patient to reach out to [facility] team as needed, Patient to engage in OP therapy , and Patient to reach out to [facility] as needed. Discussed getting sooner appointments with [facility] ([facility]) for psychopharmacology. clinician will see patient during next physical if needed. Encounters Date Type Department Care Team Description 07/19/2025 9:30 AM EDT Office Visit [facility] MEDICINE [address] [place] [address] Ange Owen MD Inverse psoriasis (Primary Dx); Psoriasis vulgaris 07/19/2025 Travel 07/17/2025 Telephone [facility] MEDICINE [address] [place] [address] Constance Balderrama ANP notes 07/16/2025 Refill [facility] [address] [place] [phone] Constance Balderrama ANP Hypothyroidism, unspecified type 07/12/2025 Refill [facility] [address] [place] [phone] Constance Balderrama ANP Hypothyroidism, unspecified type 07/01/2025 Telephone [facility]INE [address] [place] [phone] Constance Balderrama ANP notes faxed to sleep study 06/28/2025 Telephone [facility]INE [address] [place] [phone] Constance Balderrama ANP Durable Medical Equipment 06/28/2025 Orders Only [facility]INE [address] [place] [phone] Constance Balderrama ANP DIANA (obstructive sleep apnea) (Primary Dx); Nocturnal hypoxia 06/15/2025 Refill [facility]INE [address] [place] [phone] Constance Balderrama ANP Radicular pain of lower extremity; Diabetic polyneuropathy associated with type 2 diabetes mellitus ([facility]) 05/29/2025 Orders Only [facility] External Provider, [facility] 05/27/2025 Telephone [facility]INE [address] [place] [address] Constance Balderrama ANP October recall 05/16/2025 Telephone [facility] [address] [place] [address] Constance Balderrama ANP PSG ORDER 05/14/2025 1:15 PM EDT Office Visit [facility] MED[facility]INE [address] [place] [address] Constance Balderrama ANP DIANA (obstructive sleep apnea) (Primary Dx); Hypertension associated with diabetes (CMS/HCC); Radicular pain of lower extremity; Right hip pain; Low back pain potentially associated with radiculopathy; Spinal stenosis of lumbar region with neurogenic claudication; Dietary counseling; Exercise counseling; Right leg pain 05/14/2025 Travel 05/13/2025 Telephone [facility]INE [address] [place] [address] Constance Balderrama ANP Chart Prep 04/26/2025 11:00 AM EDT Office Visit [address] [address] Ange Owen MD Psoriasis vulgaris (Primary Dx) 04/26/2025 Travel 04/25/2025 Travel 04/24/[address] [address] Constance Balderrama ANP Appointment Request 04/22/2025 Orders [...] (175 lb) 07/19/2025 9:36 AM EDT Height 152.4 cm (5') 05/14/2025 1:25 PM EDT Body Mass Index 34.18 05/14/2025 1:25 PM EDT Plan of Treatment Upcoming Encounters Date Type Department Care Team (Late st Contact Info) Description 08/20/2025 1:30 PM EDT Office Visit [facility]INE 230 [place], [place] [phone] Constance Balderrama ANP 230 [place], [place] [phone] 10/18/2025 10:45 AM EST Office Visit [facility] 230 [place], [place] [phone] Ange Owen MD 230 [place] [address] Health Maintenance Due Date Last Done Comments Diabetes: Foot Exam 05/03/2025 05/03/2024, 05/03/2024, 05/03/2024, Additional history exists Lipid Panel 05/03/2025 05/03/2024 Diabetes: Hemoglobin A1C 06/03/2025 025, 07/27/2024, 02/10/2024 COVID-19 Vaccine ( season) 2025 Influenza Vaccine (#1) 2025 , 09/09/2023, 10/26/2022 Depression Monitoring 08/15/2025 02/13/2025, 025 Alcohol/Substance Use Screening 12/04/2025 12/04/2024 Diabetes: Urine Protein Screening 03/22/2026 03/22/2025 SDOH Screening 05/14/2026 05/14/2025 Tobacco Screening 07/19/2026 07/19/2025 Eye Exam 12/17/2026 12/17/2024 DTaP/Tdap/Td Vaccines (2 [...] PM EDT Narrative 05/29/2025 5:04 PM EDT [address] [address] Ultrasound Report Signed Patient: Roseanne Abdi MR#: [id number] 70 : 1945 Acct:[id number] Age/Sex: 79 / F ADM Date: 05/29/25 Loc: HO.US Attending Dr: Malick Sheridan MD Ordering Physician: Malick Sheridan MD Date of Service: 05/29/25 Procedure(s): US retroperitoneal comp Accession Number(s): [id number] cc: Malick Sheridan MD; CONSTANCE BALDERRAMA NP [...] in OV> 05/29/251703 DD/ 02 TD/TT: 05/29/251702 Senior Maintenance Mechanic: Procedure Note Donotuseinterpreter, Image - 05/29/[address] [address] Ultrasound Report Signed Patient: Briana Abdi#: [id number] 70 : 6Acct:[id number] Age/Sex: 79 / FADM Date: 05/29/25 Loc: HO.US Attending Dr: Malick Sheridan MD Ordering Physician: Malick Sheridan MD Date of Service: 05/29/25 Procedure(s): US retroperitoneal comp Accession Number(s): [id number] cc: Malick Sheridan MD; CONSTANCE BALDERRAMA NP [...] in OV> 05/29/251703 DD/ 02 TD/TT: 05/29/251702 Senior Maintenance Mechanic: [facility] External Provider IMG US PROCEDURES Final Result * POCT Glucose (05/14/2025 2:21 PM EDT) Glucose Blood, POC 98 60 - 200 mg/dL QC Media Lot # [id number] Lot# Expiration Date Blood Capillary blood specimen / Unknown 05/14/2025 2:21 PM EDT us Constance FALLON POINT OF CARE TEST ENTER/EDIT OR DERABLES Final Result * Referral to Physiatry (05/13/2025) Constance Balderrama ANP OUTPATIENT REFERRAL ORDERABLES F inal Result * Culture, Urine, Routine (04/22/2025 12:36 PM EDT) Urine Urine specimen obtained by clean catch procedure / Unknown 04/22/2025 12:36 PM EDT 04/22/2025 4:47 PM EDT Comment:UACC Narrative [facility] - 04/24/2025 9:00 AM EDT Urine Culture Report Result Urine Culture 50,000 to 100,000 cfu/ml Urine Culture Mixed bacterial sheryl characteristic of Urine Culture urogenital contamination. Specimen Source: Urine clean catch Generic External Data Provider LAB MICROBIOLOGY - GENERAL ORDERABLES Final Result Performing Organization Address [facility] Co de Phone Number [facility] [address] [place] [phone] * Albumin, Random Urine W/Creatinine (03/22/2025 10:25 AM EDT) Creatinine, Urine 74.54 mg/dL [facility] Microalbumin Urine 10.0 mg/L [facility] Microalbum Creatinine Ratio Ur 13.4 <30 ug/mg cr [facility] Comment:Albumin/Creatinine R atio Reference Ranges: Normal: < 30 ug/mg creatinine Microalbuminuria: 30 - 300 ug/mg creatinineClinical Albuminuria: > 300 ug/mg creatinine Urine 03/22/2025 10:2 5 AM EDT 03/22/2025 11:02 AM EDT Constance Balderrama ANP LAB URINE ORDERABLES Final Resul t Performing Organization Address City/[facility]/ZIP Co de Phone Number [facility] [address] [place] [phone] * (ABNORMAL) POCT HGB A1C (12/04/2024 10:35 AM EST) Hemoglobin A1C 6.2(A) 4.0 - 6.0 % QC Media Lot # [id number] Lot# Expiration Date [id number] Blood 12/04/2024 10:3 5 AM EST us Constance Balderrama ANP POINT OF CARE TEST ENTER/EDIT OR DERABLES Edited Result - Final * Hepatitis C Antibody with Reflex to HCV, RNA, Quantitative, Real-Time PCR (05/03/2024 11:38 AM EDT) Hepatitis C Antibody Nonreactive Nonreactive [facility] Comment:Antibodies to HCV no t detected; does not exclude early acuteHCV infection. Blood Venous blood specimen / Unknown 05/03/2024 11:38 AM EDT 05/03/2024 1:01 PM EDT us Constance Balderrama ANP LAB BLOOD ORDERABLES Final Resul t [facility] [address] [place] [phone] * (ABNORMAL) Lipid Panel, Standard (05/03/2024 11:30 AM EDT) Triglycerides 211(H) <150 mg/dL [facility] Comment:Desirable Triglyceri de: less than 150 mg/dLBorderline High Triglyceride 150-199 mg/dLHigh Triglyceride: 200-499 mg/dLVery High Triglyceride: greater than or equal to 5OO mg/dL Cholesterol 110 <200 mg/dL [facility] Comment:Desirable Cholestero l: less than 200 mg/dLBorderline High Cholesterol: 200-239 mg/dLHigh Cholesterol: greater than 239 mg/dL LDL Cholesterol Calculated 35 <100 mg/dL [facility] Comment:Desirable LDL: less than 100 mg/dLNear Optimal/Above Optimal LDL: 110- 129 mg/dLBorderline High LDL: 130-159 mg/dLHigh LDL: 160-189 mg/dLVery High LDL: greater than or equal to 190 mg/dL HDL Cholesterol 33(L) >40 mg/dL [facility] Comment:Desirable HDL: great er than 40 mg/dL Note: This HDL assay may give artificially low results in patients with liver disease. Blood Venous blood specimen / Unknown 05/03/2024 11:30 AM EDT 05/03/2024 1:01 PM EDT Constance FALLON LAB BLOOD ORDERABLES Final Resul t [facility] [address] [place] [phone] [phone] from Last 3 Months or Most Recently Relevant to Health Maintenance Insurance [facility] (HMO D-SNP) [address] [id number] Care Teams Uniform Force Captain Relationship Specialty Start Date End Date Constance Balderrama ANP [address] [place] [phone] PCP - General Family Medicine 02/10/24
[2025-07-19 11:19] LABS: MANUAL DIFF FLAG NO
[2025-07-19 11:23] LABS: Hematocrit 40.6 % (37.0-47.0); Hemoglobin 13.6 g/dl (12.0-16.0); Imm Gran Abs Auto 0.02 X10*3/uL (0.00-0.03); Imm Gran Pct Auto 0.3 % (0.0-0.4); Lymphocytes Absolute Auto 2.2 X10*3/uL (1.2-4.9); Mean Corpuscular HGB Conc 33.5 g/dl (31.0-35.0); Mean Corpuscular Hemoglobin 29.2 pg (27.0-33.0); Mean Corpuscular Volume 87.1 fL (80.0-98.0); NRBC Abs Auto 0.000 X10*3/uL (0.0-0.012); NRBC Pct Auto 0.0 /100WBC (0.0-0.2); Platelet Count 195 X10*3/uL (160-400); Red Blood Count 4.66 X10*6/uL (4.20-5.50); White Blood Count 6.2 X10*3/uL (4.8-10.8)
[2025-07-19 11:52] LABS: Alanine Aminotransferase 14 U/L (0-31); Albumin Level 4.2 g/dL (3.5-5.0); Alkaline Phosphatase 79 U/L (39-117); Anion Gap 11 (12-20); Aspartate Amino Transferase 20 U/L (5-31); Blood Urea Nitrogen 19 mg/dL (9-16); Calcium 9.1 mg/dL (8.4-10.2); Carbon Dioxide 31 mmol/L (22-29); Chloride 103 mmol/L (96-108); Estimated Glomerular Filt Rate 42; Potassium 4.4 mmol/L (3.3-5.1); Sodium 141 mmol/L (135-145); Total Protein 7.5 g/dL (6.5-8.0)
[2025-07-19 11:58] LABS: HBS Num1 0.09 mIU/mL (0-7.99); HBc Num1 0.14 S/CO (0.00-0.79); HBsAGNum1 0.40 S/CO (0.00-0.99); Hepatitis A Antibody IgM 0.27 Index (0-0.79); ~HepC Num1 0.12 S/CO (0.00-0.79); ~Hepatitis A Antibody IgM Nonreactive (Nonreactive); ~Hepatitis B Surface Antibody NONREACTIVE (Nonreactive); ~Hepatitis C Antibody Nonreactive (Nonreactive)
[2025-07-19 11:59] LABS: Hepatitis B Surface Antigen Negative (Negative)
== END 2025-07-19 09:57 | disposition home or self-care (01) ==
LOC: HO.HHCL 09:56
PROVIDERS: PCP Nurse Practitioner Primary Care; Referring Provider Internal Medicine; Visit Provider Nurse Practitioner Primary Care
DX: Z11.59 Encounter for screening for other viral diseases (principal); L40.0 Psoriasis vulgaris
CPT/HCPCS: 36415; 80053; 85025; 86704; 86706; 86709; 86803; 87340

== ENCOUNTER 2025-07-26 10:55 | Outpatient (AMB) | payer OTHER, SELFPAY ==
--- OUTSIDE RECORDS SUMMARY | 2025-07-23 13:30 | XMS_ITS | Encounter Summary ---
Author Organization [facility] Address [address] [place] [address] Care Team Providers Care Breaster Name Role Phone Diane George NP Primary Care Provider [phone] Reason for Visit * Reason Comments DM Foot Care Encounter Details Date Type Department Care Team (Late st Contact Info) Description 07/23/2025 1:30 PM EDT Office Visit Orthopedic Surgery - [place] [address] [phone] Antony Ramirez DPM [address] [address] Hammer toe of left foot (Primary Dx); Dermatophytosis of nail; Metatarsalgia of both feet; Tinea pedis of both feet; Diabetic mononeuropathy simplex (CMS/HCC V24, CMS/HCC V28); Pain in toe of left foot; Pain in toe of right foot; Corns and callosities Social History Tobacco Use Types Packs/Day Years Used Date Smoking Tobacco: Never Assessed Comments Unknown Sex and Gender Information Value Date Recorded Sex Assigned at Not on file Legal Sex Female 11:40 AM EDT Gender Identity Not on file Sexual Orientation Not on file documented as of this encounter Progress Notes * Antony Ramirez DPM - 07/23/2025 1:30 PM EDT S Patient presents today with multiple complaints she notes she has worsening numbness burning tingling in both feet she has a sharp shooting achy very painful to her she has been on Lyrica with minimal improvement notes that it is very painful has occasional use of lidocaine and Voltaren gel topically previously prescribed states there has been some improvement Nails and irritation of her toe has been bothering her more she is notes her third toes been irritating her that when she is walking she feels in a skin fold on the tip of the toe parts interpreter ID [id number] ROS: GENERAL: Pt denies nausea, fever, vomiting, chills, or shortness of breath. Pt in NAD. CARDIOLOGY: pt denies chest pain, palpitations LUNGS: pt denies shortness of breath MUSCULOSKELETAL: See HPI, otherwise no joint pain or swelling, back pain, or muscle pain. SKIN: see HPI, otherwise no lesions, rash or itching NEURO: No persistent headache, weakness or numbness The remainder of the review of systems is noncontributory PAST MEDICAL HISTORY: Patient Active Problem List Diagnosis Code Glaucoma H40.9 Mood disorder (HCC) F39 Hypothyroidism E03.9 Memory loss R41.3 Essential hypertension I10 DIANA (obstructive sleep apnea) G47.33 SOCIAL HISTORY: Social History Tobacco Use Smoking status: Not on file Smokeless tobacco: Not on file Substance Use Topics Alcohol use: Not on file History Never marked as reviewed. ACTIVE MEDICATIONS: Current Outpatient Medications Medication Sig Dispense Refill ACETAMINOPHEN OR Take 650 mg by mouth every 8 hours as needed. atropine 1 % ophthalmic solution 1 Drop 3 times daily. brimonidine (ALPHAGAN) 0.2 % ophthalmic solution 1 Drop 3 times daily. diltiazem (DILACOR XR) 240 MG 24 hr capsule Take 1 Capsule by mouth daily. Levothyroxine Sodium 137 MCG Cap Take 137 mg by mouth daily. lorazepam (ATIVAN) 0.5 MG tablet Take 1 Tablet by mouth every 6 hours as needed. metformin (GLUCOPHAGE) 500 MG tablet Take 1 Tablet by mouth 2 times daily (with meals). naproxen (NAPROSYN) 500 MG tablet Take 1 Tablet by mouth 2 times daily (with meals). OMEPRAZOLE OR Take 20 mg by mouth. pravastatin (PRAVACHOL) 40 MG tablet Take 1 Tablet by mouth daily. prednisoLONE acetate (PRED FORTE) 1 % ophthalmic suspension 1 Drop 4 times daily. pregabalin (LYRICA) 150 MG capsule Take 1 Capsule by mouth 2 times daily. timolol (TIMOPTIC) 0.5 % ophthalmic solution 1 Drop 2 times daily. triamterene-hydrochlorothiazide (MAXZIDE-25) 37.5-25 MG per tablet Take 1 Tablet by mouth daily. No current facility-administered medications for this visit. ALLERGIES: Patient has no known allergies. PHYSICAL EXAM: There were no vitals taken for this visit. There is no height or weight on file to calculate BMI. PODIATRIC EXAMINATION: GENERAL: Patient appears well nourished, with NAD. VASCULAR: Dorsalis pedis pulses are 0/4 bilaterally and Posterior tibial pulses are 1/4 bilaterally. Capillary filling time within normal limits the digits. No pallor on elevation or rubor on dependency. Positive hair growth. No varicosities. Denies rest pain or claudication pain. NEUROLOGICAL: Sharp/dull sensation , protective sensation 8/10 with 5.07 semmes robyn bilaterally, vibratory sensation with tuning fork intact to the tibial tuberosity. ORTHOPEDIC: Good muscle strength 5/5 of all flexors and extensors. Dorsi flexion of ankle ,10 degrees, plantar flexion WNL. No muscle atrophy. DERMATOLOGICAL:. Toenails: Left Toenail(s) 1-5: Crumbling upon debridement, subungual debris, discoloration, dystrophy, elongation, mycotic appearance, onychomycosis, pain and thickening. Right Toenail(s) 1-5: Crumbling upon debridement, subungual debris, discoloration, dystrophy, elongation, mycotic appearance, onychomycosis, pain and thickening. Annular scaling bilateral feet moccasin distribution Skin thinning texture shiny appearance diffuse hyperpigmentation bilaterally pedal hair decreased Hyperkeratotic tissue subfirst metatarsal bilaterally BIOMECHANICS: STJ ROM wnl, MTJ ROM wnl, 1st MPJ ROM wnl. Symetric fat pad atrophy bilateral Hammer toe contracture left 3rd digit semi rigid IMAGING: IMPRESSION: 1. Hammer toe of left foot 2. Dermatophytosis of nail 3. Metatarsalgia of both feet 4. Tinea pedis of both feet 5. Diabetic mononeuropathy simplex (CMS/HCC V24, CMS/HCC V28) 6. Pain in toe of left foot 7. Pain in toe of right foot 8. Corns and callosities PLAN: Improving tinea pedis of both feet discussed and reviewed Miconazole spray continue with Semirigid hammertoes discussed and reviewed would recommend accommodative shoe gear for contractural deformity patient may benefit from flexor tenotomy Worsening neuritis and neuropathy discussed and reviewed Referral offered to friction paint machine tender for nerve spine stimulator patient declined Performance compounding cream sent to pharmacy combination of diclofenac sodium 5% baclofen 2% Cyclobenzaprine 2% Gabapentin 10% Bupivicaine 2% pending insurance coverage Discussed with patient regarding proper glucose control, exercise, and diet. Explained to patient proper shoe gear, and importance of daily foot checks. RX dispensed for lidocaine patches continue with previously sent I reviewed neuropathy and why it occurs in diabetics. I educated the patient on proper blood sugar control and the importance of an HgBA1c of less than 7.0%. I reviewed the signs and symptoms of neuropathy with the patient Pt to return for another evaluation in 3 months. Debridement of mycotic toenails 6-10: Verbal informed consent was obtained from the patient. Greater than 6 nails were aseptically debrided in thickness and length with nail nippers documented in this encounter Plan of Treatment Upcoming Encounters Date Type Department Care Team ([facility] st Contact Info) Description 10/23/2025 1:15 PM EST Office Visit Orthopedic Surgery - [place] [address] [phone] Antony Ramirez DPM [address] [phone] documented as of this encounter Visit Diagnoses Diagnosis Hammer toe of left foot- Primary Dermatophytosis of nail Metatarsalgia of both feet Tinea pedis of both feet Diabetic mononeuropathy simplex (CMS/HCC V24, CMS/HCC V28) Type II or unspecified type diabetes mellitus with neurological manifestations, not stated as uncontrolled Pain in toe of left foot Pain in soft tissues of limb Pain in toe of right foot Pain in soft tissues of limb Corns and callosities documented in this encounter Care Teams Breaster Relationship Specialty Start Date End Date Diane George NP [address] [place] [phone] PCP - General 06/15/24 documented as of this encounter
[2025-07-26 11:12] VITALS: BP 112/70; PULSE 84; O2SAT 94; BMI 30.6
--- NOTE | 2025-07-26 11:12 | MHC.OFFVIS ---
Vital Signs 07/26/25 11:12 Height 5 ft 3 in Weight 173 lb BMI 30.6 BP 112/70 Blood Pressure Location Lt brachial Position Sitting Pulse 84 Pulse Source Pulse Oximeter Pulse Oximetry (%) 94 Oxygen Delivery Method Room Air Intake Visit Reasons: ENP - DIANA Intake Note: Patient presents ADMINISTRATIVE SUPPORT ASSISTANT DIANA not on CPAP. Patient last sleep study(titration) 06/17/25 done [place](HST: AHI-65, AMANDA-79%(per titration start patient on 12cm). Order sent have not gotten device yet. Cuff Setter Lockstitch Required: Yes Cuff Setter Lockstitch Language: Wood Finisher Apprentice Services: Cuff Setter Lockstitch Present Cuff Setter Lockstitch Name: [id number] Information Interpreted: non-clinical & clinical Accompanied by: Daughter Allergies No Known Allergies Allergy (Verified 07/26/25 11:22) HPI Comments Details: 80 year old Macedonian speaking female is here for a sleep apnea evaluation, she is referred to us by her pcp. HST c/w AHI of 65 and oxygen desaturation to 79% with nocturnal hypoxemia, pt. was titrated and oxygen and breathing normalized at [id number]. Her bp and T2DM is well controlled. She goes to sleep at 11pm and wakes up at 9am with 2-3 bathroom breaks. She grinds her teeth at night and clenches the jaw. She has dentures. 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 She has hallucinations of people around her who visit her. She walks with a cane due to balance and gait issues. Denies falls. She has eczema and psoriasis, uses her ointment daily. She has anxiety and it is managed with venlafaxine 37.5mg po daily. She has chronic daytime fatigue. Denies f/h of amnesia, stroke, seizures, BP. [facility] Medical History (Updated 07/29/25 @ 01:11 by Kristopher Rico PA-C) Mood disorder Obstructive sleep apnea Chronic SI joint pain Type 2 diabetes, controlled, with neuropathy Elevated LDL cholesterol level Ascending aorta enlargement Aortic valve calcification Heart murmur Chronic low back pain with sciatica Lumbar degenerative disc disease Chronic painful diabetic neuropathy Osteopenia Anxiety Memory loss GERD (gastroesophageal reflux disease) Gout Sleep apnea Glaucoma Carpal tunnel syndrome Hemorrhoids Arthritis Neuropathy (~07/29/25) Hypothyroid Diabetes HTN (hypertension) Surgical History Hx of sinus surgery H/O eye surgery Hx of tubal ligation History of thyroid surgery Hx of cholecystectomy Family History Mother No problems noted. Father No problems noted. Social History Household Members: Family Housing: House Alcohol intake: former Patient Tobacco Use Status: Former Tobacco user e-Cigarette/Vaping Use: Never Used service: No Current occupational status: employed and disabled Cognitive needs: No Hearing needs: No Vision needs: No Physical Exam Vital Signs: Last Vital Signs Pulse 84 07/26/25 11:12 BP 112/70 07/26/25 11:12 Pulse Ox 94 07/26/25 11:12 Oxygen Delivery Method Room Air 07/26/25 11:12 BMI result Body Mass Index 30.6 Const General: cooperative, no acute distress and tired appearing Nutritional Appearance: obese Orientation/consciousness: oriented to person, oriented to place and oriented to time Limitations: language barrier HEENT Other: r. eye - blind Face and sinus: Yes normal facial exam and Yes face symmetric Teeth and gingiva: other (mallmpti score is 4) Eyes Pupils: Equal, round and reactive pupils present Neck Other: limited rom laterally Resp Effort & Inspection: normal respiratory effort and able to speak in complete sentences Neuro Other: tremors berta ue gait ambulates with walker r. eye blind General: oriented to person, oriented to place, oriented to time and moves all extremities Cranial nerves: Yes Facial sensation intact/muscles of mastication intact, Yes Equal, round and reactive pupils present, Yes Normal accommodation reflex present, Yes Normal facial strength present, Yes Ability to bilaterally rotate head present and Yes Ability to bilaterally elevate shoulders present Gait exam (Neuro): Normal gait present and Assistive device used Motor exam (neuro): Abnormal motor strength present and Abnormal muscle tone present Coordination: cyyrsg-ce-ials test normal (overshoots) Psych Appearance: well kempt Thought content: other Insight: Fair insight present (Psych) Judgement: Fair judgement present (Psych) Results Reviewed Results Reviewed: HST c/w AHI of 65 and oxygen desaturation to 79% with nocturnal hypoxemia, pt. was titrated and oxygen and breathing normalized at [id number]. Assessment & Plan Assessment & Plan (1) Sleep apnea: Comment: NO CPAP CURRENTLY--TO HAVE ANOTHER SLEEP STUDY Code(s): G47.30 - Sleep apnea, unspecified Category: Medical Qualifiers: Sleep apnea type: obstructive Qualified Code(s): G47.33 - Obstructive sleep apnea (adult) (pediatric) (2) Obstructive sleep apnea: Comment: severe Code(s): G47.33 - Obstructive sleep apnea (adult) (pediatric) Category: Medical (3) Lumbar degenerative disc disease: Code(s): M51.369 - Other intervertebral disc degeneration, lumbar region without mention of lumbar back pain or lower extremity pain Category: Medical Qualifiers: Disc-related pain type: discogenic back pain and lower extremity pain Qualified Code(s): M51.362 - Other intervertebral disc degeneration, lumbar region with discogenic back pain and lower extremity pain (4) Lumbosacral spondylosis: Code(s): M47.817 - Spondylosis without myelopathy or radiculopathy, lumbosacral region Category: Medical Qualifiers: Spinal osteoarthritis complication: with radiculopathy Qualified Code(s): M47.27 - Other spondylosis with radiculopathy, lumbosacral region Plan DIANA severe start CPAP- titration is completed will start cpap at [id number] Lumbosacral spondylosis declines PT today. Labs F/U in 3 months Patient Instructions: Sleep Hygiene provided: set a scheduled bedtime and wake time to help regulate the circadian rhythm and balance the release of pituitary hormones. Sleep in a dark room, temperatures below 68 degrees, and no devices n bed. Limit caffeinated products 6 hours prior to bed, and limit fluids 2-4 hours prior to bed. Gentle night yoga, diffusing essential oils, and playing soft music can be relaxing. Coding Level of Care Code New Pt Level 4 (68405) Diagnoses Obstructive sleep apnea syndrome G47.33 Sleep apnea type: obstructive Obstructive sleep apnea G47.33 Degeneration of intervertebral disc of lumbar region with discogenic back pain and lower extremity pain M51.362 Disc-related pain type: discogenic back pain and lower extremity pain Osteoarthritis of spine with radiculopathy, lumbosacral region M47.27 Spinal osteoarthritis complication: with radiculopathy Sleep Questionnaire Difficulty falling asleep: Yes Difficulty staying asleep?: Yes Number of arousals: 2 Snoring: Yes Witnessed apneas: Yes Nocturia: Yes GERD: No Vivid dreams: Yes Acting out dreams: Yes Abnormal behavior in sleep: No Abnormal movements in sleep: No Morning headaches: No Excessive daytime sleepiness: Yes Daytime naps: No Restless legs: No Hallucinations: Yes Sleep paralysis: No Drop attacks: No Sleep Study: Yes CPAP: Yes
--- OUTSIDE RECORDS SUMMARY | 2025-07-26 12:33 | XMS_ITS | Encounter Summary ---
Author Organization [employer] Address [address] [facility] [address] [place] [address] Care Team Providers Care Vice President Supply Chain Name Role Phone Diane George Primary Care Provider [phone] Reason for Visit * Reason Comments Med Refill Encounter Details Date Type Department Care Team ([facility] st Contact Info) Description 02/04/2025 Refill [facility] [address] [place] [address] Diane George ANP [address] [place] [address] Social History Tobacco Use Types Packs/Day Years [...] Description 08/20/2025 1:30 PM EDT Office Visit [facility] [address] [place] [phone] Diane George ANP [address] [place] [phone] 10/18/2025 10:45 AM EST Office Visit [address] [address] Ange Owen MD [address] [place] [phone] documented as of this encounter Visit Diagnoses Not on filedocumented in this encounter Additional Health Concerns Assessment Noted Time PHQ-9 Depression Total Score: 9 07/27/20 24 9:59 AM EDT documented as of this encounter Care Teams Vice President Supply Chain Relationship Specialty Start Date End Date Diane George ANP [address] [place] [phone] PCP - General Family Medicine 02/10/24 documented as of this encounter
--- OUTSIDE RECORDS SUMMARY | 2025-07-26 12:33 | XMS_ITS | Encounter Summary ---
Author Organization [employer] Address [address] [facility] [address] [place] [address] Care Team Providers Care Maintenance Planner Name Role Phone Diane George VASYL Primary Care Provider [phone] Reason for Visit * Reason Onset Date Comments New Patient 07/07/2023 Encounter Details Date Type Department Care Team (Late Contact Info) Description 07/07/2023 Telephone [facility] [address] [place] [address] Seth Barron MD [address] [place] [address] New Patient Social History Tobacco Use Types [...] been transfer over to wait list for DIETETIC TECH. EFFECTIVE SINCE 04/14/2023 documented in this encounter Plan of Treatment Upcoming Encounters Date Type Department Care Team (Late st Contact Info) Description 08/20/2025 1:30 PM EDT Office Visit [address] [address] Diane George ANP [address] [place] [address] 10/18/2025 10:45 AM EST Office Visit [address] [phone] Ange Owen MD [address] [place] [address] documented as of this encounter Visit Diagnoses Not on filedocumented in this encounter Care Teams Maintenance Planner Relationship Specialty Start Date End Date Diane George ANP [address] [place] [phone] PCP - General Family Medicine 02/10/24 documented as of this encounter
--- OUTSIDE RECORDS SUMMARY | 2025-07-26 12:33 | XMS_ITS | Clinical Summary ---
Author Organization [employer] Address [address] [facility] 7t [place] [address] Care Team Providers Care Quality Management Nurse Name Role Phone Constance Balderrama VASYL Primary Care Provider Allergies No known active [...] Lite) w/Device kitIndications:Hy pertension associated with diabetes ([facility]) 1 each 2 times daily. 1 kit [...] connected with a psychiatrist and therapist in [place] (unable to provide agency name). Today, pt [...] with psychopharmacology when she was living in [place]. Family moved to [place] from [place] in 2017. Further information needed to make diagnosis of bipolar disorder. Currently seeing a therapist with [facility] Psychiatry services will start soon due to having a conflict with her insurance ([facility]). During today's visit, clinician engaged [...] due to a conflict with her insurance ([facility]). Update from pt's granddaughter, [facility] will cover psychiatry services and [...] with psychopharmacology when she was living in [place]. Family moved to [place] from [place] in 2016. Further information needed to make [...] with psychopharmacology when she was living in [place]. She was accompanied by her granddaughter. Family moved to [place] from [place] in 2017. Further information needed to make diagnosis. PLAN: (check all that apply) New/Additional Services needed PCP management On-site non-integrated services Off-site services for Behavioral Health Integration Plan Internal Follow up with I External OP BH therapy referral and OP psychiatry Referral Patient Self Plan Patient to utilize skills provided in intervention , Patient to reach out to [facility] team as needed, Patient to engage in OP therapy , and Patient to reach out to [facility] as needed. Discussed getting sooner appointments with [facility] ([facility]) for psychopharmacology. clinician will see patient during next physical if needed. Encounters Date Type Department Care Team Description 07/19/2025 9:30 AM EDT Office Visit [facility] [address] [place] [phone] Ange Owen MD Inverse psoriasis (Primary Dx); Psoriasis vulgaris 07/19/2025 Travel 07/17/2025 Telephone [facility] [address] [place] [phone] Constance Balderrama ANP notes 07/16/2025 Refill [facility] [address] [place] [address]22 Constance Balderrama ANP Hypothyroidism, unspecified type 07/12/2025 Refill [facility] [address] [place] [phone] Constance Balderrama ANP Hypothyroidism, unspecified type 07/01/2025 Telephone [facility] [address] [place] [address] 10204 Constance Balderrama ANP notes faxed to sleep study 06/28/2025 Telephone [facility] [address] [place] [address] Constance Balderrama ANP Durable Medical Equipment 06/28/2025 Orders Only [facility] [address] [place] [address] [phone] Constance Balderrama ANP DIANA (obstructive sleep apnea) (Primary Dx); Nocturnal hypoxia 06/15/2025 Refill [facility] [address] [place] [address]10 Constance Balderrama ANP Radicular pain of lower extremity; Diabetic polyneuropathy associated with type 2 diabetes mellitus ([facility]) 05/29/2025 Orders Only [facility] External Provider, [facility] 05/27/2025 Telephone [facility] [address] [place] [address] 14278 Constance Balderrama ANP October recall 05/16/2025 Telephone [facility] [address] [place] [address] Constance Balderrama ANP PSG ORDER 05/14/2025 1:15 PM EDT Office Visit [facility] [address] [place] [address] Constance Balderrama ANP DIANA (obstructive sleep apnea) (Primary Dx); Hypertension associated with diabetes (CMS/HCC); Radicular pain of lower extremity; Right hip pain; Low back pain potentially associated with radiculopathy; Spinal stenosis of lumbar region with neurogenic claudication; Dietary counseling; Exercise counseling; Right leg pain 05/14/2025 Travel 05/13/2025 Telephone [facility] [address] [place] [address] Constance Balderrama ANP Chart Prep 04/26/2025 11:00 AM EDT Office Visit [address] [address] Ange Owen MD Psoriasis vulgaris (Primary Dx) 04/26/2025 Travel 04/25/2025 Travel from Last 3 Months Immunizations Immunization Administration [...] Description 08/20/2025 1:30 PM EDT Office Visit [facility] [address] [place] [address] Constance Balderrama, VASYL [address] [place] [address] 10/18/2025 10:45 AM EST Office Visit [facility] [address] [place] [phone] Ange Owen MD [address] [place] [address] Health Maintenance Due Date Last Done Comments [...] (2 - Td or Tdap) 05/03/2034 05/03/2024 Pneumococcal Vaccine: 50+ Years Completed 05/03/2024 RSV Patients and Patients Aged 60 years or older Completed 05/03/2024 Zoster Vaccines Completed 10/18/2024, 08/09/2024 Hepatitis B Vaccines Completed 12/04/2024, 07/27/2024, 06/14/2024 Hepatitis C Screening Completed 07/19/2025, 024 HIB Vaccines Aged Out No longer eligi [...] Procedure Name Priority Date/Time Associated Diagnosis Comments HEPATITIS PANEL, GENERAL Routine 07/19/2025 10:06 AM EDT Psoriasis vulgaris CBC WITH AUTO DIFFERENTIAL Routine 07/19/2025 10:06 AM EDT Psoriasis vulgaris COMPREHENSIVE METABOLIC PANEL Routine 07/19/2025 10:06 AM EDT Psoriasis vulgaris AMB REFERRAL TO SLEEP MEDICINE Urgent 06/17/2025 DIANA (obstructive sleep apnea) US RETROPERITONEAL COMPLETE Routine 05/29/2025 5:03 PM EDT POCT GLUCOSE Routine 05/14/2025 2:21 PM EDT Hypertension associated with diabetes (CMS/HCC) AMB REFERRAL TO PHYSICAL MEDICINE REHAB/PHYSIATRY Routine 05/13/2025 Radicular pain of lower extremity Right hip pain Low back pain potentially associated with radiculopathy Spinal stenosis of lumbar region with neurogenic claudication ALBUMIN, RANDOM URINE W/CREATININE Routine 03/22/2025 10:25 AM EDT Hypertension associated with diabetes (CMS/HCC) POCT GLYCATED HEMOGLOBIN, TOTAL Routine 12/04/2024 10:35 AM EST Hypertension associated with diabetes (CMS/HCC) (CMS/HCC) LIPID PANEL, STANDARD Routine 05/03/2024 11:30 AM EDT Hypertension associated with diabetes (CMS/HCC) (CMS/HCC) Healthcare maintenance from Last 3 Months or Most Recently Relevant to Health Maintenance Results * Hepatitis A,B,C Profile (07/19/2025 10:06 AM EDT) Hepatitis A IgM Nonreactive Nonreactive [facility] Comment:IgM antibodies to MARTINEZ V not detected; does not exclude earlyacute or recovered HAV infection. ~Hepatitis B Surface Antibody NONREACTIVE Nonreactive [facility] Comment:Nonreactive: < 8.00 mIU/mL Hepatitis B Core Antibody Nonreactive Nonreactive [facility] Hepatitis C Antibody Nonreactive Nonreactive [facility] Comment:Antibodies to HCV no t detected; does not exclude early acuteHCV infection. Hepatitis B Surface Ag Negative Negative [facility] Blood Venous blood specimen / Unknown 07/19/2025 10:06 AM EDT 07/19/2025 11:13 AM EDT us Ange Owen MD LAB BLOOD ORDERABLES Final Re sult [facility] [address] [place] [phone] [phone] * (ABNORMAL) CBC auto differential (07/19/2025 10:06 AM EDT) Pathologist [facility] White Blood Count 6.2 4.8 - 10.8 X10*3/uL [facility] Red Blood Count 4.66 4.20 - 5.50 X10*6/uL [facility] Hemoglobin 13.6 12.0 - 16.0 g/dl [facility] Hematocrit 40.6 37.0 - 47.0 % [facility] Mean Corpuscular Volume 87.1 80.0 - 98.0 fL [facility] Mean Corpuscular Hemoglobin 29.2 27.0 - 33.0 pg [facility] Mean Corpuscular HGB Conc 33.5 31.0 - 35.0 g/dl [facility] Red Cell Distribution Width 13.8 11.0 - 16.0 % [facility] Platelet Count 195 160 - 400 X10*3/uL [facility] Mean Platelet Volume 11.2 9.4 - 12.3 fL [facility] Neutrophils Percent Auto 46.0 45 - 73 % [facility] Imm Gran Pct Auto 0.3 0.0 - 0.4 % [facility] Lymphocytes Percent Auto 35.6 20 - 40 % [facility] Monocytes Percent Auto 9.1 2 - 11 % [facility] Eosinophils Percent Auto 8.3(H) 0 - 4 % [facility] Basophils Percent Auto 0.7 0 - 2 % [facility] NRBC Pct Auto 0.0 0.0 - 0.2 /100WBC [facility] Neutrophils Absolute Auto 2.8 2.0 - 8.3 x10*3/uL [facility] Imm Gran Abs Auto 0.02 0.00 - 0.03 X10*3/uL [facility] Lymphocytes Absolute Auto 2.2 1.2 - 4.9 X10*3/uL [facility] Monocytes Absolute Auto 0.6 0.1 - 1.2 X10*3/uL [facility] Eosinophils Absolute Auto 0.5(H) 0.0 - 0.4 X10*3/uL [facility] Basophils Absolute Auto 0.0 0.0 - 0.2 X10*3/uL [facility] NRBC Abs Auto 0.000 0.0 - 0.012 X10*3/uL [facility] Blood Venous blood specimen / Unknown 07/19/2025 10:06 AM EDT 07/19/2025 11:13 AM EDT us Ange Owen MD LAB BLOOD ORDERABLES Final Re sult [facility] [address] [place] [phone] * (ABNORMAL) Comprehensive Metabolic Panel (07/19/2025 10:06 AM EDT) Sodium 141 135 - 145 mmol/L [facility] Potassium 4.4 3.3 - 5.1 mmol/L [facility] Chloride 103 96 - 108 mmol/L [facility] Carbon Dioxide 31(H) 22 - 29 mmol/L [facility] Anion Gap 11(L) 12 - 20 [facility] Urea Nitrogen (BUN) 19(H) 9 - 16 mg/dL [facility] Creatinine, Serum 1.24 0.5 - 1.4 mg/dL [facility] Estimated Glomerular Filt Rate 42 [facility] Comment:Chronic Kidney Disea se: Estimated GFR < 60 mL/min/1.70s4Wlpsde Kidney Disease: Estimated GFR < 15 mL/min/1.73m2 Glucose 98 60 - 115 mg/dL [facility] Calcium 9.1 8.4 - 10.2 mg/dL [facility] Bilirubin, Total 0.6 0.0 - 1.0 mg/dL [facility] Aspartate Amino Transferase 20 5 - 31 U/L [facility] Alanine Aminotransferase 14 0 - 31 U/L [facility] Total Protein 7.5 6.5 - 8.0 g/dL [facility] Albumin Level 4.2 3.5 - 5.0 g/dL [facility] Alkaline Phosphatase 79 39 - 117 U/L [facility] Blood Venous blood specimen / Unknown 07/19/2025 10:06 AM EDT 07/19/2025 11:13 AM EDT us Ange Owen MD LAB BLOOD ORDERABLES Final Re sult [facility] [address] [place] [phone] * Referral to Sleep Medicine (06/17/2025) us Constance Balderrama ANP OUTPATIENT REFERRAL ORDERABLES F inal Result * US Retroperitoneal Complete (05/29/2025 5:03 PM EDT) Anatomical Region Laterality Modality Ultrasound 05/29/2025 5:03 PM EDT Narrative 05/29/2025 5:04 PM EDT [address] [address] Ultrasound Report Signed Patient: Roseanne Abdi MR#: [id number] : 1945 Acct:[id number] Age/Sex: 79 / F ADM Date: 05/29/25 Loc: HO.US Attending Dr: Malick Sheridan MD Ordering Physician: Malick Sheridan MD Date of Service: 05/29/25 Procedure(s): US retroperitoneal comp Accession Number(s): [id number] cc: Malick Sheridan MD; CONSTANCE BALDERRAMA NP [...] in OV> 05/29/251703 DD/ 02 TD/TT: 05/29/251702 Library Science Professor: Procedure Note Donotuseinterpreter, Image - 05/29/2025 [place] [address] Ultrasound Report Signed Patient: Briana Abdi#: [id number] : 1945cct:[id number] Age/Sex: 79 / FADM Date: 05/29/25 Loc: HO.US Attending Dr: Malick Sheridan MD Ordering Physician: Malick Sheridan MD Date of Service: 05/29/25 Procedure(s): US retroperitoneal comp Accession Number(s): [id number] cc: Malick Sheridan MD; CONSTANCE BALDERRAMA NP [...] in OV> 05/29/251703 DD/ 02 TD/TT: 05/29/251702 Library Science Professor: [facility] External Provider IMG US PROCEDURES Final Result * POCT Glucose (05/14/2025 2:21 PM EDT) Glucose Blood, POC 98 60 - 200 mg/dL QC Media Lot # [id number] Lot# Expiration Date Blood Capillary blood specimen / Unknown 05/14/2025 2:21 PM EDT Result [facility] us Constance FALLON POINT OF CARE TEST ENTER/EDIT OR DERABLES Final Result * Referral to Physiatry (05/13/2025) us Constance Balderrama ANP OUTPATIENT REFERRAL ORDERABLES F inal Result * Albumin, Random Urine W/Creatinine (03/22/2025 10:25 AM EDT) Creatinine, Urine 74.54 mg/dL [facility] Microalbumin Urine 10.0 mg/L [facility] Microalbum Creatinine Ratio Ur 13.4 <30 ug/mg cr [facility] Comment:Albumin/Creatinine R atio Reference Ranges: Normal: < 30 ug/mg creatinine Microalbuminuria: 30 - 300 ug/mg creatinineClinical Albuminuria: > 300 ug/mg creatinine Urine 03/22/2025 10:2 5 AM EDT 03/22/2025 11:02 AM EDT us Constance FALLON LAB URINE ORDERABLES Final Resul t [facility] [address] [place] [phone] * (ABNORMAL) POCT HGB A1C (12/04/2024 10:35 AM EST) Hemoglobin A1C 6.2(A) 4.0 - 6.0 % QC Media Lot # [id number] Lot# Expiration Date Blood 12/04/2024 10:3 5 AM EST Constance Balderrama [facility] POINT OF CARE TEST ENTER/EDIT OR DERABLES Edited Result - Final * (ABNORMAL) Lipid Panel, Standard (05/03/2024 11:30 AM EDT) Triglycerides 211(H) <150 mg/dL [facility] Comment:Desirable Triglyceri de: less than 150 mg/dLBorderline High Triglyceride 150-199 mg/dLHigh Triglyceride: 200-499 mg/dLVery High Triglyceride: greater than or equal to 5OO mg/dL Cholesterol 110 <200 mg/dL [facility] Comment:Desirable Cholestero l: less than 200 mg/dLBorderline High Cholesterol: 200-239 mg/dLHigh Cholesterol: greater than 239 mg/dL LDL Cholesterol Calculated 35 <100 mg/dL [facility] Comment:Desirable LDL: less than 100 mg/dLNear Optimal/Above Optimal LDL: 110- 129 mg/dLBorderline High LDL: 130-159 mg/dLHigh LDL: 160-189 mg/dLVery High LDL: greater than or equal to 190 mg/dL HDL Cholesterol 33(L) >40 mg/dL [facility] Comment:Desirable HDL: great er than 40 mg/dL Note: This HDL assay may give artificially low results in patients with liver disease. Blood Venous blood specimen / Unknown 05/03/2024 11:30 AM EDT 05/03/2024 1:01 PM EDT Constance FALLON LAB BLOOD ORDERABLES Final Resul t [facility] [address] [place] [phone] [phone] from Last 3 Months or Most Recently Relevant to Health Maintenance Insurance [facility] LONG TERM [employer] (HMO D-SNP) [place] [id number] Care Teams Quality Management Nurse Relationship Specialty Start Date End Date Constance Balderrama ANP [address] [place] [address] PCP - General Family Medicine 02/10/24
--- OUTSIDE RECORDS SUMMARY | 2025-07-26 12:33 | XMS_ITS | Encounter Summary ---
Author Organization [employer] Address [address] 7[address] [place] [address] Care Team Providers Care Real Estate Paralegal Name Role Phone Diane George Primary Care Provider [phone] Encounter Details Date Type Department Care Team (Late st Contact Info) Description 03/20/2025 Telephone [facility] [address] [place], [place] [phone] Diane George ANP [address] [place] [address] Social History Tobacco Use Types Packs/Day Years [...] Description 08/20/2025 1:30 PM EDT Office Visit [facility] [address] [place] [address] Diane George ANP [address] [place] [address] 10/18/2025 10:45 AM EST Office Visit [address] [address] Ange Owen MD [address] [place] [address] documented as of this encounter Visit Diagnoses Not on filedocumented in this encounter Additional Health Concerns Assessment Noted Time PHQ-9 Depression Total Score: 9 02/14/20 25 3:51 PM EDT documented as of this encounter Care Teams Real Estate Paralegal Relationship Specialty Start Date End Date Diane George ANP [address] [place] [address] PCP - General Family Medicine 02/10/24 documented as of this encounter
--- OUTSIDE RECORDS SUMMARY | 2025-07-26 12:33 | XMS_ITS | Encounter Summary ---
Author Organization [employer] Address [address] [facility] 7t [place] [address] Care Team Providers Care Cycle Touring Guide Name Role Phone Diane George Primary Care Provider [phone] Reason for Visit * Reason Comments Med Refill Encounter Details Date Type Department Care Team ([facility] st Contact Info) Description 10/18/2024 Refill [facility] [address] [place] [address] Diane George ANP [address] [place] [address] Social History Tobacco Use Types Packs/Day Years [...] Description 08/20/2025 1:30 PM EDT Office Visit [facility] [address] [place] [address] Diane George ANP [address] [place] [address] 10/18/2025 10:45 AM EST Office Visit [address] [address] Ange Owen MD [address] [place] [address] documented as of this encounter Visit Diagnoses Not on filedocumented in this encounter Additional Health Concerns Assessment Noted Time PHQ-9 Depression Total Score: 9 07/27/20 24 9:59 AM EDT documented as of this encounter Care Teams Cycle Touring Guide Relationship Specialty Start Date End Date Diane George ANP [address] [place] [address] PCP - General Family Medicine 02/10/24 documented as of this encounter
--- OUTSIDE RECORDS SUMMARY | 2025-07-26 12:33 | XMS_ITS | Encounter Summary ---
Author Organization [employer] Address [address] [facility] [address] 7t [place] [address] Care Team Providers Care Senior Systems Engineer Name Role Phone Diane George Primary Care Provider [phone] Encounter Details Date Type Department Care Team (Late st Contact Info) Description 07/16/2025 Refill [facility] [address] [place], [place] [phone] Diane George ANP [address] [place] [address] Hypothyroidism, unspecified type Social History Tobacco Use [...] 1:30 PM EDT Office Visit [facility] [address] [place] [address] Diane George ANP [address] [place] [phone] 10/18/2025 10:45 AM EST Office Visit [facility] [address] [place] [address] Ange Owen MD [address] [place] [address] documented as of this encounter Visit Diagnoses Diagnosis Hypothyroidism, unspecified type documented in this encounter Additional Health Concerns Assessment Noted Time PHQ-9 Depression Total Score: 9 02/14/20 25 3:51 PM EDT documented as of this encounter Care Teams Senior Systems Engineer Relationship Specialty Start Date End Date Diane George ANP [address] [place] [address] PCP - General Family Medicine 02/10/24 documented as of this encounter
--- OUTSIDE RECORDS SUMMARY | 2025-07-26 12:33 | XMS_ITS | Clinical Summary ---
Author Organization [address] [facility] Address [address] [place] [address] Phone Care Team Providers Care Laminating Machine Offbearer Name Role Phone DorisDiane Ankur BARKER Primary Care Provider [phone] Allergies No known active allergies Medications ACETAMINOPHEN [...] Encounters Date Type Department Care Team Description 07/23/2025 1:30 PM EDT Office Visit Orthopedic Surgery [facility] [address] [phone] Antony Ramirez DPM Hammer toe of left foot (Primary Dx); Dermatophytosis of nail; Metatarsalgia of both feet; Tinea pedis of both feet; Diabetic mononeuropathy simplex ([facility] V24, [facility] V28); Pain in toe of left foot; Pain in toe of right foot; Corns and callosities from Last 3 Months Social History Tobacco [...] Care Team (Late st Contact Info) Description 10/23/2025 1:15 PM EST Office Visit Orthopedic [facility] [address] [phone] Antony Ramirez DPM [address] [phone] Health Maintenance Due Date Last Done Comments [...] 10/26/2022 Diabetes: Annual GFR (Glomerular Filtration Rate) 07/19/2026 07/19/2025, 03/22/2025 Hypertension/CHF/CAD Annual BMP Blood Test 07/19/2026 07/19/2025, 03/22/2025 Cholesterol Screening (Lipid Panel) 05/03/2029 05/03/2024 [...] patient's age to complete this topic Insurance [facility] MEDICARE Member Subscriber Plan / Payer (Ef fective 2024-Present) Name:CHANTE ABDI Relation to Subscriber:Self Name:Chante Abdi Payer ID:[id number] Group ID:[id number] Type:Not on file Address: [facility] [address] [place] [place] [id number] Care Teams Laminating Machine Offbearer Relationship Specialty Start Date End Date Diane George NP [address] [place] [phone] PCP - General 06/15/24
--- OUTSIDE RECORDS SUMMARY | 2025-07-26 12:33 | XMS_ITS | Encounter Summary ---
Author Organization [employer] Address [address] [facility] [address] 7[address] [place] [address] Care Team Providers Care Housing Coordinator Name Role Phone Diane George Primary Care Provider [phone] Reason for Visit * Reason Onset Date Comments notes 07/17/2025 Encounter Details Date Type Department Care Team (Late st Contact Info) Description 07/17/2025 Telephone [facility] [address] [place] [address] Diane George ANP [address] [place] [address] notes Social History Tobacco Use Types Packs/Day [...] encounter Miscellaneous Notes * Telephone Encounter - Qing Pearson RN - 07/24/2025 3:27 PM EDT Returned call to Liliana who requests office notes from BEFORE sleep study and diagnotic sleep study (not titration). Faxed office notes from PCP visit 11/2024 and sleep study from 02/2025. Confirmation received. * Telephone Encounter - Haroon Gaitan - 07/24/2025 2:50 PM EDT Tc from Liliana at [facility] requesting a call back with update on prior message Contact Liliana at [phone] Fax T# [phone] * Telephone Encounter - Haroon Gaitan - 07/17/2025 11:33 AM EDT Tc from Radha at [facility] requesting a clear copy of sleep study and copy of last officenotes to study showing it was ordered Contact Radha at [phone] documented in this encounter Plan of Treatment Upcoming Encounters Date Type Department Care Team (Late st Contact Info) Description 08/20/2025 1:30 PM EDT Office Visit [address] [address] Diane George ANP [address] [place] [address] 10/18/2025 10:45 AM EST Office Visit [address] [address] Ange Owen MD [address] [place] [phone] documented as of this encounter Visit Diagnoses Not on filedocumented in this encounter Additional Health Concerns Assessment Noted Time PHQ-9 Depression Total Score: 9 02/14/20 25 3:51 PM EDT documented as of this encounter Care Teams Housing Coordinator Relationship Specialty Start Date End Date Diane George ANP [address] [place] [phone] PCP - General Family Medicine 02/10/24 documented as of this encounter"
== END 2025-07-26 12:07 | disposition home or self-care (01) ==
LOC: HO.HSMS 10:56
PROVIDERS: PCP Nurse Practitioner Primary Care; Visit Provider Physician Assistant Medical
DX: G47.33 Obstructive sleep apnea (adult) (pediatric) (principal); M51.362 Other intervertebral disc degeneration, lumbar region with discogenic back pain and lower extremity pain; M47.27 Other spondylosis with radiculopathy, lumbosacral region
CPT/HCPCS: 99204

== ENCOUNTER → 2025-07-26 10:55 | Outpatient (BNVA) | payer OTHER, SELFPAY | PROVIDERS: PCP Nurse Practitioner Primary Care; Visit Provider Physician Assistant Medical | DX: G47.33 Obstructive sleep apnea (adult) (pediatric) (principal); M51.362 Other intervertebral disc degeneration, lumbar region with discogenic back pain and lower extremity pain; M47.27 Other spondylosis with radiculopathy, lumbosacral region | CPT/HCPCS: 99202 ==

== ENCOUNTER 2025-08-08 11:22 | Outpatient (AMB) | payer OTHER, SELFPAY ==
--- NOTE | 2025-08-08 11:54 | MHC.OFFVIS ---
Intake Visit Reasons: 6 Months F/U Allergies No Known Allergies Allergy (Verified 07/26/25 11:22) HPI Comments Details: 80 yo woman with anxiety disorder and glaucoma for which she is taking multiple meds, obstructive sleep apnea, and mild cognitive impairment. She was doing ok. Sleep was ok but lately she was having bad dreams. She has not gotten her CPAP machine yet. [facility] Medical History (Updated 08/08/25 @ 11:55 by Lilia Shanks MD) Mood disorder Obstructive sleep apnea Chronic SI joint pain Type 2 diabetes, controlled, with neuropathy Elevated LDL cholesterol level Ascending aorta enlargement Aortic valve calcification Heart murmur Chronic low back pain with sciatica Lumbar degenerative disc disease Chronic painful diabetic neuropathy Osteopenia Anxiety Memory loss GERD (gastroesophageal reflux disease) Gout Sleep apnea Glaucoma Carpal tunnel syndrome Hemorrhoids Arthritis Neuropathy (~07/29/25) Hypothyroid Diabetes HTN (hypertension) Surgical History Hx of sinus surgery H/O eye surgery Hx of tubal ligation History of thyroid surgery Hx of cholecystectomy Family History Mother No problems noted. Father No problems noted. Social History Household Members: Family Housing: House Alcohol intake: former Patient Tobacco Use Status: Former Tobacco user e-Cigarette/Vaping Use: Never Used service: No Current occupational status: employed and disabled Cognitive needs: No Hearing needs: No Vision needs: No Review of Systems Const Details: Bad dreams Physical Exam Neuro Other: Mental Status: Alert and oriented to person, place, and time. Normal attention. Normal spontaneous speech, fluency, and comprehension. No obvious issues with mood and memory. Affect is appropriate. Cranial Nerves: CN II: Visual banks full to confrontation, visual acuity intact. CN III, IV, : Pupils equal, round, reactive to light and accommodation. Extraocular movements are normal. CN V: Facial sensation is normal. CN VII: Facial movements symmetrical. CN VIII: Hearing intact to bedside conversation is normal. CN IX, X: Palate elevates symmetrically. CN XI: Shoulder shrug and head turn symmetrical. CN XII: Tongue midline without atrophy or fasciculations. Extrapyramidal: Full facial expressions and blinking. No rigidity. Movements are appropriate with no tremor or abnormality. Speech: Normal; no dysarthria or tremor. Assessment & Plan Assessment & Plan (1) MCI (mild cognitive impairment): Code(s): G31.84 - Mild cognitive impairment of uncertain or unknown etiology Category: Medical Plan Impression: Mild cognitive issue with DIANA Rec: Acquire and use CPAP machine Coding Level of Care Code Est Pt Level 3 (25111) Diagnoses MCI (mild cognitive impairment) G31.84
== END 2025-08-08 12:04 | disposition home or self-care (01) ==
LOC: HO.HSM 11:22
PROVIDERS: PCP Nurse Practitioner Primary Care; Referring Provider Nurse Practitioner Primary Care; Visit Provider Psychiatry & Neurology Neurology
DX: G31.84 Mild cognitive impairment of uncertain or unknown etiology (principal)
CPT/HCPCS: 99213

== ENCOUNTER → 2025-08-08 11:22 | Outpatient (BNVA) | payer OTHER, SELFPAY | PROVIDERS: PCP Nurse Practitioner Primary Care; Referring Provider Nurse Practitioner Primary Care; Visit Provider Psychiatry & Neurology Neurology | DX: G47.33 Obstructive sleep apnea (adult) (pediatric) (principal); G31.84 Mild cognitive impairment of uncertain or unknown etiology; Z99.89 Dependence on other enabling machines and devices | CPT/HCPCS: 99212 ==

== ENCOUNTER 2025-08-14 11:43 | Outpatient (REF) | payer OTHER, SELFPAY ==
--- OUTSIDE RECORDS SUMMARY | 2025-08-14 13:19 | XMS_ITS | Encounter Summary ---
Author Organization [employer] Address [address] [place] [address] Care Team Providers Care Medical Social Consultant Name Role Phone Diane George Primary Care Provider [phone] Reason for Visit * Reason Comments Med Refill Encounter Details Date Type Department Care Team (Late st Contact Info) Description 08/14/2025 Refill [facility] [address] [place] [address] Diane George ANP [address] [place] [address] Right leg pain Social History Tobacco Use Types Packs/Day Years [...] Description 08/20/2025 1:30 PM EDT Office Visit [facility] [address] [place] [phone] Diane George ANP [address] [place] [address] 10/18/2025 10:45 AM EST Office Visit [address] [address] Ange Owen MD [address] [place] [address] documented as of this encounter Visit Diagnoses Diagnosis Right leg pain Pain in soft tissues of limb documented in this encounter Additional Health Concerns Assessment Noted Time PHQ-9 Depression Total Score: 9 02/14/20 25 3:51 PM EDT documented as of this encounter Care Teams Medical Social Consultant Relationship Specialty Start Date End Date Diane George ANP [address] [place] [phone] PCP - General Family Medicine 02/10/24 documented as of this encounter
--- OUTSIDE RECORDS SUMMARY | 2025-08-14 13:19 | XMS_ITS | Encounter Summary ---
Author Organization [employer] Address [address] [facility] 7t [place] [address] Care Team Providers Care Trials Manager Name Role Phone Diane George Primary Care Provider [phone] Reason for Visit * Reason Comments Med Refill Encounter Details Date Type Department Care Team ([facility] st Contact Info) Description 02/04/2025 Refill [facility] [address] [place] [address] Diane George ANP [address] [place] [address] Social History Tobacco Use Types Packs/Day Years [...] Description 08/20/2025 1:30 PM EDT Office Visit [facility] [address] [place] [phone] Diane George ANP [address] [place] [phone] 10/18/2025 10:45 AM EST Office Visit [address] [address] Agne Owen MD [address] [place] [address] documented as of this encounter Visit Diagnoses Not on filedocumented in this encounter Additional Health Concerns Assessment Noted Time PHQ-9 Depression Total Score: 9 07/27/20 24 9:59 AM EDT documented as of this encounter Care Teams Trials Manager Relationship Specialty Start Date End Date Diane George ANP [address] [place] [phone] PCP - General Family Medicine 02/10/24 documented as of this encounter
--- OUTSIDE RECORDS SUMMARY | 2025-08-14 13:19 | XMS_ITS | Encounter Summary ---
Author Organization [employer] Address [address] [facility] 7t [place] [address] Care Team Providers Care Technical Sme Name Role Phone Diane George VASYL Primary Care Provider [phone] Reason for Visit * Reason Onset Date Comments New Patient 07/07/2023 Encounter Details Date Type Department Care Team (Late Contact Info) Description 07/07/2023 Telephone [facility] [address] [place] [address] Seth Barron MD [address] [place] [address] New Patient Social History Tobacco Use Types [...] been transfer over to wait list for [employer]. EFFECTIVE SINCE 04/14/2023 documented in this encounter Plan of Treatment Upcoming Encounters Date Type Department Care Team (Late st Contact Info) Description 08/20/2025 1:30 PM EDT Office Visit [address] [address] Diane George ANP [address] [place] [address] 10/18/2025 10:45 AM EST Office Visit [address] [phone] Ange Owen MD [address] [place] [address] documented as of this encounter Visit Diagnoses Not on filedocumented in this encounter Care Teams Technical Sme Relationship Specialty Start Date End Date Diane George ANP [address] [place] [phone] PCP - General Family Medicine 02/10/24 documented as of this encounter
--- OUTSIDE RECORDS SUMMARY | 2025-08-14 13:19 | XMS_ITS | Encounter Summary ---
Author Organization [employer] Address [address] 7t [place] [address] Care Team Providers Care Section Cutter Name Role Phone Diane George Primary Care Provider [phone] Encounter Details Date Type Department Care Team (Late st Contact Info) Description 07/16/2025 Refill [facility] [address] [place], [place] [phone] Diane George ANP [address] [place] [address] Hypothyroidism, unspecified type Social History Tobacco Use [...] Description 08/20/2025 1:30 PM EDT Office Visit [facility] [address] [place] [address] Diane George ANP [address] [place] [address] 10/18/2025 10:45 AM EST Office Visit [facility] [address] [place] [address] Ange Owen MD [address] [place] [phone] documented as of this encounter Visit Diagnoses Diagnosis Hypothyroidism, unspecified type documented in this encounter Additional Health Concerns Assessment Noted Time PHQ-9 Depression Total Score: 9 02/14/20 25 3:51 PM EDT documented as of this encounter Care Teams Section Cutter Relationship Specialty Start Date End Date Diane George ANP [address] [place] [phone] PCP - General Family Medicine 02/10/24 documented as of this encounter
--- OUTSIDE RECORDS SUMMARY | 2025-08-14 13:19 | XMS_ITS | Encounter Summary ---
Author Organization [email or web address] Address [address] 7[address] [place] [address] Care Team Providers Care Station Helper Name Role Phone Diane George Primary Care Provider [phone] Encounter Details Date Type Department Care Team (Late st Contact Info) Description 03/20/2025 Telephone [facility]INE [address] [place] [address] Diane George ANP [address] [place] [address] Social History Tobacco Use Types Packs/Day Years [...] Description 08/20/2025 1:30 PM EDT Office Visit [facility] [address] [place] [address] Diane George ANP [address] [place] [address] 10/18/2025 10:45 AM EST Office Visit [address] [address] Ange Owen MD [address] [place] [address] documented as of this encounter Visit Diagnoses Not on filedocumented in this encounter Additional Health Concerns Assessment Noted Time PHQ-9 Depression Total Score: 9 02/14/20 25 3:51 PM EDT documented as of this encounter Care Teams Station Helper Relationship Specialty Start Date End Date Diane George ANP [address] [place] [address] PCP - General Family Medicine 02/10/24 documented as of this encounter
--- OUTSIDE RECORDS SUMMARY | 2025-08-14 13:19 | XMS_ITS | Clinical Summary ---
Author Organization [address] [facility] Address [address] [place] [address] Phone Care Team Providers Care Survey Analyst Name Role Phone DorisDiane Ankur BARKER Primary Care Provider [phone] Allergies No known active allergies Medications ACETAMINOPHEN [...] 1:30 PM EDT Office Visit Orthopedic [facility] [address] [phone] Antony Ramirez DPM Hammer toe of left foot (Primary Dx); Dermatophytosis of nail; Metatarsalgia of both feet; Tinea pedis of both feet; Diabetic mononeuropathy simplex ([facility] V24, [facility] V28); Pain in toe of [...] 10/23/2025 1:15 PM EST Office Visit [facility] [address] [phone] Antony Ramirez DPM [address] [phone] Health Maintenance Due Date Last Done Comments [...] patient's age to complete this topic Insurance [facility] MEDICARE Member Subscriber Plan / Payer (Ef fective 2024-Present) Name:CHANTE ABDI Relation to Subscriber:Self Name:Chante Abdi Payer ID:[id number] Group ID:[id number] Type:Not on file Address: [facility] [address] [phone] Care Teams Survey Analyst Relationship Specialty Start Date End Date Diane George NP [address] [place] [phone] PCP - General 06/15/24
--- OUTSIDE RECORDS SUMMARY | 2025-08-14 13:19 | XMS_ITS | Encounter Summary ---
Author Organization [employer] Address [address] [facility] 7t [place] [address] Care Team Providers Care Steward/Stewardess Name Role Phone Diane George Primary Care Provider [phone] Reason for Visit * Reason Comments Med Refill Encounter Details Date Type Department Care Team ([facility] st Contact Info) Description 10/18/2024 Refill [facility] MEDICINE [address] [place] [address] Diane George ANP [address] [place] [address] Social History Tobacco Use Types Packs/Day Years [...] Description 08/20/2025 1:30 PM EDT Office Visit [facility] MEDICINE [address] [place] [address] Diane George ANP [address] [place] [address] 10/18/2025 10:45 AM EST Office Visit [address] [address] Ange Owen MD [address] [place] [address] documented as of this encounter Visit Diagnoses Not on filedocumented in this encounter Additional Health Concerns Assessment Noted Time PHQ-9 Depression Total Score: 9 07/27/20 24 9:59 AM EDT documented as of this encounter Care Teams Steward/Stewardess Relationship Specialty Start Date End Date Diane George ANP [address] [place] [address] PCP - General Family Medicine 02/10/24 documented as of this encounter
--- OUTSIDE RECORDS SUMMARY | 2025-08-14 13:19 | XMS_ITS | Clinical Summary ---
Author Organization [employer] Address [address] [facility] [address] [place] [address] Care Team Providers Care Geological Drafter Name Role Phone Constance Balderrama VASYL Primary Care Provider [phone] Allergies No known active allergies Medications * [...] 37.5-25 MG tabletIndications :Hypertension associated with diabetes (HCC) Take 1 tablet by mouth Once per day. 90 tablet 3 07/27/20 24 Active metFORMIN (Glucophage) 500 MG tabletIndications :Hypertension associated with diabetes (HCC) Take 1 tablet (500 mg) by mouth [...] Lite) w/Device kitIndications:Hy pertension associated with diabetes (HCC) 1 each 2 times daily. 1 kit 05/14/20 25 Active glucose blood test stripIndications: Hypertension associated with diabetes (HCC) Use to check BG 1-2 times daily 100 each 12 05/14/20 25 2025 Active pregabalin (Lyrica) 150 MG capsuleIndication s:Radicular pain of lower extremity,Diabeti c polyneuropathy associated with type 2 diabetes mellitus (HCC) TAKE 1 CAPSULE BY MOUTH AT BEDTIME [...] off 50 g 2 07/19/20 25 Active halobetasol (UltraVATE) 0.05 % ointment [...] connected with a psychiatrist and therapist in [place] (unable to provide agency name). Today, pt [...] with psychopharmacology when she was living in [place]. Family moved to [place] from [place] in 2017. Further information needed to make diagnosis of bipolar disorder. Currently seeing a therapist with [facility] Psychiatry services will start soon due to having a conflict with her insurance ([facility]). During today's visit, clinician engaged [...] is currently engaged in therapist services with [facility]. Psychiatry services were pending due to a conflict with her insurance ([facility]). Update from pt's granddaughter, [employer] will cover psychiatry services and appointment will [...] with psychopharmacology when she was living in [place]. Family moved to [place] from [place] in 2016. Further information needed to make diagnosis. PLAN: (check all that apply) Continue with current services (defined as services in the past 12 months) . Referral placed during last visit for psychiatry services [facility]. Assessment & Plan (02/13/2024 4:32 PM [...] with psychopharmacology when she was living in [place]. She was accompanied by her granddaughter. Family moved to [place] from [place] in 2017. Further information needed to make diagnosis. PLAN: (check all that apply) New/Additional Services needed PCP management On-site non-integrated services Off-site services for Behavioral Health Integration Plan Internal Follow up with [facility] External OP BH therapy referral and OP psychiatry Referral Patient Self Plan Patient to utilize skills provided in intervention , Patient to [facility] out to [facility] team as needed, Patient to engage in OP therapy , and Patient to reach out to [facility] as needed. Discussed getting sooner appointments with [facility] ([facility]) for psychopharmacology. clinician will see patient during next physical if needed. Encounters Date Type Department Care Team Description 08/14/2025 Refill [facility] [place] [address] Constance Balderrama ANP Right leg pain 08/07/2025 Results Follow-Up [facility] [place] [address] Constance Balderrama ANP Comprehensive Metabolic Panel, CBC auto differential, Hepatitis A,B,C Profile 07/19/2025 9:30 AM EDT Office Visit [facility] [place] [address] Ange Owen MD Inverse psoriasis (Primary Dx); Psoriasis vulgaris 07/19/2025 Travel 07/17/2025 Telephone [facility] [place] [address] Constance Balderrama ANP notes 07/16/2025 Refill [facility] [place] [address] Constance Balderrama ANP Hypothyroidism, unspecified type 07/12/2025 Refill [facility] [place] [address] Constance Balderrama ANP Hypothyroidism, unspecified type 07/01/2025 Telephone [facility] [place] [address] Constance Balderrama ANP notes faxed to sleep study 06/28/2025 Telephone [facility] [place] [address] Constance Balderrama ANP Durable Medical Equipment 06/28/2025 Orders Only [facility] [place] [address] Constance Balderrama ANP DIANA (obstructive sleep apnea) (Primary Dx); Nocturnal hypoxia 06/15/2025 Refill [facility] [place] [address] Constance Balderrama ANP Radicular pain of lower extremity; Diabetic polyneuropathy associated with type 2 diabetes mellitus ([facility]/HCC) 05/29/2025 Orders Only [facility] External Provider, [facility] 05/27/2025 Telephone [facility] [place] [address] Constance Balderrama ANP August05/16/2025 Telephone [facility] [employer] [facility] [address] [place] [address] Constance Balderrama ANP PSG ORDER 05/14/2025 1:15 PM EDT Office Visit [facility] [address] [place] [address] Constance Balderrama ANP DIANA (obstructive sleep apnea) (Primary Dx); Hypertension associated with diabetes (CMS/HCC); Radicular pain of lower extremity; Right hip pain; Low back pain potentially associated with radiculopathy; Spinal stenosis of lumbar region with neurogenic claudication; Dietary counseling; Exercise counseling; Right leg pain 05/14/2025 Travel from Last 3 Months Immunizations Immunization [...] Description 08/20/2025 1:30 PM EDT Office Visit [facility] [address] [place] [phone] Constance Balderrama ANP [address] [place] [address] 10/18/2025 10:45 AM EST Office Visit [facility] [address] [place] [phone] Ange Owen MD [address] [place] [phone] Health Maintenance Due Date Last Done Comments [...] PM EDT Hypertension associated with diabetes (CMS/HCC) ALBUMIN, [...] AM EDT) Hepatitis A IgM Nonreactive Nonreactive [facility] Comment:IgM antibodies to MARTINEZ V not detected; does not exclude earlyacute or recovered HAV infection. ~Hepatitis B Surface Antibody NONREACTIVE Nonreactive [facility] Comment:Nonreactive: < 8.00 mIU/mL Hepatitis B Core Antibody Nonreactive Nonreactive [facility] Hepatitis C Antibody Nonreactive Nonreactive [facility] Comment:Antibodies to HCV no t detected; does not exclude early acuteHCV infection. Hepatitis B Surface Ag Negative Negative [facility] Blood Venous blood specimen / Unknown 07/19/2025 10:06 AM EDT 07/19/2025 11:13 AM EDT Ange Owen MD LAB BLOOD ORDERABLES Final Re sult [facility] [address] [place] [address] [phone] * (ABNORMAL) CBC auto differential (07/19/2025 10:06 AM EDT) White Blood Count 6.2 4.8 - 10.8 X10*3/uL [facility] Red Blood Count 4.66 4.20 - 5.50 X10*6/uL [facility] Hemoglobin 13.6 12.0 - 16.0 g/dl [facility] Hematocrit 40.6 37.0 - 47.0 % [facility] Mean Corpuscular Volume 87.1 80.0 - 98.0 fL [facility] Mean Corpuscular Hemoglobin 29.2 27.0 - 33.0 pg [facility] Mean Corpuscular HGB Conc 33.5 31.0 - 35.0 g/dl [facility] Red Cell Distribution Width 13.8 11.0 - 16.0 % [facility] Platelet Count 195 160 - 400 X10*3/uL [facility] Mean Platelet Volume 11.2 9.4 - 12.3 fL [facility] Neutrophils Percent Auto 46.0 45 - 73 % [facility] Imm Gran Pct Auto 0.3 0.0 - 0.4 % [facility] Lymphocytes Percent Auto 35.6 20 - 40 % [facility] Monocytes Percent Auto 9.1 2 - 11 % [facility] Eosinophils Percent Auto 8.3(H) 0 - 4 % [facility] Basophils Percent Auto 0.7 0 - 2 % [facility] NRBC Pct Auto 0.0 0.0 - 0.2 /100WBC [facility] Neutrophils Absolute Auto 2.8 2.0 - 8.3 x10*3/uL [facility] Imm Gran Abs Auto 0.02 0.00 - 0.03 X10*3/uL [facility] Lymphocytes Absolute Auto 2.2 1.2 - 4.9 X10*3/uL [facility] Monocytes Absolute Auto 0.6 0.1 - 1.2 X10*3/uL [facility] Eosinophils Absolute Auto 0.5(H) 0.0 - 0.4 X10*3/uL [facility] Basophils Absolute Auto 0.0 0.0 - 0.2 X10*3/uL [facility] NRBC Abs Auto 0.000 0.0 - 0.012 X10*3/uL [facility] Blood Venous blood specimen / Unknown 07/19/2025 10:06 AM EDT 07/19/2025 11:13 AM EDT us Ange Owen MD LAB BLOOD ORDERABLES Final Re sult [facility] [address] [place] [phone] * (ABNORMAL) Comprehensive Metabolic Panel (07/19/2025 10:06 AM EDT) Sodium 141 135 - 145 mmol/L [facility] Potassium 4.4 3.3 - 5.1 mmol/L [facility] Chloride 103 96 - 108 mmol/L [facility] Carbon Dioxide 31(H) 22 - 29 mmol/L [facility] Anion Gap 11(L) 12 - 20 [facility] Urea Nitrogen (BUN) 19(H) 9 - 16 mg/dL [facility] Creatinine, Serum 1.24 0.5 - 1.4 mg/dL [facility] Estimated Glomerular Filt Rate 42 [facility] Comment:Chronic Kidney Disea se: Estimated GFR < 60 mL/min/1.50i0Meqtbk Kidney Disease: Estimated GFR < 15 mL/min/1.73m2 Glucose 98 60 - 115 mg/dL [facility] Calcium 9.1 8.4 - 10.2 mg/dL [facility] Bilirubin, Total 0.6 0.0 - 1.0 mg/dL [facility] Aspartate Amino Transferase 20 5 - 31 U/L [facility] Alanine Aminotransferase 14 0 - 31 U/L [facility] Total Protein 7.5 6.5 - 8.0 g/dL [facility] Albumin Level 4.2 3.5 - 5.0 g/dL [facility] Alkaline Phosphatase 79 39 - 117 U/L [facility] Blood Venous blood specimen / Unknown 07/19/2025 10:06 AM EDT 07/19/2025 11:13 AM EDT Ange Owen MD LAB BLOOD ORDERABLES Final Re sult [facility] [address] [place] [phone] * Referral to Sleep Medicine (06/17/2025) us Constance Balderrama ANP OUTPATIENT REFERRAL ORDERABLES F inal Result * US Retroperitoneal Complete (05/29/2025 5:03 PM EDT) Anatomical Region Laterality Modality Ultrasound 05/29/2025 5:03 PM EDT Narrative 05/29/2025 5:04 PM EDT [address] [address] Ultrasound Report Signed Patient: Roseanne Abdi MR#: [id number] 70 : 1945 Acct:[id number] Age/Sex: 79 / F ADM Date: 05/29/25 Loc: HO.US Attending Dr: Malick Sheridan MD Ordering Physician: Malick Sheridan MD Date of Service: 05/29/25 Procedure(s): US retroperitoneal comp Accession Number(s): [id number] cc: Malick Sheridan MD; CONSTANCE BALDERRAMA NP [...] in OV> 05/29/251703 DD/ 02 TD/TT: 05/29/251702 Claim Analyst: Procedure Note Donotuseinterpreter, Image - 05/29/2025 [place] [address] Ultrasound Report Signed Patient: Briana Abdi#: [id number] 70 : 1945cct:[id number] Age/Sex: 79 / FADM Date: 05/29/25 Loc: HO.US Attending Dr: Malick Sheridan MD Ordering Physician: Malick Sheridan MD Date of Service: 05/29/25 Procedure(s): US retroperitoneal comp Accession Number(s): [id number] cc: Malick Sheridan MD; CONSTANCE BALDERRAMA NP [...] in OV> 05/29/251703 DD/ 02 TD/TT: 05/29/251702 Claim Analyst: [facility] External Provider IMG US PROCEDURES Final Result * POCT Glucose (05/14/2025 2:21 PM EDT) Glucose Blood, POC 98 60 - 200 mg/dL QC Media Lot # [id number] Lot# Expiration Date Blood Capillary blood specimen / Unknown 05/14/2025 2:21 PM EDT Constance Balderrama ANP POINT OF CARE TEST ENTER/EDIT OR DERABLES Final Result * Albumin, Random Urine W/Creatinine (03/22/2025 10:25 AM EDT) Creatinine, Urine 74.54 mg/dL [facility] Microalbumin Urine 10.0 mg/L [facility] Microalbum Creatinine Ratio Ur 13.4 <30 ug/mg cr [facility] Comment:Albumin/Creatinine R atio Reference Ranges: Normal: < 30 ug/mg creatinine Microalbuminuria: 30 - 300 ug/mg creatinineClinical Albuminuria: > 300 ug/mg creatinine Urine 03/22/2025 10:2 5 AM EDT 03/22/2025 11:02 AM EDT Constance Balderrama ANP LAB URINE ORDERABLES Final Resul t [facility] [address] [place] [phone] * (ABNORMAL) POCT HGB A1C (12/04/2024 10:35 AM EST) Hemoglobin A1C 6.2(A) 4.0 - 6.0 % QC Media Lot # [id number] Lot# Expiration Date [id number] Blood 12/04/2024 10:3 5 AM EST Constance Balderrama ANP POINT OF CARE TEST ENTER/EDIT OR DERABLES Edited Result - Final * (ABNORMAL) Lipid Panel, Standard (05/03/2024 11:30 AM EDT) Triglycerides 211(H) <150 mg/dL [facility] Comment:Desirable Triglyceri de: less than 150 mg/dLBorderline High Triglyceride 150-199 mg/dLHigh Triglyceride: 200-499 mg/dLVery High Triglyceride: greater than or equal to 5OO mg/dL Cholesterol 110 <200 mg/dL [facility] Comment:Desirable Cholestero l: less than 200 mg/dLBorderline High Cholesterol: 200-239 mg/dLHigh Cholesterol: greater than 239 mg/dL LDL Cholesterol Calculated 35 <100 mg/dL [facility] Comment:Desirable LDL: less than 100 mg/dLNear Optimal/Above Optimal LDL: 110- 129 mg/dLBorderline High LDL: 130-159 mg/dLHigh LDL: 160-189 mg/dLVery High LDL: greater than or equal to 190 mg/dL HDL Cholesterol 33(L) >40 mg/dL [facility] Comment:Desirable HDL: great er than 40 mg/dL Note: This HDL assay may give artificially low results in patients with liver disease. Blood Venous blood specimen / Unknown 05/03/2024 11:30 AM EDT 05/03/2024 1:01 PM EDT Constance Balderrama ANP LAB BLOOD ORDERABLES Final Resul t [facility] [address] [place] [address] [phone] from Last 3 Months or Most Recently Relevant to Health Maintenance Insurance [facility] [employer] (HMO D-SNP) [place]ID [place] [id number] Care Teams Geological Drafter Relationship Specialty Start Date End Date Constance Balderrama ANP [address] [place] [phone] PCP - General Family Medicine 02/10/24
[2025-08-14 13:35] LABS: Appearance Urine Clear; Glucose Urine UA Negative (Negative); PH 6.5 (5.0-9.0); Specific Gravity - Urine 1.015 (1.005-1.025); UMIC TRIGGER UACC YES
[2025-08-14 13:42] LABS: Anion Gap 12 (12-20); Blood Urea Nitrogen 13 mg/dL (9-16); Calcium 9.5 mg/dL (8.4-10.2); Carbon Dioxide 31 mmol/L (22-29); Chloride 105 mmol/L (96-108); Estimated Glomerular Filt Rate 45; Potassium 4.5 mmol/L (3.3-5.1); Sodium 143 mmol/L (135-145)
[2025-08-14 13:56] LABS: UACC Culture Trigger YES
[2025-08-14 14:21] LABS: Microalbum/Creatinine Ratio Ur 24.1 ug/mg cr (<30)
[2025-08-17 14:09] LABS: Quantiferon TB Gold Plus 1 NEGATIVE (NEGATIVE); TB Test (QFT) Mitogen -Nil 5.60 IU/mL; TB Test (QFT) Nil 0.02 IU/mL; TB Test (QFT) Plus TB1 -Nil 0.06 IU/mL; TB Test (QFT) Plus TB2 -Nil 0.04 IU/mL
== END 2025-08-14 11:44 | disposition home or self-care (01) ==
LOC: HO.HHCL 11:43
PROVIDERS: Internal Medicine; PCP Nurse Practitioner Primary Care; Visit Provider Nurse Practitioner Primary Care
DX: Z11.1 Encounter for screening for respiratory tuberculosis (principal); L40.8 Other psoriasis; L40.0 Psoriasis vulgaris; E11.59 Type 2 diabetes mellitus with other circulatory complications; I15.2 Hypertension secondary to endocrine disorders; R79.89 Other specified abnormal findings of blood chemistry; R39.11 Hesitancy of micturition
CPT/HCPCS: 36415; 80048; 81001; 82043; 82570; 83036; 86480; 87086

== ENCOUNTER 2025-08-20 16:18 | Outpatient (REF) | payer OTHER, SELFPAY ==
--- OUTSIDE RECORDS SUMMARY | 2025-08-20 13:30 | XMS_ITS | Encounter Summary ---
Author Organization [employer] Address [address] [place] [address] Care Team Providers Care Nut Sorter Name Role Phone Diane George Primary Care Provider [phone] Reason for Visit * Reason Comments Follow-up Diabetes Encounter Details Date Type Department Care Team ([facility] st Contact Info) Description 08/20/2025 1:30 PM EDT Office Visit [facility] [address] [place] [address] Diane George ANP [address] [place] [address] Mild cognitive impairment (Primary Dx); DIANA (obstructive sleep apnea); Hypertension associated with diabetes (HCC); Encounter for immunization; Left flank pain Social History Tobacco Use Types Packs/Day [...] Sign Reading Time Taken Comments Blood Pressure 120/68 08/20/2025 1:45 PM EDT Pulse 74 08/20/2025 1:45 PM EDT Temperature 36.3 C (97.3 F) 08/20/2025 1:45 PM EDT Respiratory Rate 12 08/20/2025 1:45 PM EDT Oxygen Saturation 95% 08/20/2025 1:45 PM EDT Inhaled Oxygen Concentration - - Weight 77.7 kg (171 lb 4 oz) 08/20/2025 1:45 PM EDT Height 152.4 cm (5') 08/20/2025 1:45 PM EDT Body Mass Index 33.44 08/20/2025 1:45 PM EDT documented in this encounter Progress Notes * VASYL Cherry - 08/20/2025 1:30 PM EDT Roseanne Abdi is a 80 y.o. female who presents for a return visit. Her last visit was on 05/14/25 regarding obstructive sleep apnea. Today she is following-up regarding her chronic conditions. HPI She has had a few evaluations from various specialties as detailed below. Mild cognitive impairment: Evaluated by Dr. Shanks due to memory impairement and diagnosed with mild cognitive impairment on 08/08/25. Discharged from the care, she will continue with the care of the sleep medicine? Obstructive sleep apnea Evaluated by DAVID Rico, for sleep apnea, with CPAP machine titrated on 07/26/25- has not received the titrated/ new machine. Visit with urologist for overactive bladder with cystoscopy performed, which revealed the kidneys are within the normal limits; however, there is incomplete emptying of the bladder. Myrbetriq 25 mg daily with a return in 8 months Medication therapy in alleviating the incontinence and urinary frequency. Vaccine: Hep B surface antibody non reactive- she is eligible for heplisav B; however, she declined. She is welcomed to receive this at another time Laboratory studies reviewed from 08/14/25: - Renal function- mild improvement stable, no protein in urine - Urine culture reviewed contamination- Roseanne reports left flank pain; however, no other associated symptoms such as dysuria, fever, nausea, or vomiting, foul smelling or cloudy urine. Type 2 diabetes, controlled, with neuropathy- 08/14/25 A1C-6.1 - metformin 500 MG daily - Due for diabetic foot examination Blood glucose ranges - FBG- 115 and evening readings in 90's Hypo/hyperglycemic episodes- none Chronic low back pain with sciatica and Lumbar degenerative disc disease- under the care of the pain management clinic - Cortisone injection 08/27 Hypertension: - Triamterene-hydrochlorothiazide (Maxzide-25) 37.5-25 MG daily - 102/87- post medication intake and prior to medication 150/90's - No headaches, changes in vision (blurry vision), chest pain, palpitations, dizziness, shortness of breath. 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 Respiratory: Negative for shortness of breath and wheezing. Cardiovascular: Negative for chest pain, palpitations and leg swelling. Endocrine: Negative for cold intolerance, polydipsia, polyphagia and polyuria. Genitourinary: Positive for flank pain. Negative for decreased urine volume, difficulty urinating, dysuria, frequency, urgency, vaginal bleeding and vaginal discharge. Vitals: 08/20/25 1345 BP: 120/68 BP Location: Right arm Patient Position: Sitting BP Cuff Size: Large adult Pulse: 74 Resp: 12 Temp: 97.3 ??F (36.3 ??C) TempSrc: Oral SpO2: 95% Weight: 171 lb 4 oz (77.7 kg) Height: 5' (1.524 m) Physical Exam Constitutional: Appearance: Normal appearance. Cardiovascular: Rate and Rhythm: Normal rate. Heart sounds: Murmur heard. Pulmonary: Effort: Pulmonary effort is normal. Breath sounds: Normal breath sounds and air entry. No wheezing, rhonchi or rales. Abdominal: Tenderness: There is left CVA tenderness. There is no right CVA tenderness. Comments: Left flank pain with CVA tenderness Feet: Right foot: Protective Sensation: 5 sites tested. 5 sites sensed. Skin integrity: Skin integrity normal. Toenail Condition: Right toenails are normal. Left foot: Protective Sensation: 5 sites tested. 5 sites sensed. Skin integrity: Skin integrity normal. Toenail Condition: Left toenails are normal. Comments: Diabetic foot examination performed- able to perceive sharp and vibratory sensation. Neurological: Mental Status: She is alert. Psychiatric: Behavior: Behavior is cooperative. Assessment & Plan Mild cognitive impairment Grand daughter encouraged to contact the specialist to ensure continuity of care. DIANA (obstructive sleep apnea) She continues to follow-up with sleep medicine. She has not received her new CPAP machine. Encouraged to contact the office in 1 week if she does not receive it. She is also welcomed to contact this office for further assistance Hypertension associated with diabetes (HCC) BP well controlled with Triamterene-hydrochlorothiazide (Maxzide-25) 37.5-25 MG daily and home BP readings below 130/80. Renal fxn stable At/near goal today, </= 130/80. Continue to encourage low salt diet, regular exercise, home BP monitoring, compliance with medications. Call clinic if BP is frequently >150/90 Go to ED/call 911 if > 170/100 and having sx such as MARTINEZ, visual changes, chest pain, SOB Last renal function: Lab Results Component Value Date GLUCOSE 122 (H) 08/14/2025 NA 143 08/14/2025 K 4.5 08/14/2025 CO2 31 (H) 08/14/2025 CL 105 08/14/2025 BUN 13 08/14/2025 CREATININE 1.17 08/14/2025 EGFR 45 08/14/2025 No results found for: MICROALBCREA Lab Results Component Value Date ENRRIQUE 24.1 08/14/2025 Encounter for immunization Orders: FLU VACCINE TRIVALENT HIGH DOSE [id number] (Fluzone) 65 yrs + Left flank pain Possibly complicated UTI, treated empirically and 1 week return visit will be scheduled to re-assess her condition ensuring resolution of her condition. Previous 2 cultures contaminated, reviewed clean catch technique today and asked pt to repeat Hydrate well, call clinic if symptoms worsening or new symptoms develop Orders: Culture, Urine, Routine cefpodoxime (Vantin) 200 MG tablet; Take 1 tablet (200 mg) by mouth 2 times daily for 10 days. Current Medications[3] Follow up for STF UTI 7-10 days . [facility] STITCH BONDER MACHINE OPERATOR HELPER Attestation STITCH BONDER MACHINE OPERATOR HELPER Resident Attestation: Patient was seen and evaluated by Lencho PENAP, in collaboration with Diane George STITCH BONDER MACHINE OPERATOR HELPER who has reviewed my assessment and plan. I, Diane George STITCH BONDER MACHINE OPERATOR HELPER , have reviewed the resident's note and agree with the assessment & plan of care as documented above. Azeri interpretation by: MARGAUX Miles [1] Patient Active Problem List Diagnosis Mood disorder ([facility]/HCC) Glaucoma Hypothyroidism Mild cognitive impairment Hypertension associated with diabetes ([facility]) Essential hypertension DIANA (obstructive sleep apnea) Anxiety Diabetes mellitus, type II ([facility]) Osteopenia [2] No Known Allergies [3] Current Outpatient Medications: acetaminophen (Tylenol 8 Hour) 650 MG ER tablet, Take 1 tablet (650 mg) by mouth every 8 (eight) hours if needed for mild pain or moderate pain. Do not crush, chew, or split., Disp: 120 tablet, Rfl: 0 atropine 1 % ophthalmic solution, INSTILL 1 DROP IN RIGHT EYE TWICE A DAY TWELVE HOURS APART, Disp:, Rfl: Blood Glucose Monitoring Suppl (FreeStyle Lite) w/Device kit, 1 each 2 times daily., Disp: 1 kit, Rfl: 0 brimonidine (AlphaGAN P) 0.2 % ophthalmic solution, INSTILL ONE DROP IN LEFT EYE TWICE A DAY TWELVEHOURS APART., Disp: , Rfl: cefpodoxime (Vantin) 200 MG tablet, Take 1 tablet (200 mg) by mouth 2 times daily for 10 days., Disp: 20 tablet, Rfl: 0 dilTIAZem CD (Cardizem CD) 240 MG 24 hr capsule, Take 1 capsule (240 mg) by mouth Once per day., Disp: 90 capsule, Rfl: 3 glucose blood test strip, Use to check BG 1-2 times daily, Disp: 100 each, Rfl: 12 halobetasol (UltraVATE) 0.05 % ointment, Apply topically 2 times daily. Apply on legs 2 weeks on 2 weeks off, Disp: 50 g, Rfl: 2 levothyroxine (Synthroid, Levoxyl) 137 MCG tablet, Take 137 mcg by mouth Once per day., Disp: 90 tablet, Rfl: 3 lidocaine (Lidoderm) 5 % patch, APPLY 1 PATCH TOPICALLY ONCE PER DAY. REMOVE & DISCARD PATCH WITHIN 12 HOURS OR DIRECTED BY MD., Disp: 30 patch, Rfl: 2 metFORMIN (Glucophage) 500 MG tablet, Take 1 tablet (500 mg) by mouth Once per day. Take w/ meal, Disp: 90 tablet, Rfl: 3 omeprazole (PriLOSEC) [address] capsule, Take 1 capsule (20 mg) by mouth before breakfast., Disp: 90capsule, Rfl: 3 pravastatin (Pravachol) 40 MG tablet, TAKE 1 TABLET BY MOUTH AT BEDTIME, Disp: 90 tablet, Rfl: 1 prednisoLONE acetate (Pred-Forte) 1 % ophthalmic suspension, INSTILL 1 DROP IN RIGHT EYE TWICE A DAY (TWELVE HOURS APART), Disp: , Rfl: pregabalin (Lyrica) 150 MG capsule, TAKE 1 CAPSULE BY MOUTH AT BEDTIME, Disp: 30 capsule, Rfl: 2 timolol (Timoptic-XR) 0.5 % ophthalmic gel-forming, INSTILL 1 DROP IN LEFT EYE EVERY MORNING, Disp:, Rfl: traZODone (Desyrel) 50 MG tablet, 50 mg., Disp: , Rfl: triamcinolone (Kenalog) 0.1 % cream, Apply topically if needed in the morning and at bedtime (pain and swelling)., Disp: 453.6 g, Rfl: 2 triamterene-hydrochlorothiazide (Maxzide-25) 37.5-25 MG tablet, Take 1 tablet by mouth Once per day., Disp: 90 tablet, Rfl: 3 venlafaxine XR (Effexor XR) 37.5 MG 24 hr capsule, Take 1 capsule by mouth Once per day., Disp: , Rfl: documented in this encounter Miscellaneous Notes * Assessment & Plan Note - VASYL Cherry - 08/20/2025 1:30 PM EDTAssociated Problem(s): Mild cognitive impairment Grand daughter encouraged to contact the specialist to ensure continuity of care. * Assessment & Plan Note - VASYL Cherry - 08/20/2025 1:30 PM EDTAssociated Problem(s): DIANA (obstructive sleep apnea) She continues to follow-up with sleep medicine. She has not received her new CPAP machine. Encouraged to contact the office in 1 week if she does not receive it. She is also welcomed to contact this office for further assistance * Assessment & Plan Note - VASYL Cherry - 08/20/2025 1:30 PM EDTAssociated Problem(s): Hypertension associated with diabetes (HCC) BP well controlled with Triamterene-hydrochlorothiazide (Maxzide-25) 37.5-25 MG daily and home BP readings below 130/80. Renal fxn stable At/near goal today, </= 130/80. Continue to encourage low salt diet, regular exercise, home BP monitoring, compliance with medications. Call clinic if BP is frequently >150/90 Go to ED/call 911 if > 170/100 and having sx such as MARTINEZ, visual changes, chest pain, SOB Last renal function: Lab Results Component Value Date GLUCOSE 122 (H) 08/14/2025 NA 143 08/14/2025 K 4.5 08/14/2025 CO2 31 (H) 08/14/2025 CL 105 08/14/2025 BUN 13 08/14/2025 CREATININE 1.17 08/14/2025 EGFR 45 08/14/2025 No results found for: MICROALBCREA Lab Results Component Value Date MICROALBCREU 24.1 08/14/2025 documented in this encounter Plan of Treatment Upcoming Encounters Date Type Department Care Team (Late st Contact Info) Description 10/18/2025 10:45 AM EST Office Visit [facility] [address] [place], [place] [id number] Ange Owen MD [address] [place] [address] Scheduled Orders Name Type Priority Associated Diagnoses Orde r Schedule Culture, Urine, Routine Microbiology Routine Left flank pain Ordered: 08/20/2025 documented as of this encounter Visit Diagnoses Diagnosis Mild cognitive impairment- Primary Mild cognitive impairment, so stated DIANA (obstructive sleep apnea) Obstructive sleep apnea (adult) (pediatric) Hypertension associated with diabetes (HCC) Unspecified essential hypertension Encounter for immunization Left flank pain Abdominal pain, unspecified site documented in this encounter Additional Health Concerns Assessment Noted Time PHQ-9 Depression Total Score: 9 02/14/20 25 3:51 PM EDT documented as of this encounter Care Teams Nut Sorter Relationship Specialty Start Date End Date Diane George ANP [address] [place] [address] PCP - General Family Medicine 02/10/24 documented as of this encounter
--- OUTSIDE RECORDS SUMMARY | 2025-08-20 18:53 | XMS_ITS | Encounter Summary ---
Author Organization [employer] Address [address] [facility] [address] [place] [address] Care Team Providers Care System Dispatcher Name Role Phone Diane George Primary Care Provider [phone] Reason for Visit * Reason Comments Med Refill Encounter Details Date Type Department Care Team ([facility] st Contact Info) Description 02/04/2025 Refill [facility] [address] [place] [address] Diane George ANP [address] [place] [address] Social History Tobacco Use Types Packs/Day Years [...] Description 10/18/2025 10:45 AM EST Office Visit [facility] [address] [place] [address] Ange Owen MD [address] [place] [address] documented as of this encounter Visit Diagnoses Not on filedocumented in this encounter Additional Health Concerns Assessment Noted Time PHQ-9 Depression Total Score: 9 07/27/20 24 9:59 AM EDT documented as of this encounter Care Teams System Dispatcher Relationship Specialty Start Date End Date Diane George ANP [address] [place] [address] PCP - General Family Medicine 02/10/24 documented as of this encounter
--- OUTSIDE RECORDS SUMMARY | 2025-08-20 18:53 | XMS_ITS | Encounter Summary ---
Author Organization [employer] Address [address] [place] [address] Care Team Providers Care Silver Solderer Name Role Phone Diane George VASYL Primary Care Provider Encounter Details Date Type Department Care Team (Latest Contact Info) Description 08/20/2025 Travel Social History Tobacco Use Types Packs/Day [...] Description 10/18/2025 10:45 AM EST Office Visit [facility] [address] [place] [address] Ange Owen MD [address] [place] [address] documented as of this encounter Visit Diagnoses Not on filedocumented in this encounter Additional Health Concerns Assessment Noted Time PHQ-9 Depression Total Score: 9 02/14/20 25 3:51 PM EDT documented as of this encounter Care Teams Silver Solderer Relationship Specialty Start Date End Date Diane George ANP [address] [place] [address] PCP - General Family Medicine 02/10/24 documented as of this encounter
--- OUTSIDE RECORDS SUMMARY | 2025-08-20 18:53 | XMS_ITS | Encounter Summary ---
Author Organization [employer] Address [address] [place] [address] Care Team Providers Care Flatlock Sewing Machine Operator Name Role Phone Diane George Primary Care Provider [phone] Reason for Visit * Reason Onset Date Comments chart prep 08/19/2025 Encounter Details Date Type Department Care Team (Late st Contact Info) Description 08/19/2025 Telephone [facility] [address] [place] [address] Diane George ANP [address] [place] [address] chart prep Social History Tobacco Use Types Packs/Day Years [...] encounter Miscellaneous Notes * Telephone Encounter - Jd Yanez [place] - 08/19/2025 9:21 AM EDT Chart Prep Labs: done Images: done Referrals: appointment pending Vaccines due: Covid and Flu Screenings: foot exam Overdue care gaps: Disability screen documented in this encounter Plan of Treatment Upcoming Encounters Date Type Department Care Team (Late st Contact Info) Description 10/18/2025 10:45 AM EST Office Visit [facility] [address] [place] [address] Ange Owen MD [address] [place] [address] documented as of this encounter Visit Diagnoses Not on filedocumented in this encounter Additional Health Concerns Assessment Noted Time PHQ-9 Depression Total Score: 9 02/14/20 25 3:51 PM EDT documented as of this encounter Care Teams Flatlock Sewing Machine Operator Relationship Specialty Start Date End Date Diane George ANP [address] [place] [address] PCP - General Family Medicine 02/10/24 documented as of this encounter
--- OUTSIDE RECORDS SUMMARY | 2025-08-20 18:53 | XMS_ITS | Clinical Summary ---
Author Organization [employer] Address [address] [place] [address] Care Team Providers Care Enterprise Resource Planner Name Role Phone Constance Balderrama VASYL Primary Care Provider [phone] Allergies No known active allergies Medications * [...] mouth Once per day. 02/28/20 25 Active Blood Glucose Monitoring Suppl ([employer]) w/Device kitIndications:Hy pertension associated with diabetes [...] off 50 g 2 07/19/20 25 Active lidocaine (Lidoderm) 5 % patchIndications: Right leg pain APPLY 1 PATCH TOPICALLY ONCE PER DAY. REMOVE & DISCARD PATCH WITHIN 12 HOURS OR DIRECTED BY MD. 30 patch 2 08/14/20 25 Active cefpodoxime (Vantin) 200 MG tabletIndications :Left flank pain Take 1 tablet (200 mg) by mouth 2 times daily for 10 days. 20 tablet 08/20/20 25 025 Active lidocaine (Lidoderm) 5 % patchIndications: Right leg pain Apply 1 patch topically Once per day. Remove & discard patch within 12 hours or as directed by . 30 patch 2 05/14/20 25 025 Discontinued Active Problems Problem Noted [...] connected with a psychiatrist and therapist in [place] (unable to provide agency name). Today, pt [...] 11/27/2024 DIANA (obstructive sleep apnea) 06/14/2024 Overview (08/20/2025): Follows w/ sleep med, they have recommended CPAP therapy Assessment & Plan (08/20/2025 3:52 PM EDT): She continues to follow-up with sleep medicine. She has not received her new CPAP machine. Encouraged to contact the office in 1 week if she does not receive it. She is also welcomed to contact this office for further assistance Glaucoma 04/30/2024 Overview (04/30/2024): does not see out of R eye as a result. Follows w/ Dr. Diaz. Hypothyroidism 04/30/2024 Overview (04/30/2024): Cont levothyroxine 137mcg daily Mild cognitive impairment 04/30/2024 Overview (08/20/2025): UPDATE 03/09/2024: MMSE 20/30, labs pending MCI per neuro 07/2025 Assessment & Plan (08/20/2025 3:52 PM EDT): Grand daughter encouraged to contact the specialist to ensure continuity of care. Hypertension associated with diabetes 04/30/2024 Overview (06/14/2024): Cont metformin 500mg daily Lyrica 150mg at bedtime neuropathy Not on ASA or MIGUELITO/ARB Yes on statin Foot exam at follow-up Eye exam UTD per pt Assessment & Plan (08/20/2025 3:52 PM EDT): BP well controlled with Triamterene-hydrochlorothiazide (Maxzide-25) 37.5-25 [...] Results Component Value Date MICROALBCREU 24.1 08/14/2025 Essential hypertension 04/30/2024 Overview (04/30/2024): on diltiazem [...] with psychopharmacology when she was living in [place]. Family moved to [place] from [place] in 2016. Further information needed to make diagnosis of bipolar disorder. Currently seeing a therapist with [facility] Psychiatry services will start soon due to having a conflict with her insurance ([facility]). During today's visit, clinician engaged [...] is currently engaged in therapist services with [facility]. Psychiatry services were pending due to a conflict with her insurance ([facility]). Update from pt's granddaughter, [facility] will cover psychiatry services and [...] with psychopharmacology when she was living in [place]. Family moved to [place] from [place] in 2017. Further information needed to make [...] with psychopharmacology when she was living in [place]. She was accompanied by her granddaughter. Family moved to [place] from [place] in 2017. Further information needed to make diagnosis. PLAN: (check all that apply) New/Additional Services needed PCP management On-site non-integrated services Off-site services for Behavioral Health Integration Plan Internal Follow up with [facility] External OP therapy referral and OP psychiatry Referral Patient Self Plan Patient to utilize skills provided in intervention , Patient to reach out to [facility] team as needed, Patient to engage in OP therapy , and Patient to reach out to [facility] as needed. Discussed getting sooner appointments with [facility] ([facility]) for psychopharmacology. clinician will see patient during next physical if needed. Encounters Date Type Department Care Team Description 08/20/2025 1:30 PM EDT Office Visit [facility] [address] [place] [address] Constance Balderrama ANP Mild cognitive impairment (Primary Dx); DIANA (obstructive sleep apnea); Hypertension associated with diabetes (HCC); Encounter for immunization; Left flank pain 08/20/2025 Travel 08/19/2025 Telephone [facility] [address] [place] [address] Constance Balderrama ANP chart prep 08/14/2025 Orders Only [facility] [address] [place] [address] Constance Balderrama ANP 08/14/2025 Refill [facility] [place] [place] [address] Constance Balderrama ANP Right leg pain 08/07/2025 Results Follow-Up [facility] [place] [address] Constance Badlerrama ANP Comprehensive Metabolic Panel, CBC auto differential, Hepatitis A,B,C Profile 07/19/2025 9:30 AM EDT Office Visit [facility] [place] [id number] Ange Owen MD Inverse psoriasis (Primary Dx); Psoriasis vulgaris 07/19/2025 Travel 07/17/2025 Telephone [facility] [place] [address] Constance Balderrama ANP notes 07/16/2025 Refill [facility] [place] [address] Constance Balderrama ANP Hypothyroidism, unspecified type 07/12/2025 Refill [facility] [place] [address] Constance Balderrama ANP Hypothyroidism, unspecified type 07/01/2025 Telephone [facility] [place] [address] Constance Balderrama ANP notes faxed to sleep study 06/28/2025 Telephone [facility] [place] [address] Constance Balderrama ANP Durable Medical Equipment 06/28/2025 Orders Only [facility] [place] [address] Constance Balderrama ANP DIANA (obstructive sleep apnea) (Primary Dx); Nocturnal hypoxia 06/15/2025 Refill [facility] [place] [address] Constance Balderrama ANP Radicular pain of lower extremity; Diabetic polyneuropathy associated with type 2 diabetes mellitus ([facility]/HCC) 05/29/2025 Orders Only [facility] External Provider, [facility] 05/27/2025 Telephone [facility] [place] [facility] [place] [address] Constance Lacy ANP August recall from Last 3 Months Immunizations Immunization Administration Dates Next Due Hep B, adult 12/04/2024,07/27/2024,06/14/2024 Influenza High-dose Quadriva lent Preservative Free 10/26/2022 Influenza Quadrivalent Adjuvanted 09/09/2023 Influenza, High Dose Seasona l, Preservative Free 08/20/2025,09/17/2024 Pneumococcal Conjugate PCV 20 05/03/2024 RSV Bivalent [...] Mass Index 33.44 08/20/2025 1:45 PM EDT Plan of Treatment Upcoming Encounters Date Type Department Care Team (Late st Contact Info) Description 10/18/2025 10:45 AM EST Office Visit [facility] [address] [place] [address] Ange Owen MD [address] [place] [address] Health Maintenance Due Date Last Done Comments Lipid Panel 05/03/2025 05/03/2024 COVID-19 Vaccine ( season) 2025 Depression Monitoring 08/15/2025 02/13/2025, 025 Alcohol/Substance Use Screening 12/04/2025 12/04/2024 Diabetes: Hemoglobin A1C 02/12/2026 025, 12/04/2024, 07/27/2024, Additional history exists SDOH Screening 05/14/2026 05/14/2025 Diabetes: Urine Protein Screening 08/14/2026 08/14/2025, 03/22/2025 Diabetes: Foot Exam 08/20/2026 08/20/2025, 08/20/2025, 05/03/2024, Additional history exists Tobacco Screening 08/20/2026 08/20/2025 Eye Exam 12/17/2026 12/17/2024 DTaP/Tdap/Td Vaccines (2 - Td or Tdap) 05/03/2034 05/03/2024 Pneumococcal Vaccine: 50+ Years Completed 05/03/2024 RSV Patients and Patients Aged 60 years or older Completed 05/03/2024 Zoster Vaccines Completed 10/18/2024, 08/09/2024 Hepatitis B Vaccines Completed 12/04/2024, 07/27/2024, 06/14/2024 Hepatitis C Screening Completed 07/19/2025, 024 Influenza Vaccine Completed 08/20/2025, , 09/09/2023, Additional history exists HIB Vaccines Aged Out No longer eligi [...] Procedure Name Priority Date/Time Associated Diagnosis Comments URINALYSIS, COMPLETE, WITH REFLEX TO CULTURE Routine 08/14/2025 12:12 PM EDT BASIC METABOLIC PANEL Routine 08/14/2025 12:12 PM EDT Elevated serum creatinine ALBUMIN, RANDOM URINE W/CREATININE Routine 08/14/2025 12:12 PM EDT Elevated serum creatinine QUANTIFERON(R)-TB GOLD PLUS, 1 TUBE Routine 08/14/2025 12:12 PM EDT Psoriasis vulgaris Inverse psoriasis HEMOGLOBIN A1C Routine 08/14/2025 12:12 PM EDT Hypertension associated with diabetes (HCC) CULTURE, URINE, ROUTINE Routine 08/14/20 12:12 PM EDT HEPATITIS PANEL, GENERAL Routine 07/19/2025 10:06 AM EDT Psoriasis vulgaris CBC WITH AUTO DIFFERENTIAL Routine 07/19/2025 10:06 AM EDT Psoriasis vulgaris COMPREHENSIVE METABOLIC PANEL Routine 07/19/2025 10:06 AM EDT Psoriasis vulgaris AMB REFERRAL TO SLEEP MEDICINE Urgent 06/17/2025 DIANA (obstructive sleep apnea) US RETROPERITONEAL COMPLETE Routine 05/29/2025 5:03 PM EDT LIPID PANEL, STANDARD Routine 05/03/2024 11:30 AM EDT Hypertension associated with diabetes (CMS/HCC) ([facility]) Healthcare maintenance from Last 3 Months or Most Recently Relevant to Health Maintenance Results * (ABNORMAL) Urinalysis, Complete, with Reflex to Culture (08/14/2025 12:12 PM EDT) Color Urine Yellow [facility] Appearance Urine Clear [facility] PH 6.5 5.0 - 9.0 [facility] Glucose Urine UA Negative Negative mg/dL [facility] Urine Blood Negative Negative [facility] Specific [place] - Urine 1.015 1.005 - 1.025 [facility] Urine Protein Negative Neg-Trace mg/dL [facility] Urine Ketones Negative Negative mg/dL [facility] Nitrite Urine Negative Negative [facility] Leukocyte Esterase Urine Large (3+)(A) Negative [facility] RBC Urine 0-2 0 - 2 /HPF [facility] Urine WBC 21-50(A) 0 - 5 /HPF [facility] Urine Squamous Epithelial Cell >20 0 - 2 /HPF [facility] Urine Bacteria 3+ None Seen [facility] Hyaline Casts, Urine 0-2 0 - 2 /LPF [facility] 08/14/2025 12:1 2 PM EDT 08/14/2025 12:56 PM EDT Narrative [facility] - 08/14/2025 1:58 PM EDT Urine, Clean Catch Constance Balderrama [facility] URINE ORDERABLES Final Resul t Performing Organization Address [facility] de Phone Number [facility] [address] [place] [phone] * Albumin, Random Urine W/Creatinine (08/14/2025 12:12 PM EDT) Creatinine, Urine 115.78 mg/dL [facility] Microalbumin Urine 28.0 mg/L [facility] Microalbum Creatinine Ratio Ur 24.1 <30 ug/mg cr [facility] Comment:Albumin/Creatinine R atio Reference Ranges: Normal: < 30 ug/mg creatinine Microalbuminuria: 30 - 300 ug/mg creatinineClinical Albuminuria: > 300 ug/mg creatinine Urine 08/14/2025 12:1 2 PM EDT 08/14/2025 12:56 PM EDT Constance Balderrama [facility] URINE ORDERABLES Final Resul t Performing Organization Address [facility] de Phone Number [facility] [address] [place] [phone] * QuantiFERON??-TB Gold Plus, 1 Tube (08/14/2025 12:12 PM EDT) Quantiferon -TB Gold Plus, 1 Tube NEGATIVE NEGATIVE [facility] Comment:Negative test result . M. tuberculosis complexinfection unlikely. NIL 0.02 IU/mL [facility] MITOGEN-NIL 5.60 IU/mL [facility] TB1-NIL 0.06 IU/mL [facility] TB2-NIL 0.04 IU/mL [facility] Comment:The Nil tube value r eflects the background interferongamma immune response of the patient's blood sample.This value has been subtracted from the patient'sdisplayed TB and Mitogen results.Lower than expected results with the Mitogen tubeprevent false-negative Quantiferon readings bydetecting a patient with a potential immunesuppressive condition and/or suboptimal pre-analyticalspecimen handling.The TB1 Antigen tube is coated with theM. tuberculosis-specific antigens designed to elicitresponses from TB antigen primed CD4+ helperT-lymphocytes.The TB2 Antigen tube is coated with theM. tuberculosis-specific antigens designed to elicitresponses from TB antigen primed CD4+ helper and CD8+cytotoxic T-lymphocytes.For additional information, please refer totps://education.Fiksu/faq/AEI242(This link is being provided for informational/educational purposes only.)THIS TEST WAS PERFORMED AT:[email or web address] [place] [phone] LAGUERRE MD Blood Venous blood specimen / Unknown 08/14/2025 12:12 PM EDT 08/14/2025 1:11 PM EDT Ange Owen MD LAB BLOOD ORDERABLES Final Re sult Performing Organization Address [facility] [[email or web address]] Co de Phone Number [facility] [address] [place] [phone] * Culture, Urine, Routine (08/14/2025 12:12 PM EDT) Urine Urine specimen obtained by clean catch procedure / Unknown 08/14/2025 12:12 PM EDT 08/14/2025 2:26 PM EDT Comment:UACC Narrative [facility] - 08/15/2025 12:09 PM EDT Urine Culture Report Result Urine Culture 50,000 to 100,000 cfu/ml Urine Culture Mixed bacterial sheryl characteristic of Urine Culture urogenital contamination. Specimen Source: Urine clean catch Constance [facility] MICROBIOLOGY - GENERAL ORDER LUIS Final Result Performing Organization Address [facility]/ZIP Co de Phone Number [facility] [address] [place] [phone] * (ABNORMAL) Hemoglobin A1c (08/14/2025 12:12 PM EDT) Hemoglobin A1c 6.1(H) <6.0 % [facility] Comment:Hemoglobin A1C Refer ence Range Adults: 4.8 - 6.0 % Non diabetic: < 6.0 % Goal: < 7.0 %Additional Action Suggested: > 8.0 %Note: Hemoglobin A1c results are invalid for patients with abnormal amounts of HbF. Blood transfusions may impact the HbA1c concentration in the patient sample. Estimated Average Glucose 128 mg/dL [facility] Comment:eAG = Estimated ave rage glucose which is %A1C expressed asaverage glucose, using the formula of the X7X-NnlskaqAzxviix Glucose study (ADAG), Diabetes Care, Vol.31,#8,Jun. 2007 Blood Venous blood specimen / Unknown 08/14/2025 12:12 PM EDT 08/14/2025 1:11 PM EDT Constance [facility] BLOOD ORDERABLES Final Resul t [facility] [address] [place] [phone] * (ABNORMAL) Basic Metabolic Panel (08/14/2025 12:12 PM EDT) Pathologist [facility] Sodium 143 135 - 145 mmol/L [facility] Potassium 4.5 3.3 - 5.1 mmol/L [facility] Chloride 105 96 - 108 mmol/L [facility] Carbon Dioxide 31(H) 22 - 29 mmol/L [facility] Anion Gap 12 12 - 20 [facility] Urea Nitrogen (BUN) 13 9 - 16 mg/dL [facility] Creatinine, Serum 1.17 0.5 - 1.4 mg/dL [facility] Estimated Glomerular Filt Rate 45 [facility] Comment:Chronic Kidney Disea se: Estimated GFR < 60 mL/min/1.75x5Gkhlpq Kidney Disease: Estimated GFR < 15 mL/min/1.73m2 Glucose 122(H) 60 - 115 mg/dL [facility] Calcium 9.5 8.4 - 10.2 mg/dL [facility] Blood Venous blood specimen / Unknown 08/14/2025 12:12 PM EDT 08/14/2025 1:11 PM EDT Constance [facility] BLOOD ORDERABLES Final Resul t Performing Organization Address [facility] de Phone Number [facility] [address] [place] [phone] * Hepatitis A,B,C Profile (07/19/2025 10:06 AM EDT) Hepatitis A IgM Nonreactive Nonreactive [facility] Comment:IgM antibodies to MARTINEZ V not detected; does not exclude earlyacute or recovered HAV infection. ~Hepatitis B Surface Antibody NONREACTIVE Nonreactive [facility] Comment:Nonreactive: < 8.00 mIU/mL Hepatitis B Core Antibody Nonreactive Nonreactive [facility] Hepatitis C Antibody Nonreactive Nonreactive [facility] Comment:Antibodies to HCV no t detected; does not exclude early acuteHCV infection. Hepatitis B Surface Ag Negative Negative [facility] Blood Venous blood specimen / Unknown 07/19/2025 10:06 AM EDT 07/19/2025 11:13 AM EDT Ange Owen MD LAB BLOOD ORDERABLES Final Re sult Performing Organization Address [facility] de Phone Number [facility] [address] [place] [phone] * (ABNORMAL) CBC auto differential (07/19/2025 10:06 AM EDT) White Blood Count 6.2 4.8 - 10.8 X10*3/uL [facility] Red Blood Count 4.66 4.20 - 5.50 X10*6/uL [facility] Hemoglobin 13.6 12.0 - 16.0 g/dl [facility] Hematocrit 40.6 37.0 - 47.0 % [facility] Mean Corpuscular Volume 87.1 80.0 - 98.0 fL [facility] Mean Corpuscular Hemoglobin 29.2 27.0 - 33.0 pg [facility] Mean Corpuscular HGB Conc 33.5 31.0 - 35.0 g/dl [facility] Red Cell Distribution Width 13.8 11.0 - 16.0 % [facility] Platelet Count 195 160 - 400 X10*3/uL [facility] Mean Platelet Volume 11.2 9.4 - 12.3 fL [facility] Neutrophils Percent Auto 46.0 45 - 73 % [facility] Imm Gran Pct Auto 0.3 0.0 - 0.4 % [facility] Lymphocytes Percent Auto 35.6 20 - 40 % [facility] Monocytes Percent Auto 9.1 2 - 11 % [facility] Eosinophils Percent Auto 8.3(H) 0 - 4 % [facility] Basophils Percent Auto 0.7 0 - 2 % [facility] NRBC Pct Auto 0.0 0.0 - 0.2 /100WBC [facility] Neutrophils Absolute Auto 2.8 2.0 - 8.3 x10*3/uL [facility] Imm Gran Abs Auto 0.02 0.00 - 0.03 X10*3/uL [facility] Lymphocytes Absolute Auto 2.2 1.2 - 4.9 X10*3/uL [facility] Monocytes Absolute Auto 0.6 0.1 - 1.2 X10*3/uL [facility] Eosinophils Absolute Auto 0.5(H) 0.0 - 0.4 X10*3/uL [facility] Basophils Absolute Auto 0.0 0.0 - 0.2 X10*3/uL [facility] NRBC Abs Auto 0.000 0.0 - 0.012 X10*3/uL [facility] Blood Venous blood specimen / Unknown 07/19/2025 10:06 AM EDT 07/19/2025 11:13 AM EDT us Ange Owen MD LAB BLOOD ORDERABLES Final Re sult Performing Organization Address City/[facility]/ZIP Co de Phone Number [facility] [address] [place] [phone] * (ABNORMAL) Comprehensive Metabolic Panel (07/19/2025 10:06 AM EDT) Sodium 141 135 - 145 mmol/L [facility] Potassium 4.4 3.3 - 5.1 mmol/L [facility] Chloride 103 96 - 108 mmol/L [facility] Carbon Dioxide 31(H) 22 - 29 mmol/L [facility] Anion Gap 11(L) 12 - 20 [facility] Urea Nitrogen (BUN) 19(H) 9 - 16 mg/dL [facility] Creatinine, Serum 1.24 0.5 - 1.4 mg/dL [facility] Estimated Glomerular Filt Rate 42 [facility] Comment:Chronic Kidney Disea se: Estimated GFR < 60 mL/min/1.65d9Ldwqfx Kidney Disease: Estimated GFR < 15 mL/min/1.73m2 Glucose 98 60 - 115 mg/dL [facility] Calcium 9.1 8.4 - 10.2 mg/dL [facility] Bilirubin, Total 0.6 0.0 - 1.0 mg/dL [facility] Aspartate Amino Transferase 20 5 - 31 U/L [facility] Alanine Aminotransferase 14 0 - 31 U/L [facility] Total Protein 7.5 6.5 - 8.0 g/dL [facility] Albumin Level 4.2 3.5 - 5.0 g/dL [facility] Alkaline Phosphatase 79 39 - 117 U/L [facility] Blood Venous blood specimen / Unknown 07/19/2025 10:06 AM EDT 07/19/2025 11:13 AM EDT Ange Owen MD LAB BLOOD ORDERABLES Final Re sult Performing Organization Address City/[facility]/ZIP Co de Phone Number [facility] [address] [place] [phone] * Referral to Sleep Medicine (06/17/2025) us Constance Balderrama ANP OUTPATIENT REFERRAL ORDERABLES F inal Result * US Retroperitoneal Complete (05/29/2025 5:03 PM EDT) Anatomical Region Laterality Modality Ultrasound 05/29/2025 5:03 PM EDT Narrative 05/29/2025 5:04 PM EDT [address] [address] Ultrasound Report Signed Patient: Roseanne Abdi MR#: [id number] 70 : 1945 Acct:[id number] Age/Sex: 79 / F ADM Date: 05/29/25 Loc: HO.US Attending Dr: Malick Sheridan MD Ordering Physician: Malick Sheridan MD Date of Service: 05/29/25 Procedure(s): US retroperitoneal comp Accession Number(s): [id number] cc: Malick Sheridan MD; CONSTANCE BALDERRAMA NP [...] in OV> 05/29/251703 DD/ 02 TD/TT: 05/29/251702 Ward Attendant: Procedure Note Donotuseinterpreter, Image - 05/29/[address] [address] Ultrasound Report Signed Patient: Briana Abdi#: [id number] 70 : 6Acct:[id number] Age/Sex: 79 / FADM Date: 05/29/25 Loc: HO.US Attending Dr: Malick Sheridan MD Ordering Physician: Malick Sheridan MD Date of Service: 05/29/25 Procedure(s): US retroperitoneal comp Accession Number(s): [id number] cc: Malick Sheridan MD; CONSTANCE BALDERRAMA NP [...] in OV> 05/29/251703 DD/ 02 TD/TT: 05/29/251702 Ward Attendant: [facility] External Provider IMG US PROCEDURES Final Result * (ABNORMAL) Lipid Panel, Standard (05/03/2024 11:30 AM EDT) Triglycerides 211(H) <150 mg/dL [facility] Comment:Desirable Triglyceri de: less than 150 mg/dLBorderline High Triglyceride 150-199 mg/dLHigh Triglyceride: 200-499 mg/dLVery High Triglyceride: greater than or equal to 5OO mg/dL Cholesterol 110 <200 mg/dL [facility] Comment:Desirable Cholestero l: less than 200 mg/dLBorderline High Cholesterol: 200-239 mg/dLHigh Cholesterol: greater than 239 mg/dL LDL Cholesterol Calculated 35 <100 mg/dL [facility] Comment:Desirable LDL: less than 100 mg/dLNear Optimal/Above Optimal LDL: 110- 129 mg/dLBorderline High LDL: 130-159 mg/dLHigh LDL: 160-189 mg/dLVery High LDL: greater than or equal to 190 mg/dL HDL Cholesterol 33(L) >40 mg/dL [facility] Comment:Desirable HDL: great er than 40 mg/dL Note: This HDL assay may give artificially low results in patients with liver disease. Blood Venous blood specimen / Unknown 05/03/2024 11:30 AM EDT 05/03/2024 1:01 PM EDT us Constance [facility] BLOOD ORDERABLES Final Resul t [facility] [address] [place] [phone] from Last 3 Months or Most Recently Relevant to Health Maintenance Insurance [facility] [facility] (O D-SNP) Care Teams Enterprise Resource Planner Relationship Specialty Start Date End Date Constance Balderrama ANP [address] [place] [address] PCP - General Family Medicine 02/10/24
--- OUTSIDE RECORDS SUMMARY | 2025-08-20 18:53 | XMS_ITS | Encounter Summary ---
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 EFFECTIVE SINCE 04/14/2023 documented in this encounter Plan of Treatment Upcoming Encounters Date Type Department Care Team (Late st Contact Info) Description 10/18/2025 10:45 AM EST Office Visit [facility]INE [address] [place] [address] Ange Owen MD [address] [place] [address] documented as of this encounter Visit Diagnoses Not on filedocumented in this encounter Care Teams Beet Worker Relationship Specialty Start Date End Date Diane George ANP [address] [place] [address] PCP - General Family Medicine 02/10/24 documented as of this encounter
--- OUTSIDE RECORDS SUMMARY | 2025-08-20 18:53 | XMS_ITS | Clinical Summary ---
Author Organization [address] [facility] Address [address] [place] [address] Phone Care Team Providers Care Yeast Culture Operator Name Role Phone DorisDiane Ankur BARKER Primary Care Provider [phone] Allergies No known active allergies Medications ACETAMINOPHEN [...] 1:30 PM EDT Office Visit Orthopedic Surgery [facility] [address] [phone] Antony Ramirez DPM Hammer toe of left foot (Primary Dx); Dermatophytosis of nail; Metatarsalgia of both feet; Tinea pedis of both feet; Diabetic mononeuropathy simplex ([facility] V24, [facility] V28); Pain in toe of [...] 10/23/2025 1:15 PM EST Office Visit Orthopedic [facility] [address] [phone] Antony Ramirez DPM [address] [phone] Health Maintenance Due Date Last Done Comments [...] patient's age to complete this topic Insurance [facility] MEDICARE Member Subscriber Plan / Payer (Ef fective 2024-Present) Name:CHANTE ABDI Relation to Subscriber:Self Name:Chante Abdi Payer ID:[id number] Group ID:[id number] Type:Not on file Address: [facility] [address] [phone] Care Teams Yeast Culture Operator Relationship Specialty Start Date End Date Diane George NP [address] [place] [phone] PCP - General 06/15/24
--- OUTSIDE RECORDS SUMMARY | 2025-08-20 18:53 | XMS_ITS | Encounter Summary ---
Author Organization [employer] Address [address] [facility] [address] 7t [place] [address] Care Team Providers Care Church Secretary Name Role Phone Diane George Primary Care Provider Encounter Details Date Type Department Care Team (Late st Contact Info) Description 03/20/2025 Telephone [facility]INE 230 [place] [address] Diane George ANP 230 [place] [address] Social History Tobacco Use Types Packs/Day Years [...] Description 10/18/2025 10:45 AM EST Office Visit [facility] 230 [place] [address] Ange Owen MD 230 [place] [address] documented as of this encounter Visit Diagnoses Not on filedocumented in this encounter Additional Health Concerns Assessment Noted Time PHQ-9 Depression Total Score: 9 02/14/20 25 3:51 PM EDT documented as of this encounter Care Teams Church Secretary Relationship Specialty Start Date End Date Diane George ANP [address] [place] [address] PCP - General Family Medicine 02/10/24 documented as of this encounter
--- OUTSIDE RECORDS SUMMARY | 2025-08-20 18:53 | XMS_ITS | Encounter Summary ---
Author Organization [employer] Address 75 [facility] 7t [place] [address] Care Team Providers Care Blanking Machine Operator Name Role Phone Diane George Primary Care Provider [phone] Reason for Visit * Reason Comments Med Refill Encounter Details Date Type Department Care Team ([facility] st Contact Info) Description 10/18/[address] [facility]INE 230 [place] [address] Diane George ANP 230 [place] [address] Social History Tobacco Use Types Packs/Day Years [...] Description 10/18/2025 10:45 AM EST Office Visit [facility] 230 [place] [address] Ange Owen MD [address] [place] [address] documented as of this encounter Visit Diagnoses Not on filedocumented in this encounter Additional Health Concerns Assessment Noted Time PHQ-9 Depression Total Score: 9 07/27/20 24 9:59 AM EDT documented as of this encounter Care Teams Blanking Machine Operator Relationship Specialty Start Date End Date Diane George ANP [address] [place] [address] PCP - General Family Medicine 02/10/24 documented as of this encounter
--- OUTSIDE RECORDS SUMMARY | 2025-08-20 18:53 | XMS_ITS | Encounter Summary ---
Author Organization [employer] Address [address] [facility] [address] 7t [place] [address] Care Team Providers Care Operation Research Analyst Name Role Phone Diane George Primary Care Provider [phone] Encounter Details Date Type Department Care Team (Late st Contact Info) Description 07/16/[address] [facility] MEDICINE 230 [place], [place] [phone] Diane George ANP [address] [place] [address] Hypothyroidism, unspecified type Social History Tobacco Use [...] AM EST Office Visit [facility] MEDICINE [address] [place] [address] Ange Owen MD [address] [place] [address] documented as of this encounter Visit Diagnoses Diagnosis Hypothyroidism, unspecified type documented in this encounter Additional Health Concerns Assessment Noted Time PHQ-9 Depression Total Score: 9 02/14/20 25 3:51 PM EDT documented as of this encounter Care Teams Operation Research Analyst Relationship Specialty Start Date End Date Diane George ANP [address] [place] [address] PCP - General Family Medicine 02/10/24 documented as of this encounter
== END 2025-08-20 16:19 | disposition home or self-care (01) ==
LOC: HO.HHCLNP 16:18
PROVIDERS: Visit Provider Nurse Practitioner Primary Care
DX: R10.A2 Flank pain, left side (principal)
CPT/HCPCS: 87086

== ENCOUNTER 2025-08-27 06:21 | Outpatient (REF) | payer OTHER, SELFPAY ==
--- NOTE | ~2025-08-27 | FL_ITS ---
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 TECHNIQUE: Fluoroscopy time: 36.4 seconds. Cumulative Dose: 18.067 mGy. DAP: 6.8421 Gycm2 Images: 12. FINDINGS: Fluoroscopic spot films of the lumbar spine demonstrate needles and contrast material in the regions of the bilateral L3-4, L4-5, and L5-S1 facet joints. FL/FL guidance in treatment room IMPRESSION: Fluoroscopy during procedure. Please see procedure report for additional information. Electronically signed by: Jose Ramon Romano MD 08/27/2025 03:45 PM EDT
--- OUTSIDE RECORDS SUMMARY | 2025-08-27 06:23 | XMS_ITS | Encounter Summary ---
Author Organization [employer] Address 75 [facility] 7t [place] [address] Care Team Providers Care Catering Attendant Name Role Phone Diane George Primary Care Provider [phone] Reason for Visit * Reason Comments Med Refill Encounter Details Date Type Department Care Team ([facility] st Contact Info) Description 10/18/2024 Refill [facility]INE 230 [place] [address] Diane George ANP 230 [place] [address] Social History Tobacco Use Types Packs/Day Years [...] Care Team (Late st Contact Info) Description 09/12/2025 11:15 AM EDT Office Visit [facility] MEDICINE [address] [place] [address] Diane George ANP [address] [place] [address] 10/18/2025 10:45 AM EST Office Visit [address] [address] Ange Owen MD [address] [place] [address] documented as of this encounter Visit Diagnoses Not on filedocumented in this encounter Additional Health Concerns Assessment Noted Time PHQ-9 Depression Total Score: 9 07/27/20 24 9:59 AM EDT documented as of this encounter Care Teams Catering Attendant Relationship Specialty Start Date End Date Diane George ANP [address] [place] [address] PCP - General Family Medicine 02/10/24 documented as of this encounter
--- OUTSIDE RECORDS SUMMARY | 2025-08-27 06:23 | XMS_ITS | Encounter Summary ---
Author Organization [employer] Address 75 [facility] 7t [place] [address] Care Team Providers Care Oral And Maxillofacial Pathologist Name Role Phone Diane George VASYL Primary Care Provider [phone] Reason for Visit * Reason Onset Date Comments New Patient 07/07/2023 Encounter Details Date Type Department Care Team (Late Contact Info) Description 07/07/2023 Telephone [facility] MEDICINE 230 [place] [address] Seth Barron MD 230 [place] [address] New Patient Social History Tobacco Use Types [...] been transfer over to wait list for CAPTAIN ASSISTANT. EFFECTIVE SINCE 04/14/2023 documented in this encounter Plan of Treatment Upcoming Encounters Date Type Department Care Team (Late st Contact Info) Description 09/12/2025 11:15 AM EDT Office Visit [address] [address] Diane George ANP 230 [place] [address] 10/18/2025 10:45 AM EST Office Visit [address] [phone] nAge Owen MD [address] [place] [address] documented as of this encounter Visit Diagnoses Not on filedocumented in this encounter Care Teams Oral And Maxillofacial Pathologist Relationship Specialty Start Date End Date Diane George ANP [address] [place] [address] PCP - General Family Medicine 02/10/24 documented as of this encounter
--- OUTSIDE RECORDS SUMMARY | 2025-08-27 06:23 | XMS_ITS | Encounter Summary ---
Author Organization [employer] Address [address] [facility] 7t [place] [address] Care Team Providers Care Wire Stockkeeper Name Role Phone Diane George Primary Care Provider [phone] Encounter Details Date Type Department Care Team (Late st Contact Info) Description 07/16/2025 Refill [facility] MEDICINE 230 [place], [place] [phone] Diane George ANP 230 [place] [address] Hypothyroidism, unspecified type Social History Tobacco Use [...] Description 09/12/2025 11:15 AM EDT Office Visit [facility] MEDICINE [address] [place] [address] Diane George ANP [address] [place] [address] 10/18/2025 10:45 AM EST Office Visit [facility] MED[facility]INE [address] [place] [address] Ange Owen MD [address] [place] [address] documented as of this encounter Visit Diagnoses Diagnosis Hypothyroidism, unspecified type documented in this encounter Additional Health Concerns Assessment Noted Time PHQ-9 Depression Total Score: 9 02/14/20 25 3:51 PM EDT documented as of this encounter Care Teams Wire Stockkeeper Relationship Specialty Start Date End Date Diane George ANP [address] [place] [address] PCP - General Family Medicine 02/10/24 documented as of this encounter
--- OUTSIDE RECORDS SUMMARY | 2025-08-27 06:23 | XMS_ITS | Encounter Summary ---
Author Organization [employer] Address 75 [facility] 7t [place] [address] Care Team Providers Care Spring Setter Name Role Phone Diane George Primary Care Provider [phone] Reason for Visit * Reason Comments Med Refill Encounter Details Date Type Department Care Team ([facility] st Contact Info) Description 02/04/2025 Refill [facility] MEDICINE 230 [place] [address] Diane George ANP 230 [place] [address] Social History Tobacco Use Types Packs/Day Years [...] Description 09/12/2025 11:15 AM EDT Office Visit [facility] MED[facility]INE [address] [place] [address] Diane George ANP [address] [place] [address] 10/18/2025 10:45 AM EST Office Visit [address] [address] Ange Owen MD [address] [place] [address] documented as of this encounter Visit Diagnoses Not on filedocumented in this encounter Additional Health Concerns Assessment Noted Time PHQ-9 Depression Total Score: 9 07/27/20 24 9:59 AM EDT documented as of this encounter Care Teams Spring Setter Relationship Specialty Start Date End Date Diane George ANP [address] [place] [address] PCP - General Family Medicine 02/10/24 documented as of this encounter
--- OUTSIDE RECORDS SUMMARY | 2025-08-27 06:23 | XMS_ITS | Encounter Summary ---
Author Organization [employer] Address [address] [facility] [address] 7t [place] [address] Care Team Providers Care Art History Professor Name Role Phone Diane George Primary Care Provider [phone] Encounter Details Date Type Department Care Team (Late st Contact Info) Description 03/20/[address] [facility] MEDICINE 230 [place] [address] Diane George ANP 230 [place] [address] Social History Tobacco Use Types Packs/Day Years [...] Description 09/12/2025 11:15 AM EDT Office Visit [facility] MEDICINE [address] [place] [address] Diane George ANP [address] [place] [address] 10/18/2025 10:45 AM EST Office Visit [address] [address] Ange Owen MD [address] [place] [address] documented as of this encounter Visit Diagnoses Not on filedocumented in this encounter Additional Health Concerns Assessment Noted Time PHQ-9 Depression Total Score: 9 02/14/20 25 3:51 PM EDT documented as of this encounter Care Teams Art History Professor Relationship Specialty Start Date End Date Diane George ANP [address] [place] [address] PCP - General Family Medicine 02/10/24 documented as of this encounter
--- OUTSIDE RECORDS SUMMARY | 2025-08-27 06:23 | XMS_ITS | Clinical Summary ---
Author Organization 175 [facility] Address 175 [place] [address] Phone Care Team Providers Care Stationary Engineer Name Role Phone DorisDiane Ankur BARKER Primary Care Provider [phone] Allergies No known active allergies Medications ACETAMINOPHEN [...] 1:30 PM EDT Office Visit Orthopedic Surgery [facility] [address] [phone] Antony Ramirez DPM Hammer toe of left foot (Primary Dx); Dermatophytosis of nail; Metatarsalgia of both feet; Tinea pedis of both feet; Diabetic mononeuropathy simplex ([facility] V24, [facility] V28); Pain in toe of left foot; [...] Visit Orthopedic [facility] [address] [phone] Antony Ramirez DPM [address] [phone] Health Maintenance Due Date Last Done Comments [...] patient's age to complete this topic Insurance [facility] MEDICARE Member Subscriber Plan / Payer (Ef fective 2024-Present) Name:CHANTE ABDI Relation to Subscriber:Self Name:Chante Abdi Payer ID:[id number] Group ID:[id number] Type:Not on file Address: [facility] [address] [address] Care Teams Stationary Engineer Relationship Specialty Start Date End Date Diane George NP [address] [place] [phone] PCP - General 06/15/24
--- OUTSIDE RECORDS SUMMARY | 2025-08-27 06:23 | XMS_ITS | Encounter Summary ---
Author Organization [employer] Address 75 [facility] 7t [place] [address] Care Team Providers Care Ear Machine Operator Name Role Phone Diane George Primary Care Provider [phone] Reason for Visit * Reason Onset Date Comments Results 08/22/2025 Encounter Details Date Type Department Care Team ([facility] st Contact Info) Description 08/22/2025 Results Follow-Up [facility] MEDICINE 230 [place] [address] Diane George ANP 230 [place] [address] Culture, Urine, Routine Social History Tobacco Use Types Packs/Day Years [...] Telephone Encounter - Mackenzie Hernandez RN - 08/23/2025 3:01 PM EDT TC placed to the pt with S music library assistant #[id number] to inform that if the pt current UTI symptoms do not resolve that PCP will need to order another clean catch urine. The pt was informed that many of the past collections have come back contaminated and it is important for the pt to follow the steps toensure a clean collection. The pt was advised if symptoms do not improve to call back the office toinform. Pt stated understanding ----- Message from Diane George sent at 08/22/2025 4:57 PM EDT ----- Ok thanks - if pt symptoms of UTI do not resolve, will need very strict clean catch protocol review- this is the 3rd culture that is contaminated. Please let her know to call us if symptoms not improving thanks. ----- Message ----- From: Interface, Lab Results In Sent: 08/21/2025 1:51 PM EDT To: VASYL Cherry * Result Encounter Note - VASYL Cherry - 08/22/2025 4:57 PM EDT Ok thanks - if pt symptoms of UTI do not resolve, will need very strict clean catch protocol review- this is the 3rd culture that is contaminated. Please let her know to call us if symptoms not improving thanks. documented in this encounter Plan of Treatment Upcoming Encounters Date Type Department Care Team (Late st Contact Info) Description 09/12/2025 11:15 AM EDT Office Visit [facility] MEDICINE [address] [place] [address] Diane George ANP [address] [place] [address] 10/18/2025 10:45 AM EST Office Visit [address] [address] Ange Owen MD [address] [place] [address] documented as of this encounter Visit Diagnoses Not on filedocumented in this encounter Additional Health Concerns Assessment Noted Time PHQ-9 Depression Total Score: 9 02/14/20 25 3:51 PM EDT documented as of this encounter Care Teams Ear Machine Operator Relationship Specialty Start Date End Date Diane George ANP [address] [place] [address] PCP - General Family Medicine 02/10/24 documented as of this encounter
--- OUTSIDE RECORDS SUMMARY | 2025-08-27 06:23 | XMS_ITS | Clinical Summary ---
Author Organization [facility] [employer] Address [address] [facility] 7[address] [place] [address] Care Team Providers Care Customer Service Manager Name Role Phone Constance Balderrama VASYL Primary Care Provider [phone] Allergies No known active allergies Medications * [...] 02/28/20 25 Active Blood Glucose Monitoring Suppl (BazaartStyle Lite) w/Device kitIndications:Hy pertension associated with diabetes [...] connected with a psychiatrist and therapist in [place] (unable to provide agency name). Today, pt [...] with psychopharmacology when she was living in [place]. Family moved to [place] from [place] in 2016. Further information needed to make diagnosis of bipolar disorder. Currently seeing a therapist with [facility] Psychiatry services will start soon due to having a conflict with her insurance ([facility]). During today's visit, clinician engaged pt with [...] is currently engaged in therapist services with [facility]. Psychiatry services were pending due to a conflict with her insurance ([facility]). Update from pt's granddaughter, [facility] will cover psychiatry services and appointment will [...] with psychopharmacology when she was living in [place]. Family moved to [place] from [place] in 2017. Further information needed [...] with psychopharmacology when she was living in [place]. She was accompanied by her granddaughter. Family moved to [place] from [place] in 2017. Further information needed to make diagnosis. PLAN: (check all that apply) New/Additional Services needed PCP management On-site non-integrated services Off-site services for Behavioral Health Integration Plan Internal Follow up with [facility] External OP therapy referral and OP psychiatry Referral Patient Self Plan Patient to utilize skills provided in intervention , Patient to reach out to [facility] team as needed, Patient to engage in OP therapy , and Patient to reach out to [facility] as needed. Discussed getting sooner appointments with [facility] ([facility]) for psychopharmacology. clinician will see patient during next physical if needed. Encounters Date Type Department Care Team Description 08/22/2025 Results Follow-Up [address] [address] Constance Balderrama ANP Culture, Urine, Routine 08/20/2025 1:30 PM EDT Office Visit [address] [address] Constance Balderrama ANP Mild cognitive impairment (Primary Dx); DIANA (obstructive sleep apnea); Hypertension associated with diabetes (HCC); Encounter for immunization; Left flank pain 08/20/2025 Travel 08/19/[address] [place] [address] Constance Balderrama ANP chart prep 08/14/2025 Orders Only [facility] [place] [address] Constance Balderrama ANP 08/14/2025 Refill [facility] [place] [address] Constance Balderrama ANP Right leg pain 08/07/2025 Results Follow-Up [facility] [place] [address] Constance Balderrama ANP Comprehensive Metabolic Panel, CBC auto differential, Hepatitis A,B,C Profile 07/19/2025 9:30 AM EDT Office Visit [facility] [place] [address] Ange Owen MD Inverse psoriasis (Primary Dx); Psoriasis vulgaris 07/19/2025 Travel 07/17/[address] [address] Constance Balderrama ANP notes 07/16/2025 Refill [facility] [place] [address] Constance Balderrama ANP Hypothyroidism, unspecified type 07/12/2025 Refill [facility] [place] [address] Constance Balderrama ANP Hypothyroidism, unspecified type 07/01/2025 Telephone [facility] [place] [address] Constance Balderrama ANP notes faxed to sleep study 06/28/[address] [address] Constance Balderrama ANP Durable Medical Equipment 06/28/2025 Orders Only [address] [address] Constance Balderrama ANP DIANA (obstructive sleep apnea) (Primary Dx); Nocturnal hypoxia 06/15/2025 Refill [facility] [place] [address] Constance Balderrama ANP Radicular pain of lower extremity; Diabetic polyneuropathy associated with type 2 diabetes mellitus ([facility]) 05/29/2025 Orders Only [facility] External Provider, [facility] 05/27/2025 Telephone [facility] [address] [place], [place] [phone] Constance Balderrama ANP August recall from Last 3 Months [...] Description 09/12/2025 11:15 AM EDT Office Visit [facility] [address] [place] [address] Constance Balderrama ANP [address] [place] [address] 10/18/2025 10:45 AM EST Office Visit [address] [address] Ange Owen MD [address] [place] [address] Health Maintenance Due Date Last Done Comments [...] Procedure Name Priority Date/Time Associated Diagnosis Comments CULTURE, URINE, ROUTINE Routine 08/20/20 2:44 PM EDT Left flank pain URINALYSIS, COMPLETE, WITH REFLEX TO CULTURE Routine [...] Recently Relevant to Health Maintenance Results * Culture, Urine, Routine (08/20/2025 2:44 PM EDT) Only the most recent of2 resultswithin the time period is included. Urine Urine specimen obtained by clean catch procedure / Unknown 08/20/2025 2:44 PM EDT 08/20/2025 4:20 PM EDT Comment:[facility] - 08/22/2025 9:24 AM EDT Urine Culture Report Result Urine Culture 50,000 to 100,000 cfu/ml Urine Culture Mixed bacterial sheryl characteristic of Urine Culture urogenital contamination. Specimen Source: Urine clean catch Constance Balderrama [facility] MICROBIOLOGY - GENERAL ORDER LUIS Final Result Performing Organization Address [facility] Co de Phone Number [facility] [address] [place] [address] [phone] * (ABNORMAL) Urinalysis, Complete, with Reflex to Culture (08/14/2025 12:12 PM EDT) Color Urine Yellow [facility] Appearance Urine Clear [facility] PH 6.5 5.0 - 9.0 [facility] Glucose Urine UA Negative Negative mg/dL [facility] Urine Blood Negative Negative [facility] Specific Apex - Urine 1.015 1.005 - 1.025 [facility] Urine Protein Negative Neg-Trace mg/dL [facility] Urine Ketones Negative Negative mg/dL [facility] Nitrite Urine Negative Negative [facility] Leukocyte Esterase Urine Large (3+)(A) Negative [facility] RBC Urine 0-2 0 - 2 /HPF [facility] Urine WBC 21-50(A) 0 - 5 /HPF [facility] Urine Squamous Epithelial Cell >20 0 - 2 /HPF [facility] Urine Bacteria 3+ None Seen [facility] Hyaline Casts, Urine 0-2 0 - 2 /LPF [facility] 08/14/2025 12:1 2 PM EDT 08/14/2025 12:56 PM EDT Narrative [facility] - 08/14/2025 1:58 PM EDT Urine, Clean Catch Constance Balderrama [facility] URINE ORDERABLES Final Resul t Performing Organization Address [facility] Co de Phone Number [facility] [address] [place] [address] [phone] * Albumin, Random Urine W/Creatinine (08/14/2025 12:12 PM EDT) Creatinine, Urine 115.78 mg/dL [facility] Microalbumin Urine 28.0 mg/L [facility] Microalbum Creatinine Ratio Ur 24.1 <30 ug/mg cr [facility] Comment:Albumin/Creatinine R atio Reference Ranges: Normal: < 30 ug/mg creatinine Microalbuminuria: 30 - 300 ug/mg creatinineClinical Albuminuria: > 300 ug/mg creatinine Urine 08/14/2025 12:1 2 PM EDT 08/14/2025 12:56 PM EDT [facility] LAB URINE ORDERABLES Final Resul t [facility] [address] [place] [phone] [phone] * QuantiFERON??-TB Gold Plus, 1 Tube (08/14/2025 12:12 PM EDT) Pathologist [facility] Quantiferon -TB Gold Plus, 1 Tube NEGATIVE NEGATIVE [facility] Comment:Negative test result . M. tuberculosis complexinfection unlikely. NIL 0.02 IU/mL [facility] MITOGEN-NIL 5.60 IU/mL [facility] TB1-NIL 0.06 IU/mL [facility] TB2-NIL 0.04 IU/mL [facility] Comment:The Nil tube value r eflects [...] and CD8+cytotoxic T-lymphocytes.For additional information, please refer tohttps://education.BuyWithMe.Cayo-Tech/faq/ZDL553(This link is being provided for informational/educational purposes only.)THIS TEST WAS PERFORMED AT:[facility] [place] [phone] LAGUERRE MD Blood Venous blood specimen / Unknown 08/14/2025 12:12 PM EDT 08/14/2025 1:11 PM EDT Ange Owen MD LAB BLOOD ORDERABLES Final Re sult Performing Organization Address City/[facility]/ZIP Co de Phone Number [facility] [address] [place] [phone] * (ABNORMAL) Hemoglobin A1c (08/14/2025 12:12 PM EDT) Hemoglobin A1c 6.1(H) <6.0 % [facility] Comment:Hemoglobin A1C Refer ence Range Adults: 4.8 - 6.0 % Non diabetic: < 6.0 % Goal: < 7.0 %Additional Action Suggested: > 8.0 %Note: Hemoglobin A1c results are invalid for patients with abnormal amounts of HbF. Blood transfusions may impact the HbA1c concentration in the patient sample. Estimated Average Glucose 128 mg/dL [facility] Comment:eAG = Estimated ave rage glucose which is %A1C expressed asaverage glucose, using the formula of the P2Z-VmrctzuLerkirz Glucose study (ADAG), Diabetes Care, Vol.31,#8,Jun. 2007 Blood Venous blood specimen / Unknown 08/14/2025 12:12 PM EDT 08/14/2025 1:11 PM EDT Constance FALLON LAB BLOOD ORDERABLES Final Resul t Performing Organization Address City/[facility]/ZIP Co de Phone Number [facility] [address] [place] [address] [phone] * (ABNORMAL) Basic Metabolic Panel (08/14/2025 12:12 PM EDT) Sodium 143 135 - 145 mmol/L [facility] Potassium 4.5 3.3 - 5.1 mmol/L [facility] Chloride 105 96 - 108 mmol/L [facility] Carbon Dioxide 31(H) 22 - 29 mmol/L [facility] Anion Gap 12 12 - 20 [facility] Urea Nitrogen (BUN) 13 9 - 16 mg/dL [facility] Creatinine, Serum 1.17 0.5 - 1.4 mg/dL [facility] Estimated Glomerular Filt Rate 45 [facility] Comment:Chronic Kidney Disea se: Estimated GFR < 60 mL/min/1.69q6Qshrup Kidney Disease: Estimated GFR < 15 mL/min/1.73m2 Glucose 122(H) 60 - 115 mg/dL [facility] Calcium 9.5 8.4 - 10.2 mg/dL [facility] Blood Venous blood specimen / Unknown 08/14/2025 12:12 PM EDT 08/14/2025 1:11 PM EDT Constance FALLON LAB BLOOD ORDERABLES Final Resul t Performing Organization Address City/[facility]/ZIP Co de Phone Number [facility] [address] [place] [phone] * Hepatitis A,B,C Profile (07/19/2025 10:06 AM EDT) Hepatitis A IgM Nonreactive Nonreactive [facility] Comment:IgM antibodies to MARTINEZ V not detected; does not exclude earlyacute or recovered HAV infection. ~Hepatitis B Surface Antibody NONREACTIVE Nonreactive [facility] Comment:Nonreactive: < 8.00 mIU/mL Hepatitis B Core Antibody Nonreactive Nonreactive [facility] Hepatitis C Antibody Nonreactive Nonreactive [facility] Comment:Antibodies to HCV no t detected; does not exclude early acuteHCV infection. Hepatitis B Surface Ag Negative Negative [facility] Blood Venous blood specimen / Unknown 07/19/2025 10:06 AM EDT 07/19/2025 11:13 AM EDT Ange Owen MD LAB BLOOD ORDERABLES Final Re sult [facility] [address] [place] [address] [phone] * (ABNORMAL) CBC auto differential (07/19/2025 10:06 AM EDT) White Blood Count 6.2 4.8 - 10.8 X10*3/uL [facility] Red Blood Count 4.66 4.20 - 5.50 X10*6/uL [facility] Hemoglobin 13.6 12.0 - 16.0 g/dl [facility] Hematocrit 40.6 37.0 - 47.0 % [facility] Mean Corpuscular Volume 87.1 80.0 - 98.0 fL [facility] Mean Corpuscular Hemoglobin 29.2 27.0 - 33.0 pg [facility] Mean Corpuscular HGB Conc 33.5 31.0 - 35.0 g/dl [facility] Red Cell Distribution Width 13.8 11.0 - 16.0 % [facility] Platelet Count 195 160 - 400 X10*3/uL [facility] Mean Platelet Volume 11.2 9.4 - 12.3 fL [facility] Neutrophils Percent Auto 46.0 45 - 73 % [facility] Imm Gran Pct Auto 0.3 0.0 - 0.4 % [facility] Lymphocytes Percent Auto 35.6 20 - 40 % [facility] Monocytes Percent Auto 9.1 2 - 11 % [facility] Eosinophils Percent Auto 8.3(H) 0 - 4 % [facility] Basophils Percent Auto 0.7 0 - 2 % [facility] NRBC Pct Auto 0.0 0.0 - 0.2 /100WBC [facility] Neutrophils Absolute Auto 2.8 2.0 - 8.3 x10*3/uL [facility] Imm Gran Abs Auto 0.02 0.00 - 0.03 X10*3/uL [facility] Lymphocytes Absolute Auto 2.2 1.2 - 4.9 X10*3/uL [facility] Monocytes Absolute Auto 0.6 0.1 - 1.2 X10*3/uL [facility] Eosinophils Absolute Auto 0.5(H) 0.0 - 0.4 X10*3/uL [facility] Basophils Absolute Auto 0.0 0.0 - 0.2 X10*3/uL [facility] NRBC Abs Auto 0.000 0.0 - 0.012 X10*3/uL [facility] Blood Venous blood specimen / Unknown 07/19/2025 10:06 AM EDT 07/19/2025 11:13 AM EDT us Ange Owen MD LAB BLOOD ORDERABLES Final Re sult [facility] [address] [place] [phone] * (ABNORMAL) Comprehensive Metabolic Panel (07/19/2025 10:06 AM EDT) Sodium 141 135 - 145 mmol/L [facility] Potassium 4.4 3.3 - 5.1 mmol/L [facility] Chloride 103 96 - 108 mmol/L [facility] Carbon Dioxide 31(H) 22 - 29 mmol/L [facility] Anion Gap 11(L) 12 - 20 [facility] Urea Nitrogen (BUN) 19(H) 9 - 16 mg/dL [facility] Creatinine, Serum 1.24 0.5 - 1.4 mg/dL [facility] Estimated Glomerular Filt Rate 42 [facility] Comment:Chronic Kidney Disea se: Estimated GFR < 60 mL/min/1.97q3Wrwnlo Kidney Disease: Estimated GFR < 15 mL/min/1.73m2 Glucose 98 60 - 115 mg/dL [facility] Calcium 9.1 8.4 - 10.2 mg/dL [facility] Bilirubin, Total 0.6 0.0 - 1.0 mg/dL [facility] Aspartate Amino Transferase 20 5 - 31 U/L [facility] Alanine Aminotransferase 14 0 - 31 U/L [facility] Total Protein 7.5 6.5 - 8.0 g/dL [facility] Albumin Level 4.2 3.5 - 5.0 g/dL [facility] Alkaline Phosphatase 79 39 - 117 U/L [facility] Blood Venous blood specimen / Unknown 07/19/2025 10:06 AM EDT 07/19/2025 11:13 AM EDT Ange Owen MD LAB BLOOD ORDERABLES Final Re sult [facility] [address] [place] [phone] * Referral to Sleep Medicine (06/17/2025) us Constance Balderrama ANP OUTPATIENT REFERRAL ORDERABLES F inal Result * US Retroperitoneal Complete (05/29/2025 5:03 PM EDT) Anatomical Region Laterality Modality Ultrasound 05/29/2025 5:03 PM EDT Narrative 05/29/2025 5:04 PM EDT [address] [address] Ultrasound Report Signed Patient: Roseanne Abdi MR#: [id number] : 1945 Acct:[id number] Age/Sex: 79 / F ADM Date: 05/29/25 Loc: HO.US Attending Dr: Malick Sheridan MD Ordering Physician: Malick Sheridan MD Date of Service: 05/29/25 Procedure(s): US retroperitoneal comp Accession Number(s): [id number] cc: Malick Sheridan MD; CONSTANCE BALDERRAMA NP [...] in OV> 05/29/251703 DD/ 02 TD/TT: 05/29/251702 Fur Storage Clerk: Procedure Note Donotuseinterpreter, Image - 05/29/2025 [place] [id number] Ultrasound Report Signed Patient: Briana Abdi#: [id number] : 1945cct:[id number] Age/Sex: 79 / FADM Date: 05/29/25 Loc: HO.US Attending Dr: Malick Sheridan MD Ordering Physician: Malick Sheridan MD Date of Service: 05/29/25 Procedure(s): US retroperitoneal comp Accession Number(s): [id number] cc: Malick Sheridan MD; CONSTANCE BALDERRAMA NP [...] MD in OV> 05/29/251703 DD/ 02 TD/TT: 07/16/25 1703 Fur Storage Clerk: [facility] External Provider IMG US PROCEDURES Final Result * (ABNORMAL) Lipid Panel, Standard (05/03/2024 11:30 AM EDT) Triglycerides 211(H) <150 mg/dL [facility] Comment:Desirable Triglyceri de: less than 150 mg/dLBorderline High Triglyceride 150-199 mg/dLHigh Triglyceride: 200-499 mg/dLVery High Triglyceride: greater than or equal to 5OO mg/dL Cholesterol 110 <200 mg/dL [facility] Comment:Desirable Cholestero l: less than 200 mg/dLBorderline High Cholesterol: 200-239 mg/dLHigh Cholesterol: greater than 239 mg/dL LDL Cholesterol Calculated 35 <100 mg/dL [facility] Comment:Desirable LDL: less than 100 mg/dLNear Optimal/Above Optimal LDL: 110- 129 mg/dLBorderline High LDL: 130-159 mg/dLHigh LDL: 160-189 mg/dLVery High LDL: greater than or equal to 190 mg/dL HDL Cholesterol 33(L) >40 mg/dL [facility] Comment:Desirable HDL: great er than 40 mg/dL Note: This HDL assay may give artificially low results in patients with liver disease. Blood Venous blood specimen / Unknown 05/03/2024 11:30 AM EDT 05/03/2024 1:01 PM EDT [facility] LAB BLOOD ORDERABLES Final Resul t [facility] [address] [place] [phone] from Last 3 Months or Most Recently Relevant to Health Maintenance Insurance [facility] [employer] (HMO D-SNP) [place] [id number] Care Teams Customer Service Manager Relationship Specialty Start Date End Date Constance Balderrama ANP [address] [place] [phone] PCP - General Family Medicine 02/10/24
== END 2025-08-27 06:22 | disposition home or self-care (01) ==
LOC: CF 06:21
PROVIDERS: Visit Provider Anesthesiology
DX: M47.27 Other spondylosis with radiculopathy, lumbosacral region (principal)
CPT/HCPCS: 64493; 64494; J2003; Q9967

== ENCOUNTER 2025-08-27 12:42 | Outpatient (AMB) | payer OTHER, SELFPAY ==
[2025-08-27 12:43] VITALS: BP 133/79; PULSE 79; RESP 16; O2SAT 97; BMI 30.6
--- NOTE | 2025-08-27 12:43 | A.OFFVIS_ITS ---
Vital Signs 08/27/25 12:43 08/27/25 13:23 Height 5 ft 3 in Weight 173 lb BMI 30.6 BP 133/79 124/82 Blood Pressure Location Lt brachial Lt brachial Position Sitting Sitting Respiration 16 16 Pulse 79 84 Pulse Source Pulse Oximeter Pulse Oximeter Pulse Oximetry (%) 97 97 Oxygen Delivery Method Room Air Room Air Intake Visit Reasons: Gautam Dx L3-L4-DR-L5 MBB Allergies No Known Allergies Allergy (Verified 07/26/25 11:22) [facility] Medical History (Updated 08/08/25 @ 11:55 by Lilia Shanks MD) Mood disorder Obstructive sleep apnea Chronic SI joint pain Type 2 diabetes, controlled, with neuropathy Elevated LDL cholesterol level Ascending aorta enlargement Aortic valve calcification Heart murmur Chronic low back pain with sciatica Lumbar degenerative disc disease Chronic painful diabetic neuropathy Osteopenia Anxiety Memory loss GERD (gastroesophageal reflux disease) Gout Sleep apnea Glaucoma Carpal tunnel syndrome Hemorrhoids Arthritis Neuropathy (~07/29/25) Hypothyroid Diabetes HTN (hypertension) Surgical History Hx of sinus surgery H/O eye surgery Hx of tubal ligation History of thyroid surgery Hx of cholecystectomy Family History Mother No problems noted. Father No problems noted. Social History Household Members: Family Housing: House Alcohol intake: former Patient Tobacco Use Status: Former Tobacco user e-Cigarette/Vaping Use: Never Used service: No Current occupational status: employed and disabled Cognitive needs: No Hearing needs: No Vision needs: No Physical Exam Vital Signs: Last Vital Signs Pulse 84 08/27/25 13:23 Resp 16 08/27/25 13:23 BP 124/82 08/27/25 13:23 Pulse Ox 97 08/27/25 13:23 Oxygen Delivery Method Room Air 08/27/25 13:23 BMI result Body Mass Index 30.6 Assessment & Plan Assessment & Plan (1) Lumbosacral spondylosis: Code(s): M47.817 - Spondylosis without myelopathy or radiculopathy, lumbosacral region Category: Medical Qualifiers: Spinal osteoarthritis complication: with radiculopathy Qualified Code(s): M47.27 - Other spondylosis with radiculopathy, lumbosacral region Plan Diagnostic medial branch block L3, L4, L5 bilateral ? ?Informed consent was explained to the patient. All questions were explained and? answered.? The patient was taken inside the operating room where she was positioned prone on the operating table. Time-out was performed delineating correct site, side, the nature of the procedure, patient's allergy, . All operating room staff was participating in OR time-out procedure. ? ? The lower back was prepped with ChloraPrep and draped with sterile utility towels.? C-arm was brought over the operating field and sq picture of L3-L4 and L5 vertebra were delineated on the screen.? Point of interest were delineated as confluence of superior articular processes of L4 and L5 vertebra bilaterally with corresponding transverse processes as well as confluence of superior articular process of S1 bilaterally with sacral ala.? The projection of the point of interest to the skin were injected with the small amount of local anesthetic lidocaine 2% mixed with ropivacaine 0.5% 1-1 approximately 1 cc.? After that 22 gauge 3.5 inch spinal needle was driven sequentially to the points of interest in tunnel vision fashion. After needles gently contacted the bone at the point of interests the needle was injected with small amount of the contrast.? The injection of the contrast did not demonstrate any intravascular or intrathecal spread of the contrast.? After that injection of the? ropivacaine 0.5%-1cc was performed at each needle location.?After that the needles were removed and Bandaids were applied. Orders: Orders FL guidance in treatment room Today M47.27 - Other spondylosis with radiculopathy, lumbosacral region Coding Level of Care Code Procedure Only Diagnoses Osteoarthritis of spine with radiculopathy, lumbosacral region M47.27 Spinal osteoarthritis complication: with radiculopathy
[2025-08-27 13:23] VITALS: BP 124/82; PULSE 84; RESP 16; O2SAT 97
--- OUTSIDE RECORDS SUMMARY | 2025-08-27 15:19 | XMS_ITS | Encounter Summary ---
Author Organization [employer] Address [address] [facility] 7t [place] [address] Care Team Providers Care Incident Commander Name Role Phone Diane George Primary Care Provider [phone] Reason for Visit * Reason Onset Date Comments Results 08/22/2025 Encounter Details Date Type Department Care Team ([facility] st Contact Info) Description 08/22/2025 Results Follow-Up [facility] [address] [place] [address] Diane George ANP [address] [place] [address] Culture, Urine, Routine Social History Tobacco Use [...] TC placed to the pt with S customer service sales associate #[id number] to inform that if the pt current [...] Description 09/12/2025 11:15 AM EDT Office Visit [facility] [address] [place] [address] Diane George ANP [address] [place] [address] 10/18/2025 10:45 AM EST Office Visit [address] [address] Ange Owen MD [address] [place] [address] documented as of this encounter Visit Diagnoses Not on filedocumented in this encounter Additional Health Concerns Assessment Noted Time PHQ-9 Depression Total Score: 9 02/14/20 25 3:51 PM EDT documented as of this encounter Care Teams Incident Commander Relationship Specialty Start Date End Date Diane George ANP [address] [place] [phone] PCP - General Family Medicine 02/10/24 documented as of this encounter
--- OUTSIDE RECORDS SUMMARY | 2025-08-27 15:19 | XMS_ITS | Encounter Summary ---
Author Organization [employer] Address [address] [facility] 7t [place] [address] Care Team Providers Care Sales Commissions Analyst Name Role Phone Diane George Primary Care Provider [phone] Reason for Visit * Reason Comments Med Refill Encounter Details Date Type Department Care Team ([facility] st Contact Info) Description 10/18/2024 Refill [facility] [address] [place] [address] Diane George ANP [address] [place] [address] Social History Tobacco Use Types Packs/Day Years [...] Description 09/12/2025 11:15 AM EDT Office Visit [facility] [address] [place] [phone] Diane George ANP [address] [place] [phone] 10/18/2025 10:45 AM EST Office Visit [address] [address] Ange Owen MD [address] [place] [address] documented as of this encounter Visit Diagnoses Not on filedocumented in this encounter Additional Health Concerns Assessment Noted Time PHQ-9 Depression Total Score: 9 07/27/20 24 9:59 AM EDT documented as of this encounter Care Teams Sales Commissions Analyst Relationship Specialty Start Date End Date Diane George ANP [address] [place] [phone] PCP - General Family Medicine 02/10/24 documented as of this encounter
--- OUTSIDE RECORDS SUMMARY | 2025-08-27 15:19 | XMS_ITS | Encounter Summary ---
Author Organization [employer] Address [address] [facility] [address] 7t [place] [address] Care Team Providers Care Car Mechanic Helper Name Role Phone Diane George Primary Care Provider [phone] Encounter Details Date Type Department Care Team (Late st Contact Info) Description 03/20/2025 Telephone [facility] [address] [place] [address] Diane George ANP [address] [place] [address] Social History Tobacco Use Types Packs/Day Years [...] 11:15 AM EDT Office Visit [facility] [address] [place] [address] Diane George ANP [address] [place] [address] 10/18/2025 10:45 AM EST Office Visit [address] [address] Ange Owen MD [address] [place] [address] documented as of this encounter Visit Diagnoses Not on filedocumented in this encounter Additional Health Concerns Assessment Noted Time PHQ-9 Depression Total Score: 9 02/14/20 25 3:51 PM EDT documented as of this encounter Care Teams Car Mechanic Helper Relationship Specialty Start Date End Date Diane George ANP [address] [place] [address] PCP - General Family Medicine 02/10/24 documented as of this encounter
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
--- OUTSIDE RECORDS SUMMARY | 2025-08-27 15:19 | XMS_ITS | Clinical Summary ---
Author Organization [facility] Address [address] [place] [address] Phone Care Team Providers Care Instrument Lens Grinder Apprentice Name Role Phone DorisDiane Ankur BARKER Primary Care Provider [phone] Allergies No known active allergies Medications ACETAMINOPHEN [...] 1:30 PM EDT Office Visit Orthopedic Surgery [facility] [address] [phone] Antony Ramirez DPM Hammer toe of left foot (Primary Dx); Dermatophytosis of nail; Metatarsalgia of both feet; Tinea pedis of both feet; Diabetic mononeuropathy simplex ([facility] V24, [facility] V28); Pain in toe of left foot; [...] 10/23/2025 1:15 PM EST Office Visit Orthopedic [facility] [address] [phone] Antony Ramirez DPM [address] [phone] Health Maintenance Due Date Last Done Comments [...] ID:[id number] Group ID:[id number] Type:Not on file Address: [facility] [address] [place] [phone] Care Teams Instrument Lens Grinder Apprentice Relationship Specialty Start Date End Date Diane George NP [address] [place] [phone] PCP - General 06/15/24
--- OUTSIDE RECORDS SUMMARY | 2025-08-27 15:19 | XMS_ITS | Encounter Summary ---
Author Organization [employer] Address 75 [facility] 7t [place] [address] Care Team Providers Care Computer Console Operator Name Role Phone Diane George Primary Care Provider [phone] Reason for Visit * Reason Comments Med Refill Encounter Details Date Type Department Care Team ([facility] st Contact Info) Description 02/04/2025 Refill [facility] [address] [place] [address] Diane George ANP 230 [place] [address] Social History Tobacco Use Types Packs/Day Years [...] Description 09/12/2025 11:15 AM EDT Office Visit [facility] [address] [place] [address] Diane George ANP [address] [place] [address] 10/18/2025 10:45 AM EST Office Visit [address] [address] Ange Owen MD [address] [place] [address] documented as of this encounter Visit Diagnoses Not on filedocumented in this encounter Additional Health Concerns Assessment Noted Time PHQ-9 Depression Total Score: 9 07/27/20 24 9:59 AM EDT documented as of this encounter Care Teams Computer Console Operator Relationship Specialty Start Date End Date Diane George ANP [address] [place] [address] PCP - General Family Medicine 02/10/24 documented as of this encounter
--- OUTSIDE RECORDS SUMMARY | 2025-08-27 15:19 | XMS_ITS | Encounter Summary ---
Author Organization [employer] Address [address] [facility] [address] 7t [place] [address] Care Team Providers Care Focus Puller Name Role Phone Diane George Primary Care Provider [phone] Encounter Details Date Type Department Care Team (Late st Contact Info) Description 07/16/[address] [facility] [address] [place], [place] [phone] Diane George ANP 230 [place] [address] Hypothyroidism, unspecified type Social History Tobacco Use [...] 09/12/2025 11:15 AM EDT Office Visit [facility] [address] [place] [address] Diane George ANP [address] [place] [address] 10/18/2025 10:45 AM EST Office Visit [facility] [address] [place] [address] Ange Owen MD [address] [place] [address] documented as of this encounter Visit Diagnoses Diagnosis Hypothyroidism, unspecified type documented in this encounter Additional Health Concerns Assessment Noted Time PHQ-9 Depression Total Score: 9 02/14/20 25 3:51 PM EDT documented as of this encounter Care Teams Focus Puller Relationship Specialty Start Date End Date Diane George ANP [address] [place] [phone] PCP - General Family Medicine 02/10/24 documented as of this encounter
--- OUTSIDE RECORDS SUMMARY | 2025-08-27 15:19 | XMS_ITS | Encounter Summary ---
Author Organization [employer] Address 75 [facility] 7t [place] [address] Care Team Providers Care Automotive Brake Technician Name Role Phone Diane George VASYL Primary Care Provider [phone] Reason for Visit * Reason Onset Date Comments New Patient 07/07/2023 Encounter Details Date Type Department Care Team (Late Contact Info) Description 07/07/2023 Telephone [facility] 230 [place] [address] Seth Barron MD 230 [place] [address] New Patient Social History Tobacco Use Types [...] been transfer over to wait list for [employer]. EFFECTIVE SINCE 04/14/2023 documented in this encounter Plan of Treatment Upcoming Encounters Date Type Department Care Team (Late st Contact Info) Description 09/12/2025 11:15 AM EDT Office Visit [address] [address] Diane George ANP 230 [place] [address] 10/18/2025 10:45 AM EST Office Visit [address] [phone] Ange Owen MD 230 [place] [address] documented as of this encounter Visit Diagnoses Not on filedocumented in this encounter Care Teams Automotive Brake Technician Relationship Specialty Start Date End Date Diane George ANP [address] [place] [address] PCP - General Family Medicine 02/10/24 documented as of this encounter
== END 2025-08-27 13:23 | disposition home or self-care (01) ==
LOC: HO.PMCPRC 12:42
PROVIDERS: PCP Nurse Practitioner Primary Care; Visit Provider Anesthesiology
DX: M47.27 Other spondylosis with radiculopathy, lumbosacral region (principal)
CPT/HCPCS: 64493; 64494

== ENCOUNTER 2025-09-03 13:03 | Outpatient (AMB) | payer OTHER, SELFPAY ==
--- NOTE | 2025-09-03 13:05 | MHC.OFFVIS ---
Vital Signs 09/03/25 13:09 Height 5 ft 3 in BP 128/79 Blood Pressure Location Lt brachial Position Sitting Pulse 81 Pulse Source Pulse Oximeter Pulse Oximetry (%) 98 Oxygen Delivery Method Room Air Intake Visit Reasons: s/p berta Dx L3-L4-DR-L5 MBB Profiling Machine Setup Operator Required: Yes Profiling Machine Setup Operator Language: Customer Services Coordinator Services: Profiling Machine Setup Operator Present Profiling Machine Setup Operator Name: Kailee #[id number] Information Interpreted: non-clinical & clinical Accompanied by: Self / Same As Patient Allergies No Known Allergies Allergy (Verified 09/03/25 13:10) HPI Comments Details: The patient is a 80-year-old female presenting with back pain due to arthritis. The patient underwent repeat bilateral L3, L4, L5 medial branch blocks, which resulted in complete and ongoing pain relief, which is one week so far. Patient is aware that dianostic injections are not intended for sustained for a longer term pain relief. Patient reported no pain six hours post-procedure and continues to experience relief with daily activities and sleep. The plan discussed includes proceeding with radiofrequency ablation for long-term pain management, which was previously considered in June and again reviewed today. The procedure aims to provide up to one year of pain relief for her spinal arthritis. Patient is not interested in peripheral nerve stimulation. She also has a history of glaucoma, which contraindicates the use of steroid injections. Denies any recent cough, cold, infection, fever or any significant changes in medical history since last office visit. Past Procedures: 08/27/25: Bilateral diagnostic L3-L4 DR L5 MBB-100% pain relief for >1 week 07/09/25: Bilateral diagnostic L3-L4 DR L5 MBB-70% pain relief for 6 hours PRIOR: Patient presents for 1st application of capsaicin 8% topical patch for diabetic neuropathy in bilateral feet and to follow up on recent xray results. Denies any recent cough, cold, infection, fever or other significant changes in medical history since last office visit. Her left-sided back pain is associated with arthritis and degenerative disc disease with multilevel central and neural foraminal spinal stenosis, exacerbating her known mild scoliosis. This chronic condition does not significantly radiate to her legs, and she has confirmed normal x-ray results for right knee and hips. She also suffers from chronic SI joint pain. Her neuropathy has been previously managed with topical agents, and she is waiting for arthritis-related knee injection approvals, though normal imaging presents challenges for authorization. Management of her diabetes continues, with recent evaluations indicating adequacy, though she requires careful consideration for future steroid injections due to her glaucoma. PRIOR: The patient is a 79-year-old female presenting with chronic left-sided low back pain and right leg radiculopathy. She has endured leg pain for approximately two years and back pain for one and a half years. The onset correlates with previous injections in the lower back and physical therapy at [facility], offering only temporary relief and no significant improvement in functioning. The patient's leg pain is more bothersome than back pain and affects her movement, with noticeable integrities between knee involvement and the ambulation difficulties. She has no history of hip or knee replacement surgery or prior back surgery. Her history of diabetes mellitus, currently well controlled with recent A1C at 6.0, with peripheral neuropathy contributing to nocturnal numbness and tingling in her feet. Glaucoma affects both eyes, leading to visual impairment, particularly in her right eye. Physical examination has revealed a shorter right leg, potentially affecting her spinal alignment, and consequently, her gait and balance. Previous conservative management with analgesics and topical treatments managed to provide minor relief, underscoring the complexity of her condition. - Chronic onset, over two years for leg pain, about one and a half years for back pain. - Quality: Persistent, radiating pain with numbness and tingling due to neuropathy. - Primary location: Left low back, radiating to the right leg, affecting the knee and both hips. - Exacerbating factors: Leaning forward, walking, climbing stairs, prolonged standing; induced after prior injections. - Relieving factors: Minimal relief from naproxen, Lyrica, Tylenol, and lidocaine patches. - Interference: Impacts walking, daily activities, and overall function; noted antalgic gait with limping. - Affect: Pain leads to impaired mobility and limitations in daily activities. - Analgesia: Medications include naproxen and Lyrica, with limited efficacy. Lidocaine patches provide slight relief. Pain level exceeds tolerable thresholds, affecting quality of life. - Adverse Effects: None explicitly reported during conversation. - Activities of Daily Living: Pain impacts mobility, exacerbated by improper gait and limb length discrepancy. - Aberrant Drug Related Behaviors: No aberrant behaviors reported or suspected. [facility] Medical History (Updated 09/03/25 @ 13:35 by LORENA Velasquez) Lumbosacral spondylosis Mood disorder Obstructive sleep apnea Chronic SI joint pain Type 2 diabetes, controlled, with neuropathy Elevated LDL cholesterol level Ascending aorta enlargement Aortic valve calcification Heart murmur Chronic low back pain with sciatica Lumbar degenerative disc disease Chronic painful diabetic neuropathy Osteopenia Anxiety Memory loss GERD (gastroesophageal reflux disease) Gout Sleep apnea Glaucoma Carpal tunnel syndrome Hemorrhoids Arthritis Neuropathy (~07/29/25) Hypothyroid Diabetes HTN (hypertension) Surgical History Hx of sinus surgery H/O eye surgery Hx of tubal ligation History of thyroid surgery Hx of cholecystectomy Family History Mother No problems noted. Father No problems noted. Social History Household Members: Family Housing: House Alcohol intake: former Patient Tobacco Use Status: Former Tobacco user e-Cigarette/Vaping Use: Never Used service: No Current occupational status: employed and disabled Cognitive needs: No Hearing needs: No Vision needs: No Review of Systems Const All systems reviewed & are unremarkable except as noted in HPI and below Physical Exam Vital Signs: Last Vital Signs Pulse 81 09/03/25 13:09 BP 128/79 09/03/25 13:09 Pulse Ox 98 09/03/25 13:09 Oxygen Delivery Method Room Air 09/03/25 13:09 General: Appears afebrile. Alert and oriented. Mood and affect appropriate. Follows and participates in conversation appropriately. Respiratory effort is unlabored. No cough. Able to transition from sit to stand unassisted. Uses cane with ambulation. Ambulates with slow, antalgic gait with limping. General: Yes no CVA tenderness Back/Spine/Pelvis Back: no CVA tenderness Cervical Spine: cervical ROM normal and No Cervical spine tenderness Thoracic/Lumbar Spine: thoracic and lumbar spine normal to inspection, No Thoracic/lumbar spine scar(s), Lasegue's sign negative, straight leg raise negative bilaterally, pain with thoraco-lumbar ROM (positive facet loading bilaterally), paraspinal muscle tenderness, thoraco-lumbar ROM limited, Thoracic/lumbar scoliosis, No thoracic spinal tenderness and No lumbar spinal tenderness Sacroiliac joints: bilaterally tender to palpation (mild) Results Reviewed Results Reviewed: MR SPINE LUMBAR without CONTRAST 07/10/24 at [facility] INDICATION: Lower back pain and right hip pain and bilateral feet for 1 year. TECHNIQUE: Unenhanced multiplanar, multisequence MR imaging of the lumbar spine. COMPARISON: None Available. FINDINGS: There is mild scoliosis as well as mild retrolisthesis at L3-4 and mild anterolisthesis at L4-5. The spine is in otherwise good alignment. Vertebral heights are well maintained. There are hemangiomas in vertebral bodies of T12 and L2. Bone marrow signal is otherwise within normal limits, and no suspicious osseous lesion is identified. Conus medullaris is unremarkable. Paraspinal soft tissues and visualized portions of the abdomen and pelvis are unremarkable. At L1-2 there is no significant disc herniation or protrusion. No central canal or neural foraminal stenosis is demonstrated. At L2-3 there is a small broad-based disc bulge and bilateral facet hypertrophy with thickening of the ligamentum flavum. No central canal or neuroforaminal stenosis is demonstrated. At L3-4 there is there is the aforementioned mild retrolisthesis as well as a small broad-based disc bulge, bilateral facet hypertrophy, and thickening of the ligamentum flavum. This causes mild central canal stenosis, but no neuroforaminal narrowing. At L4-5 there is the aforementioned mild anterolisthesis as well as a small broad-based disc bulge, bilateral facet hypertrophy, and thickening of the ligamentum flavum. This causes moderate central canal stenosis and mild right neuroforaminal narrowing. At L5-S1 there is a small broad-based disc bulge with an annular tear as well as bilateral facet hypertrophy. There is no central canal stenosis, but there is mild bilateral neuroforaminal narrowing IMPRESSION: 1. There is mild scoliosis as well as mild retrolisthesis at L3-4 and mild anterolisthesis at L4-5. 2. Multilevel degenerative disc and bony disease causing central canal and neuroforaminal stenosis as described. XR LUMBAR SPINE 4 OR MORE VIEWS 04/02/25 HISTORY: M53.3 - Sacrococcygeal disorders, not elsewhere classified COMPARISON: There are no prior studies for comparison. FINDINGS: AP, lateral, bilateral oblique, and coned down views of the lumbar spine are submitted. Osseous mineralization is normal. Five nonrib-bearing lumbar vertebral bodies are identified, maintaining normal height without evidence of fracture or spondylolisthesis. There is mild levoscoliosis. There is diffuse moderate degenerative disc disease with disc space narrowing and osteophyte formation. Findings are most prominent at the T12-L1, L4-5, and L5-S1 levels. There is osteoarthritis of the facet joints. There is no spondylolysis. There is calcification of the abdominal aorta. IMPRESSION: Mild levoscoliosis. Diffuse moderate degenerative disc disease as described. XR KNEE 3 VIEWS RIGHT 04/02/25 HISTORY: M25.561 - Pain in right knee COMPARISON: There are no prior studies available for comparison. FINDINGS: Three views of the right knee are submitted. Osseous mineralization is normal. There is no fracture or dislocation. The joint spaces are preserved. The soft tissues are unremarkable. There is no joint effusion. IMPRESSION: Unremarkable examination of the right knee. XR HIP 2 OR MORE VIEWS BILATERAL 04/02/25 HISTORY: M53.3 - Sacrococcygeal disorders, not elsewhere classified COMPARISON: There are no prior studies for comparison. FINDINGS: A single AP view of the pelvis and two views of each hip are submitted. Osseous mineralization is normal. There is no fracture or dislocation. The joint space is maintained. The soft tissues are unremarkable. IMPRESSION: Unremarkable examination of the bilateral hips. Assessment & Plan Assessment & Plan (1) Chronic SI joint pain: Code(s): M53.3 - Sacrococcygeal disorders, not elsewhere classified; G89.29 - Other chronic pain Category: Medical (2) Lumbar degenerative disc disease: Code(s): M51.369 - Other intervertebral disc degeneration, lumbar region without mention of lumbar back pain or lower extremity pain Category: Medical (3) Spondylosis of lumbosacral region without myelopathy or radiculopathy: Code(s): M47.817 - Spondylosis without myelopathy or radiculopathy, lumbosacral region Category: Medical Plan The plan is to proceed with radiofrequency ablation to manage the patient's spinal arthritis and provide long-term pain relief given positive response to 2 diagnostic lumbar MBB injections in June and this month with improved daily functioning and sleep. Schedule Bilateral L3-L4 DR L5 Medial Branch RFA with local, oral sedation and fluoroscopy. Expectations, risks and benefits were reviewed. Patient is aware she will be contacted to schedule this procedure. All questions and concerns have been answered and patient agreed with the plan. Follow up after lumbar RFA and sooner as needed. Patient was informed and verbally consented to the use of an ambient scribe for clinic note documentation during this visit. Coding Level of Care Code Est Pt Level 3 (02325) Complex EM visit Add On G2211 Diagnoses Chronic SI joint pain M53.3; G89.29 Lumbar degenerative disc disease M51.369 Spondylosis of lumbosacral region without myelopathy or radiculopathy M47.817
[2025-09-03 13:09] VITALS: BP 128/79; PULSE 81; O2SAT 98
--- OUTSIDE RECORDS SUMMARY | 2025-09-03 16:51 | XMS_ITS | Encounter Summary ---
Author Organization [employer] Address [address] [facility] [address] 7t [place] [address] Care Team Providers Care Cone Operator Name Role Phone Diane George Primary Care Provider [phone] Reason for Visit * Reason Comments Med Refill Encounter Details Date Type Department Care Team (Late st Contact Info) Description 08/29/2025 Refill [facility] [address] [place] [address] Diane George ANP [address] [place] [address] Hypertension associated with diabetes (HCC) Social History Tobacco Use Types Packs/Day Years [...] Description 09/12/2025 11:15 AM EDT Office Visit [facility] [address] [place] [address] Diane George ANP [address] [place] [address] 10/18/2025 10:45 AM EST Office Visit [address] [address] Ange Owen MD [address] [place] [address] documented as of this encounter Visit Diagnoses Diagnosis Hypertension associated with diabetes (HCC) Unspecified essential hypertension documented in this encounter Additional Health Concerns Assessment Noted Time PHQ-9 Depression Total Score: 9 02/14/20 25 3:51 PM EDT documented as of this encounter Care Teams Cone Operator Relationship Specialty Start Date End Date Diane George ANP [address] [place] [address] PCP - General Family Medicine 02/10/24 documented as of this encounter
--- OUTSIDE RECORDS SUMMARY | 2025-09-03 16:51 | XMS_ITS | Encounter Summary ---
Author Organization [employer] Address 75 [facility] 7t [place] [address] Care Team Providers Care Ribbon Blocker Name Role Phone Diane George Primary Care Provider [phone] Reason for Visit * Reason Comments Med Refill Encounter Details Date Type Department Care Team (Late st Contact Info) Description 09/01/2025 Refill [facility] 230 [place] [address] Diane George ANP 230 [place] [address] Radicular pain of lower extremity; Diabetic polyneuropathy associated with type 2 diabetes mellitus (HCC) Social History Tobacco Use Types Packs/Day [...] Description 09/12/2025 11:15 AM EDT Office Visit [facility] [address] [place] [address] Diane George ANP [address] [place] [address] 10/18/2025 10:45 AM EST Office Visit [address] [address] Ange Owen MD [address] [place] [address] documented as of this encounter Visit Diagnoses Diagnosis Radicular pain of lower extremity Diabetic polyneuropathy associated with type 2 diabetes mellitus (HCC) documented in this encounter Additional Health Concerns Assessment Noted Time PHQ-9 Depression Total Score: 9 02/14/20 25 3:51 PM EDT documented as of this encounter Care Teams Ribbon Blocker Relationship Specialty Start Date End Date Diane George ANP [address] [place] [address] PCP - General Family Medicine 02/10/24 documented as of this encounter
--- OUTSIDE RECORDS SUMMARY | 2025-09-03 16:51 | XMS_ITS | Encounter Summary ---
Author Organization [employer] Address 75 [facility] 7t [place] [address] Care Team Providers Care Data Entry Machine Operator Name Role Phone Diane George Primary Care Provider [phone] Reason for Visit * Reason Comments Med Refill Encounter Details Date Type Department Care Team ([facility] st Contact Info) Description 10/18/2024 Refill [facility] 230 [place] [address] Diane George ANP 230 [place] [address] Social History Tobacco Use Types Packs/Day Years [...] Description 09/12/2025 11:15 AM EDT Office Visit [facility] [address] [place] [address] Diane Goerge ANP [address] [place] [address] 10/18/2025 10:45 AM EST Office Visit [address] [address] Ange Owen MD [address] [place] [address] documented as of this encounter Visit Diagnoses Not on filedocumented in this encounter Additional Health Concerns Assessment Noted Time PHQ-9 Depression Total Score: 9 07/27/20 24 9:59 AM EDT documented as of this encounter Care Teams Data Entry Machine Operator Relationship Specialty Start Date End Date Diane George ANP [address] [place] [address] PCP - General Family Medicine 02/10/24 documented as of this encounter
--- OUTSIDE RECORDS SUMMARY | 2025-09-03 16:51 | XMS_ITS | Encounter Summary ---
Author Organization [employer] Address [address] [facility] [address] 7[address] [place] [address] Care Team Providers Care Belly Dancer Name Role Phone Diane George Primary Care Provider [phone] Encounter Details Date Type Department Care Team (Late st Contact Info) Description 03/20/[address] [facility] [address] [place] [address] Diane George ANP 230 [place] [address] Social History Tobacco Use Types Packs/Day Years [...] AM EDT Office Visit [facility] [address] [place] [phone] Diane George ANP [address] [place] [phone] 10/18/2025 10:45 AM EST Office Visit [address] [address] Ange Owen MD [address] [place] [address] documented as of this encounter Visit Diagnoses Not on filedocumented in this encounter Additional Health Concerns Assessment Noted Time PHQ-9 Depression Total Score: 9 02/14/20 25 3:51 PM EDT documented as of this encounter Care Teams Belly Dancer Relationship Specialty Start Date End Date Diane George ANP [address] [place] [phone] PCP - General Family Medicine 02/10/24 documented as of this encounter
--- OUTSIDE RECORDS SUMMARY | 2025-09-03 16:51 | XMS_ITS | Encounter Summary ---
Author Organization [employer] Address [address] [facility] 7t [place] [address] Care Team Providers Care Report Developer Name Role Phone Diane George Primary Care Provider [phone] Reason for Visit * Reason Comments Med Refill Encounter Details Date Type Department Care Team ([facility] st Contact Info) Description 02/04/2025 Refill [facility] [address] [place] [address] Diane George ANP [address] [place] [address] Social History Tobacco Use Types Packs/Day Years [...] 11:15 AM EDT Office Visit [facility] [address] [place] [phone] Diane George ANP [address] [place] [phone] 10/18/2025 10:45 AM EST Office Visit [address] [address] Ange Owen MD [address] [place] [phone] documented as of this encounter Visit Diagnoses Not on filedocumented in this encounter Additional Health Concerns Assessment Noted Time PHQ-9 Depression Total Score: 9 07/27/20 24 9:59 AM EDT documented as of this encounter Care Teams Report Developer Relationship Specialty Start Date End Date Diane George ANP [address] [place] [phone] PCP - General Family Medicine 02/10/24 documented as of this encounter
--- OUTSIDE RECORDS SUMMARY | 2025-09-03 16:51 | XMS_ITS | Encounter Summary ---
Author Organization [employer] Address [address] [facility] [address] 7[address] [place] [address] Care Team Providers Care Supervisor Metal Cans Name Role Phone Diane George Primary Care Provider [phone] Encounter Details Date Type Department Care Team (Late st Contact Info) Description 07/16/2025 Refill [facility] [address] [place], [place] [phone] Diane George ANP [address] [place] [address] Hypothyroidism, unspecified type Social History Tobacco Use [...] Description 09/12/2025 11:15 AM EDT Office Visit [facility] [address] [place] [phone] Diane George ANP [address] [place] [phone] 10/18/2025 10:45 AM EST Office Visit [facility] [address] [place] [address] Ange Owen MD [address] [place] [phone] documented as of this encounter Visit Diagnoses Diagnosis Hypothyroidism, unspecified type documented in this encounter Additional Health Concerns Assessment Noted Time PHQ-9 Depression Total Score: 9 02/14/20 25 3:51 PM EDT documented as of this encounter Care Teams Supervisor Metal Cans Relationship Specialty Start Date End Date Diane George ANP [address] [place] [phone] PCP - General Family Medicine 02/10/24 documented as of this encounter
--- OUTSIDE RECORDS SUMMARY | 2025-09-03 16:51 | XMS_ITS | Clinical Summary ---
Author Organization [employer] Address [address] [facility] 7t [place] [address] Care Team Providers Care Tool Setter Apprentice Name Role Phone Diane George Primary Care Provider [phone] Allergies No known active allergies Medications * [...] day. 90 tablet 3 07/27/20 24 Active traZODone (Desyrel) 50 MG tablet 50 mg. Active dilTIAZem CD (Cardizem CD) 240 MG [...] 02/28/20 25 Active Blood Glucose Monitoring Suppl (FreeStyle [...] MD. 30 patch 2 08/14/20 25 Active pravastatin (Pravachol) 40 MG tablet TAKE 1 TABLET BY MOUTH EVERY EVENING 90 tablet 08/29/20 25 Active metFORMIN (Glucophage) 500 MG tabletIndications :Hypertension associated with diabetes (HCC) TAKE 1 TABLET BY MOUTH EVERYDAY AT NOON 90 tablet 08/29/20 25 Active metFORMIN (Glucophage) 500 MG tabletIndications :Hypertension associated with diabetes (HCC) Take 1 tablet (500 mg) by mouth Once per day. Take w/ meal 90 tablet 3 07/27/20 24 025 Discontinued pravastatin (Pravachol) 40 MG tablet TAKE 1 TABLET BY MOUTH AT BEDTIME 90 tablet 1 01/15/20 25 025 Discontinued lidocaine (Lidoderm) 5 % patchIndications: Right leg pain Apply 1 patch topically Once per day. Remove & discard patch within 12 hours or as directed by MD. 30 patch 2 05/14/20 25 025 Discontinued cefpodoxime (Vantin) 200 MG tabletIndications :Left flank pain Take 1 tablet (200 mg) by mouth 2 times daily for 10 days. 20 tablet 08/20/20 25 025 Active Problems Problem Noted Date Diagnosed Date [...] connected with a psychiatrist and therapist in [place] (unable to provide agency name). Today, pt [...] EGFR 45 08/14/2025 No results found for: ZAYDAREA Lab Results Component Value Date ZAYDAREU 24.1 08/14/2025 Essential hypertension 04/30/2024 Overview (04/30/2024): [...] with psychopharmacology when she was living in [place]. Family moved to [place] from [place] in 2017. Further information needed to make diagnosis of bipolar disorder. Currently seeing a therapist with [facility] Psychiatry services will start soon due to having a conflict with her insurance ([employer]). During today's visit, clinician engaged pt with [...] is currently engaged in therapist services with [facility]. Psychiatry services were pending due to a conflict with her insurance ([employer]). Update from pt's granddaughter, [employer] will cover psychiatry services and appointment will [...] with psychopharmacology when she was living in [place]. Family moved to [place] from [place] in 2016. Further information needed to make diagnosis. PLAN: (check all that apply) Continue with current services (defined as services in the past 12 months) . Referral placed during last visit for psychiatry services with [facility]. Assessment & Plan (02/13/2024 4:32 PM [...] with psychopharmacology when she was living in [place]. She was accompanied by her granddaughter. Family moved to [place] from [place] in 2016. Further information needed to make diagnosis. PLAN: (check all that apply) New/Additional Services needed PCP management On-site non-integrated services Off-site services for Behavioral Health Integration Plan Internal Follow up with [facility] External OP therapy referral and OP psychiatry Referral Patient Self Plan Patient to utilize skills provided in intervention , Patient to reach out to [facility] team as needed, Patient to engage in OP therapy , and Patient to reach out to [facility] as needed. Discussed getting sooner appointments with [facility] ([facility]) for psychopharmacology. clinician will see patient during next physical if needed. Encounters Date Type Department Care Team Description 09/03/2025 Telephone [facility] [address] [place] [phone] Diane George, VASYL Med Refill 09/01/2025 Refill [facility] [address] [place] [address] Diane George ANP Radicular pain of lower extremity; Diabetic polyneuropathy associated with type 2 diabetes mellitus (HCC) 08/29/2025 Refill [facility] [place] [address] Diane George ANP Hypertension associated with diabetes (HCC) 08/22/2025 Results Follow-Up [facility] [place] [address] Diane George ANP Culture, Urine, Routine 08/20/2025 1:30 PM EDT Office Visit [facility] [place] [address] Diane George ANP Mild cognitive impairment (Primary Dx); DIANA (obstructive sleep apnea); Hypertension associated with diabetes (HCC); Encounter for immunization; Left flank pain 08/20/2025 Travel 08/19/2025 Telephone [facility] [place] [address] Diane George ANP chart prep 08/14/2025 Orders Only [facility] [place] [address] Diane George ANP 08/14/2025 Refill [facility] [place] [address] Diane George ANP Right leg pain 08/07/2025 Results Follow-Up [facility] [place] [address] Diane George ANP Comprehensive Metabolic Panel, CBC auto differential, Hepatitis A,B,C Profile 07/19/2025 9:30 AM EDT Office Visit [facility] [place] [address] Ange Owen MD Inverse psoriasis (Primary Dx); Psoriasis vulgaris 07/19/2025 Travel 07/17/2025 Telephone [facility] [address] Diane George ANP notes 07/16/2025 Refill [facility] [place] [address] Diane George ANP Hypothyroidism, unspecified type 07/12/2025 Refill [facility] [place] [address] Diane George ANP Hypothyroidism, unspecified type 07/01/2025 Telephone [facility] [address] [facility] [place] [address] Diane George ANP notes faxed to sleep study 06/28/2025 Telephone [facility] [address] [facility] [place] [address] Diane George ANP Durable Medical Equipment 06/28/2025 Orders Only [facility] [place] [address] Diane George ANP DIANA (obstructive sleep apnea) (Primary Dx); Nocturnal hypoxia 06/15/2025 Refill [facility] [place] [address] Diane George ANP Radicular pain of lower extremity; Diabetic polyneuropathy associated with type 2 diabetes mellitus ([facility]/HCC) from Last 3 Months Immunizations Immunization Administration [...] Description 09/12/2025 11:15 AM EDT Office Visit [facility] [address] [place] [phone] Diane eGorge ANP [address] [place] [phone] 10/18/2025 10:45 AM EST Office Visit [address] [place] [address] Ange Owen MD [address] [place] [address] Health Maintenance Due Date Last Done Comments [...] topic Meningococcal Vaccine Aged Out No wilmar gaincarlo eligible based on patient's age to complete this topic RSV under 20 months Aged Out No longe r eligible based on patient's age to complete this topic Rotavirus Vaccines Aged Out No longer eligible based on patient's age to complete this topic Procedures Procedure Name Priority Date/Time Associated Diagnosis Comments CULTURE, URINE, ROUTINE Routine 08/20/2025 2:44 PM EDT Left flank pain URINALYSIS, [...] with diabetes (HCC) CULTURE, URINE, ROUTINE Routine 08/14/2025 12:12 PM EDT HEPATITIS PANEL, GENERAL Routine 07/19/2025 10:06 AM EDT Psoriasis vulgaris CBC WITH AUTO DIFFERENTIAL Routine 07/19/2025 10:06 AM EDT Psoriasis vulgaris COMPREHENSIVE METABOLIC PANEL Routine 07/19/2025 10:06 AM EDT Psoriasis vulgaris AMB REFERRAL TO SLEEP MEDICINE Urgent 06/17/2025 DIANA (obstructive sleep apnea) LIPID PANEL, STANDARD Routine 05/03/2024 11:30 AM [...] 2:44 PM EDT 08/20/2025 4:20 PM EDT Comment:UACC Narrative [facility] - 08/22/2025 9:24 AM EDT Urine Culture Report Result Urine Culture 50,000 to 100,000 cfu/ml Urine Culture Mixed bacterial sheryl characteristic of Urine Culture urogenital contamination. Specimen Source: Urine clean catch [facility] LAB MICROBIOLOGY - GENERAL ORDER LUIS Final Result [facility] [address] [place] [phone] * (ABNORMAL) Urinalysis, Complete, with Reflex to Culture (08/14/2025 12:12 PM EDT) Color Urine Yellow [facility] Appearance Urine Clear [facility] PH 6.5 5.0 - 9.0 [facility] Glucose Urine UA Negative Negative mg/dL [facility] Urine Blood Negative Negative [facility] Specific [place] - Urine 1.015 1.005 - 1.025 [facility] Urine Protein Negative Neg-Trace mg/dL [facility] Urine Ketones Negative Negative mg/dL [facility] Nitrite Urine Negative Negative [facility] Leukocyte Esterase Urine Large (3+)(A) Negative [facility] RBC Urine 0-2 0 - 2 /HPF [facility] Urine WBC 21-50(A) 0 - 5 /HPF [facility] Urine Squamous Epithelial Cell >20 0 - 2 /HPF [facility] Urine Bacteria 3+ None Seen [facility] Hyaline Casts, Urine 0-2 0 - 2 /LPF [facility] 08/14/2025 12:1 2 PM EDT 08/14/2025 12:56 PM EDT Narrative [facility] - 08/14/2025 1:58 PM EDT Urine, Clean Catch Diane George ANP LAB URINE ORDERABLES Final Resul t Performing Organization Address [facility] Co de Phone Number [facility] [address] [place] [phone] * Albumin, Random Urine W/Creatinine (08/14/2025 12:12 PM EDT) Creatinine, Urine 115.78 mg/dL [facility] Microalbumin Urine 28.0 mg/L [facility] Microalbum Creatinine Ratio Ur 24.1 <30 ug/mg cr [facility] Comment:Albumin/Creatinine R atio Reference Ranges: Normal: < 30 ug/mg creatinine Microalbuminuria: 30 - 300 ug/mg creatinineClinical Albuminuria: > 300 ug/mg creatinine Urine 08/14/2025 12:1 2 PM EDT 08/14/2025 12:56 PM EDT Diane George ANP LAB URINE ORDERABLES Final Resul t Performing Organization Address [facility] Co de Phone Number [facility] [address] [place] [phone] * QuantiFERON??-TB Gold Plus, 1 Tube (08/14/2025 12:12 PM EDT) Quantiferon -TB Gold Plus, 1 Tube NEGATIVE NEGATIVE [facility] Comment:Negative test result . M. tuberculosis complexinfection unlikely. NIL 0.02 IU/mL [facility] MITOGEN-NIL 5.60 IU/mL [facility] TB1-NIL 0.06 IU/mL [facility] TB2-NIL 0.04 IU/mL [facility] Comment:The Nil tube value r [...] and CD8+cytotoxic T-lymphocytes.For additional information, please refer tohttps://education.Affymax/faq/OSK086(This link is being provided for informational/educational purposes only.)THIS TEST WAS PERFORMED AT:[facility] [place] [phone] LAGUERRE MD Blood Venous blood specimen / Unknown 08/14/2025 12:12 PM EDT 08/14/2025 1:11 PM EDT Ange Owen MD LAB BLOOD ORDERABLES Final Re sult [facility] [address] [place] [phone] * (ABNORMAL) Hemoglobin A1c (08/14/2025 12:12 PM EDT) Hemoglobin A1c 6.1(H) <6.0 % [facility] Comment:Hemoglobin A1C Refer ence Range Adults: 4.8 - 6.0 % Non diabetic: < 6.0 % Goal: < 7.0 %Additional Action Suggested: > 8.0 %Note: Hemoglobin A1c results are invalid for patients with abnormal amounts of HbF. Blood transfusions may impact the HbA1c concentration in the patient sample. Estimated Average Glucose 128 mg/dL [facility] Comment:eAG = Estimated ave rage glucose which is %A1C expressed asaverage glucose, using the formula of the [id number] Glucose study (ADAG), Diabetes Care, Vol.31,#8,Jun. 2007 Blood Venous blood specimen / Unknown 08/14/2025 12:12 PM EDT 08/14/2025 1:11 PM EDT us Diane George [facility] LAB BLOOD ORDERABLES Final Resul t Performing Organization Address [facility] de Phone Number [facility] [address] [place] [phone] * (ABNORMAL) Basic Metabolic Panel (08/14/2025 12:12 PM EDT) Sodium 143 135 - 145 mmol/L [facility] Potassium 4.5 3.3 - 5.1 mmol/L [facility] Chloride 105 96 - 108 mmol/L [facility] Carbon Dioxide 31(H) 22 - 29 mmol/L [facility] Anion Gap 12 12 - 20 [facility] Urea Nitrogen (BUN) 13 9 - 16 mg/dL [facility] Creatinine, Serum 1.17 0.5 - 1.4 mg/dL [facility] Estimated Glomerular Filt Rate 45 [facility] Comment:Chronic Kidney Disea se: Estimated GFR < 60 mL/min/1.05i2Xdktin Kidney Disease: Estimated GFR < 15 mL/min/1.73m2 Glucose 122(H) 60 - 115 mg/dL [facility] Calcium 9.5 8.4 - 10.2 mg/dL [facility] Blood Venous blood specimen / Unknown 08/14/2025 12:12 PM EDT 08/14/2025 1:11 PM EDT Diane George [facility] LAB BLOOD ORDERABLES Final Resul t Performing Organization Address [facility] Co de Phone Number [facility] [address] [place] [phone] * Hepatitis A,B,C Profile (07/19/2025 10:06 AM EDT) Pathologist [facility] Hepatitis A IgM Nonreactive Nonreactive [facility] Comment:IgM antibodies to MARTINEZ V not detected; does not exclude earlyacute or recovered HAV infection. ~Hepatitis B Surface Antibody NONREACTIVE Nonreactive [facility] Comment:Nonreactive: < 8.00 mIU/mL Hepatitis B Core Antibody Nonreactive Nonreactive [facility] Hepatitis C Antibody Nonreactive Nonreactive [facility] Comment:Antibodies to HCV no t detected; does not exclude early acuteHCV infection. Hepatitis B Surface Ag Negative Negative [facility] Blood Venous blood specimen / Unknown 07/19/2025 10:06 AM EDT 07/19/2025 11:13 AM EDT Ange Owen MD LAB BLOOD ORDERABLES Final Re sult [facility] [address] [place] [phone] * (ABNORMAL) CBC auto differential (07/19/2025 10:06 AM EDT) White Blood Count 6.2 4.8 - 10.8 X10*3/uL [facility] Red Blood Count 4.66 4.20 - 5.50 X10*6/uL [facility] Hemoglobin 13.6 12.0 - 16.0 g/dl [facility] Hematocrit 40.6 37.0 - 47.0 % [facility] Mean Corpuscular Volume 87.1 80.0 - 98.0 fL [facility] Mean Corpuscular Hemoglobin 29.2 27.0 - 33.0 pg [facility] Mean Corpuscular HGB Conc 33.5 31.0 - 35.0 g/dl [facility] Red Cell Distribution Width 13.8 11.0 - 16.0 % [facility] Platelet Count 195 160 - 400 X10*3/uL [facility] Mean Platelet Volume 11.2 9.4 - 12.3 fL [facility] Neutrophils Percent Auto 46.0 45 - 73 % [facility] Imm Gran Pct Auto 0.3 0.0 - 0.4 % [facility] Lymphocytes Percent Auto 35.6 20 - 40 % [facility] Monocytes Percent Auto 9.1 2 - 11 % [facility] Eosinophils Percent Auto 8.3(H) 0 - 4 % [facility] Basophils Percent Auto 0.7 0 - 2 % [facility] NRBC Pct Auto 0.0 0.0 - 0.2 /100WBC [facility] Neutrophils Absolute Auto 2.8 2.0 - 8.3 x10*3/uL [facility] Imm Gran Abs Auto 0.02 0.00 - 0.03 X10*3/uL [facility] Lymphocytes Absolute Auto 2.2 1.2 - 4.9 X10*3/uL [facility] Monocytes Absolute Auto 0.6 0.1 - 1.2 X10*3/uL [facility] Eosinophils Absolute Auto 0.5(H) 0.0 - 0.4 X10*3/uL [facility] Basophils Absolute Auto 0.0 0.0 - 0.2 X10*3/uL [facility] NRBC Abs Auto 0.000 0.0 - 0.012 X10*3/uL [facility] Blood Venous blood specimen / Unknown 07/19/2025 10:06 AM EDT 07/19/2025 11:13 AM EDT us Ange Owen MD LAB BLOOD ORDERABLES Final Re sult [facility] [address] [place] [phone] * (ABNORMAL) Comprehensive Metabolic Panel (07/19/2025 10:06 AM EDT) Sodium 141 135 - 145 mmol/L [facility] Potassium 4.4 3.3 - 5.1 mmol/L [facility] Chloride 103 96 - 108 mmol/L [facility] Carbon Dioxide 31(H) 22 - 29 mmol/L [facility] Anion Gap 11(L) 12 - 20 [facility] Urea Nitrogen (BUN) 19(H) 9 - 16 mg/dL [facility] Creatinine, Serum 1.24 0.5 - 1.4 mg/dL [facility] Estimated Glomerular Filt Rate 42 [facility] Comment:Chronic Kidney Disea se: Estimated GFR < 60 mL/min/1.39l3Ttsofz Kidney Disease: Estimated GFR < 15 mL/min/1.73m2 Glucose 98 60 - 115 mg/dL [facility] Calcium 9.1 8.4 - 10.2 mg/dL [facility] Bilirubin, Total 0.6 0.0 - 1.0 mg/dL [facility] Aspartate Amino Transferase 20 5 - 31 U/L [facility] Alanine Aminotransferase 14 0 - 31 U/L [facility] Total Protein 7.5 6.5 - 8.0 g/dL [facility] Albumin Level 4.2 3.5 - 5.0 g/dL [facility] Alkaline Phosphatase 79 39 - 117 U/L [facility] Blood Venous blood specimen / Unknown 07/19/2025 10:06 AM EDT 07/19/2025 11:13 AM EDT Ange Owen MD LAB BLOOD ORDERABLES Final Re sult [facility] [address] [place], [place] [phone] * Referral to Sleep Medicine (06/17/2025) Diane FALLON OUTPATIENT REFERRAL ORDERABLES F inal Result * (ABNORMAL) Lipid Panel, Standard (05/03/2024 11:30 AM EDT) Triglycerides 211(H) <150 mg/dL [facility] Comment:Desirable Triglyceri de: less than 150 mg/dLBorderline High Triglyceride 150-199 mg/dLHigh Triglyceride: 200-499 mg/dLVery High Triglyceride: greater than or equal to 5OO mg/dL Cholesterol 110 <200 mg/dL [facility] Comment:Desirable Cholestero l: less than 200 mg/dLBorderline High Cholesterol: 200-239 mg/dLHigh Cholesterol: greater than 239 mg/dL LDL Cholesterol Calculated 35 <100 mg/dL [facility] Comment:Desirable LDL: less than 100 mg/dLNear Optimal/Above Optimal LDL: 110- 129 mg/dLBorderline High LDL: 130-159 mg/dLHigh LDL: 160-189 mg/dLVery High LDL: greater than or equal to 190 mg/dL HDL Cholesterol 33(L) >40 mg/dL [facility] Comment:Desirable HDL: great er than 40 mg/dL Note: This HDL assay may give artificially low results in patients with liver disease. Blood Venous blood specimen / Unknown 05/03/2024 11:30 AM EDT 05/03/2024 1:01 PM EDT us Diane FALLON LAB BLOOD ORDERABLES Final Resul t [facility] [address] [place] [phone] from Last 3 Months or Most Recently Relevant to Health Maintenance Insurance [employer] (HMO D-SNP) DAVID MATTSON [id number] Care Teams Tool Setter Apprentice Relationship Specialty Start Date End Date Diane George ANP [address] [place] [address] PCP - General Family Medicine 02/10/24
--- OUTSIDE RECORDS SUMMARY | 2025-09-03 16:52 | XMS_ITS | Encounter Summary ---
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 EFFECTIVE SINCE 04/14/2023 documented in this encounter Plan of Treatment Upcoming Encounters Date Type Department Care Team (Late st Contact Info) Description 09/12/2025 11:15 AM EDT Office Visit [address] [address] Diane George ANP [address] [place] [address] 10/18/2025 10:45 AM EST Office Visit [address] [phone] Ange Owen MD [address] [place] [address] documented as of this encounter Visit Diagnoses Not on filedocumented in this encounter Care Teams Shop Mechanic Relationship Specialty Start Date End Date Diane George ANP [address] [place] [phone] PCP - General Family Medicine 02/10/24 documented as of this encounter
--- OUTSIDE RECORDS SUMMARY | 2025-09-03 16:52 | XMS_ITS | Encounter Summary ---
Author Organization [employer] Address [address] [facility] [address] [place] [address] Care Team Providers Care Social Worker Masters Name Role Phone Diane George Primary Care Provider [phone] Reason for Visit * Reason Onset Date Comments Med Refill 09/03/2025 Encounter Details Date Type Department Care Team ([facility] st Contact Info) Description 09/03/2025 Telephone [facility] [address] [place] [address] Diane George ANP [address] [place] [address] Med Refill Social History Tobacco Use Types [...] encounter Miscellaneous Notes * Telephone Encounter - Kira Hernandez LPN - 09/03/2025 9:24 AM EDT Medications were sent to [facility] on 08/29/25. * Telephone Encounter - Yojana Bone - 09/03/2025 9:19 AM EDT TC from pt requesting medication refill. Medications needing refill : - metFORMIN (Glucophage) 500 MG tablet - pravastatin (Pravachol) 40 MG tablet To be sent to: - [facility] - [place], [place] - [address] [place] [address] documented in this encounter Plan of Treatment Upcoming Encounters Date Type Department Care Team (Late st Contact Info) Description 09/12/2025 11:15 AM EDT Office Visit [facility] [address] [place] [address] Diane George ANP [address] [place] [address] 10/18/2025 10:45 AM EST Office Visit [facility] [address] [place] [address] Ange Owen MD [address] [place] [address] documented as of this encounter Visit Diagnoses Not on filedocumented in this encounter Additional Health Concerns Assessment Noted Time PHQ-9 Depression Total Score: 9 02/14/20 25 3:51 PM EDT documented as of this encounter Care Teams Social Worker Masters Relationship Specialty Start Date End Date Diane George ANP [address] [place] [address] PCP - General Family Medicine 02/10/24 documented as of this encounter
--- OUTSIDE RECORDS SUMMARY | 2025-09-03 16:52 | XMS_ITS | Clinical Summary ---
Author Organization [address] [facility] Address [address] [place] [address] Phone Care Team Providers Care Business Computers Teacher Name Role Phone DorisDiane Ankur BARKER Primary Care Provider [phone] Allergies No known active allergies Medications ACETAMINOPHEN [...] 1:30 PM EDT Office Visit Orthopedic Surgery [facility] [address] [phone] Antony Ramirez DPM Hammer toe of left foot (Primary Dx); Dermatophytosis of nail; Metatarsalgia of both feet; Tinea pedis of both feet; Diabetic mononeuropathy simplex ([facility] V24, [facility] V28); Pain in toe [...] 10/23/2025 1:15 PM EST Office Visit Orthopedic [facility] [address] [phone] Antony Ramirez DPM [address] [phone] Health Maintenance Due Date Last Done Comments [...] patient's age to complete this topic Insurance [facility] MEDICARE Member Subscriber Plan / Payer (Ef fective 2024-Present) Name:CHANTE ABDI Relation to Subscriber:Self Name:Chante Abdi Payer ID:[id number] Group ID:[id number] Type:Not on file Address: [facility] [address] [address] Care Teams Business Computers Teacher Relationship Specialty Start Date End Date Diane George NP [address] [place] [phone] PCP - General 06/15/24
== END 2025-09-03 13:57 | disposition home or self-care (01) ==
PROVIDERS: PCP Nurse Practitioner Primary Care; Visit Provider Nurse Practitioner Family
DX: M53.3 Sacrococcygeal disorders, not elsewhere classified (principal); G89.29 Other chronic pain; M51.369 Other intervertebral disc degeneration, lumbar region without mention of lumbar back pain or lower extremity pain; M47.817 Spondylosis without myelopathy or radiculopathy, lumbosacral region
CPT/HCPCS: 99213; G2211

== ENCOUNTER → 2025-09-03 13:03 | Outpatient (BNVA) | payer OTHER, SELFPAY | PROVIDERS: PCP Nurse Practitioner Primary Care; Visit Provider Nurse Practitioner Family | DX: M53.3 Sacrococcygeal disorders, not elsewhere classified (principal); M47.817 Spondylosis without myelopathy or radiculopathy, lumbosacral region; M51.369 Other intervertebral disc degeneration, lumbar region without mention of lumbar back pain or lower extremity pain; G89.29 Other chronic pain | CPT/HCPCS: 99212 ==

== ENCOUNTER 2025-10-15 07:38 | Outpatient (REF) | payer OTHER, SELFPAY ==
--- NOTE | ~2025-10-15 | FL_ITS ---
EXAMINATION: FLUOROSCOPY GUIDANCE FOR NEEDLE PLACEMENT CLINICAL INFORMATION: M47.817 - Spondylosis without myelopathy or radiculopathy, lumbosacral r... COMPARISON: Previous fluoroscopy exam most recent August 2025 TECHNIQUE: Fluoroscopy guidance provided for pain management procedure. FINDINGS: Images demonstrate electrode placement over the lower bilateral lumbar spine. See procedure note for detailed findings. FLUOROSCOPY TIME: 1.08 minutes DOSE AREA PRODUCT: [id number] mGy-cm2 FL/FL guidance in treatment room IMPRESSION: Fluoroscopy guidance for pain management procedure. Electronically signed by: Kenzie Gant MD 10/15/2025 03:16 PM RAN
--- OUTSIDE RECORDS SUMMARY | 2025-10-15 07:42 | XMS_ITS | Encounter Summary ---
Author Organization [employer] Address [address] [facility] [address] [place] [address] Care Team Providers Care Sales Executive Insurance Name Role Phone Diane George VASYL Primary Care Provider [phone] Reason for Visit * Reason Onset Date Comments New Patient 07/07/2023 Encounter Details Date Type Department Care Team (Late Contact Info) Description 07/07/2023 Telephone [facility] MED[facility]INE [address] [place] [address] Seth Barron MD [address] [place] [address] New Patient Social History Tobacco Use Types [...] been transfer over to wait list for [facility]. EFFECTIVE SINCE 04/14/2023 documented in this encounter Plan of Treatment Upcoming Encounters Date Type Department Care Team (Late st Contact Info) Description 10/18/2025 10:45 AM EST Office Visit [address] [phone] Ange Owen MD [address] [place] [address] 12/12/2025 10:00 AM EST Office Visit [address] [phone] Diane George ANP [address] [place] [address] documented as of this encounter Visit Diagnoses Not on filedocumented in this encounter Care Teams Sales Executive Insurance Relationship Specialty Start Date End Date Diane George ANP [address] [place] [id number] PCP - General Family Medicine 02/10/24 documented as of this encounter
--- OUTSIDE RECORDS SUMMARY | 2025-10-15 07:42 | XMS_ITS | Clinical Summary ---
Author Organization [employer] Address [address] [facility] [facility] [address] [place] [address] Care Team Providers Care Tail End Rider Name Role Phone Diane George Primary Care [...] LEFT EYE EVERY MORNING 12/16/19 24 Active traZODone (Desyrel) 50 MG tablet [...] BG 1-2 times daily 100 each 12 5 12:04 PM EST 05/14/20 25 026 Active levothyroxine (Synthroid, Levoxyl) 137 MCG tabletIndications [...] AT NOON 90 tablet 08/29/20 25 Active pregabalin (Lyrica) 150 MG capsuleIndication s:Radicular pain of lower extremity,Diabeti c polyneuropathy associated with type 2 diabetes mellitus (HCC) Take 1 capsule (150 mg) by mouth at bedtime. 30 capsule 2 5 12:04 PM EST 09/06/20 25 Active acetaminophen (Tylenol 8 Hour) 650 MG ER tabletIndications :Right hip pain Take 1 tablet (650 mg) by mouth every 8 (eight) hours if needed for mild pain or moderate pain. Do not crush, chew, or split. 120 tablet 2 09/12/20 25 Active Diclofenac Sodium (Voltaren) 1 % gelIndications:Sp inal stenosis of lumbar region with neurogenic claudication Apply up to 4x/d to affected joint(s) for pain/swellin g 100 g 2 09/12/20 25 Active triamterene-hydro chlorothiazide (Maxzide-25) 37.5-25 MG tabletIndications :Hypertension associated with diabetes (HCC) TAKE 1 TABLET BY MOUTH EVERYDAY AT NOON 90 tablet 1 10/03/20 25 Active triamterene-hydro chlorothiazide (Maxzide-25) 37.5-25 MG tabletIndications :Hypertension associated with diabetes (HCC) Take 1 tablet by mouth Once per day. 90 tablet 3 07/27/20 24 025 Discontinued Active Problems Problem Noted Date [...] connected with a psychiatrist and therapist in [place] (unable to provide agency name). Today, pt [...] EGFR 45 08/14/2025 No results found for: LILI Lab Results Component Value Date ROSITAU 24.1 08/14/2025 Essential hypertension 04/30/2024 Overview (04/30/2024): [...] with psychopharmacology when she was living in [place]. Family [place] in [place]. Further information needed to make diagnosis of bipolar disorder. Currently seeing a therapist with [facility] Psychiatry services will start soon due to having a conflict with her insurance ([facility]). During today's visit, clinician [...] is currently engaged in therapist services with [facility]. Psychiatry services were pending due to a conflict with her insurance ([facility]). Update from pt's granddaughter, [facility] will cover psychiatry services [...] with psychopharmacology when she was living in [place]. Family [place] in 2017. Further information needed to make [...] with psychopharmacology when she was living in [place]. She was accompanied by her granddaughter. Family [place] in 2017. Further information needed to make diagnosis. PLAN: (check all that apply) New/Additional Services needed PCP management On-site non-integrated services Off-site services for Behavioral Health Integration Plan Internal Follow up with [facility] External OP BH therapy referral and OP psychiatry Referral Patient Self Plan Patient to utilize skills provided in intervention , Patient to reach out to [facility] team as needed, Patient to engage in OP therapy , and Patient to reach out to [facility] as needed. Discussed getting sooner appointments with [facility] ([facility]) for psychopharmacology. clinician will see patient during next physical if needed. Encounters Date Type Department Care Team Description 10/03/2025 Refill [facility] [address] [place] [address] Diane George ANP Hypertension associated with diabetes (HCC) 09/16/2025 Telephone [facility] [address] [place] [address] Diane George ANP November recall 09/12/2025 11:15 AM EDT Office Visit [facility] [address] [place] [phone] Diane George ANP Spinal stenosis of lumbar region with neurogenic claudication (Primary Dx); Right hip pain; Hypertension associated with diabetes ([facility]); DIANA (obstructive sleep apnea); Diabetic polyneuropathy associated with type 2 diabetes mellitus ([facility]); Type 2 diabetes mellitus with diabetic polyneuropathy, without long-term current use of insulin ([facility]) 09/12/2025 Travel 09/10/2025 Telephone [facility] [address] [place] [phone] Diane George ANP chart prep 09/06/2025 Refill [facility] [address] [place] [phone] Diane George ANP Radicular pain of lower extremity; Diabetic polyneuropathy associated with type 2 diabetes mellitus ([facility]) 09/06/2025 Refill [facility] [address] [place] [address] Diane George ANP Radicular pain of lower extremity; Diabetic polyneuropathy associated with type 2 diabetes mellitus ([facility]) 09/03/2025 Telephone [facility] [address] [place] [phone] Diane George ANP Med Refill 09/01/2025 Refill [facility] [address] [place] [phone] Diane George ANP Radicular pain of lower extremity; Diabetic polyneuropathy associated with type 2 diabetes mellitus ([facility]) 08/29/2025 Refill [facility] [address] [place] [phone] Diane George ANP Hypertension associated with diabetes ([facility]) 08/22/2025 Results Follow-Up [address] [address] Diane George ANP Culture, Urine, Routine 08/20/2025 1:30 PM EDT Office Visit [facility] [address] [place] [phone] Diane George ANP Mild cognitive impairment (Primary Dx); DIANA (obstructive sleep apnea); Hypertension associated with diabetes ([facility]); Encounter for immunization; Left flank pain 08/20/2025 Travel 08/19/2025 Telephone [facility] [address] [place] [phone] Diane George ANP chart prep 08/14/2025 Orders Only [facility] [place] [address] Diane George ANP 08/14/2025 Refill [facility] [place] [address] Diane George ANP Right leg pain 08/07/2025 Results Follow-Up [address] [place] [address] Diane George ANP Comprehensive Metabolic Panel, CBC auto differential, Hepatitis A,B,C Profile 07/19/2025 9:30 AM EDT Office Visit [address] [place] [address] Ange Owen MD Inverse psoriasis (Primary Dx); Psoriasis vulgaris 07/19/2025 Travel 07/17/2025 Telephone [facility] [place] [address] Diane George ANP notes 07/16/2025 Refill [facility] [place] [address] Diane George ANP Hypothyroidism, unspecified type from Last 3 Months Immunizations Immunization Administration [...] Sign Reading Time Taken Comments Blood Pressure 110/70 09/12/2025 11:33 AM EDT Pulse 84 09/12/2025 11:33 AM EDT Temperature 36.7 C (98 F) 09/12/2025 11:33 AM EDT Respiratory Rate 14 09/12/2025 11:33 AM EDT Oxygen Saturation 96% 09/12/2025 11:33 AM EDT Inhaled Oxygen Concentration - - Weight 79.1 kg (174 lb 6 oz) 09/12/2025 11:33 AM EDT Height 152.4 cm (5') 09/12/2025 11:33 AM EDT Body Mass Index 34.06 09/12/2025 11:33 AM EDT Plan of Treatment Upcoming Encounters Date Type Department Care Team (Late st Contact Info) Description 10/18/2025 10:45 AM EST Office Visit [facility] [address] [place], [place] [phone] Ange Owen MD [address] [place] [address] 12/12/2025 10:00 AM EST Office Visit [facility] [address] [place], [place] [phone] Diane George ANP [address] [place] [address] Health Maintenance Due Date Last Done Comments Lipid Panel 05/03/2025 05/03/2024 COVID-19 Vaccine ( season) 2025 Depression Monitoring 08/15/2025 02/13/2025, 025 Alcohol/Substance Use Screening 12/04/2025 12/04/2024 Diabetes: Hemoglobin A1C 02/12/2026 025, 12/04/2024, 07/27/2024, Additional history exists SDOH Screening 05/14/2026 05/14/2025 Diabetes: Urine Protein Screening 08/14/2026 08/14/2025, 03/22/2025 Diabetes: Foot Exam 08/20/2026 08/20/2025, 08/20/2025, 05/03/2024, Additional history exists Tobacco Screening 09/12/2026 09/12/2025 Eye Exam 12/17/2026 12/17/2024 DTaP/Tdap/Td Vaccines (2 [...] on patient's age to complete this topic Goals Goal Patient Goal Type Associated Problems Recent Progress Patient-Stated? Author Help patients manage their type 2 diabetes Care Plan Help patients manage their type 2 diabetes No Diane George ANP Weekly blood pressure task Care Plan Weekly blood pressure task No Diane George ANP Help patients manage their type 2 diabetes Care Plan Help patients manage their type 2 diabetes No Diane George ANP Patient has chronic kidney disease Care Plan Patient has chronic kidney disease No Diane George ANP Help patients manage their type 2 diabetes Care Plan Help patients manage their type 2 diabetes No Diane George ANP Patient has diabetic neuropathy Care Plan Patient has diabetic neuropathy No Diane George ANP Weekly blood pressure task Care Plan Weekly blood pressure task No Diane George ANP Weekly blood pressure task Care Plan Weekly blood pressure task No Diane George ANP Patient has chronic kidney disease Care Plan Patient has chronic kidney disease No Diane George ANP Patient has chronic kidney disease Care Plan Patient has chronic kidney disease No Diane George ANP Patient has diabetic neuropathy Care Plan Patient has diabetic neuropathy No Diane George ANP Patient has diabetic neuropathy Care Plan Patient has diabetic neuropathy No Diane George ANP Procedures Procedure Name Priority Date/Time Associated Diagnosis [...] Routine 07/19/2025 10:06 AM EDT Psoriasis vulgaris LIPID PANEL, STANDARD Routine 05/03/2024 11:30 AM [...] 2:44 PM EDT 08/20/2025 4:20 PM EDT Comment:[facility] Narrative [facility] - 08/22/2025 9:24 AM EDT Urine Culture Report Result Urine Culture 50,000 to 100,000 cfu/ml Urine Culture Mixed bacterial sheryl characteristic of Urine Culture urogenital contamination. Specimen Source: Urine clean catch [facility] LAB MICROBIOLOGY - GENERAL ORDER LUIS Final Result [facility] [address] [place] [phone] * (ABNORMAL) Urinalysis, Complete, with Reflex to Culture (08/14/2025 12:12 PM EDT) Color Urine Yellow [facility] Appearance Urine Clear [facility] PH 6.5 5.0 - 9.0 [facility] Glucose Urine UA Negative Negative mg/dL [facility] Urine Blood Negative Negative [facility] Specific [place] - Urine 1.015 1.005 - 1.025 [facility] Urine Protein Negative Neg-Trace mg/dL [facility] Urine Ketones Negative Negative mg/dL [facility] Nitrite Urine Negative Negative [facility] Leukocyte Esterase Urine Large (3+)(A) Negative [facility] RBC Urine 0-2 0 - 2 /HPF [facility] Urine WBC 21-50(A) 0 - 5 /HPF [facility] Urine Squamous Epithelial Cell >20 0 - 2 /HPF [facility] Urine Bacteria 3+ None Seen [facility] Hyaline Casts, Urine 0-2 0 - 2 /LPF [facility] 08/14/2025 12:1 2 PM EDT 08/14/2025 12:56 PM EDT Narrative [facility] - 08/14/2025 1:58 PM EDT Urine, Clean Catch Diane George [facility] URINE ORDERABLES Final Resul t [facility] [address] [place] [address] [phone] * Albumin, Random Urine W/Creatinine (08/14/2025 12:12 PM EDT) Creatinine, Urine 115.78 mg/dL [facility] Microalbumin Urine 28.0 mg/L [facility] Microalbum Creatinine Ratio Ur 24.1 <30 ug/mg cr [facility] Comment:Albumin/Creatinine R atio Reference Ranges: Normal: < 30 ug/mg creatinine Microalbuminuria: 30 - 300 ug/mg creatinineClinical Albuminuria: > 300 ug/mg creatinine Urine 08/14/2025 12:1 2 PM EDT 08/14/2025 12:56 PM EDT us Diane FALLON LAB URINE ORDERABLES Final Resul t [facility] [address] [place] [phone] * QuantiFERON??-TB Gold Plus, 1 Tube (08/14/2025 12:12 PM EDT) [facility] Quantiferon -TB Gold Plus, 1 Tube NEGATIVE NEGATIVE [facility] Comment:Negative test result . M. tuberculosis complexinfection unlikely. NIL 0.02 IU/mL [facility] MITOGEN-NIL 5.60 IU/mL [facility] TB1-NIL 0.06 IU/mL [facility] TB2-NIL 0.04 IU/mL [facility] Comment:The Nil tube value r eflects [...] and CD8+cytotoxic T-lymphocytes.For additional information, please refer tohttps://[email or web address]/faq/RZQ832(This link is being provided for informational/educational purposes only.)THIS TEST WAS PERFORMED AT:[facility] [place] [phone] LAGUERRE MD Blood Venous blood specimen / Unknown 08/14/2025 12:12 PM EDT 08/14/2025 1:11 PM EDT Ange Owen MD LAB BLOOD ORDERABLES Final Re sult Performing Organization Address [facility] Co de Phone Number [facility] [address] [place] [address] [phone] * (ABNORMAL) Hemoglobin A1c (08/14/2025 12:12 PM EDT) Hemoglobin A1c 6.1(H) <6.0 % [facility] Comment:Hemoglobin A1C Refer ence Range Adults: 4.8 - 6.0 % Non diabetic: < 6.0 % Goal: < 7.0 %Additional Action Suggested: > 8.0 %Note: Hemoglobin A1c results are invalid for patients with abnormal amounts of HbF. Blood transfusions may impact the HbA1c concentration in the patient sample. Estimated Average Glucose 128 mg/dL [facility] Comment:eAG = Estimated ave rage glucose which is %A1C expressed asaverage glucose, using the formula of the C6H-CbsjnsyZgnykcu Glucose study (ADAG), Diabetes Care, Vol.31,#8,Jun. 2007 Blood Venous blood specimen / Unknown 08/14/2025 12:12 PM EDT 08/14/2025 1:11 PM EDT Diane FALLON LAB BLOOD ORDERABLES Final Resul t Performing Organization Address [facility] Co de Phone Number [facility] [address] [place] [address] [phone] * (ABNORMAL) Basic Metabolic Panel (08/14/2025 12:12 PM EDT) Sodium 143 135 - 145 mmol/L [facility] Potassium 4.5 3.3 - 5.1 mmol/L [facility] Chloride 105 96 - 108 mmol/L [facility] Carbon Dioxide 31(H) 22 - 29 mmol/L [facility] Anion Gap 12 12 - 20 [facility] Urea Nitrogen (BUN) 13 9 - 16 mg/dL [facility] Creatinine, Serum 1.17 0.5 - 1.4 mg/dL [facility] Estimated Glomerular Filt Rate 45 [facility] Comment:Chronic Kidney Disea se: Estimated GFR < 60 mL/min/1.80e3Sashgj Kidney Disease: Estimated GFR < 15 mL/min/1.73m2 Glucose 122(H) 60 - 115 mg/dL [facility] Calcium 9.5 8.4 - 10.2 mg/dL [facility] Blood Venous blood specimen / Unknown 08/14/2025 12:12 PM EDT 08/14/2025 1:11 PM EDT Diane FALLON LAB BLOOD ORDERABLES Final Resul t Performing Organization Address [facility] Co de Phone Number [facility] [address] [place] [phone] * Hepatitis A,B,C Profile (07/19/2025 10:06 AM EDT) Hepatitis A IgM Nonreactive Nonreactive [facility] Comment:IgM antibodies to MARTINEZ V not detected; does not exclude earlyacute or recovered HAV infection. ~Hepatitis B Surface Antibody NONREACTIVE Nonreactive [facility] Comment:Nonreactive: < 8.00 mIU/mL Hepatitis B Core Antibody Nonreactive Nonreactive [facility] Hepatitis C Antibody Nonreactive Nonreactive [facility] Comment:Antibodies to HCV no t detected; does not exclude early acuteHCV infection. Hepatitis B Surface Ag Negative Negative [facility] Blood Venous blood specimen / Unknown 07/19/2025 10:06 AM EDT 07/19/2025 11:13 AM EDT Ange Owen MD LAB BLOOD ORDERABLES Final Re sult Performing Organization Address [facility]/ZIP Co de Phone Number [facility] [address] [place] [phone] * (ABNORMAL) CBC auto differential (07/19/2025 10:06 AM EDT) White Blood Count 6.2 4.8 - 10.8 X10*3/uL [facility] Red Blood Count 4.66 4.20 - 5.50 X10*6/uL [facility] Hemoglobin 13.6 12.0 - 16.0 g/dl [facility] Hematocrit 40.6 37.0 - 47.0 % [facility] Mean Corpuscular Volume 87.1 80.0 - 98.0 fL [facility] Mean Corpuscular Hemoglobin 29.2 27.0 - 33.0 pg [facility] Mean Corpuscular HGB Conc 33.5 31.0 - 35.0 g/dl [facility] Red Cell Distribution Width 13.8 11.0 - 16.0 % [facility] Platelet Count 195 160 - 400 X10*3/uL [facility] Mean Platelet Volume 11.2 9.4 - 12.3 fL [facility] Neutrophils Percent Auto 46.0 45 - 73 % [facility] Imm Gran Pct Auto 0.3 0.0 - 0.4 % [facility] Lymphocytes Percent Auto 35.6 20 - 40 % [facility] Monocytes Percent Auto 9.1 2 - 11 % [facility] Eosinophils Percent Auto 8.3(H) 0 - 4 % [facility] Basophils Percent Auto 0.7 0 - 2 % [facility] NRBC Pct Auto 0.0 0.0 - 0.2 /100WBC [facility] Neutrophils Absolute Auto 2.8 2.0 - 8.3 x10*3/uL [facility] Imm Gran Abs Auto 0.02 0.00 - 0.03 X10*3/uL [facility] Lymphocytes Absolute Auto 2.2 1.2 - 4.9 X10*3/uL [facility] Monocytes Absolute Auto 0.6 0.1 - 1.2 X10*3/uL [facility] Eosinophils Absolute Auto 0.5(H) 0.0 - 0.4 X10*3/uL [facility] Basophils Absolute Auto 0.0 0.0 - 0.2 X10*3/uL [facility] NRBC Abs Auto 0.000 0.0 - 0.012 X10*3/uL [facility] Blood Venous blood specimen / Unknown 07/19/2025 10:06 AM EDT 07/19/2025 11:13 AM EDT Ange Owen MD LAB BLOOD ORDERABLES Final Re sult [facility] [address] [place] [phone] * (ABNORMAL) Comprehensive Metabolic Panel (07/19/2025 10:06 AM EDT) Sodium 141 135 - 145 mmol/L [facility] Potassium 4.4 3.3 - 5.1 mmol/L [facility] Chloride 103 96 - 108 mmol/L [facility] Carbon Dioxide 31(H) 22 - 29 mmol/L [facility] Anion Gap 11(L) 12 - 20 [facility] Urea Nitrogen (BUN) 19(H) 9 - 16 mg/dL [facility] Creatinine, Serum 1.24 0.5 - 1.4 mg/dL [facility] Estimated Glomerular Filt Rate 42 [facility] Comment:Chronic Kidney Disea se: Estimated GFR < 60 mL/min/1.94u2Rizhgr Kidney Disease: Estimated GFR < 15 mL/min/1.73m2 Glucose 98 60 - 115 mg/dL [facility] Calcium 9.1 8.4 - 10.2 mg/dL [facility] Bilirubin, Total 0.6 0.0 - 1.0 mg/dL [facility] Aspartate Amino Transferase 20 5 - 31 U/L [facility] Alanine Aminotransferase 14 0 - 31 U/L [facility] Total Protein 7.5 6.5 - 8.0 g/dL [facility] Albumin Level 4.2 3.5 - 5.0 g/dL [facility] Alkaline Phosphatase 79 39 - 117 U/L [facility] Blood Venous blood specimen / Unknown 07/19/2025 10:06 AM EDT 07/19/2025 11:13 AM EDT Ange Owen MD LAB BLOOD ORDERABLES Final Re sult Performing Organization Address [facility] Co de Phone Number [facility] [address] [place] [address] [phone] * (ABNORMAL) Lipid Panel, Standard (05/03/2024 11:30 AM EDT) Triglycerides 211(H) <150 mg/dL [facility] Comment:Desirable Triglyceri de: less than 150 mg/dLBorderline High Triglyceride 150-199 mg/dLHigh Triglyceride: 200-499 mg/dLVery High Triglyceride: greater than or equal to 5OO mg/dL Cholesterol 110 <200 mg/dL [facility] Comment:Desirable Cholestero l: less than 200 mg/dLBorderline High Cholesterol: 200-239 mg/dLHigh Cholesterol: greater than 239 mg/dL LDL Cholesterol Calculated 35 <100 mg/dL [facility] Comment:Desirable LDL: less than 100 mg/dLNear Optimal/Above Optimal LDL: 110- 129 mg/dLBorderline High LDL: 130-159 mg/dLHigh LDL: 160-189 mg/dLVery High LDL: greater than or equal to 190 mg/dL HDL Cholesterol 33(L) >40 mg/dL [facility] Comment:Desirable HDL: great er than 40 mg/dL Note: This HDL assay may give artificially low results in patients with liver disease. Blood Venous blood specimen / Unknown 05/03/2024 11:30 AM EDT 05/03/2024 1:01 PM EDT us Diane FALLON LAB BLOOD ORDERABLES Final Resul t Performing Organization Address [facility]/ZIP Co de Phone Number [facility] [address] [place] [address] [phone] from Last 3 Months or Most Recently Relevant to Health Maintenance Additional Health Concerns Active Problems Noted Date Diagnosed Date Help patients manage their type 2 diabetes 10/13 Weekly blood pressure task 10/13/2025 Help patients manage their type 2 diabetes 10/13 Patient has chronic kidney disease 10/13/2025 Help patients manage their type 2 diabetes 10/13 Patient has diabetic neuropathy 10/13/2025 Weekly blood pressure task 10/13/2025 Weekly blood pressure task 10/13/2025 Patient has chronic kidney disease 10/13/2025 Patient has chronic kidney disease 10/13/2025 Patient has diabetic neuropathy 10/13/2025 Patient has diabetic neuropathy 10/13/2025 Insurance [facility] [employer] (HMO D-SNP) Care Teams Tail End Rider Relationship Specialty Start Date End Date Diane George ANP [address] [place] [address] PCP - General Family Medicine 02/10/24
--- OUTSIDE RECORDS SUMMARY | 2025-10-15 07:42 | XMS_ITS | Encounter Summary ---
Author Organization [employer] Address [address] [place] [address] Care Team Providers Care Tool Mechanic Name Role Phone Diane George Primary Care Provider [phone] Encounter Details Date Type Department Care Team (Late st Contact Info) Description 03/20/2025 Telephone [facility] [address] [place] [address] Diane George ANP [address] [place] [address] Social History Tobacco Use Types Packs/Day Years [...] Description 10/18/2025 10:45 AM EST Office Visit [facility] [address] [place] [phone] Ange Owen MD [address] [place] [phone] 12/12/2025 10:00 AM EST Office Visit [facility] [address] [place] [phone] Diane George ANP [address] [place] [phone] documented as of this encounter Visit Diagnoses Not on filedocumented in this encounter Additional Health Concerns Assessment Noted Time PHQ-9 Depression Total Score: 9 02/14/20 25 3:51 PM EDT documented as of this encounter Care Teams Tool Mechanic Relationship Specialty Start Date End Date Diane George ANP [address] [place] [phone] PCP - General Family Medicine 02/10/24 documented as of this encounter
--- OUTSIDE RECORDS SUMMARY | 2025-10-15 07:42 | XMS_ITS | Encounter Summary ---
Author Organization [employer] Address [address] [facility] 7t [place] [address] Care Team Providers Care Cash Management Associate Name Role Phone Diane George Primary Care Provider [phone] Reason for Visit * Reason Comments Med Refill Encounter Details Date Type Department Care Team (Late st Contact Info) Description 09/06/2025 Refill [facility] [address] [place] [address] Diane George ANP [address] [place] [address] Radicular pain of lower extremity; Diabetic polyneuropathy [...] Description 10/18/2025 10:45 AM EST Office Visit [facility] [address] [place] [address] Ange Owen MD [address] [place] [address] 12/12/2025 10:00 AM EST Office Visit [address] [address] Diane George ANP [address] [place] [address] documented as of this encounter Visit Diagnoses Diagnosis Radicular pain of lower extremity Diabetic polyneuropathy associated with type 2 diabetes mellitus (HCC) documented in this encounter Additional Health Concerns Assessment Noted Time PHQ-9 Depression Total Score: 9 02/14/20 25 3:51 PM EDT documented as of this encounter Care Teams Cash Management Associate Relationship Specialty Start Date End Date Diane George ANP [address] [place] [address] PCP - General Family Medicine 02/10/24 documented as of this encounter
--- OUTSIDE RECORDS SUMMARY | 2025-10-15 07:42 | XMS_ITS | Encounter Summary ---
Author Organization [facility] [employer] Address [address] [facility] [address] 7t [place] [address] Care Team Providers Care Rail Project Engineer Name Role Phone Diane George Primary Care Provider [phone] Encounter Details Date Type Department Care Team (Late st Contact Info) Description 07/16/2025 Refill [facility] 230 [place], [place] [phone] Diane George ANP 230 [place] [address] Hypothyroidism, unspecified type Social History Tobacco Use [...] Description 10/18/2025 10:45 AM EST Office Visit [facility] [address] [place] [address] Ange Owen MD [address] [place] [address] 12/12/2025 10:00 AM EST Office Visit [facility] [address] [place] [address] Diane George ANP [address] [place] [address] documented as of this encounter Visit Diagnoses Diagnosis Hypothyroidism, unspecified type documented in this encounter Additional Health Concerns Assessment Noted Time PHQ-9 Depression Total Score: 9 02/14/20 25 3:51 PM EDT documented as of this encounter Care Teams Rail Project Engineer Relationship Specialty Start Date End Date Diane George ANP [address] [place] [address] PCP - General Family Medicine 02/10/24 documented as of this encounter
--- OUTSIDE RECORDS SUMMARY | 2025-10-15 07:42 | XMS_ITS | Encounter Summary ---
Author Organization [employer] Address [address] [facility] 7t [place] [address] Care Team Providers Care Railroad Wheels And Axles Inspector Name Role Phone Diane George Primary Care Provider [phone] Reason for Visit * Reason Onset Date Comments Med Refill 09/03/2025 Encounter Details Date Type Department Care Team ([facility] st Contact Info) Description 09/03/2025 Telephone [facility] 230 [place] [address] Diane George ANP 230 [place] [address] Med Refill Social History Tobacco Use Types [...] 9:24 AM EDT Medications were sent to [facility] on 08/29/25. * Telephone Encounter - Yojana Bone - 09/03/2025 9:19 AM EDT TC from pt requesting medication refill. Medications needing refill : - metFORMIN (Glucophage) 500 MG tablet - pravastatin (Pravachol) 40 MG tablet To be sent to: - [facility] - [place] - [address] [place] [address] documented in this encounter Plan of Treatment Upcoming Encounters Date Type Department Care Team (Late st Contact Info) Description 10/18/2025 10:45 AM EST Office Visit [facility] 230 [place] [address] Ange Owen MD 230 [place] [address] 12/12/2025 10:00 AM EST Office Visit [facility] [address] [place] [address] Diane George ANP [address] [place] [address] documented as of this encounter Visit Diagnoses Not on filedocumented in this encounter Additional Health Concerns Assessment Noted Time PHQ-9 Depression Total Score: 9 02/14/20 25 3:51 PM EDT documented as of this encounter Care Teams Railroad Wheels And Axles Inspector Relationship Specialty Start Date End Date Diane George ANP [address] [place] [address] PCP - General Family Medicine 02/10/24 documented as of this encounter
--- OUTSIDE RECORDS SUMMARY | 2025-10-15 07:42 | XMS_ITS | Encounter Summary ---
Author Organization [employer] Address [address] [facility] 7t [place] [address] Care Team Providers Care Finish Molder Name Role Phone Diane George Primary Care Provider [phone] Reason for Visit * Reason Comments Med Refill Encounter Details Date Type Department Care Team ([facility] st Contact Info) Description 10/18/2024 Refill [facility] [address] [place] [address] Diane George ANP [address] [place] [address] Social History Tobacco Use Types Packs/Day Years [...] 10/18/2025 10:45 AM EST Office Visit [facility] [address] [place] [address] Ange Owen MD [address] [place] [address] 12/12/2025 10:00 AM EST Office Visit [address] [address] Diane George ANP [address] [place] [address] documented as of this encounter Visit Diagnoses Not on filedocumented in this encounter Additional Health Concerns Assessment Noted Time PHQ-9 Depression Total Score: 9 07/27/20 24 9:59 AM EDT documented as of this encounter Care Teams Finish Molder Relationship Specialty Start Date End Date Diane George ANP [address] [place] [address] PCP - General Family Medicine 02/10/24 documented as of this encounter
--- OUTSIDE RECORDS SUMMARY | 2025-10-15 07:42 | XMS_ITS | Encounter Summary ---
Author Organization [employer] Address [address] [facility] 7t [place] [address] Care Team Providers Care Coin Box Collector Name Role Phone Diane George Primary Care Provider [phone] Reason for Visit * Reason Comments Med Refill Encounter Details Date Type Department Care Team ([facility] st Contact Info) Description 02/04/2025 Refill [facility] 230 [place] [address] Diane George ANP 230 [place] [address] Social History Tobacco Use Types Packs/Day Years [...] Description 10/18/2025 10:45 AM EST Office Visit [facility] [address] [place] [address] Ange Owen MD [address] [place] [address] 12/12/2025 10:00 AM EST Office Visit [facility] [address] [place] [address] Diane George ANP [address] [place] [address] documented as of this encounter Visit Diagnoses Not on filedocumented in this encounter Additional Health Concerns Assessment Noted Time PHQ-9 Depression Total Score: 9 07/27/20 24 9:59 AM EDT documented as of this encounter Care Teams Coin Box Collector Relationship Specialty Start Date End Date Diane George ANP [address] [place] [address] PCP - General Family Medicine 02/10/24 documented as of this encounter
--- OUTSIDE RECORDS SUMMARY | 2025-10-15 07:42 | XMS_ITS | Encounter Summary ---
Author Organization [employer] Address [address] [facility] 7t [place] [address] Care Team Providers Care Crew Person Name Role Phone Diane George Primary Care Provider [phone] Reason for Visit * Reason Comments Med Refill Encounter Details Date Type Department Care Team (Late st Contact Info) Description 09/01/2025 Refill [facility] 230 [place] [address] Diane George ANP 230 [place] [address] Radicular pain of lower extremity; Diabetic polyneuropathy [...] Description 10/18/2025 10:45 AM EST Office Visit [facility] [address] [place] [address] Ange Owen MD [address] [place] [address] 12/12/2025 10:00 AM EST Office Visit [address] [address] Diane George ANP [address] [place] [address] documented as of this encounter Visit Diagnoses Diagnosis Radicular pain of lower extremity Diabetic polyneuropathy associated with type 2 diabetes mellitus (HCC) documented in this encounter Additional Health Concerns Assessment Noted Time PHQ-9 Depression Total Score: 9 02/14/20 25 3:51 PM EDT documented as of this encounter Care Teams Crew Person Relationship Specialty Start Date End Date Diane George ANP [address] [place] [address] PCP - General Family Medicine 02/10/24 documented as of this encounter
--- OUTSIDE RECORDS SUMMARY | 2025-10-15 07:42 | XMS_ITS | Clinical Summary ---
Author Organization [facility] Address [address] [place] [address] Phone Care Team Providers Care Coloring Checker Name Role Phone DorisDiane Ankur BARKER Primary Care Provider [phone] Allergies No known active allergies Medications ACETAMINOPHEN [...] 1:30 PM EDT Office Visit Orthopedic Surgery [facility] [address] [phone] Antony Ramirez DPM Hammer toe of left foot (Primary Dx); Dermatophytosis of nail; Metatarsalgia of both feet; Tinea pedis of both feet; Diabetic mononeuropathy simplex ([facility] V24, [facility] V28); Pain in toe of [...] 10/23/2025 1:15 PM EST Office Visit Orthopedic [facility] [address] [phone] Antony Ramirez DPM [address] [phone] Health Maintenance Due Date Last Done Comments Diabetes: Annual Foot Exam 1955 Diabetes: Annual Retina Eye Exam 1955 Falls Risk Assessment 08/26/2024 Medicare Annual Wellness Visit 08/26/2024 Osteoporosis Screening (Bone Density Screening) 08/26/2024 Social Influencers of Health Screening 08/26/2024 Diabetes: Annual Urine Albumin-Creatinine Ratio (uACR) 10/09/2024 Depression Screening 11/14/2024 Diabetes: Blood Sugar Contro l Test (HGBA1C) 06/03/2025 12/04/2024, 07/27/2024 COVID-19 Vaccine (1 - 2024-2 6 season) 2025 Influenza Vaccine (#1) 2025 , [...] patient's age to complete this topic Insurance [facility] MEDIC[facility] Member Subscriber Plan / Payer (Ef fective 2024-Present) Name:CHANTE ABDI Relation to Subscriber:Self Name:Chante Abdi Payer ID:[id number] Group ID:[id number] Type:Not on file Address: [facility] [address] [id number] Care Teams Coloring Checker Relationship Specialty Start Date End Date Diane George NP [address] [place] [phone] PCP - General 06/15/24
== END 2025-10-15 07:39 | disposition home or self-care (01) ==
LOC: CF 07:38
PROVIDERS: Visit Provider Anesthesiology
DX: M47.817 Spondylosis without myelopathy or radiculopathy, lumbosacral region (principal)
CPT/HCPCS: 64635; 64636; J2003; J2795; J3301

== ENCOUNTER 2025-10-15 12:58 | Outpatient (AMB) | payer OTHER, SELFPAY ==
[2025-10-15 13:07] VITALS: BP 145/87; PULSE 83; RESP 16; O2SAT 97; BMI 30.6
--- NOTE | 2025-10-15 13:07 | A.OFFVIS_ITS ---
Vital Signs 10/15/25 13:07 10/15/25 14:13 Height 5 ft 3 in Weight 173 lb BMI 30.6 BP 145/87 H 158/89 H Blood Pressure Location Lt brachial Lt brachial Position Sitting Sitting Respiration 16 16 Pulse 83 85 Pulse Source Pulse Oximeter Pulse Oximeter Pulse Oximetry (%) 97 95 Oxygen Delivery Method Room Air Room Air Intake Visit Reasons: Bilateral L3-L4-DR L5 MB RFA/ oral sedation Allergies No Known Allergies Allergy (Verified 09/03/25 13:10) [facility] Medical History (Updated 10/15/25 @ 14:41 by Matteo Morrison MD) Lumbosacral spondylosis Mood disorder Obstructive sleep apnea Chronic SI joint pain Type 2 diabetes, controlled, with neuropathy Elevated LDL cholesterol level Ascending aorta enlargement Aortic valve calcification Heart murmur Chronic low back pain with sciatica Lumbar degenerative disc disease Chronic painful diabetic neuropathy Osteopenia Anxiety Memory loss GERD (gastroesophageal reflux disease) Gout Sleep apnea Glaucoma Carpal tunnel syndrome Hemorrhoids Arthritis Neuropathy (~07/29/25) Hypothyroid Diabetes HTN (hypertension) Surgical History Hx of sinus surgery H/O eye surgery Hx of tubal ligation History of thyroid surgery Hx of cholecystectomy Family History Mother No problems noted. Father No problems noted. Social History Household Members: Family Housing: House Alcohol intake: former Patient Tobacco Use Status: Former Tobacco user e-Cigarette/Vaping Use: Never Used service: No Current occupational status: employed and disabled Cognitive needs: No Hearing needs: No Vision needs: No Physical Exam Vital Signs: Last Vital Signs Pulse 85 10/15/25 14:13 Resp 16 10/15/25 14:13 BP 158/89 H 10/15/25 14:13 Pulse Ox 95 10/15/25 14:13 Oxygen Delivery Method Room Air 10/15/25 14:13 BMI result Body Mass Index 30.6 Assessment & Plan Assessment & Plan (1) Spondylosis of lumbar region without myelopathy or radiculopathy: Code(s): M47.816 - Spondylosis without myelopathy or radiculopathy, lumbar region Category: Medical Plan Radiofrequency ablation bilateral L3- L4- DRL5 medial branches. Preoperative diagnosis: Spondylosys lumbar without myelopathy or radiculopathy. Postoperative diagnosis: the same. Blood loss - 2 mL. Immediate complications were not observed. Informed consent was explained to the patient. All questions were explained and answered.? The patient was taken inside of the operating room where she was positioned prone on the operating table.? Time-out was performed delineating patient's name and date of , correct site, side, the nature of the procedure, patient's allergy..? All operating room staff was participating in OR time-out procedure.? I was able to maintain the verbal contact with the patient throughout the procedure using help of by lingual alternative energy technician.. Her lower back was prepped with ChloraPrep and draped with sterile towels.? C- arm was brought over the operating field and sq picture of L4-5 vertebra as and S1 vertebra were delineated on the screen. Points of interest were delineated as connection of superior articular process of L4 and L5 vertebra bilaterally with corresponding transverse processes as well as connection of the sacral alae bilaterally with superior articular process of S1.? The projection of the point of interest to the skin were injected with the small amount of local anesthetic lidocaine 2% 1-1.5 cc.? And after that 18 gauge 100 mm radiofrequency cannulas were driven to the point of interest in tunnel vision fashion. After needles gently contacted the bone at the point of interests the stylets were removed from the needles and electrodes were inserted into the needles.? Electrodes were connected to the radiofrequency machine and testing was performed for the patient's motor function.? There were no pathological motor response indicating stimulation of somatic nerves.? After that electrodes were removed and each needle was injected with small amount of mixture of lidocaine 2% one-to-one 1- 1.5 cc mixed with trace amount of Kenalog.? Upon completion of the injections the electrodes were reinserted and energy of 89 degree centigrade for 90 seconds was applied to each needle 1st on the right side and then on the leftt.??Upon completion of the injections needles were removed and sterile dressings were applied patient was taken outside of the operating room to recovery room. Orders: Orders FL guidance in treatment room Today M47.817 - Spondylosis without myelopathy or radiculopathy, lumbosacral region Medications: New oxycodone take 30 minutes prior to arrival for procedure 10 mg PO ONCE PRN 1 tab 0RF pain diazepam (Valium) please take 30minutes prior to arrival for procedure 5 mg PO ONCE PRN 1 tab 0RF sleep Coding Level of Care Code Procedure Only Diagnoses Spondylosis of lumbar region without myelopathy or radiculopathy M47.816
[2025-10-15 14:13] VITALS: BP 158/89; PULSE 85; RESP 16; O2SAT 95
== END 2025-10-15 14:13 | disposition home or self-care (01) ==
LOC: HO.PMCPRC 12:58
PROVIDERS: PCP Nurse Practitioner Primary Care; Visit Provider Anesthesiology
DX: M47.816 Spondylosis without myelopathy or radiculopathy, lumbar region (principal)
CPT/HCPCS: 64635; 64636